=== PATIENT | female | born 1940 | race Caucasian/White ===

== ENCOUNTER → 2016-04-27 | Outpatient (CLI) | payer MEDICARE, OTHER ==
[2016-04-27 13:39] LABS: MEAN CORPUSCULAR HEMOGLOBIN 30.2 pg (27.0-33.0); MEAN CORPUSCULAR HGB CONC 33.1 g/dl (32.0-36.5); MEAN CORPUSCULAR VOLUME 91.4 fl (80.0-96.0); RED CELL DISTRIBUTION WIDTH 13.1 % (11.5-14.5); WHITE BLOOD COUNT 8.5 K/mm3 (4.0-10.0)
[2016-04-27 13:40] LABS: CREATININE FOR GFR 1.9 MG/DL (0.55-1.02); GLOMERULAR FILTRATION RATE 27.3 (>39)
[2016-04-27 13:47] LABS: POTASSIUM SERUM 5.7 MEQ/L (3.5-5.1)
== END ==
LOC: M WUC 09:16
PROVIDERS: ATTEND Family Medicine
DX: D64.9 Anemia, unspecified (principal); E11.3213 Type 2 diabetes mellitus with mild nonproliferative diabetic retinopathy with macular edema, bilateral; E78.5 Hyperlipidemia, unspecified

== ENCOUNTER → 2016-05-04 | Outpatient (CLI) | payer MEDICARE, OTHER ==
[2016-05-04 17:06] LABS: CALCIUM LEVEL 8.8 MG/DL (8.8-10.2); CREATININE FOR GFR 1.92 MG/DL (0.55-1.02)
[2016-05-04 17:09] LABS: POTASSIUM SERUM 5.2 MEQ/L (3.5-5.1)
== END ==
LOC: M WUC 11:54
PROVIDERS: ATTEND Family Medicine
DX: E87.5 Hyperkalemia (principal)

== ENCOUNTER → 2016-05-10 | Outpatient (REF) | payer MEDICARE, OTHER ==
[2016-05-10 19:17] LABS: PERCENT SATURATION 23.5 % (13.2-37.4)
== END ==
LOC: M LAB REF 16:59
PROVIDERS: ATTEND Internal Medicine Nephrology
DX: N18.9 Chronic kidney disease, unspecified (principal); D63.1 Anemia in chronic kidney disease

== ENCOUNTER → 2016-07-17 | Outpatient (CLI) | payer MEDICARE, OTHER ==
--- NOTE | 2016-07-19 13:25 | DEXA ---
AP SPINE L1 - L4 1.213 0.1 1.1 LT FEMUR TOTAL 1.142 1.1 2.4 RT FEMUR TOTAL 0.983 -0.2 1.1 TOTAL BODY TOTAL OTHER DUAL FEMUR FRAX* ASSESSMENT Risk factors: None. 10 year probability of fracture Major osteoporotic fracture 10.1 % Hip fracture 1.7 % COMMENTS: Normal bone densitometry of the spine. Normal bone densitometry of the left hip. There is low bone density of the right hip. The density of the spine has increased 18.0% since the initial exam on 2005. The spine density has increased 4.2% since the most recent exam on 09/01/2010. The density of the left hip has decreased 4.0% since initial exam on 01/30/2006. The density of the left hip has decreased 4.7% since the most recent exam on . The density of the right hip has decreased 7.4% since the initial exam on 2005. The density of the right hip has decreased 7.2% since the most recent exam on . FOLLOW-UP: Recommendation for the next bone density exam: 2 years. NANCIE
== END ==
LOC: M WHC 13:28
PROVIDERS: ATTEND Family Medicine
DX: M81.0 Age-related osteoporosis without current pathological fracture (principal)

== ENCOUNTER 2016-08-09 13:45 | Outpatient (RCR) | payer MEDICARE, OTHER | END 2016-08-13 | LOC: M PT 13:45 | PROVIDERS: ATTEND Orthopaedic Surgery | DX: Z51.89 Encounter for other specified aftercare (principal); M17.9 Osteoarthritis of knee, unspecified | CPT/HCPCS: 97110; 97161; G8978; G8979 ==

== ENCOUNTER → 2016-08-21 | Outpatient (REF) | payer MEDICARE, OTHER | LOC: M LABDRAW1 12:54 | PROVIDERS: ATTEND Family Medicine | DX: E11.319 Type 2 diabetes mellitus with unspecified diabetic retinopathy without macular edema (principal) ==

== ENCOUNTER → 2016-09-04 | Outpatient (CLI) | payer MEDICARE, OTHER ==
--- NOTE | 2016-09-04 11:17 | REP ---
Clinical: Cough . Comparison: None . Technique: PA and lateral. Findings: The mediastinum and cardiac silhouette are normal. The lung quiles are clear and without acute consolidation, effusion, or pneumothorax. The skeletal structures are intact and normal. Impression: 1. No acute cardiopulmonary process. Signed by Daniel Morales MD 09/04/2016 11:08 A
== END ==
LOC: M WUC 10:42
PROVIDERS: ATTEND Family Medicine
DX: R05 Cough (principal)

== ENCOUNTER 2016-09-06 13:32 | Outpatient (RCR) | payer MEDICARE, OTHER | END 2016-09-13 | LOC: M PT 13:32 | PROVIDERS: ATTEND Orthopaedic Surgery | DX: Z51.89 Encounter for other specified aftercare (principal); M25.562 Pain in left knee | CPT/HCPCS: 97110; G8978; G8979 ==

== ENCOUNTER → 2016-11-22 | Outpatient (CLI) | payer MEDICARE, OTHER ==
[~2016-11-22] MED LIST: AMLO5TAB2 PO; ASPI1TAB PO; ATEN50TA2 PO; CALC1CAP31 PO; CHLO25TA PO; CRES10TA32 PO; FERR325T3 PO; GLIP10TA6 PO; IRBE300T10 PO; LABE10TAB PO; LORA10TA2 PO; ONGL10TA3 PO; PIOG15TA3 PO; VITATAB74 PO
== END ==
LOC: M WUC 13:53
PROVIDERS: ATTEND Family Medicine
DX: E11.319 Type 2 diabetes mellitus with unspecified diabetic retinopathy without macular edema (principal)

== ENCOUNTER 2016-12-11 06:43 | Outpatient (CLI) | payer MEDICARE, OTHER ==
[~2016-12-11] VITALS: Ht 154.9 cm; Wt 90.3 kg
[2016-12-11] MEDS ORDERED: PROPOFOL 500 MG/50 ML VIAL As Ordered ONE (07:00)
[2016-12-11] MEDS ORDERED: LIDOCAINE 2% INJ 100 MG/5 ML SDV (FOR ANES.) As Ordered ONE (07:06)
[2016-12-11] MEDS ORDERED: NS 1,000 ML IV ONE (07:30)
--- NOTE | 2016-12-11 07:51 | ROOR ---
Patient Name: Courtney Birmingham Procedure Date: 12/11/2016 7:31 AM Date of : 1940 Age: 76 Room: [facility] Gender: Female Note Status: Finalized Procedure: Upper GI endoscopy + Small bowel bx. Indications: Iron deficiency anemia Providers: Andrea Lr MD Referring MD: Kristyn Martin MD Requesting Provider: Medicines: Monitored Anesthesia Care Complications: No immediate complications. Procedure: Pre-Anesthesia Assessment: - The heart rate, respiratory rate, oxygen saturations, blood pressure, adequacy of pulmonary ventilation, and response to care were monitored throughout the procedure. The Endoscope was introduced through the mouth, and advanced to the second part of duodenum. The upper GI endoscopy was accomplished without difficulty. The patient tolerated the procedure well. Findings: The Z-line was regular and was found 37 cm from the incisors. A small hiatal hernia was present. No other significant abnormalities were identified in a careful examination of the stomach. The exam of the duodenum was otherwise normal. Biopsies for histology were taken with a cold forceps in the first portion of the duodenum for evaluation of celiac disease. Impression: - Z-line regular, 37 cm from the incisors. - Small hiatal hernia. - Biopsies were taken with a cold forceps for evaluation of celiac disease. - The examination was otherwise normal. Recommendation: - Patient has a contact number available for emergencies. The signs and symptoms of potential delayed complications were discussed with the patient. Return to normal activities tomorrow. Written discharge instructions were provided to the patient. - High fiber diet. - Discharge patient to home. - Continue present medications. - Await pathology results. - Telephone GI clinic for pathology results in 1 week. - Return to referring physician. - The findings and recommendations were discussed with the patient's family. Andrea Lr MD Andrea Lr MD 12/11/2016 7:51:09 AM This report has been signed electronically. Number of Addenda: 0 Note Initiated On: 12/11/2016 7:31 AM Estimated Blood Loss: Estimated blood loss: none.
--- NOTE | 2016-12-11 08:07 | ROOR ---
Patient Name: Courtney Birmingham Procedure Date: 12/11/2016 7:32 AM Date of : 1940 Age: 76 Room: [facility] Gender: Female Note Status: Finalized Procedure: Total Colonoscopy to Cecum Indications: Unexplained iron deficiency anemia Providers: Andrea Lr MD Referring MD: Kristyn Martin MD Requesting Provider: Medicines: Monitored Anesthesia Care Complications: No immediate complications. Procedure: Pre-Anesthesia Assessment: - The heart rate, respiratory rate, oxygen saturations, blood pressure, adequacy of pulmonary ventilation, and response to care were monitored throughout the procedure. The Colonoscope was introduced through the anus and advanced to the cecum, identified by appendiceal orifice and ileocecal valve. The colonoscopy was performed without difficulty. The patient tolerated the procedure well. The quality of the bowel preparation was excellent. Findings: The perianal and digital rectal examinations were normal. Non-bleeding internal hemorrhoids were found during retroflexion. The hemorrhoids were small and Grade I (internal hemorrhoids that do not prolapse). Scattered small-mouthed diverticula were found in the recto-sigmoid colon, sigmoid colon and descending colon. The exam was otherwise without abnormality on direct and retroflexion views. Impression: - Non-bleeding internal hemorrhoids. - Diverticulosis in the recto-sigmoid colon, in the sigmoid colon and in the descending colon. - The examination was otherwise normal on direct and retroflexion views. - No specimens collected. - The exam was otherwise normal to the cecum. Recommendation: - Patient has a contact number available for emergencies. The signs and symptoms of potential delayed complications were discussed with the patient. Return to normal activities tomorrow. Written discharge instructions were provided to the patient. - High fiber diet. - Discharge patient to home. - Continue present medications. - Repeat colonoscopy for symptoms only. - Return to referring physician. - The findings and recommendations were discussed with the patient's family. Andrea Lr MD Andrea Lr MD 12/11/2016 8:07:35 AM This report has been signed electronically. Number of Addenda: 0 Note Initiated On: 12/11/2016 7:32 AM Estimated Blood Loss: Estimated blood loss: none.
[2016-12-11 08:36] VITALS: BP 147/65
== END 2016-12-11 08:38 | disposition home or self-care (01) ==
LOC: M OPP 06:43
PROVIDERS: ATTEND Internal Medicine Gastroenterology
DX: D50.9 Iron deficiency anemia, unspecified (principal); K64.0 First degree hemorrhoids; K57.30 Diverticulosis of large intestine without perforation or abscess without bleeding; K44.9 Diaphragmatic hernia without obstruction or gangrene; R00.0 Tachycardia, unspecified; I12.9 Hypertensive chronic kidney disease with stage 1 through stage 4 chronic kidney disease, or unspecified chronic kidney disease; E78.5 Hyperlipidemia, unspecified; E11.9 Type 2 diabetes mellitus without complications; M19.90 Unspecified osteoarthritis, unspecified site; Z78.0 Asymptomatic menopausal state; N18.3 Chronic kidney disease, stage 3 (moderate); Z79.82 Long term (current) use of aspirin; Z79.899 Other long term (current) drug therapy; Z79.84 Long term (current) use of oral hypoglycemic drugs; Z80.0 Family history of malignant neoplasm of digestive organs; Z80.3 Family history of malignant neoplasm of breast

== ENCOUNTER → 2016-12-22 | Outpatient (REF) | payer MEDICARE, OTHER ==
[2016-12-22 14:36] LABS: PERCENT SATURATION 20.1 % (13.2-45.0)
== END ==
LOC: M LAB REF 12:47
PROVIDERS: ATTEND Internal Medicine Nephrology
DX: D64.9 Anemia, unspecified (principal)

== ENCOUNTER → 2017-01-15 | Outpatient (CLI) | payer MEDICARE, OTHER ==
[2017-01-15 16:00] LABS: MEAN CORPUSCULAR HEMOGLOBIN 31.2 pg (27.0-33.0); MEAN CORPUSCULAR HGB CONC 32.5 g/dl (32.0-36.5); MEAN CORPUSCULAR VOLUME 96.1 fl (80.0-96.0); RED CELL DISTRIBUTION WIDTH 12.7 % (11.5-14.5); WHITE BLOOD COUNT 12.3 10^3/uL (4.0-10.0)
== END ==
LOC: M WUC 14:42
PROVIDERS: ATTEND Family Medicine
DX: R53.82 Chronic fatigue, unspecified (principal)

== ENCOUNTER → 2017-01-15 | Outpatient (REF) | payer MEDICARE, OTHER | LOC: M LAB REF 14:46 | PROVIDERS: ATTEND Internal Medicine Endocrinology, Diabetes & Metabolism | DX: E04.0 Nontoxic diffuse goiter (principal) ==

== ENCOUNTER → 2017-08-15 | Outpatient (REF) | payer MEDICARE, OTHER ==
[2017-08-15 20:17] LABS: FERRITIN 88 NG/ML (8-252); IRON (FE) 31 UG/DL (50-170); PERCENT SATURATION 11.9 % (13.2-45.0); TOTAL IRON BINDING CAPACITY 260 UG/DL (250-450); TOTAL PROTEIN 6.9 GM/DL (6.4-8.2)
[2017-08-16 06:41] LABS: URINE TOTAL PROTEIN 29.5 MG/DL (0-12)
[2017-08-16 11:12] LABS: ALBUMIN 3.93 GM/DL (3.29-5.55); ALBUMIN % 56.9 % (55.8-66.1); ALPHA-1-GLOBULIN % 5.8 % (2.9-4.9); ALPHA-2-GLOBULINS 0.97 GM/DL (0.42-0.99); BETA-1-GLOBULINS % 5.8 % (4.7-7.2); BETA-2-GLOBULINS % 4.5 % (3.2-6.5)
[2017-08-16 11:13] LABS: BETA-2-GLOBULINS 0.31 GM/DL (0.19-0.55)
[2017-08-16 13:10] LABS: UPEP INTERPRETATION NO M-SPIKE NOTED; URINE VOLUME RANDOM ML
[2017-08-18 08:30] LABS: FREE LAMBDA LIGHT CHAINS URINE 2.36 mg/L (0.24-6.66); KAPPA/LAMBDA RATIO URINE 10.81 (2.04-10.37)
== END ==
LOC: M LAB REF 17:58
DX: R80.9 Proteinuria, unspecified (principal); D63.1 Anemia in chronic kidney disease
CPT/HCPCS: 83550

== ENCOUNTER → 2017-08-17 | Outpatient (CLI) | payer MEDICARE, OTHER | LOC: M PLARAD 10:07 | DX: M48.062 Spinal stenosis, lumbar region with neurogenic claudication (principal); R93.7 Abnormal findings on diagnostic imaging of other parts of musculoskeletal system; M51.36 Other intervertebral disc degeneration, lumbar region | CPT/HCPCS: 72148 ==

== ENCOUNTER → 2017-08-21 | Outpatient (REF) | payer MEDICARE, OTHER ==
[2017-08-21 18:28] LABS: TOTAL PROTEIN,RANDOM URINE 47.6 MG/DL (0.0-12.0)
== END ==
LOC: M LAB REF 17:25
DX: N18.4 Chronic kidney disease, stage 4 (severe) (principal); R80.9 Proteinuria, unspecified
CPT/HCPCS: 86334

== ENCOUNTER 2017-10-04 07:46 | Outpatient (CLI) | payer MEDICARE, OTHER ==
[2017-10-04] MEDS: IRON SUCROSE 25 MG in NS 50 ML IV (08:09)
[2017-10-04] MEDS: IRON SUCROSE 475 MG in NS 250 ML IV (09:53)
== END 2017-10-04 13:45 | disposition home or self-care (01) ==
LOC: M INFU 07:46
DX: D50.9 Iron deficiency anemia, unspecified (principal); N18.9 Chronic kidney disease, unspecified; I12.9 Hypertensive chronic kidney disease with stage 1 through stage 4 chronic kidney disease, or unspecified chronic kidney disease; K21.9 Gastro-esophageal reflux disease without esophagitis; M12.9 Arthropathy, unspecified; E11.9 Type 2 diabetes mellitus without complications; Z79.84 Long term (current) use of oral hypoglycemic drugs; Z79.82 Long term (current) use of aspirin; Z79.899 Other long term (current) drug therapy; Z86.79 Personal history of other diseases of the circulatory system
CPT/HCPCS: J1756

== ENCOUNTER → 2017-10-09 | Outpatient (CLI) | payer MEDICARE, OTHER | LOC: M RAD 07:11 | DX: R60.0 Localized edema (principal); N18.4 Chronic kidney disease, stage 4 (severe); M79.601 Pain in right arm | CPT/HCPCS: 93971 ==

== ENCOUNTER → 2017-11-06 | Outpatient (CLI) | payer MEDICARE, OTHER | LOC: M WUC 12:31 | DX: M17.11 Unilateral primary osteoarthritis, right knee (principal) | CPT/HCPCS: 73560 ==

== ENCOUNTER → 2018-03-09 | Outpatient (CLI) | payer MEDICARE, OTHER | LOC: M WUC 14:19 | DX: E04.0 Nontoxic diffuse goiter (principal) | CPT/HCPCS: 84443 ==

== ENCOUNTER → 2018-03-26 | Outpatient (REF) | payer MEDICARE, OTHER | LOC: M LAB REF 04-03 15:31 | DX: D50.9 Iron deficiency anemia, unspecified (principal) | CPT/HCPCS: 82270 ==

== ENCOUNTER → 2018-03-28 | Outpatient (REF) | payer MEDICARE, OTHER ==
[2018-03-28 18:30] LABS: FERRITIN 243 NG/ML (8-252); IRON (FE) 42 UG/DL (50-170); PERCENT SATURATION 17.6 % (13.2-45.0); TOTAL IRON BINDING CAPACITY 238 UG/DL (250-450)
[2018-03-28 18:37] LABS: VITAMIN B12 LEVEL 466 PG/ML
[2018-03-28 18:38] LABS: FOLATE 7.1 NG/ML
== END ==
LOC: M LAB REF 17:05
DX: D50.9 Iron deficiency anemia, unspecified (principal)
CPT/HCPCS: 82746

== ENCOUNTER 2018-04-25 07:42 | Outpatient (CLI) | payer MEDICARE, OTHER ==
[~2018-04-25] VITALS: Ht 157.5 cm; Wt 72.3 kg
[~2018-04-25 07:42] MED LIST changes: +ALLO100T PO; +ALLO10TA PO; -AMLO5TAB2 PO; +AMLO5TAB6 PO; +BIOT2500 PO; +BYDU1INJ SC; +HYDR5TAB PO; +LORA-243 PO; -LORA10TA2 PO; +MAGN64TASA PO; -PIOG15TA3 PO; +PIOG1TAB36 PO; +TORS10TA3 PO
[2018-04-25 07:55] VITALS: BP 130/70
[2018-04-25] MEDS ORDERED: IRON SUCROSE 25 MG in NS 50 ML IV ONE (08:00)
[2018-04-25 08:46] VITALS: BP 135/60
[2018-04-25] MEDS ORDERED: IRON SUCROSE 175 MG in NS 250 ML IV ONE (09:00)
[2018-04-25 09:55] VITALS: BP 149/64
[2018-04-25 10:56] VITALS: BP 144/63
[2018-04-25 13:34] VITALS: BP 171/74
[2018-04-25 14:00] VITALS: BP 172/74
== END 2018-04-25 14:00 | disposition home or self-care (01) ==
LOC: M INFU 07:42
PROVIDERS: ATTEND Internal Medicine Nephrology
DX: D50.9 Iron deficiency anemia, unspecified (principal)
CPT/HCPCS: 96365; 96366; J1756

== ENCOUNTER 2018-05-02 07:49 | Outpatient (CLI) | payer MEDICARE, OTHER ==
[~2018-05-02] VITALS: Ht 157.5 cm; Wt 72.3 kg
[2018-05-02 08:00] VITALS: BP 130/58
[2018-05-02] MEDS ORDERED: IRON SUCROSE 175 MG in NS 250 ML IV ONE (08:00)
[2018-05-02] MEDS ORDERED: IRON SUCROSE 25 MG in NS 50 ML IV ONE (08:15)
[2018-05-02 10:45] VITALS: BP 153/70
[2018-05-02 11:45] VITALS: BP 150/68
[2018-05-02 12:40] VITALS: BP 168/70
[2018-05-02 13:40] VITALS: BP 122/70
== END 2018-05-02 13:40 | disposition home or self-care (01) ==
LOC: M INFU 07:49
PROVIDERS: ATTEND Internal Medicine Nephrology
DX: D50.9 Iron deficiency anemia, unspecified (principal); Z79.899 Other long term (current) drug therapy
CPT/HCPCS: 96365; 96366; J1756

== ENCOUNTER → 2018-05-07 | Outpatient (REF) | payer MEDICARE, OTHER | LOC: M LAB REF 13:01 | PROVIDERS: ATTEND Internal Medicine Nephrology | DX: E83.42 Hypomagnesemia (principal) ==

== ENCOUNTER → 2018-05-08 | Outpatient (CLI) | payer MEDICARE, OTHER ==
--- NOTE | 2018-05-08 14:55 | REP ---
Left upper extremity duplex venous ultrasound: History: The patient history of prior right upper extremity venous thrombosis with new left arm pain off of anticoagulation. Findings: The left internal jugular, axillary, brachial, and basilic veins are anechoic and compressible in the left upper extremity. Color flow imaging is homogeneous. Spectral Doppler interrogation is unremarkable. There is however, nonocclusive thrombus in a short segment of the distal cephalic vein just above the antecubital fossa on the left side. There is no other evidence of left upper extremity venous thrombosis. Impression: Short segment of nonocclusive thrombosis in the left distal cephalic vein just above the antecubital fossa. Otherwise negative left upper extremity duplex venous ultrasound. No other evidence of venous thrombosis. Electronically Signed by Ajay Brumfield MD 05/08/2018 02:45 P
== END ==
LOC: M RAD 13:13
PROVIDERS: ATTEND Family Medicine
DX: I82.612 Acute embolism and thrombosis of superficial veins of left upper extremity (principal); M79.622 Pain in left upper arm

== ENCOUNTER → 2018-05-22 | Outpatient (REF) | payer MEDICARE, OTHER ==
[2018-05-22 16:05] LABS: BILIRUBIN,TOTAL 0.3 MG/DL (0.2-1.0); CALCIUM LEVEL 9.2 MG/DL (8.8-10.2); CREATININE FOR GFR 1.94 MG/DL (0.55-1.30); GLOMERULAR FILTRATION RATE 26.5 (>39); POTASSIUM SERUM 4.1 MEQ/L (3.5-5.1)
== END ==
LOC: M SFHCPLAZ 13:57
PROVIDERS: ATTEND Family Medicine
DX: R19.7 Diarrhea, unspecified (principal)
CPT/HCPCS: 36415; 80053; 83690; G0463

== ENCOUNTER → 2018-06-07 | Outpatient (REF) | payer MEDICARE, OTHER | LOC: M SFHCPLAZ 15:47 | PROVIDERS: ATTEND Family Medicine | DX: R19.7 Diarrhea, unspecified (principal) ==

== ENCOUNTER → 2018-11-09 | Outpatient (CLI) | payer MEDICARE, OTHER ==
[~2018-11-09] MED LIST changes: -ASPI1TAB PO; +ASPI81TA26 PO; +CRES10TA PO; -CRES10TA32 PO
[2018-11-09 17:46] LABS: BACTERIA, URINE AUTO NEGATIVE (NEGATIVE); RBC, URINE AUTO 3 /HPF (0-3); SQUAMOUS EPITHELIAL CELL UR AU 0 /HPF (0-6); WBC, URINE AUTO 7 /HPF (0-3)
[2018-11-09 17:47] LABS: APPEARANCE, URINE CLEAR (CLEAR); BILIRUBIN, URINE AUTO NEGATIVE (NEGATIVE); BLOOD, URINE BLOOD NEGATIVE (NEGATIVE); COLOR, URINE STRAW (YELLOW); GLUCOSE, URINE (UA) AUTO NEGATIVE (NEGATIVE); KETONE, URINE AUTO NEGATIVE (NEGATIVE); LEUKOCYTE ESTERASE, URINE AUTO 1+ (NEGATIVE); NITRITE, URINE AUTO NEGATIVE (NEGATIVE); PROTEIN, URINE AUTO 1+ mg/dL (NEGATIVE); SPECIFIC GRAVITY URINE AUTO 1.008 (1.002-1.035); UROBILINOGEN, URINE AUTO 0.2 mg/dL (0.0-2.0)
[2018-11-09 17:59] LABS: ALBUMIN 3.6 GM/DL (3.2-5.2); ALT/SGPT 19 U/L (12-78); BASO # 0.1 10^3/uL (0.0-0.2); BASO % 0.4 % (0.0-1.0); BILIRUBIN,TOTAL 0.3 MG/DL (0.2-1.0); BLOOD UREA NITROGEN 46 MG/DL (7-18); C REACTIVE PROTEIN QUANTITATIV < 0.30 MG/DL (0.00-0.30); CARBON DIOXIDE LEVEL 23 MEQ/L (21-32); CHLORIDE LEVEL 111 MEQ/L (98-107); CREATININE FOR GFR 2.09 MG/DL (0.55-1.30); EOS # 0.5 10^3/uL (0.0-0.50); GLOMERULAR FILTRATION RATE 24.3 (>39); GLUCOSE, FASTING 128 MG/DL (70-100); HEMATOCRIT 31.6 % (36.0-47.0); LYMPH # 3.1 10^3/uL (1.5-4.5); LYMPH % 27.6 % (24.0-44.0); MEAN CORPUSCULAR HEMOGLOBIN 32.2 pg (27.0-33.0); MEAN CORPUSCULAR HGB CONC 31.6 g/dl (32.0-36.5); MEAN CORPUSCULAR VOLUME 101.6 fl (80.0-96.0); MONO # 0.7 10^3/uL (0.0-0.8); MONO % 6.4 % (0.0-5.0); NEUTROPHILS # 6.8 10^3/uL (1.8-7.7); NEUTROPHILS % 61.2 % (36.0-66.0); PLATELET COUNT, AUTOMATED 326 10^3/uL (150-450); POTASSIUM SERUM 4.2 MEQ/L (3.5-5.1); RED BLOOD COUNT 3.11 10^6/uL (4.00-5.40); SODIUM LEVEL 142 MEQ/L (136-145); TOTAL PROTEIN 6.6 GM/DL (6.4-8.2); WHITE BLOOD COUNT 11.2 10^3/uL (4.0-10.0)
[2018-11-09 18:35] LABS: HEMOGLOBIN A1c 7.5 %
[2018-11-09 19:54] LABS: ERYTHROCYTE SEDIMENTATION RATE 42 mm/hr (0-30)
== END ==
LOC: M WUC 09:21
PROVIDERS: ATTEND Family Medicine
DX: R63.4 Abnormal weight loss (principal)

== ENCOUNTER → 2018-12-03 | Outpatient (REF) | payer MEDICARE, OTHER ==
[2018-12-03 16:10] LABS: BASO % 0.3 % (0.0-1.0); EOS # 0.5 10^3/uL (0.0-0.50); EOS % 4.1 % (0.0-3.0); HEMATOCRIT 30.7 % (36.0-47.0); LYMPH # 2.7 10^3/uL (1.5-4.5); LYMPH % 22.8 % (24.0-44.0); MEAN CORPUSCULAR HGB CONC 32.6 g/dl (32.0-36.5); MEAN CORPUSCULAR VOLUME 101.3 fl (80.0-96.0); MONO # 0.7 10^3/uL (0.0-0.8); NEUTROPHILS # 7.9 10^3/uL (1.8-7.7); NEUTROPHILS % 66.4 % (36.0-66.0); PLATELET COUNT, AUTOMATED 295 10^3/uL (150-450); RED BLOOD COUNT 3.03 10^6/uL (4.00-5.40); WHITE BLOOD COUNT 11.9 10^3/uL (4.0-10.0)
== END ==
LOC: M SFHCPLAZ 14:42
PROVIDERS: ATTEND Family Medicine
DX: D72.829 Elevated white blood cell count, unspecified (principal)
CPT/HCPCS: 36415; 85025; G0463

== ENCOUNTER 2019-01-31 17:08 | Inpatient (IN) | payer MEDICARE, OTHER ==
[~2019-01-31] VITALS: Ht 157.5 cm; Wt 72.0 kg
[2019-01-31] MEDS ORDERED: LABETALOL 100 MG TAB PO ONE (18:15)
[2019-01-31 18:19] LABS: ALBUMIN 3.4 GM/DL (3.2-5.2); ALT/SGPT 19 U/L (12-78); BILIRUBIN,DIRECT < 0.1 MG/DL (0.0-0.2); BILIRUBIN,TOTAL 0.2 MG/DL (0.2-1.0); BLOOD UREA NITROGEN 46 MG/DL (7-18); CALCIUM LEVEL 8.7 MG/DL (8.8-10.2); CARBON DIOXIDE LEVEL 26 MEQ/L (21-32); CHLORIDE LEVEL 109 MEQ/L (98-107); CK-MB VALUE MASS 1.6 NG/ML (<3.6); CPK CREATINE PHOSPHOKINASE 93 U/L (26-192); CREATININE FOR GFR 2.05 MG/DL (0.55-1.30); GLOMERULAR FILTRATION RATE 24.9 (>39); GLUCOSE, FASTING 162 MG/DL (70-100); LIPASE 247 U/L (73-393); MB/CK RELATIVE INDEX 1.72 (< OR =4); POTASSIUM SERUM 4.6 MEQ/L (3.5-5.1); SODIUM LEVEL 141 MEQ/L (136-145); TOTAL PROTEIN 6.5 GM/DL (6.4-8.2); TROPONIN I < 0.02 NG/ML (< 0.10)
[2019-01-31 18:21] LABS: BASO % 0.3 % (0.0-1.0); EOS # 0.5 10^3/uL (0.0-0.5); EOS % 5.3 % (0.0-3.0); HEMOGLOBIN 9.7 g/dl (12.0-15.5); LYMPH # 3.3 10^3/uL (1.5-5.0); LYMPH % 33.4 % (24.0-44.0); MEAN CORPUSCULAR HEMOGLOBIN 32.1 pg (27.0-33.0); MEAN CORPUSCULAR HGB CONC 32.3 g/dl (32.0-36.5); MEAN CORPUSCULAR VOLUME 99.3 fl (80.0-96.0); MONO # 0.8 10^3/uL (0.0-0.8); MONO % 8.1 % (0.0-5.0); NEUTROPHILS # 5.2 10^3/uL (1.5-8.5); NEUTROPHILS % 52.7 % (36.0-66.0); PLATELET COUNT, AUTOMATED 295 10^3/uL (150-450); RED BLOOD COUNT 3.02 10^6/uL (4.00-5.40); WHITE BLOOD COUNT 9.8 10^3/uL (4.0-10.0)
[2019-01-31 18:30] LABS: INR 0.99; PROTHROMBIN TIME 12.8 SECONDS (11.8-14.0)
[2019-01-31 18:31] LABS: PARTIAL THROMBOPLASTIN TIME 33.2 SECONDS (25.0-38.4)
[2019-01-31] MEDS ORDERED: **hydrALAZINE HCL** 25 MG TAB PO ONE (19:00)
--- NOTE | 2019-01-31 19:06 | REP ---
Portable chest x-ray: Single view. History: Chest pain. Comparison chest x-ray: September 04, 2016. Findings: Monitoring electrodes overlie the chest. Lungs are well inflated and clear. Heart is not enlarged. Pleural angles are sharp. Pulmonary vasculature is not increased. Impression: No acute disease. Electronically Signed by Ajay Brumfield MD 01/31/2019 06:58 P
[2019-01-31] MEDS ORDERED: HumaLOG INSULIN (NovoLOG) PER UNIT SC SCH (21:00)
[2019-01-31] MEDS ORDERED: GLIP10TA18 PO (22:07)
[2019-01-31] MEDS ORDERED: ALLO10TA PO (22:07)
[2019-01-31] MEDS ORDERED: VITA-183 PO (22:07)
[2019-01-31] MEDS ORDERED: ROSU10TA6 PO (22:07)
[2019-01-31] MEDS ORDERED: TORS20TA2 PO (22:07)
[2019-02-01] MEDS ORDERED: GLUCOSE 4 GM CHEW TABLET PO PRN (00:45)
[2019-02-01] MEDS ORDERED: GLUCAGON FOR INJ 1 MG VIAL (J1610) SC PRN (00:45)
[2019-02-01] MEDS ORDERED: DEXTROSE 50% 50 ML SYRINGE IV PRN (00:45)
[2019-02-01] MEDS ORDERED: MULTIVITAMINS/MINERALS THERAP 1 TAB PO ONE (00:45)
[2019-02-01 02:05] VITALS: BP 218/78
[2019-02-01] MEDS ORDERED: **hydrALAZINE HCL** 25 MG TAB PO ONE (02:45)
[2019-02-01 04:00] VITALS: BP 180/68
[2019-02-01] MEDS: HEPARIN SOD (PORCINE) 5000 UNITS/ML VIAL SC SCH ×2 (06:06→14:45)
--- NOTE | 2019-02-01 07:29 | ECGEPIP ---
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
[2019-02-01] MEDS: HumaLOG INSULIN (NovoLOG) PER UNIT SC SCH ×2 (07:30→12:00)
[2019-02-01 08:00] VITALS: BP 130/58
--- NOTE | 2019-02-01 08:01 | REPVR ---
PROCEDURE INFORMATION: Exam: CT Head Without Contrast Exam date and time: 02/01/2019 7:35 AM Clinical history: 78 years old, female; Other: Hypertensive urgency; Additional info: Hypertensive urgency R/O hemorrhage TECHNIQUE: Imaging protocol: Computed tomography of the head without contrast. Radiation optimization: All CT scans at this facility use at least one of these dose optimization techniques: automated exposure control; mA and/or kV adjustment per patient size (includes targeted exams where dose is matched to clinical indication); or iterative reconstruction. COMPARISON: No relevant prior studies available. FINDINGS: Brain: There is no acute intracranial hemorrhage. There are no extra-axial fluid collections. There is lucency in the cerebral white matter, likely microvascular disease although non-specific. Mcnulty white differentiation is intact. There is no mass effect or midline shift. Ventricles: The ventricles and sulci are enlarged, consistent with age-related volume loss / atrophy. No hydrocephalus. Bones/joints: No acute fracture. Sinuses: Unremarkable as visualized. No acute sinusitis. Mastoid air cells: No significant mastoid effusion. Soft tissues: Unremarkable as visualized. Vasculature: There is vascular calcification. Other findings: No evidence of mass. IMPRESSION: 1. No evidence of acute intracranial abnormality. No evidence of acute infarction, hemorrhage, or mass. 2. Senescent changes. Electronically signed by: Natalie Herron On 02/01/2019 08:01:31 AM
--- NOTE | 2019-02-01 08:55 | HPEPDOC ---
General Date of Admission Feb 01, 2019 at 08:04 Date of Service: Jan 31, 2019 Attending Physician: NEREIDA WEBER MD Chief Complaint The patient is a 78-year-old female admitted with a reason for visit of Hypertensive Urgency. Source: Patient Exam Limitations: No limitations Timing/Duration: Week(s) Severity: Severe History of Present Illness Ms. Birmingham is a pleasant 78 yo woman with a history of hypertension, tachyarrythmia s/p ablation, diabetes mellitus, hyperlipidemia, GERD and CKD who has had ongoing severe hypertension over the last month into SBPs >200 with trial for uptitration per nephrology without much improvement most recently on labetalol 300 BID and was therefore sent to the ED for evaluation of hypertensive urgency by nephrology for optimization. While in the ED, the ED provider spoke with cardiology and they suggested lowering it by 20-25% by addit ion of hydralazine 25 TID and optimize as an outpatient. Given that she lives alone with this long standing issue, nephrology recommended admission. While in the ED, work up revealed a stable normal sinus EKG, negative trop, stable Cr 2.05, CXR without acute pathology with WBC 9.8, stable anemia 9.7/30 and normal LFTs. She was admitted to medicine for blood pressure optimization with goal 25% reduction over the first 25 hours. Home Medications Scheduled Allopurinol (Allopurinol) 100 Mg Tablet, 200 MG PO DAILY, (Reported) Cholecalciferol (Vitamin D3) (Vitamin D3) 1,000 Unit Capsule, 1,000 UNIT PO DAILY, (Reported) Ferrous Sulfate (Ferrous Sulfate) 325 Mg Tab, 325 MG PO Q2D, (Reported) Glipizide (Glipizide ER) 10 Mg Tab.er.24, 10 MG PO BID, (Reported) Labetalol HCl (Labetalol HCl) 100 Mg Tab, 300 MG PO BID, (Reported) Loratadine (Loratadine) 10 Mg Tab, 10 MG PO DAILY, (Reported) Magnesium Chloride (Mag64) 64 Mg Tabcr, 64 MG PO BID, (Reported) Mv-Mn/Iron/Folic Acid/Herb 190 (Vitamin D3 Complete Caplet) 1 Tab Tab, 1 TAB PO 3XW, (Reported) TAKES SUNDAY, SUNDAY AND SUNDAY Rosuvastatin Calcium (Rosuvastatin Calcium) 10 Mg Tablet, 10 MG PO DAILY, (Reported) Saxagliptin HCl (Onglyza) 2.5 Mg Tab, 2.5 MG PO DAILY, (Reported) Torsemide (Torsemide) 20 Mg Tablet, 10 MG PO DAILY, (Reported) ORDERED 20MG DAILY, PATIENT SAID SHE CUTS IT IN HALF Allergies Coded Allergies: No Known Allergies (Unverified , 02/01/19) Past Medical History Medical History DM HTN HLD GERD tachyarrhythmia s/p ablation Social History * Smoker: Denies Alcohol: Denies Drugs: denies Recent Travel/Sick Contacts: Denies: Recent travel, Recent sick contacts Psychosocial History: No pertinent psych hx A-FIB/CHADSVASC A-FIB History Current/History of A-Fib/PAF?: No Current PO Anticoag Therapy: No Age/Risk Factor Scoring CHADSVASC: CHADSVASC Response (Comments) Value Age Risk Factor Age >/= 75 years old 2 Gender Risk Factor Female 1 Hx of CHF No 0 Hx of HTN Yes 1 Hx of Stroke/TIA/or VTE No 0 Hx of Diabetes Yes 1 Hx of Vascular Disease Yes 1 Total 6 Treatment Treatment ordered: NONE Reason Anticoagulant not given: Not indicated/[id number] Review of Systems Constitutional: Denies: Chills, Fever, Night Sweats Eyes: Denies: Pain, Vision change ENT: Denies: Head Aches, Ear Pain, Dysphagia Skin: Denies: Rash, Lesions, Breakdown Pulmonary: Denies: Dyspnea, Cough Cardiovascular: Denies: Chest Pain, Palpitations, Orthopnea, Paroxysmal Noc. Dyspnea, Lt Headedness Gastrointestinal: Denies: Nausea, Vomiting, Abdominal Pain, Diarrhea Genitourinary: Denies: Dysuria, Frequency, Incontinence, Retention Hematologic: Denies: Bruising, Bleeding Excessively Endocrine: Denies: Polydipsia, Polyphagia, Polyuria, Heat Intolerance, Cold Intolerance, Other Endocrine Sx Musculoskeletal: Denies: Neck Pain, Back Pain, Joint Pain, Muscle Pain, Spasms Neurological: Denies: Weakness, Numbness, Change in speech, Confusion Psych: Reports: Mood Normal; Denies: Depression, Memory Issues Physical Examination General Exam: Positive: Alert, No Acute Distress Eye Exam: Positive: PERRLA, Conjunctiva & lids normal, EOMI; Negative: Sclera icteric ENT Exam: Positive: Atraumatic, Mucous membr. moist/pink, Pharynx Normal Neck Exam: Positive: Supple; Negative: JVD, thyromegaly Chest Exam: Positive: Clear to auscultation, Normal air movement Heart Exam: Positive: Rate Normal, Regular Rhythm, Normal S1, Normal S2; Negative: Murmurs, Rubs Abdomen Exam: Positive: Normal bowel sounds, Soft; Negative: Tenderness, Hepatospenomegaly Extremity Exam: Positive: Normal pulses; Negative: Clubbing, Cyanosis, Edema Skin Exam: Positive: Nl turgor and temperature; Negative: Breakdown, Lesion Neuro Exam: Positive: Normal Gait, Normal Speech, Cranial Nerves 3-12 NL, Reflexes 2+ Psych Exam: Positive: Mental status NL, Mood NL, Oriented x 3 Vital Signs Vital Signs Date Time Temp Pulse Resp B/P (MAP) Pulse Ox O2 Delivery O2 Flow Rate FiO2 02/01/19 04:00 98.3 77 16 180/68 (105) 100 Room Air Laboratory Data Labs 24H Laboratory Tests 2 01/31/19 17:37: Immature Granulocyte % (Auto) 0.2, Neutrophils (%) (Auto) 52.7, Lymphocytes (%) (Auto) 33.4, Monocytes (%) (Auto) 8.1H, Eosinophils (%) (Auto) 5.3H, Basophils (%) (Auto) 0.3, Neutrophils # (Auto) 5.2, Lymphocytes # (Auto) 3.3, Monocytes # (Auto) 0.8, Eosinophils # (Auto) 0.5, Basophils # (Auto) 0.0, Nucleated Red Blood Cells % (auto) 0.0, Prothrombin Time 12.8, Prothromb Time International Ratio 0.99, Activated Partial Thromboplast Time 33.2, Anion Gap 6L, Glomerular Filtration Rate 24.9L, Calcium Level 8.7L, Total Bilirubin 0.2, Direct Bilirubin < 0.1, Aspartate Amino Transf (AST/SGOT) 17, Alanine Aminotransferase (ALT/SGPT) 19, Alkaline Phosphatase 158H, Total Creatine Kinase 93, Creatine Kinase MB 1.6, Creatine Kinase MB Relative Index 1.72, Troponin I < 0.02, Total Protein 6.5, Albumin 3.4, Albumin/Globulin Ratio 1.10, Lipase 247, Thyroid Stimulating Hormone (TSH) 4.460H, Free Thyroxine 0.80 02/01/19 01:16: Bedside Glucose (Misc Panel) 160H CBC/BMP Laboratory Tests 01/31/19 17:37 Assessment/Plan 78 yo woman who was admitted with hypertensive urgency of one month with no sign of end organ damage. Hypertensive urgency: -Labetalol 300 BID -hydralazine 25 TID -amlodipine 10 QD -torsemide 10 QD -goal BP over the next 24h is SBP 200 CKD: -nephrology follows outpatient, consult order placed, to call this morning Gout: -allopurinol DM -SSI -hypoglycemia protocol -FSBG AC/HS Hyperlipidemia: -Rosuvastatin Iron sulfate Vit D DVT ppx: heparin 5000u Q8H Diet: consistent carb, made NPO this AM? Plan / VTE VTE Prophylaxis Ordered?: Yes NEREIDA WEBER MD Feb 01, 2019 08:55
[2019-02-01] MEDS ORDERED: LABETALOL 100 MG TAB PO SCH (09:00)
[2019-02-01] MEDS ORDERED: amLODIPine 10 MG TAB PO ONE (09:00)
[2019-02-01] MEDS ORDERED: VITAMIN D 1,000 INTERNATIONAL UNITS TABLET PO SCH (09:00)
[2019-02-01] MEDS ORDERED: ROSUVASTATIN 10 MG TAB (CRESTOR) PO SCH (09:00)
[2019-02-01] MEDS ORDERED: FLUBLOK(EGG FREE)(QUAD)INFLUENZA VACC 0.5ML SYRINGE (90682)18YRS&OLDER IM ONE (09:00)
[2019-02-01] MEDS ORDERED: LORATADINE 10 MG TAB PO SCH (09:00)
[2019-02-01] MEDS ORDERED: TORSEMIDE 10 MG TABLET PO SCH (09:00)
[2019-02-01] MEDS ORDERED: MAGNESIUM CHLORIDE 64 MG TABCR (SLO MAG) PO SCH (09:00)
[2019-02-01] MEDS: **hydrALAZINE HCL** 25 MG TAB PO SCH ×2 (09:00→15:42)
[2019-02-01] MEDS ORDERED: PREVNAR 13 VACCINE SYRINGE (CPT CODE:90670) IM ONE (09:00)
[2019-02-01] MEDS ORDERED: ALLOPURINOL 100 MG TAB PO SCH (09:00)
[2019-02-01 09:42] LABS: BASO % 0.5 % (0.0-1.0); EOS # 0.5 10^3/uL (0.0-0.5); EOS % 6.5 % (0.0-3.0); HEMATOCRIT 28.3 % (36.0-47.0); HEMOGLOBIN 9.3 g/dl (12.0-15.5); LYMPH # 2.2 10^3/uL (1.5-5.0); LYMPH % 27.1 % (24.0-44.0); MEAN CORPUSCULAR HEMOGLOBIN 32.7 pg (27.0-33.0); MEAN CORPUSCULAR HGB CONC 32.9 g/dl (32.0-36.5); MEAN CORPUSCULAR VOLUME 99.6 fl (80.0-96.0); MONO # 0.7 10^3/uL (0.0-0.8); MONO % 8.5 % (0.0-5.0); NEUTROPHILS # 4.7 10^3/uL (1.5-8.5); NEUTROPHILS % 57.2 % (36.0-66.0); PLATELET COUNT, AUTOMATED 256 10^3/uL (150-450); RED BLOOD COUNT 2.84 10^6/uL (4.00-5.40); WHITE BLOOD COUNT 8.2 10^3/uL (4.0-10.0)
[2019-02-01 10:08] LABS: ALT/SGPT 16 U/L (12-78); BILIRUBIN,TOTAL 0.3 MG/DL (0.2-1.0); BLOOD UREA NITROGEN 39 MG/DL (7-18); CALCIUM LEVEL 8.8 MG/DL (8.8-10.2); CARBON DIOXIDE LEVEL 26 MEQ/L (21-32); CHLORIDE LEVEL 110 MEQ/L (98-107); CK-MB VALUE MASS 1.1 NG/ML (<3.6); CPK CREATINE PHOSPHOKINASE 59 U/L (26-192); CREATININE FOR GFR 1.91 MG/DL (0.55-1.30); GLUCOSE, FASTING 172 MG/DL (70-100); MB/CK RELATIVE INDEX 1.86 (< OR =4); POTASSIUM SERUM 4.3 MEQ/L (3.5-5.1); SODIUM LEVEL 142 MEQ/L (136-145); TOTAL PROTEIN 5.9 GM/DL (6.4-8.2); TROPONIN I < 0.02 NG/ML (< 0.10)
[2019-02-01 10:58] VITALS: BP 142/70
--- NOTE | 2019-02-01 12:18 | CR.PDOC ---
General Date of Consultation: Feb 01, 2019 Attending Physician: BARRETT MAGANA MD Consultation REASON FOR CONSULTATION/CHIEF COMPLAINT: Hypertensive urgency with CKD HISTORY OF PRESENT ILLNESS: Courtney Birmingham is a 78 YO F with history of CKDIV, DM2 and HTN who presented from the nephrology clinic with hypertensive urgency. In the office, her BP was found to be 250/95. She reports that she has been taking all of her anti-hypertensive medications as prescribed. At the time, she denied any headache, vision changes, lightheadedness or dizziness. She was sent to the ED for hypertensive urgency. Per the patient, she has been having many issues with hypertension over the last month and she has been working with her baker Dr. Magana to optimize her medication regimen. ALLERGIES: Please see below. HOME MEDICATIONS: Please see below. PAST MEDICAL HISTORY: Diabetes mellitus Type 2. Hyperlipidemia. Hypertension Anemia of chronic kidney disease and iron deficiency. History of tachycardia resolved with ablation in 2000. Knee osteoarthritis - SOS. Actinic Keratoses - Follows with [facility] in [place]. CKD stage 4 Nonproliferative diabetic retinopathy. Asymptomatic hyperuricemia. Secondary hyperparathyroidism. Lumbar spinal stenosis. SVT of right upper arm s/p IV iron infusion - 09/2017, treated with Eliquis x 6 weeks. SVT of left upper arm s/p IV iron infusion 04/2018. PAST SURGICAL HISTORY: T & A 1963 Ablation, heart 12/2000 Cardiac catheterization 2006 Colonoscopy - IH, diverticulosis; Be; repeat only for symptoms 11/2016 FAMILY HISTORY: Father: 67 yrs, previous stroke, unknown etiology of Mother: 97 yrs, HTN, angina Siblings: alive 73 yrs, Sister with breast cancer, lumpectomy and radiation, dx early 60's. Her daughter (pt's niece) breast cancer, dx 30's, now alive at 42 and doing well, lumpectomy, chemo. One brother killed in [place]. Two other sisters and one other brother alive and well 2 brother(s) , 3 sister(s) . 2 son(s) - healthy. SOCIAL HISTORY: nonsmoker denies alcohol REVIEW OF SYSTEMS: CONSTITUTIONAL: Feels well. Denies fevers/chills HEENT: denies vision changes, no sinus problems, denies any trouble swallowing CARDIOVASCULAR: No palpitations reported RESPIRATORY: Denies SOB, dyspnea GENITOURINARY: No dysuria MUSCULOSKELETAL: Denies any joint/muscle pain GASTROINTESTINAL: Denies nausea and diarrhea SKIN: No new rashes or lesions NEUROLOGICAL: No loss of sensation PSYCHIATRIC: Reports normal mood/affect ENDOCRINE: No hot/cold intolerance HEMATOLOGIC/LYMPHATIC: No easy bruising, no lumps/bumps ALLERGIC/IMMUNOLOGIC: No sinus symptoms PHYSICAL EXAMINATION: VITAL SIGNS: Please see below. GENERAL APPEARANCE: Sitting on the edge of the bed, appears stated age, no acute distress HEENT: EOMI, PERRLA, neck is supple with no thyromegaly or lymphadenopathy RESPIRATORY: clear to auscultation bilaterally without any other adventitious breath sounds CARDIOVASCULAR: JVD somewhat elevated, RRR without murmurs/rubs/gallops ABDOMEN: Soft, nontender to palpation, no masses/organomegaly EXTREMITIES: No clubbing/cyanosis/edema NEUROLOGICAL: No obvious focal deficits PSYCHIATRIC: normal mood/affect LABORATORY DATA: Please see below. ASSESSMENT/PLAN: Courtney Birmingham is a 78 YO F with history of CKDIV and HTN found to have hypertensive urgency with BP >220/90 but no evidence of end-organ damage 1. Hypertensive urgency: BP has come down to 142/70 today -Continue Amlodipine 10mg QD, Hydralazine 25mg PO TID, Labetalol 300mg BID 2. CKD IV: Cr stable at 1.91, GFR 27 -Continue Magnesium supplementation -Continue Allopurinol, Vitamin D 3. DM2: -SSI with hypoglycemic protocol 4. Anemia of CKD: -Continue oral Iron supplementation DISPO: Pending improvement in BP. Will continue to monitor closely. Vital Signs/I&O Vital Signs Date Time Temp Pulse Resp B/P (MAP) Pulse Ox O2 Delivery O2 Flow Rate FiO2 02/01/19 10:58 98.0 73 20 142/70 (94) 96 Room Air I&O- Last 24 Hours up to 6 AM 02/01/19 05:59 Intake Total 0 ml Output Total 0 ml Balance 0 ml Laboratory Data Labs 24H Laboratory Tests 2 01/31/19 17:37: Immature Granulocyte % (Auto) 0.2, Neutrophils (%) (Auto) 52.7, Lymphocytes (%) (Auto) 33.4, Monocytes (%) (Auto) 8.1H, Eosinophils (%) (Auto) 5.3H, Basophils (%) (Auto) 0.3, Neutrophils # (Auto) 5.2, Lymphocytes # (Auto) 3.3, Monocytes # (Auto) 0.8, Eosinophils # (Auto) 0.5, Basophils # (Auto) 0.0, Nucleated Red Blood Cells % (auto) 0.0, Prothrombin Time 12.8, Prothromb Time International Ratio 0.99, Activated Partial Thromboplast Time 33.2, Anion Gap 6L, Glomerular Filtration Rate 24.9L, Calcium Level 8.7L, Total Bilirubin 0.2, Direct Bilirubin < 0.1, Aspartate Amino Transf (AST/SGOT) 17, Alanine Aminotransferase (ALT/SGPT) 19, Alkaline Phosphatase 158H, Total Creatine Kinase 93, Creatine Kinase MB 1.6, Creatine Kinase MB Relative Index 1.72, Troponin I < 0.02, Total Protein 6.5, Albumin 3.4, Albumin/Globulin Ratio 1.10, Lipase 247, Thyroid Stimulating Hormone (TSH) 4.460H, Free Thyroxine 0.80 02/01/19 01:16: Bedside Glucose (Misc Panel) 160H 02/01/19 09:27: Immature Granulocyte % (Auto) 0.2, Neutrophils (%) (Auto) 57.2, Lymphocytes (%) (Auto) 27.1, Monocytes (%) (Auto) 8.5H, Eosinophils (%) (Auto) 6.5H, Basophils (%) (Auto) 0.5, Neutrophils # (Auto) 4.7, Lymphocytes # (Auto) 2.2, Monocytes # (Auto) 0.7, Eosinophils # (Auto) 0.5, Basophils # (Auto) 0.0, Nucleated Red Blood Cells % (auto) 0.0, Anion Gap 6L, Glomerular Filtration Rate 27.0L, Calcium Level 8.8, Total Bilirubin 0.3, Aspartate Amino Transf (AST/SGOT) 12, Alanine Aminotransferase (ALT/SGPT) 16, Alkaline Phosphatase 113, Total Creatine Kinase 59, Creatine Kinase MB 1.1, Creatine Kinase MB Relative Index 1.86, Troponin I < 0.02, Total Protein 5.9L, Albumin 3.0L, Albumin/Globulin Ratio 1.03 02/01/19 11:02: Bedside Glucose (Misc Panel) 129H CBC/BMP Laboratory Tests 01/31/19 17:37 02/01/19 09:27 Allergies Coded Allergies: No Known Allergies (Unverified , 02/01/19) Home Medications Scheduled Allopurinol (Allopurinol) 100 Mg Tablet, 200 MG PO DAILY, (Reported) Amlodipine Besylate (Amlodipine Besylate) 10 Mg Tablet, 10 MG PO DAILY for 30 Days, #30 Cholecalciferol (Vitamin D3) (Vitamin D3) 1,000 Unit Capsule, 1,000 UNIT PO DAILY, (Reported) Ferrous Sulfate (Ferrous Sulfate) 325 Mg Tab, 325 MG PO Q2D, (Reported) Glipizide (Glipizide ER) 10 Mg Tab.er.24, 10 MG PO BID, (Reported) Hydralazine HCl (Hydralazine HCl) 25 Mg Tablet, 25 MG PO TID for 30 Days, #90 Labetalol HCl (Labetalol HCl) 100 Mg Tab, 300 MG PO BID, (Reported) Loratadine (Loratadine) 10 Mg Tab, 10 MG PO DAILY, (Reported) Magnesium Chloride (Mag64) 64 Mg Tabcr, 64 MG PO BID, (Reported) Mv-Mn/Iron/Folic Acid/Herb 190 (Vitamin D3 Complete Caplet) 1 Tab Tab, 1 TAB PO 3XW, (Reported) TAKES SUNDAY, SUNDAY AND SUNDAY Rosuvastatin Calcium (Rosuvastatin Calcium) 10 Mg Tablet, 10 MG PO DAILY, (Reported) Saxagliptin HCl (Onglyza) 2.5 Mg Tab, 2.5 MG PO DAILY, (Reported) Torsemide (Torsemide) 20 Mg Tablet, 10 MG PO DAILY, (Reported) ORDERED 20MG DAILY, PATIENT SAID SHE CUTS IT IN HALF GME ATTESTATION GME ATTESTATION My faculty preceptor for this patient encounter was physically present during the encounter and was fully available. All aspects of the patient interview, examination, medical decision making process, and medical care plan development were reviewed and approved by the faculty preceptor. The faculty preceptor is aware and concurs with the plan as stated in the body of this note and will attest to such by his/her cosignature. ATTENDING NOTE Pt was seen and examined with the resident today AM Assessment: Hypertensive Urgency CKD4 sec to diabetic nephropathy DM Type2 Plan: Labetalol,Hydralazine and Amlodipine Watch for LE edema since pt had edema and wt gain with these meds as outpatient. She is intolerant of multiple meds as outpatient. CKD4 stable at baseline DM controlled. Not a candidate for ERIK/ARB due to CKD4. FAREED COSTELLO MD Feb 01, 2019 12:17 BARRETT MAGANA MD Feb 01, 2019 21:17
[2019-02-01] MEDS ORDERED: HYDR25TA PO (13:52)
[2019-02-01] MEDS ORDERED: AMLO10TA5 PO (13:52)
[2019-02-01 14:00] VITALS: BP 164/64
[2019-02-01 15:42] VITALS: BP 156/64
--- NOTE | 2019-02-02 06:33 | REP ---
Urinary tract sonogram: Renal artery Doppler flow study: History: Hypertensive urgency. Comparison: Comparison CT study November 04, 2018. Morphologic Findings: Scanning at the level of the urinary bladder shows no abnormality. Renal cortical echogenicity pattern is normal bilaterally and contours are smooth. There is no evidence of hydronephrosis, cyst, mass, or calculus in either kidney. The right kidney measures 8.9 x 5.3 x 5.2 cm. Left renal dimensions are 8.9 x 5.0 x 4.9 cm. Impression: Normal urinary tract sonography. Doppler findings: Peak systolic flow velocity in the abdominal aorta at the level of the main renal arteries is normal at 108 cm/sec. Peak systolic flow velocity in the right main renal artery is recorded at 110 cm/sec and that in the left main renal artery is recorded at 130 cm/sec. Renal to aortic flow velocity ratios are therefore normal at 0.9 on the right and 1.2 on the left. Resistive indices and acceleration times are measured in the upper, mid, and lower pole intralobar arteries of each kidney and these values are normal bilaterally. Impression: There is no evidence of renal artery stenosis. Electronically Signed by Ajay Brumfield MD 02/02/2019 08:32 A
[2019-02-02] MEDS ORDERED: amLODIPine 10 MG TAB PO SCH (09:00)
[2019-02-02] MEDS ORDERED: FERROUS SULFATE 325MG TAB PO SCH (09:00)
--- NOTE | 2019-02-03 10:33 | DSES ---
DATE OF ADMISSION: 02/01/2019 DATE OF DISCHARGE: 02/01/2019 PRIMARY DISCHARGE DIAGNOSIS: Hypertensive urgency with presenting blood pressure of 227/93, chronic anemia, acute on chronic renal failure stage IV, baseline creatinine of 1.9 May of 2018, type 2 diabetes, hyperlipidemia, hypertension, anemia of chronic disease, iron-deficiency, diabetic retinopathy, secondary hyperparathyroidism, lumbar stenosis, superficial renal thrombosis right upper arm status post intravenous (IV) infusion treated with Eliquis. DISCHARGE MEDICATIONS: - Norvasc 10 mg daily - hydralazine 25 mg three times a day - labetalol 300 mg twice a day - torsemide 10 mg daily - vitamin D 1000 units daily - multivitamin one tablet daily - Crestor 10 mg daily - magnesium oxide 64 mg twice a day - allopurinol 200 mg daily - ferrous sulfate 325 mg every 48 hours COMPLIANCE REVIEW OFFICER DURING THIS ADMISSION: Dr. Magana, intelligence group supervisor HOSPITAL COURSE: A 78-year-old female who presented to the emergency room due to uncontrolled blood pressure, systolic pressure over 200. Monitored by nephrology. The patient was started on hydralazine 25 mg three times a day and labetalol 300 twice a day. Creatinine was stable at 2.05. Chest x-ray showed no pulmonary edema. CT of the head showed no intracranial hemorrhage. The patient was stable on labetalol 300 twice a day, hydralazine 25 three times a day, Norvasc 10 daily with improvement in blood pressure to 142/70, saturating well at 96% on room air. No signs of fluid overload. The patient was adamant about being released from the hospital and states that she has been very stressed out at home, as her son had suddenly of unknown causes back in October. He had lived with her at home, and she has been very stressed out about the event. She denies using excess salt but states that she does have lunch with her friends about four times a week and may have imbibed in increased salt intake. Renal ultrasound was performed to rule out renal artery stenosis, the result of which is still pending. Previous renal ultrasound 06/23/2015 showed no sonographic evidence of renal artery stenosis. DISCHARGE LABORATORIES: White count 8.2, hemoglobin 9.3, hematocrit 28, platelet count 256. Sodium 142, potassium 4.3, chloride 110, bicarbonate 26, BUN 39, creatinine 1.9, glucose of 172. IMAGING STUDIES: Chest x-ray 01/31/2019: No acute disease. CT of the head: No acute intracranial abnormality. TIME SPENT ON DISCHARGE: 30 minutes.
== END 2019-02-01 18:05 | disposition home or self-care (01) | DRG 305 ==
LOC: M ED 17:08 → M ED INP 17:09 → M PCU 02-01 01:59 → OBSVTOIN 02-01 08:04 → M MSPAV 02-01 11:00
PROVIDERS: ADMIT Internal Medicine; ATTEND General Practice
DX: I16.0 Hypertensive urgency (principal); N18.4 Chronic kidney disease, stage 4 (severe); N25.81 Secondary hyperparathyroidism of renal origin; I12.9 Hypertensive chronic kidney disease with stage 1 through stage 4 chronic kidney disease, or unspecified chronic kidney disease; E11.22 Type 2 diabetes mellitus with diabetic chronic kidney disease; E78.5 Hyperlipidemia, unspecified; K21.9 Gastro-esophageal reflux disease without esophagitis; M10.9 Gout, unspecified; E55.9 Vitamin D deficiency, unspecified; D63.1 Anemia in chronic kidney disease; L57.0 Actinic keratosis; E11.319 Type 2 diabetes mellitus with unspecified diabetic retinopathy without macular edema; M48.061 Spinal stenosis, lumbar region without neurogenic claudication; Z79.84 Long term (current) use of oral hypoglycemic drugs; Z79.899 Other long term (current) drug therapy

== ENCOUNTER → 2019-02-07 | Outpatient (REF) | payer MEDICARE, OTHER ==
[~2019-02-07] MED LIST changes: +AMLO10TA5 PO; +GLIP10TA18 PO; +HYDR-3910 PO; +HYDR25TA PO; +ROSU10TA6 PO; +TORS20TA2 PO; +VITA-183 PO
[2019-02-07 13:16] LABS: PERCENT SATURATION 29.3 % (13.2-45.0)
== END ==
LOC: M LAB REF 12:48
PROVIDERS: ATTEND Internal Medicine Nephrology
DX: D64.9 Anemia, unspecified (principal)
CPT/HCPCS: 82728; 83550; 90682; 99496; G0008; G0463

== ENCOUNTER 2019-03-02 17:03 | Inpatient (IN) | payer MEDICARE, OTHER ==
[~2019-03-02] VITALS: Ht 157.5 cm; Wt 73.4 kg
[~2019-03-02 17:03] MED LIST changes: -HYDR-3910 PO
[2019-03-02] MEDS ORDERED: METOPROLOL TART 50 MG TAB PO ONE ×2 (18:00→18:30)
[2019-03-02] MEDS: METOPROLOL 5 MG/5 ML VIAL IV SCH ×3 (18:00→18:10)
[2019-03-02] MEDS ORDERED: ACETAMINOPHEN TAB 650MG DOSE (2X325MG) PO ONE (18:00)
[2019-03-02 18:20] LABS: BASO % 0.3 % (0.0-1.0); EOS # 0.1 10^3/uL (0.0-0.5); EOS % 0.6 % (0.0-3.0); HEMATOCRIT 29.4 % (36.0-47.0); HEMOGLOBIN 9.4 g/dl (12.0-15.5); LYMPH # 0.9 10^3/uL (1.5-5.0); LYMPH % 7.6 % (24.0-44.0); MEAN CORPUSCULAR HEMOGLOBIN 32.2 pg (27.0-33.0); MEAN CORPUSCULAR VOLUME 100.7 fl (80.0-96.0); MONO # 0.5 10^3/uL (0.0-0.8); MONO % 4.3 % (0.0-5.0); NEUTROPHILS # 9.8 10^3/uL (1.5-8.5); NEUTROPHILS % 86.8 % (36.0-66.0); PLATELET COUNT, AUTOMATED 262 10^3/uL (150-450); RED BLOOD COUNT 2.92 10^6/uL (4.00-5.40); WHITE BLOOD COUNT 11.2 10^3/uL (4.0-10.0)
[2019-03-02 18:32] LABS: INR 1.02; PROTHROMBIN TIME 13.1 SECONDS (11.8-14.0)
[2019-03-02 18:33] LABS: PARTIAL THROMBOPLASTIN TIME 34.3 SECONDS (25.0-38.4)
[2019-03-02 18:44] LABS: BLOOD UREA NITROGEN 48 MG/DL (7-18); CARBON DIOXIDE LEVEL 23 MEQ/L (21-32); CHLORIDE LEVEL 108 MEQ/L (98-107); CK-MB VALUE MASS 1.8 NG/ML (<3.6); CPK CREATINE PHOSPHOKINASE 72 U/L (26-192); CREATININE FOR GFR 2.12 MG/DL (0.55-1.30); GLOMERULAR FILTRATION RATE 23.9 (>39); GLUCOSE, FASTING 189 MG/DL (70-100); POTASSIUM SERUM 4.3 MEQ/L (3.5-5.1); SODIUM LEVEL 138 MEQ/L (136-145); TROPONIN I < 0.02 NG/ML (< 0.10)
[2019-03-02] MEDS ORDERED: APIXABAN 2.5 MG TAB (ELIQUIS) PO ONE (19:00)
[2019-03-02] MEDS ORDERED: AMLO10TA5 PO (19:04)
[2019-03-02] MEDS ORDERED: HYDR-3910 PO (19:04)
[2019-03-02] MEDS ORDERED: CALC1CAP31 PO (19:04)
--- NOTE | 2019-03-02 19:13 | HPEPDOC ---
[facility] Medical History & Physical Date of Admission Mar 02, 2019 Date of Service: Mar 02, 2019 Primary Care Physician: MODESTA COHN MD Attending Physician: XIOMARA CONN MD History and Physical TIME OF SERVICE: 7:45 PM CHIEF COMPLAINT: High blood pressure. HISTORY OF PRESENT ILLNESS: This is a 78-year-old female who presented to the ER because her blood pressure was high. Her friend checked her blood pressure because she had been feeling weak and tired most of the day. Additionally, she noticed that her feet and legs have been more swollen. She denied having chest pain, denied having shortness of breath, nausea, denied having vomiting, but had 5 episodes of diarrhea associated with transient abdominal cramps, and fevers without chills. She was last admitted on January 31 for management of hypertensive urgency. Per discussion with the ED provider she was diagnosed with new onset A. fib and started on Elquis & metoprolol tartrate. REVIEW OF SYSTEMS: 12 point review of systems negative except as listed in HPI PAST MEDICAL/ SURGICAL HISTORY: Chronic hypertension Gout. [id number] diabetes. Unspecified tachyarrhythmia, status post ablation CKD 4 w Anemia of Chronic Dz and Secondary Hyperparathyroidism She denies having a personal history of coronary artery disease or stroke FAMILY HISTORY: Colon cancer ALLERGIES: Please see below. HOME MEDICATIONS: Please see below. PHYSICAL EXAMINATION: VITAL SIGNS: Please see below. GENERAL APPEARANCE: well-nourished, well-developed, not in apparent distress HEENT: normocephalic, atraumatic, mucous members moist and pink. Lips acyanotic CARDIOVASCULAR: regular rate and rhythm. No murmurs, rubs or gallops LUNGS: She is not coughing. She is not using accessory muscles. There is equal air entry bilaterally, the lungs are clear to auscultation ABDOMEN: Abdomen is soft and nontender on palpation Bowel sounds are present. MUSCULOSKELETAL: Range of motion is intact in all 4 extremities. There is trace bilateral pitting edema INTEGUMENT: She does not appear pale or flushed NEUROLOGICAL: Cranial nerves II-12 grossly intact. Speech is not dysarthric PSYCHIATRIC: She is alert and oriented and able to understand and follow all commands LABORATORY DATA: See below. IMAGING: Chest x-ray appears unremarkable but the final read is pending MICROBIOLOGY: Please see below. ASSESSMENT: Ms. Birmingham is a 78-year-old female with a past medical history of diabetes, chronic hypertension, gout, and GERD who will be admitted for management of new onset A. fib with RVR. PLAN: 1. New onset Atrial Fibrillation It is unclear at this time what triggered the A. fib as her troponin, and calci um are within normal limits [id number] Score to determine risk of stroke = 5 points Plan: admit to PCU / telemetry / f/u Mag, D-dimer, TSH, serial trops, BNP and Echo to r/o valvulopathy / c/w Metoprolol Tartrate and apixaban (dose adjusted for renal impairment) / if a cause of the afib is not found she may need an outpatient sleep study 2. SIRS vs Sepsis Possibly 2/2 gastroenteritis as she c/o of diarrhea this morning vs reactive due to rapid A. fib SIRS criterial include HR >90 / RR 20 Her T was only 100.9 Qsofa score =1 not high risk Lactic acid = 1 She did not receive IV fluids or antibiotics because a bacterial infection is unlikely. Plan: f/u blood cx, UA w Cx & final chest x-ray report 3. Hypertensive Urgency She denied having CP or dyspnea & her Cr is 2.12 which is close to her baseline of 2.09 Her blood pressure was 200/81 on arrival and decreased to 176/92 after she received IV and PO metoprolol Plan: low salt diet / c/w amlodipine 10mg daily , increase hydralazine from 25 to 50mg TID, stop labetalol bc we started metoprolol tartrate 50mg BID for co- existing afib & c/w torsemide 20mg daily / recommend cardiovascular exercise 4- 5 days a week as regular exercise has been show to lower blood pressure 4. Acute Gout ? She is c/o that her toe hurts Plan: c/w home med / f/u uric acid / add prednisone PO 5.Weakness/Deconditioning Likely due to rapid afib Plan: consult PT to prevent debility as was recently hospitalized 6.CKD 4 Complications include Anemia of Chronic Dz and Secondary Hyperparathyroidism Her Cr is close to her baseline Plan:Is/ Os & daily weights / low salt diet / f/u BMP anticipate Cr will trend up tomorrow bc of acute elevation in BP / c/w Calcitriol 7 NIDDM Her A1c was 7.5 in October Plan: diabetic diet / f/u accuchecks & A1C / hypoglycemia protocol / sliding scale insulin / hold oral anti-glycemics while acutely ill DVT prophylaxis with apixaban Disposition likely home after more than 12 midnight stay Vital Signs Vital Signs Date Time Temp Pulse Resp B/P (MAP) Pulse Ox O2 Delivery O2 Flow Rate FiO2 03/02/19 19:00 77 178/77 (110) 99 Room Air 03/02/19 18:32 19 03/02/19 17:18 100.9 Laboratory Data Labs 24H Laboratory Tests 2 03/02/19 17:55: Immature Granulocyte % (Auto) 0.4, Neutrophils (%) (Auto) 86.8H, Lymphocytes (%) (Auto) 7.6L, Monocytes (%) (Auto) 4.3, Eosinophils (%) (Auto) 0.6, Basophils (%) (Auto) 0.3, Neutrophils # (Auto) 9.8H, Lymphocytes # (Auto) 0.9L, Monocytes # (Auto) 0.5, Eosinophils # (Auto) 0.1, Basophils # (Auto) 0.0, Nucleated Red Blood Cells % (auto) 0.0, Prothrombin Time 13.1, Prothromb Time International Ratio 1.02, Activated Partial Thromboplast Time 34.3, Anion Gap 7L, Glomerular Filtration Rate 23.9L, Lactic Acid Level 1.1, Calcium Level 9.0, Total Creatine Kinase 72, Creatine Kinase MB 1.8, Creatine Kinase MB Relative Index 2.50, Troponin I < 0.02 03/02/19 18:41: CBC/BMP Laboratory Tests 03/02/19 17:55 Microbiology Microbiology 03/02/19 Blood Culture, Received Pending Home Medications Scheduled Allopurinol (Allopurinol) 100 Mg Tablet, 200 MG PO DAILY Amlodipine Besylate (Amlodipine Besylate) 10 Mg Tablet, 10 MG PO DAILY Calcitriol (Calcitriol) 0.25 Mcg Capsule, 0.25 MCG PO 3XW MON, WED, FRI Cholecalciferol (Vitamin D3) (Vitamin D3) 1,000 Unit Capsule, 1,000 UNIT PO DAILY Ferrous Sulfate (Ferrous Sulfate) 325 Mg Tab, 325 MG PO Q2D Glipizide (Glipizide ER) 10 Mg Tab.er.24, 10 MG PO BID Hydralazine HCl (Hydralazine HCl) 25 Mg Tablet, 25 MG PO TID Labetalol HCl (Labetalol HCl) 100 Mg Tab, 300 MG PO BID Loratadine (Loratadine) 10 Mg Tab, 10 MG PO DAILY Magnesium Chloride (Mag64) 64 Mg Tabcr, 64 MG PO BID Mv-Mn/Iron/Folic Acid/Herb 190 (Vitamin D3 Complete [place]) 1 Tab Tab, 1 TAB PO 3XW TAKES SUNDAY, SUNDAY AND SUNDAY Rosuvastatin Calcium (Rosuvastatin Calcium) 10 Mg Tablet, 10 MG PO 4XWK SUN, , , SAT Saxagliptin HCl (Onglyza) 2.5 Mg Tab, 2.5 MG PO DAILY Torsemide (Torsemide) 20 Mg Tablet, 10 MG PO DAILY ORDERED 20MG DAILY, PATIENT SAID SHE CUTS IT IN HALF Allergies Coded Allergies: No Known Allergies (Unverified , 02/01/19) A-FIB/CHADSVASC A-FIB History Current/History of A-Fib/PAF?: Yes Current PO Anticoag Therapy: Yes Age/Risk Factor Scoring CHADSVASC: CHADSVASC Response (Comments) Value Age Risk Factor Age >/= 75 years old 2 Gender Risk Factor Female 1 Hx of CHF No 0 Hx of HTN Yes 1 Hx of Stroke/TIA/or VTE No 0 Hx of Diabetes Yes 1 Hx of Vascular Disease No 0 Total 5 Treatment Treatment ordered: Rivaroxaban XIOMARA CONN MD Mar 02, 2019 19:13
[2019-03-02] MEDS ORDERED: ACETAMINOPHEN TAB 650MG DOSE (2X325MG) PO PRN (19:15)
[2019-03-02 19:19] LABS: INFLUENZA A AMPLIFICATION NEGATIVE (NEGATIVE); INFLUENZA B AMPLIFICATION NEGATIVE (NEGATIVE)
[2019-03-02] MEDS: HumaLOG INSULIN (NovoLOG) PER UNIT SC SCH (21:00)
[2019-03-02] MEDS ORDERED: GLUCAGON FOR INJ 1 MG VIAL (J1610) SC PRN (21:30)
[2019-03-02] MEDS ORDERED: GLUCOSE 4 GM CHEW TABLET PO PRN (21:30)
[2019-03-02] MEDS ORDERED: DEXTROSE 50% 50 ML SYRINGE IV PRN (21:30)
[2019-03-02 22:27] LABS: MAGNESIUM LEVEL 1.4 MG/DL (1.8-2.4); NT-PRO BNP 2525 PG/ML (<450); URIC ACID 5.4 MG/DL (2.6-6.0)
[2019-03-02 22:44] LABS: D-DIMER QUANT > 4000 ng/ml (<500)
[2019-03-03] VITALS (9 sets, daily range): BP systolic 64–198; BP diastolic 76–104
[2019-03-03] MEDS: HumaLOG INSULIN (NovoLOG) PER UNIT SC SCH ×5 (07:30→21:00)
[2019-03-03 07:37] LABS: HEMATOCRIT 26.7 % (36.0-47.0); HEMOGLOBIN 8.7 g/dl (12.0-15.5); MEAN CORPUSCULAR HEMOGLOBIN 32.6 pg (27.0-33.0); MEAN CORPUSCULAR HGB CONC 32.6 g/dl (32.0-36.5); PLATELET COUNT, AUTOMATED 258 10^3/uL (150-450); RED BLOOD COUNT 2.67 10^6/uL (4.00-5.40); WHITE BLOOD COUNT 8.8 10^3/uL (4.0-10.0)
[2019-03-03 08:06] LABS: BLOOD UREA NITROGEN 44 MG/DL (7-18); CALCIUM LEVEL 8.5 MG/DL (8.8-10.2); CARBON DIOXIDE LEVEL 24 MEQ/L (21-32); CHLORIDE LEVEL 108 MEQ/L (98-107); CREATININE FOR GFR 1.98 MG/DL (0.55-1.30); GLOMERULAR FILTRATION RATE 25.9 (>39); GLUCOSE, FASTING 105 MG/DL (70-100); MAGNESIUM LEVEL 1.4 MG/DL (1.8-2.4); POTASSIUM SERUM 3.9 MEQ/L (3.5-5.1); SODIUM LEVEL 141 MEQ/L (136-145); TROPONIN I < 0.02 NG/ML (< 0.10)
[2019-03-03] MEDS: FERROUS SULFATE 325MG TAB PO SCH (08:08)
[2019-03-03] MEDS: VITAMIN D 1,000 INTERNATIONAL UNITS TABLET PO SCH (08:08)
[2019-03-03] MEDS: APIXABAN 5 MG TAB (ELIQUIS) PO SCH ×2 (08:08→21:07)
[2019-03-03] MEDS: LORATADINE 10 MG TAB PO SCH (08:08)
[2019-03-03] MEDS: ALLOPURINOL 100 MG TAB PO SCH (08:09)
[2019-03-03] MEDS: ROSUVASTATIN 10 MG TAB (CRESTOR) PO SCH (08:09)
[2019-03-03] MEDS: predniSONE 10 MG TAB PO SCH (08:09)
[2019-03-03] MEDS: amLODIPine 10 MG TAB PO SCH (08:09)
[2019-03-03] MEDS: **hydrALAZINE** 50 MG TAB PO SCH ×3 (08:12→21:07)
[2019-03-03] MEDS: MAGNESIUM CHLORIDE 64 MG TABCR (SLO MAG) PO SCH ×2 (08:23→23:38)
[2019-03-03] MEDS: CALCITRIOL 0.25 MCG CAP (S0169) PO SCH (08:24)
--- NOTE | 2019-03-03 08:58 | REP ---
CHEST, SINGLE VIEW: COMPARISON: 01/31/2019 There is no acute infiltrate. The heart is mildly enlarged. There is mild calcification of the thoracic aorta. Mediastinal silhouette is unchanged. IMPRESSION: No acute pulmonary disease. Mild cardiomegaly. Electronically Signed by Balwinder Mcnulty MD 03/03/2019 09:03 A
[2019-03-03] MEDS ORDERED: METOPROLOL TART 50 MG TAB PO SCH (09:00)
[2019-03-03] MEDS ORDERED: TORSEMIDE 10 MG TABLET PO SCH (09:00)
[2019-03-03] MEDS ORDERED: METOPROLOL TART 50 MG TAB PO ONE (11:45)
--- NOTE | 2019-03-03 17:56 | ECGEPIP ---
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
--- NOTE | 2019-03-03 17:57 | ECGEPIP ---
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
--- NOTE | 2019-03-03 18:16 | IPNPDOC ---
Subjective Date Seen The patient was seen on 03/03/19. Subjective Chief Complaint/HPI high blood pressure Events since last encounter HR controlled. Pt c/o mild generalized weakness Objective Physical Examination General Exam: Positive: Alert, Cooperative, No Acute Distress Eye Exam: Positive: PERRLA ENT Exam: Positive: Mucous membr. moist/pink Neck Exam: Positive: Supple Chest Exam: Positive: Clear to auscultation, Normal air movement Heart Exam: Positive: Irregular Rhythm Abdomen Exam: Positive: Normal bowel sounds, Soft Skin Exam: Positive: Nl turgor and temperature Neuro Exam: Positive: Normal Speech, Strength at 5/5 X4 ext Psych Exam: Positive: Mental status NL, Mood NL Assessment /Plan Assessment 78 y/o F with h/o diabetes, chronic hypertension, gout, and GERD who was admitted for management of new onset A. fib with RVR. Labs reviewed PLAN: 1. New onset Atrial Fibrillation It is unclear at this time what triggered the A. fib -CHADS VASC Score to determine risk of stroke = 5 points Plan: telemetry / f/u Mag, D-dimer, TSH, serial trops, BNP and Echo to r/o valvulopathy Metoprolol Tartrate and apixaban (dose adjusted for renal impairment) if a cause of the afib is not found she may need an outpatient sleep study 2. SIRS vs Sepsis Possibly 2/2 gastroenteritis as she c/o of diarrhea this morning vs reactive due to rapid A. fib SIRS criterial include HR >90 / RR 20 Her T was only 100.9 Qsofa score =1 not high risk Lactic acid = 1 She did not receive IV fluids or antibiotics because a bacterial infection is unlikely. Plan: f/u blood cx, UA w Cx & final chest x-ray report 3. Hypertensive Urgency She denied having CP or dyspnea & her Cr is 2.12 which is close to her baseline of 2.09 Her blood pressure was 200/81 on arrival and decreased to 176/92 after she received IV and PO metoprolol Plan: low salt diet c/w amlodipine 10mg daily , increase hydralazine from 25 to 50mg TID, stop labetalol bc we started metoprolol tartrate 100 mg BID for co-existing afib & c/w torsemide 20mg daily 4. Gout on admission day pt c/o that her toe hurts Plan: c/w home med / f/u uric acid / add prednisone PO 5.Weakness/Deconditioning Likely due to rapid afib Plan: PT eval 6.CKD 4 w Anemia of Chronic Dz and Secondary Hyperparathyroidism Her Cr is close to her baseline Plan: Is/ Os & daily weights / low salt diet / f/u BMP anticipate Cr will trend up tomorrow bc of acute elevation in BP / c/w Calcitriol 7 NIDDM Her A1c was 7.5 in October Plan: diabetic diet / f/u accuchecks & A1C / hypoglycemia protocol / sliding scale insulin DVT prophylaxis with apixaban Pt was started on PO Eliquis, will f/u with PT to eval for fall risk. Plan/VTE VTE Prophylaxis Ordered?: Yes VS, I&O, 24H, Fishbone Vital Signs/I&O Vital Signs Date Time Temp Pulse Resp B/P (MAP) Pulse Ox O2 Delivery O2 Flow Rate FiO2 03/03/19 17:45 189/81 03/03/19 16:00 97.7 71 18 96 Room Air I&O- Last 24 Hours up to 6 AM 03/03/19 06:00 Intake Total 30 ml Output Total 350 ml Balance -320 ml Laboratory Data 24H LABS Laboratory Tests 2 03/02/19 18:41: Influenza Type A (RT-PCR) NEGATIVE, Influenza Type B (RT-PCR) NEGATIVE 03/02/19 22:58: Bedside Glucose (Misc Panel) 82L 03/02/19 23:14: Troponin I < 0.02 03/03/19 05:38: Bedside Glucose (Misc Panel) 88 03/03/19 07:20: Nucleated Red Blood Cells % (auto) 0.0, Anion Gap 9, Glomerular Filtration Rate 25.9L, Calcium Level 8.5L, Magnesium Level 1.4L, Troponin I < 0.02 03/03/19 11:27: Bedside Glucose (Misc Panel) 177H 03/03/19 17:07: Urine Color YELLOW, Urine Appearance CLEAR, Urine pH 5.0, Urine Specific [place] 1.009, Urine Protein 3+H, Urine Glucose (UA) NEGATIVE, Urine Ketones NEGATIVE, Urine Blood 1+H, Urine Nitrite NEGATIVE, Urine Bilirubin NEGATIVE, Urine Urobilinogen 0.2, Urine Leukocyte Esterase NEGATIVE, Urine WBC (Auto) 1, Urine RBC (Auto) 2, Urine Hyaline Casts (Auto) 0, Urine Bacteria (Auto) NEGATIVE, U rine Squamous Epithelial Cells 0, Urine Sperm (Auto) 03/03/19 17:25: Bedside Glucose (Misc Panel) 181H CBC/BMP Laboratory Tests 03/03/19 07:20 Microbiology Microbiology 03/02/19 Blood Culture, Received Pending 03/02/19 Respiratory Virus Panel (PCR) (LETICIA) - Final, Complete 03/02/19 Blood Culture, Received Pending ROSALIE JOHNSON MD Mar 03, 2019 18:16
[2019-03-03] MEDS ORDERED: METOPROLOL TARTRATE 100 MG TAB PO SCH (21:00)
[2019-03-03] MEDS ORDERED: SLF 3 ML SYR IV PRN (23:30)
[2019-03-04] VITALS (8 sets, daily range): BP systolic 132–210; BP diastolic 58–86
[2019-03-04] MEDS ORDERED: METOPROLOL TART 50 MG TAB PO ONE (05:00)
[2019-03-04] MEDS: SLF 3 ML SYR IV SCH ×3 (05:05→21:57)
[2019-03-04 05:48] LABS: HEMATOCRIT 27.8 % (36.0-47.0); HEMOGLOBIN 8.6 g/dl (12.0-15.5); MEAN CORPUSCULAR HEMOGLOBIN 31.6 pg (27.0-33.0); MEAN CORPUSCULAR HGB CONC 30.9 g/dl (32.0-36.5); MEAN CORPUSCULAR VOLUME 102.2 fl (80.0-96.0); PLATELET COUNT, AUTOMATED 264 10^3/uL (150-450); RED BLOOD COUNT 2.72 10^6/uL (4.00-5.40); WHITE BLOOD COUNT 10.1 10^3/uL (4.0-10.0)
[2019-03-04 06:17] LABS: CALCIUM LEVEL 8.4 MG/DL (8.8-10.2); CREATININE FOR GFR 2.03 MG/DL (0.55-1.30); GLOMERULAR FILTRATION RATE 25.2 (>39); POTASSIUM SERUM 3.7 MEQ/L (3.5-5.1)
--- NOTE | 2019-03-04 07:13 | IPNPDOC ---
Subjective Date Seen The patient was seen on 03/04/19. Subjective Chief Complaint/HPI She had high blood pressure overnight, torsemide was increased from 10 to 20, and metoprolol increased from 100-200 twice a day. Objective Physical Examination General Exam: Positive: Alert, Cooperative, No Acute Distress Eye Exam: Positive: PERRLA ENT Exam: Positive: Mucous membr. moist/pink Neck Exam: Positive: Supple Chest Exam: Positive: Clear to auscultation, Normal air movement Heart Exam: Positive: Irregular Rhythm Abdomen Exam: Positive: Normal bowel sounds, Soft Skin Exam: Positive: Nl turgor and temperature Neuro Exam: Positive: Normal Speech, Strength at 5/5 X4 ext Psych Exam: Positive: Mental status NL, Mood NL Other physical findings PHYSICAL EXAMINATION: VITAL SIGNS: Please see below. GENERAL: No distress HEENT: Normocephalic, atraumatic, moist mucous membranes NECK: Supple CARDIOVASCULAR EXAMINATION: S1, S2, +murmurs RESPIRATORY EXAMINATION: CTAB ABDOMINAL EXAMINATION: Soft, nontender, nondistended, positive bowel sounds EXTREMITIES: no edema SKIN: No rash NEUROLOGICAL EXAMINATION: Alert and oriented 3, no focal deficits PSYCHIATRIC EXAMINATION: Calm and cooperative, appropriate affect Assessment /Plan Assessment Pt is a 78 y/o F with hx of DM non-insulin dep, hx of vessel. 5. Tachyarrhythmia, status post ablation, chronic HTN, gout, and GERD who was admitted for management of new onset A. fib with RVR, CHADSVasc 5. #New onset Atrial Fibrillation: Unclear etiology of accessible A. fib and eddie vated d-dimer, possibly secondary to gastroenteritis. Was started on Eliquis with due to CHADS VASC Score 5, on telemetry, has not had A. fib since. Consult cardiology for recommendations, spoke with Dr. Maya will see pt AM 03/05. TSH 3.5, on and have been less than 0.02, elevated d-dimer greater than 4000, however, she denies any shortness of breath or chest pain, is not tachycardic, and currently does have gout, pending echo 03/03. Consider outpatient sleep study if etiology A. fib not found. #SIRS Possibly 2/2 gastroenteritis as she c/o of diarrhea, resolved this morning. Patient has been afebrile for 24 hours, Qsofa score =1, Lactic acid = 1.1, respiratory virus panel on 03/02, negative, blood cultures on -24 hours neg, U/A not suggestive of UTI, CXR neg for acute processes. #hypomag: Consider secondary to gastroenteritis, will replace and monitor #Hypertensive Urgency: c/w amlodipine 10mg daily , increase hydralazine from 25 to 50mg TID, stop labetalol bc we increased metoprolol [id number] mg BID, torsemide 20mg daily #HLD: cont rosuvastatin 10mg QHS #Gout: c/w home med . Allopurinol 200 mg daily and penicillin 10 mg daily denies foot pain today, uric acid 5.4, within normal limits #Weakness/Deconditioning: Likely due to rapid afib and recent hx of gastroenter itis: f/u with PT eval #CKD 4 w Anemia of Chronic Dz and Secondary Hyperparathyroidism: Cr is at b aseline, cont to monitor #NIDDM, A1c was 7.5 in 10/2018, diabetic diet / ISS DVT prophylaxis with apixaban Full code Problems (1) Hypertensive urgency Status: Acute (2) Atrial fibrillation with RVR Status: Acute (3) Hypomagnesemia (4) HLD (hyperlipidemia) (5) Gout (6) Physical deconditioning (7) Diabetes (8) CKD (chronic kidney disease), stage IV Status: Acute (9) Hypertension Status: Acute Plan/VTE VTE Prophylaxis Ordered?: Yes VS, I&O, 24H, Fishbone Vital Signs/I&O Vital Signs Date Time Temp Pulse Resp B/P (MAP) Pulse Ox O2 Delivery O2 Flow Rate FiO2 03/04/19 05:45 75 190/76 (114) 03/04/19 04:25 98.6 18 97 Room Air I&O- Last 24 Hours up to 6 AM 03/04/19 06:00 Intake Total 510 ml Output Total 400 ml Balance 110 ml Laboratory Data 24H LABS Laboratory Tests 2 03/03/19 07:20: Nucleated Red Blood Cells % (auto) 0.0, Anion Gap 9, Glomerular Filtration Rate 25.9L, Calcium Level 8.5L, Magnesium Level 1.4L, Troponin I < 0.02 03/03/19 11:27: Bedside Glucose (Misc Panel) 177H 03/03/19 17:07: Urine Color YELLOW, Urine Appearance CLEAR, Urine pH 5.0, Urine Specific [place] 1.009, Urine Protein 3+H, Urine Glucose (UA) NEGATIVE, Urine Ketones NEGATIVE, Urine Blood 1+H, Urine Nitrite NEGATIVE, Urine Bilirubin NEGATIVE, Urine Urobilinogen 0.2, Urine Leukocyte Esterase NEGATIVE, Urine WBC (Auto) 1, Urine RBC (Auto) 2, Urine Hyaline Casts (Auto) 0, Urine Bacteria (Auto) NEGATIVE, Urine Squamous Epithelial Cells 0, Urine Sperm (Auto) 03/03/19 17:25: Bedside Glucose (Misc Panel) 181H 03/03/19 20:23: Bedside Glucose (Misc Panel) 102 03/04/19 05:31: Nucleated Red Blood Cells % (auto) 0.0, Anion Gap 6L, Glomerular Filtration Rate 25.2L, Calcium Level 8.4L CBC/BMP Laboratory Tests 03/03/19 07:20 03/04/19 05:31 Microbiology Microbiology 03/02/19 Blood Culture - Preliminary, Resulted No growth after 24 hours . All specim... 03/02/19 Respiratory Virus Panel (PCR) (LETICIA) - Final, Complete 03/02/19 Blood Culture - Preliminary, Resulted No growth after 24 hours . All specim... NIELS VIDAL MD Mar 04, 2019 07:13
[2019-03-04] MEDS: HumaLOG INSULIN (NovoLOG) PER UNIT SC SCH ×4 (07:30→21:00)
[2019-03-04] MEDS: ROSUVASTATIN 10 MG TAB (CRESTOR) PO SCH (09:13)
[2019-03-04] MEDS: LORATADINE 10 MG TAB PO SCH (09:13)
[2019-03-04] MEDS: TORSEMIDE 20 MG TAB PO SCH (09:14)
[2019-03-04] MEDS: ALLOPURINOL 100 MG TAB PO SCH (09:14)
[2019-03-04] MEDS: amLODIPine 10 MG TAB PO SCH (09:15)
[2019-03-04] MEDS: METOPROLOL TARTRATE 100 MG TAB PO SCH ×2 (09:15→21:56)
[2019-03-04] MEDS: VITAMIN D 1,000 INTERNATIONAL UNITS TABLET PO SCH (09:16)
[2019-03-04] MEDS: APIXABAN 5 MG TAB (ELIQUIS) PO SCH ×2 (09:16→21:55)
[2019-03-04] MEDS: MAGNESIUM CHLORIDE 64 MG TABCR (SLO MAG) PO SCH ×2 (09:16→21:56)
[2019-03-04] MEDS: **hydrALAZINE** 50 MG TAB PO SCH ×3 (09:16→21:56)
[2019-03-04] MEDS: predniSONE 10 MG TAB PO SCH (09:17)
[2019-03-04] MEDS ORDERED: MAG SULF 1GM/100ML (MAG RUN) 1 GM in IV 1 EA IV SCH (14:30)
[2019-03-04] MEDS: MAG SULF 1GM/100ML (MAG RUN) 1 GM in IV 1 EA IV SCH ×2 (15:46→16:34)
[2019-03-05] VITALS (9 sets, daily range): BP systolic 152–188; BP diastolic 56–72
[2019-03-05] MEDS: SLF 3 ML SYR IV SCH ×3 (05:35→21:00)
[2019-03-05 05:56] LABS: HEMATOCRIT 29.2 % (36.0-47.0); HEMOGLOBIN 9.3 g/dl (12.0-15.5); MEAN CORPUSCULAR HEMOGLOBIN 31.7 pg (27.0-33.0); MEAN CORPUSCULAR HGB CONC 31.8 g/dl (32.0-36.5); MEAN CORPUSCULAR VOLUME 99.7 fl (80.0-96.0); PLATELET COUNT, AUTOMATED 285 10^3/uL (150-450); RED BLOOD COUNT 2.93 10^6/uL (4.00-5.40); WHITE BLOOD COUNT 11.9 10^3/uL (4.0-10.0)
[2019-03-05 06:12] LABS: CALCIUM LEVEL 8.9 MG/DL (8.8-10.2); CREATININE FOR GFR 2.15 MG/DL (0.55-1.30); GLOMERULAR FILTRATION RATE 23.5 (>39); POTASSIUM SERUM 3.6 MEQ/L (3.5-5.1)
--- NOTE | 2019-03-05 07:25 | ECHO ---
DATE OF PROCEDURE: 03/04/2019 REFERRING PHYSICIAN: Dr. Stanislaw White INDICATION: Atrial fibrillation, hypertension. HEIGHT: 158 cm. WEIGHT: 76 kg. DIMENSIONS; IVS: 1.1 LV: 4.2 LVPW: 1.1 LA: 4.3 Aorta: 2.8 Left atrial volume index: 53 IVC: 2.1 Mitral E wave velocity: 103 A wave: 119 FINDINGS: The study is of good technical quality. The patient is in sinus rhythm. Left ventricle is normal size and systolic function, I estimate left ventricular ejection fraction (LVEF) 65-70%. No segmental wall motion abnormalities are appreciated. Right ventricle is also normal size and systolic function. Left atrium is severely enlarged. Right atrium is grossly normal size based on limited views. Aortic and mitral valve appear normal. Somewhat less than good visualization of tricuspid and pulmonic valve also appear normal. No pericardial effusion is noted. Inferior vena cava is mildly dilated, but does collapse with respiration indicative of likely at least mildly elevated central venous pressure. Aortic root and abdominal aorta appear normal. Aortic arch was not seen. Doppler interrogation reveals no aortic stenosis or insufficiency. There is trace mitral insufficiency and mild tricuspid insufficiency. Calculated pulmonary artery pressure is in 40s corresponding to moderate pulmonary hypertension. Pulmonic valve is functionally competent. Mitral inflow pattern reveals grade 1 diastolic dysfunction. Tissue Doppler imaging of mitral annulus was not performed. CONCLUSIONS: 1. Study is of good technical quality. 2. Normal LV size and systolic function, grade 1 diastolic dysfunction. 3. No hemodynamically significant valvular disease. 4. At least mildly elevated central venous pressure and moderate pulmonary hypertension. 5. Severe left atrial enlargement.
[2019-03-05] MEDS: ALLOPURINOL 100 MG TAB PO SCH (08:32)
[2019-03-05] MEDS: predniSONE 10 MG TAB PO SCH (08:32)
[2019-03-05] MEDS: CALCITRIOL 0.25 MCG CAP (S0169) PO SCH (08:32)
[2019-03-05] MEDS: MAGNESIUM CHLORIDE 64 MG TABCR (SLO MAG) PO SCH ×2 (08:32→21:00)
[2019-03-05] MEDS: amLODIPine 10 MG TAB PO SCH (08:32)
[2019-03-05] MEDS: VITAMIN D 1,000 INTERNATIONAL UNITS TABLET PO SCH (08:33)
[2019-03-05] MEDS: METOPROLOL TARTRATE 100 MG TAB PO SCH ×2 (08:33→20:59)
[2019-03-05] MEDS: LORATADINE 10 MG TAB PO SCH (08:33)
[2019-03-05] MEDS: TORSEMIDE 20 MG TAB PO SCH ×3 (08:34→20:59)
[2019-03-05] MEDS: FERROUS SULFATE 325MG TAB PO SCH (08:34)
[2019-03-05] MEDS: APIXABAN 5 MG TAB (ELIQUIS) PO SCH ×2 (08:34→20:59)
[2019-03-05] MEDS: **hydrALAZINE** 50 MG TAB PO SCH ×3 (08:34→20:59)
[2019-03-05 09:27] LABS: ALBUMIN 3.1 GM/DL (3.2-5.2)
[2019-03-05] MEDS ORDERED: POTASSIUM CHLORIDE 10 MEQ SR TABLET PO ONE (09:30)
[2019-03-05] MEDS: POTASSIUM CHLORIDE 10 MEQ SR TABLET PO SCH (09:48)
[2019-03-05] MEDS: HumaLOG INSULIN (NovoLOG) PER UNIT SC SCH ×4 (09:49→20:53)
--- NOTE | 2019-03-05 20:28 | CR ---
DATE OF CONSULTATION: 03/05/2019 REFERRING PHYSICIAN: Lisa Monae MD REASON FOR CONSULTATION Uncontrolled hypertension in this lady with stage IV of chronic kidney disease and generalized edema. HISTORY OF PRESENT ILLNESS Mrs. Birmingham is a 78-year-old female with known history of longstanding hypertension, type 2 diabetes, stage IV of chronic kidney disease and difficult to control hypertension. She was admitted to [facility] due to uncontrolled hypertension and generalized edema since her medications have been changed. Her medications are being adjusted and blood pressure remains elevated due to which nephrology consultation was requested. The patient is seen this morning on her bedside. PAST MEDICAL AND SURGICAL HISTORY Significant for 1. Longstanding type 2 diabetes. 2. Hypertension. 3. Stage IV of chronic kidney disease. 4. History of atrial fibrillation. 5. History of anemia of chronic kidney. 6. History of generalized edema. MEDICATIONS Her home medications include allopurinol 100 mg 2 tablets daily, amlodipine 10 mg daily, calcitriol 0.25 mcg three times a week, vitamin D 1000 units daily, ferrous sulfate 325 mg twice a day, glipizide ER 10 mg twice a day, hydralazine 25 mg three times a day, labetalol 300 mg twice a day, magnesium oxide 64 mg twice a day, rosuvastatin 10 mg daily, Onglyza 2.5 mg daily and torsemide 10 mg daily. ALLERGIES She has NO KNOWN DRUG ALLERGIES. PERSONAL AND SOCIAL HISTORY The patient does not smoke or drink. She denies any alcohol or recreational drug use. FAMILY HISTORY: Significant for colon cancer. There is no family history for end-stage renal disease. REVIEW OF SYSTEMS The patient reports worsening edema over last few weeks. Her blood pressure has been elevated at home. She denies any fever or chills. Ears, nose and throat are unremarkable. Cardiovascular system is significant for pulmonary hypertension and diastolic congestive heart failure. She reports worsening generalized edema over last few weeks. Her respiratory system is negative for cough or hemoptysis. GI system negative for nausea, vomiting or diarrhea. system is negative for dysuria or hematuria. Endocrine system is significant for type 2 diabetes and secondary hyperparathyroidism. Hematological system is significant for anemia and no history of chronic anticoagulation. Psychosocial system negative for depression or anxiety. Neurological system is negative for seizures or stroke. Skin is negative for rash or ulcers. Musculoskeletal system significant for lower extremity edema. PHYSICAL EXAMINATION The patient is awake and alert lying in the bed. She has obvious facial edema with periorbital fluid. Temperature is 98 degrees Fahrenheit, heart rate 65 per minute and respiratory rate 16 per minute. Blood pressure this morning 182/60 mmHg and oxygen saturation 98% on room air. Facial edema is noticed. Head is atraumatic. Pupils equal and reactive to light and sclera anicteric. Neck is supple and JVD is about 78 cm above sternal angle. Thyroid is not enlarged and trachea is midline. Heart: Sounds are regular at present and a systolic murmur grade 1 x 6 is audible. Lungs with slightly diminished breath sounds and few basilar rales. Abdomen: Soft and nontender and bowel sounds are normal. Extremities: Without any cyanosis or clubbing. Lower extremity edema is at least 1+. Neurologically she is awake, alert and oriented times three. LABORATORY DATA Sodium 140, potassium 3.6, CO2 23, BUN 45 and creatinine 2.15. Albumin 3.1. WBC count 11.9, hemoglobin 9.3 and hematocrit 29.2. Urinalysis showed 3+ protein and 1+ blood. Chest x-ray done on admission showed cardiomegaly and no acute infiltrate or effusion. I have reviewed her prior imaging. She had a renal ultrasound which showed bilateral normal-sized kidneys without any hydronephrosis, stone or mass. A Doppler renal ultrasound showed no evidence for renal artery stenosis just last month. PROBLEMS: 1. Uncontrolled hypertension. Most likely this is renovascular hypertension with hypervolemia. She did not tolerate amlodipine and hydralazine very well and has developed significant volume overload. She will probably need a higher dose of diuretic due to significant chronic kidney disease in order to correct her volume status. We are increasing her torsemide dose to 20 mg twice a day and at present will continue with the same dose of hydralazine, metoprolol and amlodipine. She is not a suitable candidate for ERIK inhibitor or angiotensin receptor dimitris at present due to advanced chronic kidney disease (CKD). We can consider a trial of ERIK or angiotensin receptor dimitris at a later time. 2. Acute on chronic kidney disease. She is known to have stage IV of chronic kidney disease even at baseline. Her kidney function is slightly worse than her baseline. Most likely related to uncontrolled hypertension. Her volume status is decompensated so she does not need to be diuresed and that will help to improve her kidney function once her blood pressure improves. 3. Hypokalemia. Her potassium is borderline and we are increasing her diuretic. We will give her potassium supplement and recheck her electrolytes tomorrow. 4. Proteinuria, most likely this is related to diabetic nephropathy with uncontrolled hypertension. At a later time I can consider switching her to ERIK inhibitor or angiotensin receptor dimitris. She had other workup done as outpatient which was reported negative.
--- NOTE | 2019-03-05 22:03 | CR ---
DATE OF CONSULTATION: 03/05/2019 REFERRING PHYSICIAN: Dr. Lisa Monae INDICATION: Atrial fibrillation and hypertensive management. HISTORY OF PRESENT ILLNESS: Mrs. Birmingham is previously unknown to me. She is very pleasant, 78-hour-old female who has a longstanding history of hypertension, type 2 diabetes and also renal insufficiency stage IV. She does not have any history of coronary artery disease or congestive heart failure to the best of my and her understanding. She was admitted to our facility because of difficult to control hypertension. During this hospitalization she also was noted to have episodes of atrial fibrillation even though the documentation of that has been fairly marginal. I was asked by Dr. Monae to assist in further management. At bedside Mrs. Birmingham reports feeling reasonably well. She does not have any sensation of palpitations and she denies significant dyspnea and denies any chest discomfort. She does admit that as of recently she has had trouble with blood pressure control. She was at her baseline principally on labetalol 300 mg twice a day but because in the last several months there has been worsening blood pressure control initially amlodipine and then hydralazine were added. This is on baseline torsemide 20 mg daily. She noted that since she started receiving amlodipine she developed peripheral edema. She was recently hospitalized in our facility for same problem at which point she had renal ultrasound and bilateral renal artery Doppler. There was no evidence for obstruction and no evidence for renal artery stenosis. PAST MEDICAL HISTORY: 1. Type 2 diabetes with diabetic retinopathy and probably diabetic nephropathy. 2. Longstanding history of hypertension. 3. Stage IV chronic renal insufficiency. 4. Paroxysmal atrial fibrillation recently diagnosed. SURGICAL HISTORY: Negative. FAMILY HISTORY: Positive for colon cancer. SOCIAL HISTORY: The patient is . 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 There is no history of smoking or alcohol use. OUTPATIENT MEDICATIONS: The patient has been on: - torsemide 20 mg daily - labetalol 300 mg twice a day - amlodipine 10 mg a day - allopurinol 200 mg a day - calcitriol 0.25 mg three times a week - vitamin D3 - iron sulfate 325 mg twice a day - glipizide 10 mg twice a day - hydralazine 25 mg three times a day - loratadine 10 mg a day - magnesium chloride supplementation twice a day - multivitamin - Crestor 10 mg a day - Onglyza 2.5 mg daily ALLERGIES: She has no known medication allergies. REVIEW OF SYSTEMS: She denies any recent fever, chills, nausea, vomiting or diarrhea. No chest pain, no palpitations. She does have mild exertional dyspnea that has been stable. She also reports relatively frequent headaches. No history of bleeding problems. No history of peripheral edema until approximately 3 or 4 weeks ago. She believes that it coincided with onset of amlodipine use. PHYSICAL EXAMINATION: Mrs. Birmingham is very pleasant, elderly female who appears actually younger than her calendar age and in no distress. Her blood pressure during my visit was 182/66, heart rate in 60s, sinus rhythm. She is afebrile. Saturation is 99% on room air and weight has been documented at 74.5 kg which is similar to her admission weight. She is alert and oriented and appropriate. Her JVP is difficult to assess but appears at least mildly elevated. Lungs are reasonably clear to auscultation. I do not appreciate any wheezing, crackles or rhonchi. Heart exam reveals a regular rhythm. There is a positive S4. I do not appreciate any distinct murmur. Abdomen is obese and soft. There is trace peripheral edema. Peripheral pulses are palpable in both lower extremities. Skin is intact but there is also some edema of her eyelids. LABORATORY DATA: As of this morning: CBC reveals: Hemoglobin 9.3, hematocrit 29, platelet count 285,000 WBC count 11.9. Basic metabolic panel: Sodium 140, potassium 3.6, BUN 45, creatinine 2.2 and glucose 131, magnesium 2.0, albumin 3.1. Urinalysis is positive for 3+ protein. She is was tested for influenza which was negative. She has several ECGs on file, one of which reveals transition from sinus rhythm to atrial fibrillation but otherwise nonspecific repolarization abnormalities. She also had an echocardiogram early yesterday that revealed preserved left ventricular systolic function with left ventricular hypertrophy. No hemodynamically significant valvular disease. Review of her hospital records reveals that during one of her prior hospitalizations in 2018 she had urinalysis that revealed protein of lesser quantity than today and she was somewhat predominantly [place] light chain positive. Chest x-ray reveals borderline cardiomegaly. I do not appreciate any convincing congestive heart failure. ASSESSMENT/PLAN: 1. Atrial fibrillation. The patient does have paroxysmal atrial fibrillation. I do agree with current anticoagulation with renal adjusted dose of Eliquis. I would not necessarily utilize antiarrhythmics. Her episodes of atrial fibrillation are essentially asymptomatic. I agree with continuation of high-dose beta dimitris, my preference would be for labetalol over metoprolol due to its better blood pressure reducing effect. 2. Hypertension. Unfortunately, the patient has difficult to control hypertension which is very likely a consequence of her underlying renal disease. I foresee that it is going to be challenging to control her blood pressure appropriately. I spoke with attending physician and I recommended that nephrology service gets involved. The patient has been known to them for several years. Considering significant proteinuria, I think that it would be worthwhile to attempt to introduce ARBs or ERIK inhibitors while she is in the hospital so we can closely monitor her electrolytes. It is possible that this strategy was already attempted and she did not tolerate it previously even though I do not have any documentation of this. Consequently, I did not introduce the medication myself. Otherwise, I think that we will probably have to provide more aggressive diuresis in order to accomplish better blood pressure control and I would advocate to increase the dose of torsemide at least to double it. Otherwise, I would recommend to stay away from clonidine which is another medication which can be considered but I am afraid that it is a medication that is generally poorly tolerated with numerous side effects. I will follow the patient with you, but I do think that the principal input as far as the blood pressure management should remain with nephrology who have been managing her for a long period of time. I suppose that it would be also worthwhile to do a more thorough urinalysis and quantify the degree of proteinuria. JOJOD
--- NOTE | 2019-03-05 22:23 | IPNPDOC ---
Date Seen The patient was seen on 03/05/19. Progress Note SUBJECTIVE: Patient had elevated blood pressures overnight. Tolerated increase in blood pressure medications, however despite asymptomatic, had increase in BP meds. Spoke with cardiology, recs nephrology kayden for BP management. OBJECTIVE PHYSICAL EXAMINATION: VITAL SIGNS: Please see below. GENERAL: No distress HEENT: Normocephalic, atraumatic, moist mucous membranes NECK: Supple CARDIOVASCULAR EXAMINATION: S1, S2, +murmurs RESPIRATORY EXAMINATION: CTAB ABDOMINAL EXAMINATION: Soft, nontender, nondistended, positive bowel sounds EXTREMITIES: no edema SKIN: No rash NEUROLOGICAL EXAMINATION: Alert and oriented 3, no focal deficits PSYCHIATRIC EXAMINATION: Calm and cooperative, appropriate affect LABORATORY DATA, IMAGING STUDIES, MICROBIOLOGY: Please see below. Echocardiogram: EF 60-70s%. DVT prophylaxis ordered?: yes ASSESSMENT AND PLAN: Pt is a 78 y/o F with hx of DM non-insulin dep, hx of vessel. 5. Tachyarrhythmia, status post ablation, chronic HTN, gout, and GERD who was admitted for management of new onset A. fib with RVR, CHADSVasc 5. #Hypertensive Urgency: consulted nephrology, increased torsemide 20mg to BID -cont amlodipine 10mg daily , hydralazine 50mg TID, metoprolol tartrate 200 mg BID #New onset Atrial Fibrillation: Unclear etiology of accessible A. fib and elevated d-dimer, possibly secondary to gastroenteritis. Was started on Eliquis with due to CHADS VASC Score 5, on telemetry, has not had A. fib since. Consult cardiology for recommendations, spoke with Dr. Maya. TSH 3.5, trop trend has been less than 0.02, elevated d-dimer greater than 4000, however, she denies any shortness of breath or chest pain, is not tachycardic, and currently does have gout, pending echo 03/03. Consider outpatient sleep study if etiology A. fib not found. #SIRS Possibly 2/2 gastroenteritis as she c/o of diarrhea, resolved this morning. Patient has been afebrile for 24 hours, Qsofa score =1, Lactic acid = 1.1, respiratory virus panel on 03/02, negative, blood cultures on -24 hours neg, U/A not suggestive of UTI, CXR neg for acute processes. #hypomag: Consider secondary to gastroenteritis, will replace and monitor #HLD: cont rosuvastatin 10mg QHS #Gout: c/w home med . Allopurinol 200 mg daily and penicillin 10 mg daily denies foot pain today, uric acid 5.4, within normal limits #Weakness/Deconditioning: Likely due to rapid afib and recent hx of gastroenteritis: f/u with PT eval #CKD 4 w Anemia of Chronic Dz and Secondary Hyperparathyroidism: Cr is at baseline, cont to monitor #NIDDM, A1c was 7.5 in 10/2018, diabetic diet / ISS DVT prophylaxis with apixaban Full code VS, I&O, 24H, Fishbone Vital Signs/I&O Vital Signs Date Time Temp Pulse Resp B/P (MAP) Pulse Ox O2 Delivery O2 Flow Rate FiO2 03/05/19 20:59 70 172/68 03/05/19 20:00 98.6 16 98 Room Air I&O- Last 24 Hours up to 6 AM 03/05/19 06:00 Intake Total 2420 ml Output Total 1275 ml Balance 1145 ml Laboratory Data 24H LABS Laboratory Tests 2 03/05/19 05:27: Nucleated Red Blood Cells % (auto) 0.0, Anion Gap 8, Glomerular Filtration Rate 23.5L, Calcium Level 8.9, Magnesium Level 2.0, Albumin 3.1L 03/05/19 14:04: Bedside Glucose (Misc Panel) 200H 03/05/19 18:54: Bedside Glucose (Misc Panel) 224H 03/05/19 20:04: Bedside Glucose (Misc Panel) 239H CBC/BMP Laboratory Tests 03/05/19 05:27 Microbiology Microbiology 03/02/19 Blood Culture - Preliminary, Resulted No Growth after 72 hours. All specime... 03/02/19 Respiratory Virus Panel (PCR) ([facility]) - Final, Complete 03/02/19 Blood Culture - Preliminary, Resulted No Growth after 72 hours. All specime... NIELS VIDAL MD Mar 05, 2019 22:23
[2019-03-06] VITALS (7 sets, daily range): BP systolic 136–174; BP diastolic 52–70
[2019-03-06] MEDS ORDERED: **hydrALAZINE** 10 MG TAB PO ONE (00:15)
[2019-03-06 05:20] LABS: HEMATOCRIT 29.1 % (36.0-47.0); HEMOGLOBIN 9.3 g/dl (12.0-15.5); MEAN CORPUSCULAR HEMOGLOBIN 31.7 pg (27.0-33.0); MEAN CORPUSCULAR VOLUME 99.3 fl (80.0-96.0); PLATELET COUNT, AUTOMATED 315 10^3/uL (150-450); RED BLOOD COUNT 2.93 10^6/uL (4.00-5.40); WHITE BLOOD COUNT 12.5 10^3/uL (4.0-10.0)
[2019-03-06 05:44] LABS: CALCIUM LEVEL 8.6 MG/DL (8.8-10.2); CREATININE FOR GFR 2.25 MG/DL (0.55-1.30); GLOMERULAR FILTRATION RATE 22.3 (>39); MAGNESIUM LEVEL 1.8 MG/DL (1.8-2.4); POTASSIUM SERUM 3.8 MEQ/L (3.5-5.1)
[2019-03-06] MEDS: SLF 3 ML SYR IV SCH ×3 (06:10→20:44)
--- NOTE | 2019-03-06 07:22 | IPNPDOC ---
Date Seen The patient was seen on 03/06/19. Progress Note SUBJECTIVE: Patient is a -year-old [RACE] [GENDER] with OBJECTIVE PHYSICAL EXAMINATION: VITAL SIGNS: Please see below. GENERAL: HEENT: CARDIOVASCULAR: . RESPIRATORY: . ABDOMINAL: EXTREMITIES: NEUROLOGICAL: PSYCHOLOGICAL: LABORATORY DATA, IMAGING STUDIES, MICROBIOLOGY: Please see below. Echocardiogram: . DVT prophylaxis ordered?: ASSESSMENT AND PLAN: This is a -year-old [RACE] [GENDER] with . PROBLEMS: 1. : . 2. : . 3. : . DISPOSITION: . VS, I&O, 24H, Fishbone Vital Signs/I&O Vital Signs Date Time Temp Pulse Resp B/P (MAP) Pulse Ox O2 Delivery O2 Flow Rate FiO2 03/06/19 04:00 98.3 60 18 174/70 (104) 97 Room Air I&O- Last 24 Hours up to 6 AM 03/06/19 06:00 Intake Total 840 ml Output Total 2000 ml Balance -1160 ml Laboratory Data 24H LABS Laboratory Tests 2 03/05/19 14:04: Bedside Glucose (Misc Panel) 200H 03/05/19 18:54: Bedside Glucose (Misc Panel) 224H 03/05/19 20:04: Bedside Glucose (Misc Panel) 239H 03/06/19 05:05: Nucleated Red Blood Cells % (auto) 0.0, Anion Gap 9, Glomerular Filtration Rate 22.3L, Calcium Level 8.6L, Magnesium Level 1.8 CBC/BMP Laboratory Tests 03/06/19 05:05 Microbiology Microbiology 03/02/19 Blood Culture - Preliminary, Resulted No Growth after 72 hours. All specime... 03/02/19 Respiratory Virus Panel (PCR) ([facility]ICIA) - Final, Complete 03/02/19 Blood Culture - Preliminary, Resulted No Growth after 72 hours. All specime... NIELS VIDAL MD Mar 06, 2019 07:22
[2019-03-06] MEDS: MAGNESIUM CHLORIDE 64 MG TABCR (SLO MAG) PO SCH ×2 (08:42→20:43)
[2019-03-06] MEDS: ROSUVASTATIN 10 MG TAB (CRESTOR) PO SCH (08:42)
[2019-03-06] MEDS: TORSEMIDE 20 MG TAB PO SCH (08:42)
[2019-03-06] MEDS: POTASSIUM CHLORIDE 10 MEQ SR TABLET PO SCH (08:43)
[2019-03-06] MEDS: amLODIPine 10 MG TAB PO SCH (08:43)
[2019-03-06] MEDS: VITAMIN D 1,000 INTERNATIONAL UNITS TABLET PO SCH (08:43)
[2019-03-06] MEDS: ALLOPURINOL 100 MG TAB PO SCH (08:44)
[2019-03-06] MEDS: LORATADINE 10 MG TAB PO SCH (08:44)
[2019-03-06] MEDS: METOPROLOL TARTRATE 100 MG TAB PO SCH ×2 (08:44→20:43)
[2019-03-06] MEDS: **hydrALAZINE** 50 MG TAB PO SCH ×3 (08:44→20:43)
[2019-03-06] MEDS: predniSONE 10 MG TAB PO SCH (08:44)
[2019-03-06] MEDS: APIXABAN 5 MG TAB (ELIQUIS) PO SCH ×2 (08:44→20:43)
--- NOTE | 2019-03-06 08:45 | IPN ---
DATE: 03/06/2019 Mrs. Birmingham is feeling well. She denies any dyspnea. There have been no palpitations and no recurrence of atrial fibrillation overnight. No chest pain. Vital signs: Blood pressure 147/70, but then later on was measured down to 130 systolic. She is afebrile. Saturation is 97% on room air and heart rate is in 60s. Weight is 74.5 kg. She is alert, oriented and appropriate. Her jugular venous pulse (JVP) still looks, if anything, just marginally elevated. Lungs are clear. Good air movement. No wheezes or crackles. Heart exam regular rhythm. She has positive S4, but I do not appreciate any distinct murmur. Abdomen is soft, nontender. There is trace peripheral edema. Neurologically, she is intact. Laboratories: Basic metabolic panel: Sodium 139, potassium 3.8, BUN 55, creatinine 2.3 for GFR 22, and glucose 178. CBC: Hemoglobin 9.3, hematocrit 29, platelet count 315,000, and WBC count 12.5. ASSESSMENT AND PLAN: Mrs. Birmingham is a 78-year-old female, who has stage IV renal disease most likely due to diabetic nephropathy, who was admitted with atrial fibrillation (AFib) with rapid ventricular response (RVR) and difficult to control hypertension. The blood pressure is a little bit better today after the dose of diuretics was increased. I, at this point, will leave the management of the blood pressure solely to nephrology, who will be following her renal function down the road. My recommendations from yesterday though remain unchanged. As far the atrial fibrillation is concerned, I would not recommend any adjustments of current management. I tentatively plan to see the patient in followup in 2-3 weeks.
[2019-03-06] MEDS: HumaLOG INSULIN (NovoLOG) PER UNIT SC SCH ×4 (08:46→20:01)
[2019-03-06] MEDS ORDERED: HYDR50TA PO (11:02)
[2019-03-06] MEDS ORDERED: TORS20TA2 PO (11:02)
[2019-03-06] MEDS ORDERED: LOPR1TAB7 PO (11:02)
[2019-03-06] MEDS ORDERED: ELIQ5TAB PO (11:02)
--- NOTE | 2019-03-06 14:57 | DS.PDOC ---
Discharge Summary General Date of Admission Mar 02, 2019 at 19:11 Date of Discharge 03/06/19 Discharge Summary PROCEDURES PERFORMED DURING STAY: None. ADMITTING DIAGNOSES: 1. Atrial fibrillation with RVR. DISCHARGE DIAGNOSES: 1. HTN urgency, atrial fibrillation with RVR. COMPLICATIONS/CHIEF COMPLAINT: A Fib W/Rvr. HISTORY OF PRESENT ILLNESS & HOSPITAL COURSE: Pt is a 78 y/o F with hx of DM non-insulin dep, hx of vessel. 5. Tachyarrhythmia, status post ablation, chronic HTN, gout, CKD stage IV and GERD who was admitted for management of new onset A. fib with RVR initially thought to be due to onset of gastroenteritis, nonetheless, atrial fibrillation, subsequently resolved, however, at that time, her CHADSVasc 5 and was started on NOAC which she tolerated well. She had multiple episodes of elevated blood pressure, otherwise asymptomatic. Cardiology and nephrology were both consulted. She had an echo revealing EF 65-70%, grade 1 diastolic dysfunction and mildly elevated central venous pressure with moderate pulmonary hypertension.Final medications for blood pressure include amlodipine 10mg daily , hydralazine 50mg TID, metoprolol tartrate 200 mg BID, torsemide 20mg to BID. She was also noted on prednisone due to gout, however, is a currently denies any symptoms. He was continued on home medications and discharged on steroids. Patient was reported generalized weakness, however, upon PT evaluation, patient did not require rehabilitation or home health. Patient is to follow-up with cardiology, nephrology, and PCP in 1-2 weeks. Questions were answered. PHYSICAL EXAMINATION ON DISCHARGE: VITAL SIGNS: Please see below. GENERAL: No distress HEENT: Normocephalic, atraumatic, moist mucous membranes NECK: Supple CARDIOVASCULAR EXAMINATION: S1, S2, +murmurs RESPIRATORY EXAMINATION: CTAB ABDOMINAL EXAMINATION: Soft, nontender, nondistended, positive bowel sounds EXTREMITIES: no edema SKIN: No rash NEUROLOGICAL EXAMINATION: Alert and oriented 3, no focal deficits PSYCHIATRIC EXAMINATION: Calm and cooperative, appropriate affect LABORATORY DATA: Please see below. PROGNOSIS: good ACTIVITY: As tolerated. DIET: low sodium DISCHARGE PLAN: home DISPOSITION: home. DISCHARGE INSTRUCTIONS: 1. see above. ITEMS TO FOLLOWUP ON ON OUTPATIENT: 1. see above. DISCHARGE CONDITION: Stable. TIME SPENT ON DISCHARGE: 35 minutes. Vital Signs/I&Os Vital Signs Date Time Temp Pulse Resp B/P (MAP) Pulse Ox O2 Delivery O2 Flow Rate FiO2 03/06/19 12:38 66 166/68 (100) 03/06/19 08:00 97.8 18 97 Room Air I&O- Last 24 Hours up to 6 AM 03/06/19 06:00 Intake Total 840 ml Output Total 2000 ml Balance -1160 ml Laboratory Data Labs 24H Laboratory Tests 2 03/05/19 18:54: Bedside Glucose (Misc Panel) 224H 03/05/19 20:04: Bedside Glucose (Misc Panel) 239H 03/06/19 05:05: Nucleated Red Blood Cells % (auto) 0.0, Anion Gap 9, Glomerular Filtration Rate 22.3L, Calcium Level 8.6L, Magnesium Level 1.8 03/06/19 12:12: Bedside Glucose (Misc Panel) 260H CBC/BMP Laboratory Tests 03/06/19 05:05 FSBS Laboratory Tests Test 03/05/19 18:54 03/05/19 20:04 03/06/19 12:12 Range/Units Bedside Glucose (Misc Panel) 224 239 260 83-110 MG/DL Microbiology Microbiology 03/02/19 Blood Culture - Preliminary, Resulted No Growth after 72 hours. All specime... 03/02/19 Respiratory Virus Panel (PCR) ([facility]) - Final, Complete 03/02/19 Blood Culture - Preliminary, Resulted No Growth after 72 hours. All specime... Discharge Medications Scheduled Allopurinol (Allopurinol) 100 Mg Tablet, 200 MG PO DAILY, (Reported) Amlodipine Besylate (Amlodipine Besylate) 10 Mg Tablet, 10 MG PO DAILY, (Reported) Apixaban (Eliquis) 5 Mg Tablet, 5 MG PO BID Calcitriol (Calcitriol) 0.25 Mcg Capsule, 0.25 MCG PO 3XW, (Reported) MON, WED, FRI Cholecalciferol (Vitamin D3) (Vitamin D3) 1,000 Unit Capsule, 1,000 UNIT PO DAILY, (Reported) Ferrous Sulfate (Ferrous Sulfate) 325 Mg Tab, 325 MG PO Q2D, (Reported) Glipizide (Glipizide ER) 10 Mg Tab.er.24, 10 MG PO BID, (Reported) Hydralazine HCl (Hydralazine HCl) 50 Mg Tablet, 50 MG PO TID Loratadine (Loratadine) 10 Mg Tab, 10 MG PO DAILY, (Reported) Magnesium Chloride (Mag64) 64 Mg Tabcr, 64 MG PO BID, (Reported) Metoprolol Tartrate (Lopressor) 100 Mg Tablet, 200 MG PO BID Mv-Mn/Iron/Folic Acid/Herb 190 (Vitamin D3 Complete Caplet) 1 Tab Tab, 1 TAB PO 3XW, (Reported) TAKES SUNDAY, SUNDAY AND SUNDAY Rosuvastatin Calcium (Rosuvastatin Calcium) 10 Mg Tablet, 10 MG PO 4XWK, (Re ported) SUN, , , SAT Saxagliptin HCl (Onglyza) 2.5 Mg Tab, 2.5 MG PO DAILY, (Reported) Torsemide (Torsemide) 20 Mg Tablet, 20 MG PO BID Allergies Coded Allergies: No Known Allergies (Unverified , 02/01/19) NIELS VIDAL MD Mar 06, 2019 14:57
[2019-03-06] MEDS ORDERED: TORSEMIDE 20 MG TAB PO SCH (17:00)
--- NOTE | 2019-03-06 17:16 | IPN ---
DATE: 03/06/2019 Mrs. Birmingham was admitted with uncontrolled hypertension and generalized edema. Her medications have been adjusted, and she is feeling better. Her diuretic was doubled up, and her facial edema and leg edema have already improved. She denies any dizziness or lightheadedness when she stands up. She has no nausea or vomiting. PHYSICAL EXAMINATION: Temperature 97.8 degrees Fahrenheit, heart rate 72 per minute, respiratory rate 18 per minute, blood pressure 136/62 mm of mercury, and oxygen saturation 97% on room air. Head is atraumatic. Neck is supple and jugular venous distention (JVD) significantly improved. She has no oral thrush or ulcers. Heart sounds are regular, and lungs sound much clearer now. Abdomen soft and nontender, and bowel sounds are normal. Extremities without any cyanosis or clubbing. Lower extremity edema has also improved. Neurologically, she is awake, alert, and oriented times three. Today's labs show WBC count 12.5, hemoglobin 9.3 and hematocrit 29.1. Sodium 139, potassium 3.8, CO2 of 25, BUN 55, and creatinine 2.25. Glucose 178 and calcium 8.6. PROBLEMS: 1. Uncontrolled hypertension. Blood pressure control has improved with adjustment in medications. She is feeling much better now, and her symptoms have improved. 2. Peripheral edema and hypervolemia. This was related to her stage IV chronic kidney disease (CKD) and medication side effect. She should remain on at least 20 mg of torsemide once a day and followup in the office within 1 week. She is likely to require increased dose of diuretic to prevent the fluid retention caused by amlodipine and hydralazine, which are needed for her blood pressure control. She is not a suitable candidate for angiotensin-converting enzyme (ERIK) inhibitor or angiotensin receptor dimitris due to advanced CKD and has been on beta dimitris in addition to amlodipine and hydralazine. 2. Gout. The patient denies any acute gout at present. Her prednisone should be stopped, and she can followup in the office. She is not on any colchicine and is not a suitable candidate for colchicine. She will continue with allopurinol 200 mg daily. DISPOSITION: From a renal standpoint, the patient can be discharged to home and followup with Dr. Magana in the outpatient clinic in 1 week..
[2019-03-07 04:00] VITALS: BP 170/64
[2019-03-07] MEDS ORDERED: TORSEMIDE 20 MG TAB PO ONE (04:45)
[2019-03-07] MEDS: SLF 3 ML SYR IV SCH ×2 (04:50→14:00)
[2019-03-07 05:31] VITALS: BP 176/66
[2019-03-07 05:33] LABS: HEMOGLOBIN 9.8 g/dl (12.0-15.5); MEAN CORPUSCULAR HEMOGLOBIN 32.2 pg (27.0-33.0); MEAN CORPUSCULAR HGB CONC 32.7 g/dl (32.0-36.5); MEAN CORPUSCULAR VOLUME 98.7 fl (80.0-96.0); PLATELET COUNT, AUTOMATED 343 10^3/uL (150-450); RED BLOOD COUNT 3.04 10^6/uL (4.00-5.40); WHITE BLOOD COUNT 13.5 10^3/uL (4.0-10.0)
[2019-03-07 05:58] LABS: CALCIUM LEVEL 8.5 MG/DL (8.8-10.2); CREATININE FOR GFR 2.28 MG/DL (0.55-1.30); POTASSIUM SERUM 3.5 MEQ/L (3.5-5.1)
[2019-03-07] MEDS ORDERED: **hydrALAZINE** 50 MG TAB PO ONE (06:00)
[2019-03-07 06:36] VITALS: BP 150/66
[2019-03-07 08:00] VITALS: BP 140/42
[2019-03-07] MEDS ORDERED: POTASSIUM CHLORIDE 10 MEQ SR TABLET PO ONE (08:00)
[2019-03-07] MEDS: MAGNESIUM CHLORIDE 64 MG TABCR (SLO MAG) PO SCH (08:35)
[2019-03-07] MEDS: HumaLOG INSULIN (NovoLOG) PER UNIT SC SCH ×2 (08:36→12:25)
[2019-03-07] MEDS: LORATADINE 10 MG TAB PO SCH (08:36)
[2019-03-07] MEDS: amLODIPine 10 MG TAB PO SCH (08:37)
[2019-03-07] MEDS: APIXABAN 5 MG TAB (ELIQUIS) PO SCH (08:38)
[2019-03-07] MEDS: CALCITRIOL 0.25 MCG CAP (S0169) PO SCH (08:39)
[2019-03-07] MEDS: ROSUVASTATIN 10 MG TAB (CRESTOR) PO SCH (08:39)
[2019-03-07 08:40] VITALS: BP 140/62
[2019-03-07] MEDS: METOPROLOL TARTRATE 100 MG TAB PO SCH (08:40)
[2019-03-07] MEDS: FERROUS SULFATE 325MG TAB PO SCH (08:40)
[2019-03-07] MEDS: POTASSIUM CHLORIDE 10 MEQ SR TABLET PO SCH (08:41)
[2019-03-07] MEDS: VITAMIN D 1,000 INTERNATIONAL UNITS TABLET PO SCH (08:41)
[2019-03-07] MEDS: ALLOPURINOL 100 MG TAB PO SCH (08:41)
[2019-03-07] MEDS ORDERED: TORSEMIDE 20 MG TAB PO SCH (09:00)
[2019-03-07] MEDS ORDERED: **hydrALAZINE** 50 MG TAB PO SCH (09:00)
[2019-03-07] MEDS ORDERED: HYDR100T PO (10:25)
[2019-03-07 11:00] VITALS: BP 140/60
--- NOTE | 2019-03-07 21:01 | IPN ---
DATE: 03/07/2019 The patient was seen in her room laying in bed. The patient was going to be discharged from the hospital yesterday. However, prior to discharge, her blood pressure increased with the systolic being greater than 170. The patient's discharge was put on hold as medications were adjusted for her to be discharged. The patient says today she is feeling well and does not have any acute complaints. The patient denies any chest pain, difficulty breathing, nausea, or vomiting. PHYSICAL EXAMINATION: VITAL SIGNS: Temperature 97.9, pulse 80, respiratory rate 18, blood pressure 140/62, pulse oximetry 96% on room air. GENERAL: Alert and oriented female patient who was laying in bed when I walked in. The patient did not appear to be in any acute distress. HEENT: Normocephalic, atraumatic with anicteric sclerae and moist mucous membranes. NECK: Supple. Jugular venous distention had improved and is about 3-4 cm above the sternal angle. HEART: Regular rate and rhythm with no murmurs. LUNGS: Clear to auscultation bilaterally. ABDOMEN: Soft and nontender. EXTREMITIES: No edema bilaterally. LABORATORY DATA: White blood cells 13.5, hemoglobin 9.8 hematocrit 30.0, platelet count 343. Sodium 135, potassium 3.5, chloride 102, bicarbonate 24, BUN 65, creatinine 2.28, glucose 151, calcium 8.5. ASSESSMENT AND PLAN: 1. Uncontrolled hypertension. The patient had an episode of hypertension yesterday. The patient's blood pressure medications have been adjusted. The patient is now on hydralazine 100 mg three times a day and torsemide 20 mg twice a day. The patient will be discharged home on these medications. The patient is also on metoprolol 200 mg twice a day. 2. Peripheral edema and hypervolemia. This was related to the patient's stage IV chronic kidney disease and medication side effect. The patient should remain on 20 mg of torsemide twice a day and will followup in the office next week. She will likely require an increased dose of diuretic to prevent fluid retention caused by the amlodipine and hydralazine. The patient is not a candidate for angiotensin-converting enzyme (ERIK) or angiotensin-receptor dimitris (ARB) therapy due to advanced chronic kidney disease. The patient is currently on beta dimitris in addition to the amlodipine and hydralazine. 3. Gout. The patient does not have any acute episode at this time. Her prednisone should be stopped and she can followup in the office. She is not a suitable candidate for colchicine and she continues to take allopurinol 200 mg. DISPOSITION: From a renal standpoint, the patient can be discharged home today and will followup with Izzy next week.
== END 2019-03-07 15:31 | disposition home or self-care (01) | DRG 309 ==
LOC: EDBD 17:03 → M ED 17:03 → M ED INP 19:11 → M PCU 03-03 22:10
PROVIDERS: ADMIT Internal Medicine; ATTEND Family Medicine
DX: I48.0 Paroxysmal atrial fibrillation (principal); N18.4 Chronic kidney disease, stage 4 (severe); N25.81 Secondary hyperparathyroidism of renal origin; E11.22 Type 2 diabetes mellitus with diabetic chronic kidney disease; I15.0 Renovascular hypertension; M10.9 Gout, unspecified; I27.20 Pulmonary hypertension, unspecified; K21.9 Gastro-esophageal reflux disease without esophagitis; I16.0 Hypertensive urgency; D63.1 Anemia in chronic kidney disease; K52.9 Noninfective gastroenteritis and colitis, unspecified; E83.42 Hypomagnesemia; E87.6 Hypokalemia; E11.319 Type 2 diabetes mellitus with unspecified diabetic retinopathy without macular edema; Z79.84 Long term (current) use of oral hypoglycemic drugs; Z79.899 Other long term (current) drug therapy

== ENCOUNTER 2019-03-23 11:33 | Inpatient (IN) | payer MEDICARE, OTHER ==
[~2019-03-23] VITALS: Ht 154.9 cm; Wt 67.5 kg
[~2019-03-23 11:33] MED LIST changes: +ELIQ5TAB PO; +HYDR-3910 PO; +HYDR100T PO; +HYDR50TA PO; +LOPR1TAB7 PO
[2019-03-23 11:58] LABS: VENOUS BASE EXCESS -3.7 (-2.0-2.0); VENOUS HCO3 20.2 MEQ/L (23.0-27.0); VENOUS O2 SATURATION 96.2 % (60.0-80.0); VENOUS PARTIAL PRESSURE CO2 32.7 mmHg (38.0-50.0); VENOUS PARTIAL PRESSURE O2 78.7 mmHg (30.0-50.0); VENOUS PH 7.409 UNITS (7.330-7.430); VENOUS STANDARD HCO3 21.4 MEQ/L; VENOUS TOTAL CO2 21.2 MEQ/L (24.0-28.0)
[2019-03-23 12:12] LABS: BASO % 0.3 % (0.0-1.0); EOS # 0.1 10^3/uL (0.0-0.5); EOS % 0.5 % (0.0-3.0); HEMOGLOBIN 10.3 g/dl (12.0-15.5); LYMPH # 1.5 10^3/uL (1.5-5.0); LYMPH % 12.8 % (24.0-44.0); MEAN CORPUSCULAR HEMOGLOBIN 31.5 pg (27.0-33.0); MEAN CORPUSCULAR HGB CONC 33.2 g/dl (32.0-36.5); MEAN CORPUSCULAR VOLUME 94.8 fl (80.0-96.0); MONO # 0.6 10^3/uL (0.0-0.8); NEUTROPHILS # 9.5 10^3/uL (1.5-8.5); PLATELET COUNT, AUTOMATED 247 10^3/uL (150-450); RED BLOOD COUNT 3.27 10^6/uL (4.00-5.40); WHITE BLOOD COUNT 11.7 10^3/uL (4.0-10.0)
[2019-03-23 12:19] LABS: INR 1.29; PROTHROMBIN TIME 15.8 SECONDS (11.8-14.0)
[2019-03-23 12:41] LABS: ALBUMIN 3.2 GM/DL (3.2-5.2); ALT/SGPT 51 U/L (12-78); BILIRUBIN,DIRECT < 0.1 MG/DL (0.0-0.2); BILIRUBIN,TOTAL 0.3 MG/DL (0.2-1.0); BLOOD UREA NITROGEN 97 MG/DL (7-18); CALCIUM LEVEL 8.7 MG/DL (8.8-10.2); CARBON DIOXIDE LEVEL 21 MEQ/L (21-32); CHLORIDE LEVEL 100 MEQ/L (98-107); CK-MB VALUE MASS < 1.0 NG/ML (<3.6); CPK CREATINE PHOSPHOKINASE 48 U/L (26-192); CREATININE FOR GFR 2.97 MG/DL (0.55-1.30); GLOMERULAR FILTRATION RATE 16.2 (>32); GLUCOSE, FASTING 236 MG/DL (70-100); MB/CK RELATIVE INDEX 2.08 (< OR =4); NT-PRO BNP 3764 PG/ML (<450); POTASSIUM SERUM 3.3 MEQ/L (3.5-5.1); SODIUM LEVEL 134 MEQ/L (136-145); TOTAL PROTEIN 6.4 GM/DL (6.4-8.2); TROPONIN I < 0.02 NG/ML (< 0.10)
[2019-03-23] MEDS ORDERED: NS 1,000 ML IV SCH ×2 (13:00→15:00)
--- NOTE | 2019-03-23 13:20 | REP ---
AP PORTABLE CHEST: 03/23/2019. COMPARISON: 03/02/2019, 01/31/2019. CLINICAL HISTORY: Dyspnea, cough. FINDINGS: AP Portable chest shows the lung quiles marginally adequate in the degree of inflation. There is no infiltrate, effusion, atelectasis, or mass. The heart, mediastinal and hilar contours were normal. The aorta is calcified at the arch but without aneurysm. Airway intact. Hilar contours symmetric and preserved. There are degenerative changes throughout the spine and some soft tissue calcification over the greater tuberosity humeral head suggesting calcific tendinopathy again seen. IMPRESSION: 1. No acute cardiopulmonary change. Stable chest. Electronically Signed by Jim Seth MD 03/23/2019 05:12 P
[2019-03-23] MEDS ORDERED: ELIQ5TAB PO (14:19)
[2019-03-23] MEDS ORDERED: METO100T5 PO (14:19)
[2019-03-23] MEDS ORDERED: HYDR100T26 PO (14:19)
[2019-03-23] MEDS ORDERED: TORS20TA2 PO (14:19)
[2019-03-23] MEDS ORDERED: POTASSIUM CHLORIDE 10 MEQ SR TABLET PO ONE (14:45)
[2019-03-23] MEDS ORDERED: DEXTROSE 50% 50 ML SYRINGE IV PRN (14:45)
[2019-03-23] MEDS ORDERED: GLUCOSE 4 GM CHEW TABLET PO PRN (14:45)
[2019-03-23] MEDS ORDERED: GLUCAGON FOR INJ 1 MG VIAL (J1610) SC PRN (14:45)
[2019-03-23 15:25] LABS: AMORPHOUS SEDIMENT SMALL (NEGATIVE); APPEARANCE, URINE HAZY (CLEAR); BACTERIA, URINE AUTO NEGATIVE (NEGATIVE); BILIRUBIN, URINE AUTO NEGATIVE (NEGATIVE); BLOOD, URINE BLOOD NEGATIVE (NEGATIVE); COLOR, URINE YELLOW (YELLOW); GLUCOSE, URINE (UA) AUTO NEGATIVE (NEGATIVE); KETONE, URINE AUTO NEGATIVE (NEGATIVE); LEUKOCYTE ESTERASE, URINE AUTO NEGATIVE (NEGATIVE); NITRITE, URINE AUTO NEGATIVE (NEGATIVE); PROTEIN, URINE AUTO 2+ mg/dL (NEGATIVE); RBC, URINE AUTO 1 /HPF (0-3); SQUAMOUS EPITHELIAL CELL UR AU 0 /HPF (0-6); UROBILINOGEN, URINE AUTO 0.2 mg/dL (0.0-2.0); WBC, URINE AUTO 4 /HPF (0-3)
[2019-03-23 15:35] VITALS: BP 144/71
[2019-03-23 15:39] LABS: CREATININE,RANDOM URINE 60.8 MG/DL
--- NOTE | 2019-03-23 15:46 | ECGEPIP ---
[facility] - ED Test Date: 2019-03-23 Pat Name: KELVIN ESPARZA Department: Room: - Gender: Female Shop Technician: janeth : 1940 Requested By: Viky Tay Order Number: [id number] Reading MD: Viky Tay Measurements Intervals [place] Rate: 103 P: [place]: 0 QRS: 15 QRSD: 108 T: 12 QT: 346 QTc: 454 Interpretive Statements ATRIAL FLUTTER WITH RAPID VENTRICULAR RESPONSE NSTTW abnormalities INFERIOR MYOCARDIAL INFARCTION, PROBABLY OLD 03/02/19 SINUS RHYTHM Electronically Signed on 03-23-2019 15:46:14 EST by Viky Tay
--- NOTE | 2019-03-23 15:58 | HPEPDOC ---
[facility] Medical History & Physical Date of Admission Mar 23, 2019 Date of Service: Mar 23, 2019 Attending Physician: ARIANA FARAH MD History and Physical CHIEF COMPLAINT: Fatigue HISTORY OF PRESENT ILLNESS: 79-year-old female with past medical history of diabetes mellitus, hypertension, atrial fibrillation, chronic kidney disease, GERD and gout presents from home with worsening fatigue for the past few days. She was admitted 3 weeks ago for A. fib with RVR and hypertensive urgency, felt well after discharge, but has been progressively worsening over the past week. She follow-up with her PCP and stone breaker in the last week, no changes were made. She reports poor oral intake over the past 3-5 days, continues taking all of her meds, reports severe fatigue and malaise, which brought her to the hospital today. She was found to have acute on chronic kidney disease and appeared dehydrated. She has no other complaints at this time, denies any short of breath, chest pain, nausea, vomiting, pain, diarrhea or fevers. 10 point review of system is negative except for above PAST MEDICAL HISTORY: 1. Diabetes mellitus. 2. A. fib. 3. Hypertension. 4. Chronic kidney disease. 5. Gout. 6. GERD PAST SURGICAL HISTORY: 1. Tonsillectomy. SOCIAL HISTORY: Never smoker. Denies alcohol. Denies drug use FAMILY HISTORY: Father had CVA ALLERGIES: Please see below. HOME MEDICATIONS: Please see below. PHYSICAL EXAMINATION: VITAL SIGNS: Please see below. GENERAL: No distress, frail HEENT: Normocephalic, atraumatic, moist mucous membranes NECK: Supple CARDIOVASCULAR EXAMINATION: Irregularly irregular RESPIRATORY EXAMINATION: Clear to auscultation, no wheezing ABDOMINAL EXAMINATION: Soft, nontender, nondistended, positive bowel sounds EXTREMITIES: Range of motion intact SKIN: No rash NEUROLOGICAL EXAMINATION: Alert and oriented 3, no focal deficits PSYCHIATRIC EXAMINATION: Calm and cooperative LABORATORY DATA: See below. MICROBIOLOGY: Please see below. ASSESSMENT: 79-year-old female with past medical history of diabetes mellitus, atrial fibrillation, hypertension, chronic kidney disease, gout and GERD is being admitted for acute on chronic kidney disease. PLAN: 1. Acute on chronic kidney disease. Likely due to poor oral intake and medication, possibly the cause of patient's fatigue, continue gentle IV hydration given patient has history of elevated pulmonary pressures, hold Lasix for now. Continue home calcitriol and vitamin D 2. Atrial fibrillation. Continue Eliquis, dose decreased to 2.5 mg twice a day due to patient's age and creatinine. Continue metoprolol for rate control 3. Hypertension. Continue Norvasc, metoprolol and hydralazine with hold parameters. 4. Diabetes mellitus. Hold home oral meds, sliding scale insulin with fingersticks before meals and at bedtime. 5. Gout. Hold allopurinol for now DVT prophylaxis: Eliquis GI prophylaxis: not needed Vital Signs Vital Signs Date Time Temp Pulse Resp B/P (MAP) Pulse Ox O2 Delivery O2 Flow Rate FiO2 03/23/19 13:22 91 140/67 (91) 101 107/55 (72) 148 67/42 (50) 03/23/19 13:15 18 99 Room Air 03/23/19 12:00 97.6 Laboratory Data Labs 24H Laboratory Tests 2 03/23/19 11:42: Immature Granulocyte % (Auto) 0.4, Neutrophils (%) (Auto) 81.0H, Lymphocytes (%) (Auto) 12.8L, Monocytes (%) (Auto) 5.0, Eosinophils (%) (Auto) 0.5, Basophils (%) (Auto) 0.3, Neutrophils # (Auto) 9.5H, Lymphocytes # (Auto) 1.5, Monocytes # (Auto) 0.6, Eosinophils # (Auto) 0.1, Basophils # (Auto) 0.0, Nucleated Red Blood Cells % (auto) 0.0, Prothrombin Time 15.8H, Prothromb Time International Ratio 1.29, Blood Gas Bicarbonate Standard 21.4, Venous Blood pH 7.409, Venous Blood Partial Pressure CO2 32.7L, Venous Blood Partial Pressure O2 78.7H, Venous Blood Total Carbon Dioxide 21.2L, Venous Blood HCO3 20.2L, Venous Blood Oxygen Saturation 96.2H, Venous Blood Base Excess -3.7L, Anion Gap 13, Glomerular Filtration Rate 16.2L, Lactic Acid Level 1.2, Calcium Level 8.7L, Total Bilirubin 0.3, Direct Bilirubin < 0.1, Aspartate Amino Transf (AST/SGOT) 42H, Alanine Aminotransferase (ALT/SGPT) 51, Alkaline Phosphatase 96, Total Creatine Kinase 48, Creatine Kinase MB < 1.0, Creatine Kinase MB Relative Index 2.08, Troponin I < 0.02, LZ-[id number]-Type Natriuretic Peptide 3764H, Total Protein 6.4, Albumin 3.2, Albumin/Globulin Ratio 1.00, Thyroid Stimulating Hormone (TSH) 1.480 CBC/BMP Laboratory Tests 03/23/19 11:42 Microbiology Microbiology 03/23/19 Respiratory Virus Panel (PCR) (LETICIA) - Final, Complete 03/23/19 Blood Culture, Received Pending Home Medications Scheduled Allopurinol (Allopurinol) 100 Mg Tablet, 200 MG PO DAILY Amlodipine Besylate (Amlodipine Besylate) 10 Mg Tablet, 10 MG PO DAILY Apixaban (Eliquis) 5 Mg Tablet, 5 MG PO BID Calcitriol (Calcitriol) 0.25 Mcg Capsule, 0.25 MCG PO 3XW SUN, SUN, SUN Cholecalciferol (Vitamin D3) (Vitamin D3) 1,000 Unit Capsule, 1,000 UNIT PO DAILY Ferrous Sulfate (Ferrous Sulfate) 325 Mg Tab, 325 MG PO Q2D Glipizide (Glipizide ER) 10 Mg Tab.er.24, 10 MG PO BID Hydralazine HCl (Hydralazine HCl) 100 Mg Tablet, 100 MG PO TID Loratadine (Loratadine) 10 Mg Tab, 10 MG PO DAILY Magnesium Chloride (Mag64) 64 Mg Tabcr, 64 MG PO BID Metoprolol Tartrate (Metoprolol Tartrate) 100 Mg Tablet, 200 MG PO BID Mv-Mn/Iron/Folic Acid/Herb 190 (Vitamin D3 Complete Caplet) 1 Tab Tab, 1 TAB PO 3XW TAKES SUNDAY, SUNDAY AND SUNDAY Rosuvastatin Calcium (Rosuvastatin Calcium) 10 Mg Tablet, 10 MG PO 4XWK SUN, , , SAT Saxagliptin HCl (Onglyza) 2.5 Mg Tab, 2.5 MG PO DAILY Torsemide (Torsemide) 20 Mg Tablet, 20 MG PO BID Allergies Coded Allergies: No Known Allergies (Unverified , 02/01/19) A-FIB/CHADSVASC A-FIB History Current/History of A-Fib/PAF?: Yes Current PO Anticoag Therapy: Yes ARIANA AFRAH MD Mar 23, 2019 15:58
[2019-03-23] MEDS: FERROUS SULFATE 325MG TAB PO SCH (16:09)
[2019-03-23] MEDS: amLODIPine 10 MG TAB PO SCH (16:10)
[2019-03-23] MEDS: **hydrALAZINE** 50 MG TAB PO SCH ×2 (16:11→23:18)
[2019-03-23] MEDS: HumaLOG INSULIN (NovoLOG) PER UNIT SC SCH ×2 (17:31→21:00)
[2019-03-23] MEDS: KCL 20MEQ in NS 1000ML 1,000 ML IV SCH (17:49)
--- NOTE | 2019-03-23 21:17 | CR ---
DATE OF CONSULTATION: 03/23/2019 CONSULTATION REPORT FOR: Viky Kwong MD REASON FOR CONSULTATION: Acute renal failure superimposed on chronic kidney disease. HISTORY OF PRESENT ILLNESS: Mrs. Birmingham is a 79-year-old female with known history of stage IV of chronic kidney disease, hypertension, type 2 diabetes and atrial fibrillation. She was admitted to [facility] in February due to generalized edema and uncontrolled hypertension. She had been on hydralazine and amlodipine and felt to have peripheral edema caused by those antihypertensives. During her prior hospitalization, her torsemide dose was increased and she was diuresed with improved blood pressure readings. She followed up with Dr. Magana as an outpatient and reports no further medication changes. She has not been feeling well and reports generalized weakness and no energy due to which she presented to the emergency room today. She was found to have increase in her BUN to 96 and creatinine about 3. Dr. Kwong called me and we discussed the case. I have seen the patient in the emergency room this afternoon. PAST MEDICAL AND SURGICAL HISTORY: Significant for: 1. Longstanding type 2 diabetes. 2. Hypertension. 3. Stage IV of chronic kidney disease. 4. Atrial fibrillation. 5. History of gout. 6. Gastroesophageal reflux disease. 7. Anemia. Past surgical history is significant for tonsillectomy. PERSONAL AND SOCIAL HISTORY: The patient has no history of alcohol, tobacco or drug use. FAMILY HISTORY: Negative for end-stage renal disease. Her father had stroke. ALLERGIES: The patient has no known drug allergies. MEDICATIONS: Her home medications included: - allopurinol 200 mg daily - amlodipine 10 mg daily - Eliquis 5 mg twice a day - calcitriol 0.25 mcg three times a week - vitamin D 1000 units daily - ferrous sulfate 325 mg daily - glipizide 10 mg twice a day - hydralazine 100 mg three times a day - Mag64 one tablet twice a day - metoprolol 200 mg daily - Crestor 10 mg daily - Onglyza 2.5 mg daily - torsemide 20 mg twice a day REVIEW OF SYSTEMS: The patient denies any fever or chills. She has just been feeling very weak and no energy. Ears, nose and throat are unremarkable. Cardiovascular system negative for dyspnea, chest pain or leg edema. Respiratory system is negative for cough or hemoptysis. GI system is negative for vomiting or diarrhea. She reports poor appetite but has been drinking liquids. system negative for dysuria or hematuria. Endocrine system significant for type 2 diabetes. She has no history of hypothyroidism known. Psychosocial system negative for depression or anxiety. Neurological system negative for seizures or stroke. Hematological system is significant for chronic anticoagulation and anemia. Skin is negative for rash or ulcers. PHYSICAL EXAMINATION: Temperature 98.5 degrees Fahrenheit, heart rate 94 per minute and respiratory rate 18 per minute. Blood pressure about 138/68 mmHg and oxygen saturation 98% on room air. Her head is atraumatic. Neck is supple and JVD not abnormally elevated. Pupils equal and reactive to light and sclerae is anicteric. Ears, nose and throat are unremarkable. Heart sounds are irregular in rhythm. Lungs sound clear to auscultation. Abdomen soft and nontender and bowel sounds are normal. Extremities have no cyanosis or clubbing. Neurologically she is awake, alert and oriented times three. LABORATORY DATA: WBC count 11.7, hemoglobin 10.3 and hematocrit 31.0. Blood gas showed a pH of 7.40, pCO2 of 32.7, pO2 78.7 and bicarbonate 21.4. Urinalysis showed 2+ protein and no blood. She has only 4 WBCs and 1 RBC. Chemistry showed a sodium level 134, potassium 3.3, CO2 21, BUN 97 and creatinine 2.97. Glucose 236 and lactic acid 1.2. Calcium level is 8.7. BNP level 3764. TSH is 1.48 and albumin 3.2. PROBLEMS: 1. Acute kidney injury superimposed on chronic kidney disease. Probably she has mildly prerenal azotemia. She has advanced stage IV of chronic kidney disease even at baseline. Her diuretic was adjusted during last admission due to hypervolemia and uncontrolled hypertension. I am not convinced that she is significantly dehydrated. We will recommend only gentle hydration for next 24 hours and hold the diuretic for 24 hours. She is not on ERIK inhibitor, angiotensin receptor dimitris or any nephrotoxic medication. 2. Hypokalemia. She has mild hypokalemia related to increased torsemide dose. She did receive an oral dose of potassium and I am going to add 20 mEq in the liter of normal saline in order to correct her hypokalemia. 3. Hypertension. She did have difficult to control hypertension and required multiple antihypertensive medications. I would recommend to hold the torsemide and continue with rest of her antihypertensive medications. Her blood pressure is still reasonably well-controlled. 4. Atrial fibrillation. Her ventricular rate is moderately well-controlled with metoprolol. She remains on chronic anticoagulation with Eliquis. We may need to consider cutting down the Eliquis dose to 2.5 mg twice a day. 5. Generalized weakness and fatigue. At this time, she does not seem to have any source of infection and has been afebrile. She does not look significantly dehydrated. No other new medications have been started. Her thyroid seems to be optimal and diabetes is also reasonably well-controlled. We will see how she does after she gets hydrated. Thank you for involving me in the care of Mrs. Birmingham. I will follow her during this hospital stay. NANCIE
[2019-03-23 22:00] VITALS: BP_SYST 142; BP_SYST 146; BP_SYST 151; BP_DIAS 48; BP_DIAS 57; BP_DIAS 60
[2019-03-23] MEDS: APIXABAN 2.5 MG TAB (ELIQUIS) PO SCH (23:16)
[2019-03-23] MEDS: MAGNESIUM CHLORIDE 64 MG TABCR (SLO MAG) PO SCH (23:16)
[2019-03-23] MEDS: METOPROLOL TARTRATE 100 MG TAB PO SCH (23:17)
[2019-03-24] MEDS: **hydrALAZINE** 50 MG TAB PO SCH ×3 (05:24→22:05)
[2019-03-24] MEDS: KCL 20MEQ in NS 1000ML 1,000 ML IV SCH (05:25)
[2019-03-24 06:00] VITALS: BP 156/55
[2019-03-24 06:07] LABS: HEMATOCRIT 28.7 % (36.0-47.0); HEMOGLOBIN 9.5 g/dl (12.0-15.5); MEAN CORPUSCULAR HEMOGLOBIN 31.9 pg (27.0-33.0); MEAN CORPUSCULAR HGB CONC 33.1 g/dl (32.0-36.5); MEAN CORPUSCULAR VOLUME 96.3 fl (80.0-96.0); PLATELET COUNT, AUTOMATED 246 10^3/uL (150-450); RED BLOOD COUNT 2.98 10^6/uL (4.00-5.40); WHITE BLOOD COUNT 11.7 10^3/uL (4.0-10.0)
[2019-03-24 06:32] LABS: ALBUMIN 2.9 GM/DL (3.2-5.2); BILIRUBIN,TOTAL 0.3 MG/DL (0.2-1.0); CALCIUM LEVEL 8.3 MG/DL (8.8-10.2); CREATININE FOR GFR 2.81 MG/DL (0.55-1.30); GLOMERULAR FILTRATION RATE 17.2 (>32); MAGNESIUM LEVEL 2.1 MG/DL (1.8-2.4); POTASSIUM SERUM 3.6 MEQ/L (3.5-5.1); TOTAL PROTEIN 6.4 GM/DL (6.4-8.2)
[2019-03-24] MEDS: APIXABAN 2.5 MG TAB (ELIQUIS) PO SCH ×2 (08:09→22:08)
[2019-03-24] MEDS: VITAMIN D 1,000 INTERNATIONAL UNITS TABLET PO SCH (08:09)
[2019-03-24] MEDS: LORATADINE 10 MG TAB PO SCH (08:09)
[2019-03-24] MEDS: ROSUVASTATIN 10 MG TAB (CRESTOR) PO SCH (08:09)
[2019-03-24] MEDS: METOPROLOL TARTRATE 100 MG TAB PO SCH ×2 (08:10→22:05)
[2019-03-24] MEDS: MAGNESIUM CHLORIDE 64 MG TABCR (SLO MAG) PO SCH ×2 (08:10→22:04)
[2019-03-24] MEDS: amLODIPine 10 MG TAB PO SCH (08:10)
[2019-03-24] MEDS: HumaLOG INSULIN (NovoLOG) PER UNIT SC SCH ×4 (08:11→21:00)
[2019-03-24] MEDS ORDERED: CALCITRIOL 0.25 MCG CAP (S0169) PO SCH (09:00)
[2019-03-24 10:00] VITALS: BP_SYST 139; BP_SYST 147; BP_DIAS 53; BP_DIAS 54
[2019-03-24] MEDS ORDERED: FUROSEMIDE 100 MG/10 ML VIAL (J1940) IV ONE (12:15)
[2019-03-24 14:00] VITALS: BP 145/52
[2019-03-24] MEDS ORDERED: POTASSIUM CHLORIDE 10 MEQ SR TABLET PO ONE (14:15)
--- NOTE | 2019-03-24 14:54 | IPN ---
DATE: 03/24/2019 Mrs. Birmingham is seen this morning on her bedside. She has complained of feeling short of breath and also inability to void. She denies any fever or chills. There is no nausea or vomiting and reports eating at least part of her breakfast this morning. PHYSICAL EXAMINATION: Temperature 98.5 degrees Fahrenheit, heart rate 74 per minute and respiratory rate 18 per minute. Blood pressure 159/80 mmHg. Head is atraumatic. Neck is supple and jugular venous distention (JVD) is not abnormally elevated. Her heart sounds are regular and she has atrial flutter on the monitor. Lungs have bibasilar rales. Abdomen: Soft, tender with mild suprapubic fullness. Bowel sounds normal. Extremities have no clubbing. Neurologically, she is awake, alert and at that EXAMINATION Today's labs show WBC of 11.7, hemoglobin 9.5 and hematocrit 28.7. Sodium 138, potassium 3.6, BUN 94 and creatinine 1. Glucose 175 and calcium is 8.3. PROBLEMS: 1. Acute kidney injury superimposed on chronic kidney disease. Slight improvement in BUN and creatinine is noticed since yesterday. However, now she seems clinically somewhat volume overloaded and feels short of breath. I am going to stop her IV fluids for now and give her one dose of intravenous Lasix 80 mg. 2. Urinary retention. The patient is complaining of inability to void. We got a bladder scan done and she had more than 500 mL residual. She will have a straight cath done for now and we will watch her. 3. Hypokalemia. Her potassium level is borderline and she is going to receive a dose of Lasix drip. We will give her a dose of potassium chloride 40 mEq in order to prevent further worsening of hypokalemia. 4. Congestive heart failure. Her volume status seems clinically slightly decompensated and she is feeling short of breath. One dose of Lasix 80 mg is being given and IV fluid is being stopped. Her torsemide has been on hold since admission due to acute renal failure. Would consider to resume her torsemide once her condition is stabilized. 5. Hypertension. At present, her blood pressure is reasonable and we will continue with current antihypertensive meds. 6. Atrial flutter. Her ventricular rate is very reasonably well-controlled and she remains on beta dimitris and Eliquis. MTDD
--- NOTE | 2019-03-24 16:30 | IPNPDOC ---
Date Seen The patient was seen on 03/24/19. Progress Note HISTORY OF PRESENT ILLNESS: 79-year-old female with past medical history of diabetes mellitus, hypertension, atrial fibrillation, chronic kidney disease, GERD and gout presents from home with worsening fatigue for the past few days. She was admitted 3 weeks ago for A. fib with RVR and hypertensive urgency, felt well after discharge, but has been progressively worsening over the past week. She follow-up with her PCP and qm nurse in the last week, no changes were made. She reports poor oral intake over the past 3-5 days, continues taking all of her meds, reports severe fatigue and malaise, which brought her to the hospital today. She was found to have acute on chronic kidney disease and appeared dehydrated. She has no other complaints at this time, denies any short of breath, chest pain, nausea, vomiting, pain, diarrhea or fevers. 03/24/2019 Patient continues experiencing fatigue, dyspnea, poor urine output, status post straight cath. 10 point review of system is negative except for above PHYSICAL EXAMINATION: VITAL SIGNS: Please see below. GENERAL: No distress, frail HEENT: Normocephalic, atraumatic, moist mucous membranes NECK: Supple CARDIOVASCULAR EXAMINATION: Irregularly irregular RESPIRATORY EXAMINATION: Clear to auscultation, no wheezing ABDOMINAL EXAMINATION: Soft, nontender, nondistended, positive bowel sounds EXTREMITIES: Range of motion intact SKIN: No rash NEUROLOGICAL EXAMINATION: Alert and oriented 3, no focal deficits PSYCHIATRIC EXAMINATION: Calm and cooperative LABORATORY DATA: See below. MICROBIOLOGY: Please see below. ASSESSMENT: 79-year-old female with past medical history of diabetes mellitus, atrial fibrillation, hypertension, chronic kidney disease, gout and GERD is being admitted for acute on chronic kidney disease. PLAN: 1. Acute on chronic kidney disease. Patient appears volume overloaded after gentle hydration overnight, IV fluids discontinued, received 1 dose of Lasix 80 mg IV, had poor urine output, straight cath 1, will continue to monitor and bladder scan every 8 hours if not voiding. Continue home calcitriol and vitamin D 2. Atrial fibrillation. Continue Eliquis, dose decreased to 2.5 mg twice a day due to patient's age and creatinine. Continue metoprolol for rate control 3. Hypertension. Continue Norvasc, metoprolol and hydralazine with hold parameters. 4. Diabetes mellitus. Hold home oral meds, sliding scale insulin with fingersticks before meals and at bedtime. 5. Gout. Hold allopurinol for now DVT prophylaxis: Eliquis GI prophylaxis: not needed VS, I&O, 24H, Fishbone Vital Signs/I&O Vital Signs Date Time Temp Pulse Resp B/P (MAP) Pulse Ox O2 Delivery O2 Flow Rate FiO2 03/24/19 14:00 98.1 71 17 145/52 (83) 96 Room Air I&O- Last 24 Hours up to 6 AM 03/24/19 06:00 Intake Total 1280 ml Output Total 700 ml Balance 580 ml Laboratory Data 24H LABS Laboratory Tests 2 03/23/19 17:19: Bedside Glucose (Misc Panel) 146H 03/23/19 21:30: Bedside Glucose (Misc Panel) 170H 03/24/19 05:50: Nucleated Red Blood Cells % (auto) 0.0, Anion Gap 8, Glomerular Filtration Rate 17.2L, Calcium Level 8.3L, Magnesium Level 2.1, Total Bilirubin 0.3, Aspartate Amino Transf (AST/SGOT) 32, Alanine Aminotransferase (ALT/SGPT) 44, Alkaline Phosphatase 91, Total Protein 6.4, Albumin 2.9L, Albumin/Globulin Ratio 0.83L 03/24/19 11:23: Bedside Glucose (Misc Panel) 226H CBC/BMP Laboratory Tests 03/24/19 05:50 Microbiology Microbiology 03/23/19 Blood Culture - Preliminary, Resulted No growth after 24 hours . All specim... 03/23/19 Respiratory Virus Panel (PCR) (LETICIA) - Final, Complete 03/23/19 Blood Culture - Preliminary, Resulted No growth after 24 hours . All specim... ARIANA FARAH MD Mar 24, 2019 16:30
[2019-03-24 22:00] VITALS: BP_SYST 104; BP_SYST 144; BP_SYST 146; BP_SYST 155; BP_DIAS 58; BP_DIAS 62; BP_DIAS 64; BP_DIAS 65
[2019-03-25 06:00] VITALS: BP 142/64
[2019-03-25] MEDS: **hydrALAZINE** 50 MG TAB PO SCH ×2 (06:08→13:23)
[2019-03-25 06:48] LABS: HEMATOCRIT 31.1 % (36.0-47.0); HEMOGLOBIN 10.1 g/dl (12.0-15.5); MEAN CORPUSCULAR HEMOGLOBIN 31.8 pg (27.0-33.0); MEAN CORPUSCULAR HGB CONC 32.5 g/dl (32.0-36.5); MEAN CORPUSCULAR VOLUME 97.8 fl (80.0-96.0); PLATELET COUNT, AUTOMATED 259 10^3/uL (150-450); RED BLOOD COUNT 3.18 10^6/uL (4.00-5.40)
[2019-03-25 07:12] LABS: CALCIUM LEVEL 9.1 MG/DL (8.8-10.2); CREATININE FOR GFR 2.59 MG/DL (0.55-1.30); GLOMERULAR FILTRATION RATE 18.9 (>32); MAGNESIUM LEVEL 2.1 MG/DL (1.8-2.4); PHOSPHORUS LEVEL 3.1 MG/DL (2.5-4.9)
[2019-03-25] MEDS: HumaLOG INSULIN (NovoLOG) PER UNIT SC SCH ×2 (07:30→13:21)
[2019-03-25 09:20] VITALS: BP 150/58
[2019-03-25 09:37] LABS: CORTISOL AM 25.3 UG/DL (4.3-22.4)
[2019-03-25 10:05] VITALS: BP_SYST 143; BP_SYST 151; BP_SYST 152; BP_DIAS 53; BP_DIAS 57; BP_DIAS 58
[2019-03-25] MEDS: VITAMIN D 1,000 INTERNATIONAL UNITS TABLET PO SCH (11:32)
[2019-03-25] MEDS: MAGNESIUM CHLORIDE 64 MG TABCR (SLO MAG) PO SCH (11:32)
[2019-03-25] MEDS: METOPROLOL TARTRATE 100 MG TAB PO SCH (11:34)
[2019-03-25] MEDS: LORATADINE 10 MG TAB PO SCH (11:35)
[2019-03-25] MEDS: FERROUS SULFATE 325MG TAB PO SCH (11:36)
[2019-03-25] MEDS: APIXABAN 2.5 MG TAB (ELIQUIS) PO SCH (11:36)
[2019-03-25] MEDS: ROSUVASTATIN 10 MG TAB (CRESTOR) PO SCH (11:37)
[2019-03-25] MEDS: amLODIPine 10 MG TAB PO SCH (11:37)
[2019-03-25 13:23] VITALS: BP 144/53
[2019-03-25] MEDS ORDERED: MIDO2.5T PO (13:34)
[2019-03-25] MEDS ORDERED: ELIQ2.5T PO (13:34)
[2019-03-25 14:00] VITALS: BP 150/62
--- NOTE | 2019-03-25 15:27 | DS.PDOC ---
Discharge Summary General Date of Admission Mar 23, 2019 at 14:42 Date of Discharge 03/25/2019 Attending Physician: ARIANA FARAH MD Discharge Summary PROCEDURES PERFORMED DURING STAY: None. ADMITTING DIAGNOSES: 1. Acute on chronic kidney disease, fatigue. DISCHARGE DIAGNOSES: 1. Acute on chronic kidney disease, fatigue, urinary retention. COMPLICATIONS/CHIEF COMPLAINT: Acute Kidney Injury Diabetes Chronic Kidney Diseas. HISTORY OF PRESENT ILLNESS: 79-year-old female with past medical history of chronic kidney disease, diabetes mellitus, was admitted for acute on chronic kidney disease and weakness. She was found to have urinary retention, required straight cath 2, now voiding without significant urinary retention, did not require Garza catheter placement. Patient has also been orthostatic positive intermittently, a.m. cortisol and ACTH within normal limits, was considering midodrine, but patient currently hypertensive and no longer orthostatic positive, we'll reassess an acute rehabilitation unit. Patient's renal function improved with resolution of urinary retention and diuresis. Patient evaluated by physical therapy who recommended acute rehabilitation unit, patient will be discharged to her later today.. HOSPITAL COURSE: As above. DISCHARGE MEDICATIONS: Please see below. ALLERGIES: Please see below. PHYSICAL EXAMINATION: VITAL SIGNS: Please see below. GENERAL: No distress, frail HEENT: Normocephalic, atraumatic, moist mucous membranes NECK: Supple CARDIOVASCULAR EXAMINATION: Irregularly irregular RESPIRATORY EXAMINATION: Clear to auscultation, no wheezing ABDOMINAL EXAMINATION: Soft, nontender, nondistended, positive bowel sounds EXTREMITIES: Range of motion intact SKIN: No rash NEUROLOGICAL EXAMINATION: Alert and oriented 3, no focal deficits PSYCHIATRIC EXAMINATION: Calm and cooperative LABORATORY DATA: Please see below. PROGNOSIS: Fair ACTIVITY: As tolerated. DIET: Cardiac with consistent carbs DISCHARGE PLAN: Follow-up with PCP and test preparation tutor after discharge from acute rehabilitation unit DISPOSITION: Acute rehabilitation unit. DISCHARGE INSTRUCTIONS: 1. As above. DISCHARGE CONDITION: Stable. TIME SPENT ON DISCHARGE: Greater than 34 minutes. Vital Signs/I&Os Vital Signs Date Time Temp Pulse Resp B/P (MAP) Pulse Ox O2 Delivery O2 Flow Rate FiO2 03/25/19 13:23 144/53 03/25/19 11:37 76 03/25/19 09:20 97.0 14 99 Room Air I&O- Last 24 Hours up to 6 AM 03/25/19 06:00 Intake Total 1820 ml Output Total 1950 ml Balance -130 ml Laboratory Data Labs 24H Laboratory Tests 2 03/24/19 16:25: Bedside Glucose (Misc Panel) 246H 03/24/19 20:53: Bedside Glucose (Misc Panel) 175H 03/25/19 06:30: Nucleated Red Blood Cells % (auto) 0.0, Anion Gap 10, Glomerular Filtration Rate 18.9L, Calcium Level 9.1, Phosphorus Level 3.1, Magnesium Level 2.1, Cortisol AM Sample 25.3H 03/25/19 11:27: Bedside Glucose (Misc Panel) 236H CBC/BMP Laboratory Tests 03/25/19 06:30 FSBS Laboratory Tests Test 03/24/19 16:25 03/24/19 20:53 03/25/19 11:27 Range/Units Bedside Glucose (Misc Panel) 246 175 236 83-110 MG/DL Microbiology Microbiology 03/23/19 Blood Culture - Preliminary, Resulted No growth after 24 hours . All specim... 03/23/19 Respiratory Virus Panel (PCR) (LETICIA) - Final, Complete 03/23/19 Blood Culture - Preliminary, Resulted No Growth after 48 hours. All Specime... Discharge Medications Scheduled Allopurinol (Allopurinol) 100 Mg Tablet, 200 MG PO DAILY, (Reported) Amlodipine Besylate (Amlodipine Besylate) 10 Mg Tablet, 10 MG PO DAILY, (Reported) Apixaban (Eliquis) 2.5 Mg Tablet, 2.5 MG PO BID Calcitriol (Calcitriol) 0.25 Mcg Capsule, 0.25 MCG PO 3XW, (Reported) SUN, SUN, SUN Cholecalciferol (Vitamin D3) (Vitamin D3) 1,000 Unit Capsule, 1,000 UNIT PO DAILY, (Reported) Ferrous Sulfate (Ferrous Sulfate) 325 Mg Tab, 325 MG PO Q2D, (Reported) Glipizide (Glipizide ER) 10 Mg Tab.er.24, 10 MG PO BID, (Reported) Hydralazine HCl (Hydralazine HCl) 100 Mg Tablet, 100 MG PO TID, (Reported) Loratadine (Loratadine) 10 Mg Tab, 10 MG PO DAILY, (Reported) Magnesium Chloride (Mag64) 64 Mg Tabcr, 64 MG PO BID, (Reported) Metoprolol Tartrate (Metoprolol Tartrate) 100 Mg Tablet, 200 MG PO BID, (Reported) Mv-Mn/Iron/Folic Acid/Herb 190 (Vitamin D3 Complete Caplet) 1 Tab Tab, 1 TAB PO 3XW, (Reported) TAKES SUNDAY, SUNDAY AND SUNDAY Rosuvastatin Calcium (Rosuvastatin Calcium) 10 Mg Tablet, 10 MG PO 4XWK, (Reported) SUN, , , SAT Saxagliptin HCl (Onglyza) 2.5 Mg Tab, 2.5 MG PO DAILY, (Reported) Torsemide (Torsemide) 20 Mg Tablet, 20 MG PO BID, (Reported) Allergies Coded Allergies: No Known Allergies (Unverified , 02/01/19) ARIANA FARAH MD Mar 25, 2019 15:27
[2019-03-25] MEDS ORDERED: MIDODRINE 2.5 MG TAB PO SCH (16:00)
== END 2019-03-25 16:24 | DRG 683 ==
LOC: M ED 11:33 → EDBD 11:33 → M ED INP 14:42 → M MSPAV 15:32
PROVIDERS: ADMIT Internal Medicine; ATTEND Internal Medicine
DX: N17.9 Acute kidney failure, unspecified (principal); I48.20 Chronic atrial fibrillation, unspecified; E11.22 Type 2 diabetes mellitus with diabetic chronic kidney disease; I12.9 Hypertensive chronic kidney disease with stage 1 through stage 4 chronic kidney disease, or unspecified chronic kidney disease; R33.9 Retention of urine, unspecified; D64.9 Anemia, unspecified; M10.9 Gout, unspecified; R53.83 Other fatigue; R53.1 Weakness; N18.4 Chronic kidney disease, stage 4 (severe); E87.6 Hypokalemia; K21.9 Gastro-esophageal reflux disease without esophagitis; Z79.01 Long term (current) use of anticoagulants; Z79.899 Other long term (current) drug therapy; Z79.84 Long term (current) use of oral hypoglycemic drugs

== ENCOUNTER 2019-03-25 15:02 | Inpatient (IN) | payer MEDICARE, OTHER ==
[~2019-03-25] VITALS: Ht 154.9 cm; Wt 68.4 kg
[~2019-03-25 15:02] MED LIST changes: +ELIQ2.5T PO; +HYDR100T26 PO; +METO100T5 PO; +MIDO2.5T PO
[2019-03-25 16:30] VITALS: BP 164/60
--- NOTE | 2019-03-25 16:42 | HPEPDOC ---
Cartography Supervisor Note DATE OF ADMISSION: 03-25-19 date of service 03-25-19 SOURCE OF ADMISSION INFORMATION: [facility] record and patient CHIEF COMPLAINT: DIANNE with CKD HISTORY OF PRESENT ILLNESS: 79F pmh CKD, DM, HTN, Afib, gout with worsening fatigue, grade 1 diastolic CHF admitted to [facility] ED on 03-23-19 for acute on chronic CKD. Patient received fluids to correct this and later IV diuretics for volume overload. Her Eliquis dosing was decreased due to her age and elevated creatinine. She was also evaluated by renal who helped adjust her Torsemide dosing which was ultimately held during her hospital course. She had episodes of orthostatic hypotension with subsequent spikes in BPs such that midodrine was held for her orthostatic hypotension. In addition she had urinary retention which resolved on its own. She was evaluated by therapy, noted to have impairments in mobility and ADLs and deemed medically appropriate for discharge to ARU on 03-25-19. On initial presentation, patient reports she has not been dizzy for over 20 years and that on the inpatient side, despite having drops in BPs she does not recall being dizzy or light headed. She denies falling in the past year, but states for the past couple of months her legs have felt wobbly. REVIEW OF SYSTEMS: The following is a completed review of systems and has been reviewed. Review of systems otherwise unremarkable. PAIN: Patient self reports no pain EYES: No recent vision changes EARS, NOSE, & THROAT: No throat pain, or dysphagia, or rhinorrhea CARDIOVASCULAR: Denies chest pain or palpitations PULMONARY: Denies shortness of breath GASTROINTESTINAL: Denies constipation/diarrhea GENITOURINARY: denies dysuria MUSCULOSKELETAL: bilat LE weakness NEUROLOGICAL: no focal tremor or seizure activity HEMATOLOGICAL: denies easy bruising SKIN: no rash PSYCHIATRIC: Unremarkable All other review of systems found to be negative. PAST MEDICAL HISTORY: as per HPI ALLERGIES: Please see below. MEDICATIONS: Please see below. 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 GENERAL: Pleasant and cooperative. No acute distress. HEENT: PERRL. Extraocular movements intact. Clear conjunctiva CARDIOVASCULAR: Regular rate and rhythm. No murmurs, rubs, or gallops LUNGS: Clear to auscultation bilaterally. No wheezes. No rhonchi ABDOMEN: Soft, nontender, nondistended. Positive bowel sounds. Normal active bowel sounds NEUROLOGICAL: Alert and oriented times three. Cranial nerves II through XII grossly intact. Sensation grossly intact in all 4 extremities -proprioception intact in LE EXTREMITIES: 5\5 strength bilateral upper extremities. 5\5 strength right lower extremity. 5/5 strength in left lower extremity. SKIN: intact LABORATORY DATA: Please see below. IMAGING: Imaging documentation personally reviewed by record FUNCTIONAL STATUS: Premorbid: Independent with all activities of daily life as well as mobility, occasionally used a cane, household distances for the last few months On Admission: Contact guard assistance for bathing, upper body dressing, bed chair and wheelchair transfers, toilet transfers, ambulation x 37 feet GOALS: Mod-I with RW community distances, stairs, functional transfers, bathing, dressing, fall recovery, medical optimization ASSESSMENT:79-year-old F with past medical history of CKD who presents status post worsening weakness found to have DIANNE on CKD PLAN: 1. Rehab- PT/OT advance gait and ADLs, strengthen/stretch/maintain ROM bilat UE and LE 2. Neuro: no active issue 3. Cardiac: Hx of HTN- c/u hydralazine and amlodipine (will monitor for peripheral edema as known side effect), Hx of Afib c/u Metoprolol and Eliquis 2.5mg BID, grade one diastolic CHF c/u torsemide 20mg daily, will consider going to back to 20mg BID which she took at home, but would like to monitor for BP drops/DIANNE -daily weights, fluid restrict -HLD, c/u statin -medicine consulted to assist in management 4. resp: encourage incentive spirometry 5. Endo: pmh DM, c/u glipizide ER 5mg BID, will consider increasing back up to home dose (10mg BID) but want to avoid hypoglycemic events that may contribute to falls/dizziness -c/u ISS and adjust prn 6. DVT ppx: Eliquis 7. Pain: tylenol prn -c/u allopurinol for hx of gout 8. Renal: CKD with recent DIANNE, monitor and will consult renal 8. Dispo: tbd POST ADMISSION PHYSICIAN EVALUATION: Medical and functional status: Description of medical status, medical assessment: As above. Rehabilitation diagnosis and current and prior cold morbid medical conditions as above. Risk of complications and plans to mitigate them as above. Description of functional status current status is as above. Prior status as above. Status compared to preadmission: There are no clinically significant differences between the patient's current status and the information described on the preadmission screening document. Treatment plan anticipated: Treatment plan is as described above. Required disciplines including physical therapy, occupational therapy, others as noted above. Intensity of services: 3 hours a day, 6 days a week. Special considerations: There are no specific special or safety considerations that would likely preclude immediate implementation of an intensive rehabilitation program or subsequently influence the plan of care ATTESTATION: Considering all the information above, it is my best judgment that this patient requires intensive rehabilitation therapy as described above and an inpatient hospital environment due to the complexity of nursing, medical, and rehabilitation needs required by the patient. Furthermore, this patient can reasonably be expected to participate in an benefit from an inpatient rehabilitation stay with an interdisciplinary team approach to the delivery of rehabilitation care under the direction and supervision of rehabilitation physician PROGNOSIS: good ESTIMATED LENGTH OF STAY:12-14 days. PROJECTED DISCHARGE DESTINATION: Home with family support and any durable medical equipment required to increase functional safety and mobility. TIME SPENT COUNSELING AND COORDINATING INITIAL CARE: Greater than 70 minutes. Vital Signs Vital Signs Date Time Temp Pulse Resp B/P (MAP) Pulse Ox O2 Delivery O2 Flow Rate FiO2 03/25/19 16:30 98.1 67 18 164/60 (94) 99 Room Air Home Medications Scheduled Allopurinol (Allopurinol) 100 Mg Tablet, 200 MG PO DAILY, (Reported) Amlodipine Besylate (Amlodipine Besylate) 10 Mg Tablet, 10 MG PO DAILY, (Reported) Apixaban (Eliquis) 2.5 Mg Tablet, 2.5 MG PO BID Calcitriol (Calcitriol) 0.25 Mcg Capsule, 0.25 MCG PO 3XW, (Reported) MON, SUN, SUN Cholecalciferol (Vitamin D3) (Vitamin D3) 1,000 Unit Capsule, 1,000 UNIT PO DAILY, (Reported) Ferrous Sulfate (Ferrous Sulfate) 325 Mg Tab, 325 MG PO Q2D, (Reported) Glipizide (Glipizide ER) 10 Mg Tab.er.24, 10 MG PO BID, (Reported) Hydralazine HCl (Hydralazine HCl) 100 Mg Tablet, 100 MG PO TID, (Reported) Loratadine (Loratadine) 10 Mg Tab, 10 MG PO DAILY, (Reported) Magnesium Chloride (Mag64) 64 Mg Tabcr, 64 MG PO BID, (Reported) Metoprolol Tartrate (Metoprolol Tartrate) 100 Mg Tablet, 200 MG PO BID, (Reported) Mv-Mn/Iron/Folic Acid/Herb 190 (Vitamin D3 Complete Caplet) 1 Tab Tab, 1 TAB PO 3XW, (Reported) TAKES SUNDAY, SUNDAY AND SUNDAY Rosuvastatin Calcium (Rosuvastatin Calcium) 10 Mg Tablet, 10 MG PO 4XWK, (Reported) SUN, , , SAT Saxagliptin HCl (Onglyza) 2.5 Mg Tab, 2.5 MG PO DAILY, (Reported) Torsemide (Torsemide) 20 Mg Tablet, 20 MG PO BID, (Reported) Allergies Coded Allergies: No Known Allergies (Unverified , 02/01/19) A-FIB/CHADSVASC A-FIB History Current/History of A-Fib/PAF?: Yes Current PO Anticoag Therapy: Yes CASSIUS CALLOWAY MD Mar 25, 2019 16:42
[2019-03-25] MEDS ORDERED: GLUCAGON FOR INJ 1 MG VIAL (J1610) SC PRN (16:45)
[2019-03-25] MEDS ORDERED: DEXTROSE 50% 50 ML SYRINGE IV PRN (16:45)
[2019-03-25] MEDS ORDERED: traZODone 25MG PER 1/2 TABLET PO PRN (16:45)
[2019-03-25] MEDS ORDERED: GLUCOSE 4 GM CHEW TABLET PO PRN (16:45)
[2019-03-25] MEDS ORDERED: ACETAMINOPHEN TAB 650MG DOSE (2X325MG) PO PRN (16:45)
[2019-03-25] MEDS: HumaLOG INSULIN (NovoLOG) PER UNIT SC SCH (17:59)
--- NOTE | 2019-03-25 18:24 | IPN ---
DATE: 03/25/2019 Ms. Birmingham is seen this morning on her bedside. She reports feeling much better today and denies any dyspnea or chest pain. She had difficulty voiding with urinary retention and required straight cath yesterday. However, since then she has been doing well and bladder scan has shown that she is completely emptying her bladder. She denies any nausea, vomiting, fever or chills. PHYSICAL EXAMINATION: Temperature 97 degrees Fahrenheit, heart rate 66 per minute and respiratory rate 14 per minute. Blood pressure 150/58 mmHg and oxygen saturation 99% on room air. Head is atraumatic. Neck is supple and JVD not abnormally elevated. Heart sounds are irregular in rhythm. Lungs sound clear to auscultation. Abdomen soft and nontender and bowel sounds are normal. Extremities without any cyanosis or clubbing. Neurologically, she is awake, alert and at her baseline mentation. Today's labs show white blood cell (WBC) count 11.0, hemoglobin 10.1 and hematocrit 31.1. Platelets 259. Sodium 140, potassium 4.0, CO2 20, BUN 85 and creatinine 2.59. Glucose 166 and calcium 9.1. Cortisol level is 25.3. PROBLEM: 1. Acute renal failure superimposed on chronic kidney disease. Kidney function slightly improved since yesterday. She did diurese very well. It is likely that her worsening kidney function was related to urinary retention. Now, she is emptying her bladder well and we would recheck her renal profile tomorrow. 2. Congestive heart failure. One dose of Lasix was given yesterday with improved respiratory status. I would suggest to resume her usual torsemide 20 mg daily and continue to monitor her volume status closely. 3. Hypertension. Blood pressure seems reasonably well-controlled and no changes are being made today. 4. Anemia. At present time, her anemia is also stable and does not need any urgent intervention. 5. Generalized weakness. The patient is feeling better. However has not been able to ambulate. She is likely to require rehabilitation.
[2019-03-25 20:00] VITALS: BP 146/58
[2019-03-25] MEDS: METOPROLOL TARTRATE 100 MG TAB PO SCH (20:37)
[2019-03-25] MEDS: MAGNESIUM CHLORIDE 64 MG TABCR (SLO MAG) PO SCH (20:38)
[2019-03-25] MEDS: APIXABAN 2.5 MG TAB (ELIQUIS) PO SCH (20:38)
[2019-03-25] MEDS: SENNA 8.6 MG TAB (SENOKOT) PO SCH (20:38)
[2019-03-25] MEDS: **hydrALAZINE HCL** 25 MG TAB PO SCH (20:38)
[2019-03-25] MEDS: DOCUSATE SODIUM 100 MG CAP PO SCH (20:39)
[2019-03-25] MEDS: glipiZIDE XL 5 MG TABCR PO SCH (20:42)
[2019-03-25] MEDS ORDERED: HumaLOG INSULIN (NovoLOG) PER UNIT SC SCH (21:00)
[2019-03-26 06:00] VITALS: BP 136/63
[2019-03-26 07:01] LABS: BASO # 0.1 10^3/uL (0.0-0.2); BASO % 0.5 % (0.0-1.0); EOS # 0.8 10^3/uL (0.0-0.5); EOS % 7.1 % (0.0-3.0); HEMATOCRIT 28.2 % (36.0-47.0); HEMOGLOBIN 9.5 g/dl (12.0-15.5); LYMPH # 2.1 10^3/uL (1.5-5.0); LYMPH % 19.2 % (24.0-44.0); MEAN CORPUSCULAR HEMOGLOBIN 32.1 pg (27.0-33.0); MEAN CORPUSCULAR HGB CONC 33.7 g/dl (32.0-36.5); MEAN CORPUSCULAR VOLUME 95.3 fl (80.0-96.0); MONO # 0.9 10^3/uL (0.0-0.8); MONO % 8.6 % (0.0-5.0); NEUTROPHILS % 64.1 % (36.0-66.0); PLATELET COUNT, AUTOMATED 279 10^3/uL (150-450); RED BLOOD COUNT 2.96 10^6/uL (4.00-5.40)
[2019-03-26 07:31] LABS: ALBUMIN 2.8 GM/DL (3.2-5.2); BILIRUBIN,TOTAL 0.3 MG/DL (0.2-1.0); CALCIUM LEVEL 8.6 MG/DL (8.8-10.2); CREATININE FOR GFR 2.38 MG/DL (0.55-1.30); GLOMERULAR FILTRATION RATE 20.9 (>32); POTASSIUM SERUM 3.7 MEQ/L (3.5-5.1); TOTAL PROTEIN 6.4 GM/DL (6.4-8.2)
[2019-03-26] MEDS: **hydrALAZINE HCL** 25 MG TAB PO SCH ×3 (08:00→21:17)
[2019-03-26] MEDS: DOCUSATE SODIUM 100 MG CAP PO SCH ×2 (08:10→21:00)
[2019-03-26] MEDS ORDERED: TORSEMIDE 20 MG TAB PO SCH ×2 (09:00)
[2019-03-26] MEDS: MAGNESIUM CHLORIDE 64 MG TABCR (SLO MAG) PO SCH ×2 (09:46→21:16)
[2019-03-26] MEDS: glipiZIDE XL 5 MG TABCR PO SCH ×2 (09:46→17:06)
[2019-03-26] MEDS: VITAMIN D 1,000 INTERNATIONAL UNITS TABLET PO SCH (09:46)
[2019-03-26] MEDS: METOPROLOL TARTRATE 100 MG TAB PO SCH ×2 (09:47→21:17)
[2019-03-26] MEDS: CALCITRIOL 0.25 MCG CAP (S0169) PO SCH (09:47)
[2019-03-26] MEDS: APIXABAN 2.5 MG TAB (ELIQUIS) PO SCH ×2 (09:47→21:15)
[2019-03-26] MEDS: LORATADINE 10 MG TAB PO SCH (09:47)
[2019-03-26] MEDS: allopurinoL 100 MG TAB PO SCH (09:48)
[2019-03-26] MEDS: amLODIPine 10 MG TAB PO SCH (09:48)
[2019-03-26] MEDS: HumaLOG INSULIN (NovoLOG) PER UNIT SC SCH (09:48)
[2019-03-26] MEDS ORDERED: DEXTROSE 50% 50 ML SYRINGE IV PRN (10:30)
[2019-03-26] MEDS ORDERED: GLUCOSE 4 GM CHEW TABLET PO PRN (10:30)
[2019-03-26] MEDS ORDERED: GLUCAGON FOR INJ 1 MG VIAL (J1610) SC PRN (10:30)
--- NOTE | 2019-03-26 10:46 | IPNPDOC ---
PM&R Progress Note DATE OF SERVICE: Mar 26, 2019 Clinical Study Manager Progress Note Subjective: Patient reporting she is not happy getting finger sticks as often as she is and would like to just be on her home oral medication. She reports she takes Onglyza and that her son will be bale to bring it in. REVIEW OF SYSTEMS: The following is a completed review of systems and has been reviewed. Review of systems otherwise unremarkable. PAIN: Patient self reports no pain EYES: No recent vision changes EARS, NOSE, & THROAT: No throat pain, or dysphagia, or rhinorrhea CARDIOVASCULAR: Denies chest pain or palpitations PULMONARY: Denies shortness of breath GASTROINTESTINAL: Denies constipation/diarrhea GENITOURINARY: denies dysuria MUSCULOSKELETAL: bilat LE weakness NEUROLOGICAL: no focal tremor or seizure activity HEMATOLOGICAL: denies easy bruising SKIN: no rash PSYCHIATRIC: Unremarkable All other review of systems found to be negative. PHYSICAL EXAMINATION: VITAL SIGNS: Please see below. GENERAL: Pleasant and cooperative. No acute distress. HEENT: PERRL. Extraocular movements intact. Clear conjunctiva CARDIOVASCULAR: Regular rate and rhythm. No murmurs, rubs, or gallops LUNGS: Clear to auscultation bilaterally. No wheezes. No rhonchi ABDOMEN: Soft, nontender, nondistended. Positive bowel sounds. Normal active bowel sounds NEUROLOGICAL: Alert and oriented times three. Cranial nerves II through XII grossly intact. Sensation grossly intact in all 4 extremities -proprioception intact in LE EXTREMITIES: 5\5 strength bilateral upper extremities. 5\5 strength right lower extremity. 5/5 strength in left lower extremity. SKIN: intact ASSESSMENT:79-year-old F with past medical history of CKD who presents status post worsening weakness found to have DIANNE on CKD PLAN: 1. Rehab- PT/OT advance gait and ADLs, strengthen/stretch/maintain ROM bilat UE and LE- ambulating with RW 2. Neuro: no active issue 3. Cardiac: Hx of HTN- c/u hydralazine and amlodipine (will monitor for peripheral edema as known side effect), Hx of Afib c/u Metoprolol and Eliquis 2.5mg BID, grade one diastolic CHF c/u torsemide 20mg daily, will consider going to back to 20mg BID which she took at home, but would like to monitor for BP drops/DIANNE -daily weights, fluid restrict -HLD, c/u statin -medicine consulted to assist in management 4. resp: encourage incentive spirometry 5. Endo: pmh DM, will c/u home dose glipizide 10mg BID, patient to bring in own med saxagliptan 2.5 mg daily, changed ISS/FS to BID, adjust prn 6. DVT ppx: Eliquis 7. Pain: tylenol prn -c/u allopurinol for hx of gout 8. Renal: CKD with recent DIANNE, monitor and will consult renal 8. Dispo: tbd Allergies Coded Allergies: No Known Allergies (Unverified , 02/01/19) Vital Signs Vital Signs Date Time Temp Pulse Resp B/P (MAP) Pulse Ox O2 Delivery O2 Flow Rate FiO2 03/26/19 09:48 69 136/63 03/26/19 06:00 97.8 18 98 Room Air Laboratory Data CBC/BMP Laboratory Tests 03/26/19 06:35 Labs 24H Laboratory Tests 2 03/25/19 17:08: Bedside Glucose (Misc Panel) 228H 03/25/19 20:21: Bedside Glucose (Misc Panel) 236H 03/26/19 06:35: Immature Granulocyte % (Auto) 0.5, Neutrophils (%) (Auto) 64.1, Lymphocytes (%) (Auto) 19.2L, Monocytes (%) (Auto) 8.6H, Eosinophils (%) (Auto) 7.1H, Basophils (%) (Auto) 0.5, Neutrophils # (Auto) 7.0, Lymphocytes # (Auto) 2.1, Monocytes # (Auto) 0.9H, Eosinophils # (Auto) 0.8H, Basophils # (Auto) 0.1, Nucleated Red Blood Cells % (auto) 0.0, Anion Gap 10, Glomerular Filtration Rate 20.9L, Calcium Level 8.6L, Total Bilirubin 0.3, Aspartate Amino Transf (AST/SGOT) 45H, Alanine Aminotransferase (ALT/SGPT) 70, Alkaline Phosphatase 94, Total Protein 6.4, Albumin 2.8L, Albumin/Globulin Ratio 0.78L Current Medications Current Medications Current Medications Medications (Trade) Dose Ordered Sig/Ana Route PRN Reason Start Time Stop Time Status Last Admin Dose Admin Acetaminophen (Tylenol Tab) 650 mg Q4HP PRN PO fever/pain 03/25/19 16:45 Allopurinol (Zyloprim) 200 mg DAILY PO 03/26/19 09:00 03/26/19 09:48 Amlodipine Besylate (Norvasc) 10 mg DAILY PO 03/26/19 09:00 03/26/19 09:48 Apixaban (Eliquis) 2.5 mg BID PO 03/25/19 21:00 03/26/19 09:47 Calcitriol (Rocaltrol) 0.25 mcg Q48H PO 03/26/19 09:00 03/26/19 09:47 Dextrose (Dextrose 50%) 25 ml ASDIRECTED PRN IV SEE LABEL COMMENTS 03/25/19 16:45 03/26/19 10:25 DC Dextrose (Dextrose 50%) 25 ml ASDIRECTED PRN IV SEE LABEL COMMENTS 03/26/19 10:30 Docusate Sodium (Colace) 100 mg BID PO 03/25/19 21:00 Ferrous Sulfate (Ferrous Sulfate) 325 mg Q48H PO 03/27/19 09:00 Glipizide (Glucotrol Xl) 5 mg BID@0730,1730 PO 03/25/19 17:30 03/26/19 10:24 DC 03/26/19 09:46 Glipizide (Glucotrol Xl) 10 mg BID@0730,1730 PO 03/26/19 17:30 Glucagon (Glucagon) 1 mg ASDIRECTED PRN SC SEE LABEL COMMENTS 03/25/19 16:45 03/26/19 10:25 DC Glucagon (Glucagon) 1 mg ASDIRECTED PRN SC SEE LABEL COMMENTS 03/26/19 10:30 Glucose (Glucose) 16 GM ASDIRECTED PRN PO SEE LABEL COMMENTS 03/25/19 16:45 03/26/19 10:25 DC Glucose (Glucose) 16 GM ASDIRECTED PRN PO SEE LABEL COMMENTS 03/26/19 10:30 Hydralazine HCl (Apresoline) 75 mg TID@0800,1600,2000 PO 03/25/19 20:00 03/25/19 20:38 Insulin Human Lispro (HumaLOG INSULIN) SEE PROTOCOL TABLE AC SC 03/25/19 17:30 03/26/19 10:25 DC 03/26/19 09:48 Insulin Human Lispro (HumaLOG INSULIN) SEE PROTOCOL TABLE BID SC 03/26/19 21:00 Insulin Human Lispro (HumaLOG INSULIN) SEE PROTOCOL TABLE QHS SC 03/25/19 21:00 03/26/19 10:25 DC Loratadine (Claritin) 10 mg DAILY PO 03/26/19 09:00 03/26/19 09:47 Magnesium Chloride (Slow-Mag) 64 mg BID PO 03/25/19 21:00 03/26/19 09:46 Metoprolol Tartrate (Lopressor) 200 mg BID PO 03/25/19 21:00 03/26/19 09:47 Miscellaneous (Unresolved Patient Own Med Order) SEE LABEL COMMENTS DAILY XX 03/26/19 09:00 Patient Own Medication (Patient'S Own Med) ONGLYZA 2.5 mg po daily DAILY PO 03/26/19 10:30 UNV Rosuvastatin Calcium (Crestor) 10 mg MoTuThSa@0900 PO 03/27/19 09:00 Senna (Senokot) 1 tab QHS PO 03/25/19 21:00 03/25/19 20:38 Torsemide (Demadex) 20 mg DAILY@0900 PO 03/26/19 09:00 03/26/19 09:47 Torsemide (Demadex) 20 mg DAILY@0900,1700 PO 03/26/19 09:00 03/26/19 08:49 DC Trazodone HCl (Desyrel) 25 mg QHSP PRN PO INSOMNIA 03/25/19 16:45 Vitamin D (Vitamin D) 1,000 units DAILY PO 03/26/19 09:00 03/26/19 09:46 CASSIUS CALLOWAY MD Mar 26, 2019 10:46
[2019-03-26] MEDS ORDERED: glipiZIDE XL 5 MG TABCR PO ONE (11:00)
[2019-03-26 14:26] VITALS: BP 143/66
[2019-03-26 20:00] VITALS: BP 139/80
[2019-03-26] MEDS ORDERED: HumaLOG INSULIN (NovoLOG) PER UNIT SC SCH (21:00)
[2019-03-26] MEDS: SENNA 8.6 MG TAB (SENOKOT) PO SCH (21:00)
--- NOTE | 2019-03-26 21:09 | IPN ---
DATE: 03/26/2019 Mrs. Birmingham seen this morning in acute rehab on her bedside. She is sitting in the chair at the time of my visit. She is in good spirits and started to feel better. She denies any nausea, vomiting, dyspnea, chest pain, fever or chills. She has no leg edema at present. She reports that she did very well with physical therapy this morning. She has been urinating well and denies any problems. PHYSICAL EXAMINATION Temperature 97 degrees Fahrenheit, heart rate 70 per minute and respiratory rate 18 per minute. Blood pressure is 136/63 mmHg and oxygen saturation 98% on room air. Head is atraumatic. Neck is supple and no JVD visible sitting upright. Lungs: Sound clear to auscultation bilaterally. Heart: Sounds are regular and without a gallop or murmur. Abdomen: Soft and nontender and bowel sounds are normal. Extremities have no cyanosis or clubbing. She has minimal ankle edema. Neurologically she is awake, alert and oriented times three. LABS: Today's labs show WBC count 11.0, hemoglobin 9.5 and hematocrit 28.2. Platelets are 279. Sodium 137, potassium 3.7, CO2 20, BUN 80 and creatinine 2.38. Glucose 140 and calcium 8.6. PROBLEMS: 1. Acute kidney injury superimposed on chronic kidney disease. Slight improvement in her kidney function for last few days noted. She has no uremic symptoms and we will continue to monitor her kidney function closely. 2. Blood pressure has been reasonably well-controlled on current antihypertensive meds which include hydralazine 75 mg three times a day, amlodipine 10 mg daily and metoprolol 200 mg twice a day. Her torsemide was on hold since admission and she received 20 mg today. She has no leg edema and I would suggest to cut down her torsemide dose to only 10 mg daily. We will continue to monitor her closely and consider increasing the dose if needed. She had acute renal failure on admission which was felt to be related to over diuresis so I feel that 10 mg torsemide will be enough at this point. 3. Anemia. This is chronic and related to her chronic kidney disease. We will check her iron studies and she should continue with iron supplement. 4. Urinary retention. She did have urinary retention a couple of days ago and required straight cath however, since then she has been doing well. We will continue to monitor closely.
[2019-03-27 05:15] VITALS: BP 165/73
[2019-03-27 06:51] LABS: BASO % 0.5 % (0.0-1.0); EOS # 0.7 10^3/uL (0.0-0.5); EOS % 5.2 % (0.0-3.0); HEMATOCRIT 27.7 % (36.0-47.0); HEMOGLOBIN 9.1 g/dl (12.0-15.5); LYMPH # 2.2 10^3/uL (1.5-5.0); LYMPH % 17.2 % (24.0-44.0); MEAN CORPUSCULAR HEMOGLOBIN 31.5 pg (27.0-33.0); MEAN CORPUSCULAR HGB CONC 32.9 g/dl (32.0-36.5); MEAN CORPUSCULAR VOLUME 95.8 fl (80.0-96.0); MONO # 0.9 10^3/uL (0.0-0.8); MONO % 7.2 % (0.0-5.0); NEUTROPHILS # 8.9 10^3/uL (1.5-8.5); NEUTROPHILS % 69.5 % (36.0-66.0); PLATELET COUNT, AUTOMATED 293 10^3/uL (150-450); RED BLOOD COUNT 2.89 10^6/uL (4.00-5.40); WHITE BLOOD COUNT 12.8 10^3/uL (4.0-10.0)
[2019-03-27 06:52] LABS: BASO # 0.1 10^3/uL (0.0-0.2)
[2019-03-27 07:13] LABS: CALCIUM LEVEL 8.4 MG/DL (8.8-10.2); CREATININE FOR GFR 2.58 MG/DL (0.55-1.30); POTASSIUM SERUM 3.6 MEQ/L (3.5-5.1)
[2019-03-27] MEDS: HumaLOG INSULIN (NovoLOG) PER UNIT SC SCH ×2 (07:30→17:01)
[2019-03-27] MEDS: DOCUSATE SODIUM 100 MG CAP PO SCH ×2 (08:23→21:00)
[2019-03-27] MEDS: MAGNESIUM CHLORIDE 64 MG TABCR (SLO MAG) PO SCH ×2 (09:16→21:43)
[2019-03-27] MEDS: APIXABAN 2.5 MG TAB (ELIQUIS) PO SCH ×2 (09:17→21:42)
[2019-03-27] MEDS: METOPROLOL TARTRATE 100 MG TAB PO SCH ×2 (09:17→21:42)
[2019-03-27] MEDS: FERROUS SULFATE 325MG TAB PO SCH (09:17)
[2019-03-27] MEDS: amLODIPine 10 MG TAB PO SCH (09:17)
[2019-03-27] MEDS: glipiZIDE XL 5 MG TABCR PO SCH ×2 (09:18→16:43)
[2019-03-27] MEDS: TORSEMIDE 10 MG TABLET PO SCH (09:18)
[2019-03-27] MEDS: LORATADINE 10 MG TAB PO SCH (09:18)
[2019-03-27] MEDS: allopurinoL 100 MG TAB PO SCH (09:18)
[2019-03-27] MEDS: VITAMIN D 1,000 INTERNATIONAL UNITS TABLET PO SCH (09:18)
[2019-03-27] MEDS: ROSUVASTATIN 10 MG TAB (CRESTOR) PO SCH (09:18)
--- NOTE | 2019-03-27 09:43 | IPNPDOC ---
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 She reports that during the holiday season her health has been slipping and she has had less desire to partake in social events such as her recent birthday. She is agreeable to starting Remeron for sleep and depression. REVIEW OF SYSTEMS: The following is a completed review of systems and has been reviewed. Review of systems otherwise unremarkable. PAIN: Patient self reports no pain EYES: No recent vision changes EARS, NOSE, & THROAT: No throat pain, or dysphagia, or rhinorrhea CARDIOVASCULAR: Denies chest pain or palpitations PULMONARY: Denies shortness of breath GASTROINTESTINAL: Denies constipation/diarrhea GENITOURINARY: denies dysuria MUSCULOSKELETAL: bilat LE weakness NEUROLOGICAL: no focal tremor or seizure activity HEMATOLOGICAL: denies easy bruising SKIN: no rash PSYCHIATRIC: Unremarkable All other review of systems found to be negative. PHYSICAL EXAMINATION: VITAL SIGNS: Please see below. GENERAL: Pleasant and cooperative. No acute distress. HEENT: PERRL. Extraocular movements intact. Clear conjunctiva CARDIOVASCULAR: Regular rate and rhythm. No murmurs, rubs, or gallops LUNGS: +Wheezes at bilateral apices ABDOMEN: Soft, nontender, nondistended. Positive bowel sounds. Normal active bowel sounds NEUROLOGICAL: Alert and oriented times three. Cranial nerves II through XII grossly intact. Sensation grossly intact in all 4 extremities -proprioception intact in LE EXTREMITIES: 5\5 strength bilateral upper extremities. 5\5 strength right lower extremity. 5/5 strength in left lower extremity. SKIN: intact ASSESSMENT:79-year-old F with past medical history of CKD who presents status post worsening weakness found to have DIANNE on CKD PLAN: 1. Rehab- PT/OT advance gait and ADLs, strengthen/stretch/maintain ROM bilat UE and LE- ambulating with RW 2. Neuro: no active issue 3. Cardiac: Hx of HTN- c/u hydralazine (increased to 100mg TID today) and amlodipine (will monitor for peripheral edema as known side effect), Hx of Afib c/u Metoprolol and Eliquis 2.5mg BID, grade one diastolic CHF c/u torsemide 10mg daily per discussion with Dr. Aaliyah -daily weights, fluid restrict -HLD, c/u statin -medicine consulted to assist in management 4. resp: encourage incentive spirometry -+wheeze on today's exam will start Duonebs 5. Endo: pmh DM, will c/u home dose glipizide 10mg BID, patient to bring in own med saxagliptan 2.5 mg daily, changed ISS/FS to BID, adjust prn 6. DVT ppx: Eliquis 7. Pain: tylenol prn -c/u allopurinol for hx of gout 8. Renal: CKD with recent DIANNE, monitor, renal consulted, recs appreciated 9. Psych: patient with insomnia and anhedonia following son's unexpected in the summer, she has agreed to start Remeron 10. Leukocytosis: patient denying cough, fevers, chills, or dysuria, will c/u to monitor 8. Dispo: tbd Allergies Coded Allergies: No Known Allergies (Unverified , 02/01/19) Vital Signs Vital Signs Date Time Temp Pulse Resp B/P (MAP) Pulse Ox O2 Delivery O2 Flow Rate FiO2 03/27/19 09:17 75 165/73 03/27/19 05:15 99.7 18 98 Room Air Laboratory Data CBC/BMP Laboratory Tests 03/27/19 06:22 Labs 24H Laboratory Tests 2 03/26/19 11:27: Bedside Glucose (Misc Panel) 140H 03/26/19 16:43: Bedside Glucose (Misc Panel) 239H 03/27/19 06:22: Immature Granulocyte % (Auto) 0.4, Neutrophils (%) (Auto) 69.5H, Lymphocytes (%) (Auto) 17.2L, Monocytes (%) (Auto) 7.2H, Eosinophils (%) (Auto) 5.2H, Basophils (%) (Auto) 0.5, Neutrophils # (Auto) 8.9H, Lymphocytes # (Auto) 2.2, Monocytes # (Auto) 0.9H, Eosinophils # (Auto) 0.7H, Basophils # (Auto) 0.1, Nucleated Red Blood Cells % (auto) 0.0, Anion Gap 12, Glomerular Filtration Rate 19.0L, Calcium Level 8.4L Current Medications Current Medications Current Medications Medications (Trade) Dose Ordered Sig/Ana Route PRN Reason Start Time Stop Time Status Last Admin Dose Admin Acetaminophen (Tylenol Tab) 650 mg Q4HP PRN PO fever/pain 03/25/19 16:45 Allopurinol (Zyloprim) 200 mg DAILY PO 03/26/19 09:00 03/27/19 09:18 Amlodipine Besylate (Norvasc) 10 mg DAILY PO 03/26/19 09:00 03/27/19 09:17 Apixaban (Eliquis) 2.5 mg BID PO 03/25/19 21:00 03/27/19 09:17 Calcitriol (Rocaltrol) 0.25 mcg Q48H PO 03/26/19 09:00 03/26/19 09:47 Dextrose (Dextrose 50%) 25 ml ASDIRECTED PRN IV SEE LABEL COMMENTS 03/25/19 16:45 03/26/19 10:25 DC Dextrose (Dextrose 50%) 25 ml ASDIRECTED PRN IV SEE LABEL COMMENTS 03/26/19 10:30 Docusate Sodium (Colace) 100 mg BID PO 03/25/19 21:00 Ferrous Sulfate (Ferrous Sulfate) 325 mg Q48H PO 03/27/19 09:00 03/27/19 09:17 Glipizide (Glucotrol Xl) 5 mg BID@0730,1730 PO 03/25/19 17:30 03/26/19 10:24 DC 03/26/19 09:46 Glipizide (Glucotrol Xl) 10 mg BID@0730,1730 PO 03/26/19 17:30 03/27/19 09:18 Glucagon (Glucagon) 1 mg ASDIRECTED PRN SC SEE LABEL COMMENTS 03/25/19 16:45 03/26/19 10:25 DC Glucagon (Glucagon) 1 mg ASDIRECTED PRN SC SEE LABEL COMMENTS 03/26/19 10:30 Glucose (Glucose) 16 GM ASDIRECTED PRN PO SEE LABEL COMMENTS 03/25/19 16:45 03/26/19 10:25 DC Glucose (Glucose) 16 GM ASDIRECTED PRN PO SEE LABEL COMMENTS 03/26/19 10:30 Hydralazine HCl (Apresoline) 75 mg TID@0800,1600,2000 PO 03/25/19 20:00 03/27/19 07:46 DC 03/26/19 21:17 Hydralazine HCl (Apresoline) 100 mg TID@0800,1600,2000 PO 03/27/19 08:00 Insulin Human Lispro (HumaLOG INSULIN) SEE PROTOCOL TABLE AC SC 03/25/19 17:30 03/26/19 10:25 DC 03/26/19 09:48 Insulin Human Lispro (HumaLOG INSULIN) SEE PROTOCOL TABLE BID SC 03/26/19 21:00 03/26/19 20:08 DC Insulin Human Lispro (HumaLOG INSULIN) SEE PROTOCOL TABLE BID@0730,1730 SC 03/27/19 07:30 Insulin Human Lispro (HumaLOG INSULIN) SEE PROTOCOL TABLE QHS SC 03/25/19 21:00 03/26/19 10:25 DC Loratadine (Claritin) 10 mg DAILY PO 03/26/19 09:00 03/27/19 09:18 Magnesium Chloride (Slow-Mag) 64 mg BID PO 03/25/19 21:00 03/27/19 09:16 Metoprolol Tartrate (Lopressor) 200 mg BID PO 03/25/19 21:00 03/27/19 09:17 Miscellaneous (Unresolved Patient Own Med Order) SEE LABEL COMMENTS DAILY XX 03/26/19 09:00 Patient Own Medication (Patient'S Own Med) ONGLYZA 2.5 mg po daily DAILY PO 03/26/19 10:30 UNV Rosuvastatin Calcium (Crestor) 10 mg MoTuThSa@0900 PO 03/27/19 09:00 03/27/19 09:18 Senna (Senokot) 1 tab QHS PO 03/25/19 21:00 03/25/19 20:38 Torsemide (Demadex) 10 mg DAILY@0900 PO 03/27/19 09:00 03/27/19 09:18 Torsemide (Demadex) 20 mg DAILY@0900 PO 03/26/19 09:00 03/26/19 16:29 DC 03/26/19 09:47 Torsemide (Demadex) 20 mg DAILY@0900,1700 PO 03/26/19 09:00 03/26/19 08:49 DC Trazodone HCl (Desyrel) 25 mg QHSP PRN PO INSOMNIA 03/25/19 16:45 Vitamin D (Vitamin D) 1,000 units DAILY PO 03/26/19 09:00 03/27/19 09:18 CASSIUS CALLOWAY MD Mar 27, 2019 09:43
[2019-03-27] MEDS: **hydrALAZINE** 50 MG TAB PO SCH ×3 (10:35→21:43)
--- NOTE | 2019-03-27 11:43 | IPN ---
DATE: 03/27/2019 SUBJECTIVE: Patient is an 79-year-old female who was seen in the acute rehabilitation unit. Patient was seen working with physical therapy and was using a cane to walk to the gym area for further therapy. 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 Patient says she is feeling much better and getting stronger each day. PHYSICAL EXAMINATION: VITALS: Temperature 99.7, pulse 75, respiratory rate 18, blood pressure 152/69, pulse oximetry 98% on room air. GENERAL: Patient is an alert and oriented female who was walking to the gym when we walked in. Patient was able to sit down on the table without difficulty and patient did not appear to be in any acute distress. HEENT: Normocephalic, atraumatic with anicteric sclerae. NECK: Supple with no jugular venous distention (JVD) visible sitting upright. HEART: Regular rate and rhythm without murmur. LUNGS: Clear to auscultation bilaterally. ABDOMEN: Soft, nontender with normoactive bowel sounds. EXTREMITIES: No evidence of edema. LABORATORY DATA: White blood cell 12.8, hemoglobin 9.1, hematocrit 27.7, platelet count 293. Sodium 134, potassium 3.6, chloride 104, carbon dioxide 18, BUN 82, creatinine 2.58, glucose 155, calcium 8.4. ASSESSMENT/PLAN: 1. Acute kidney injury superimposed on chronic kidney disease: Patient's renal function has worsened very, very slightly with her creatinine going from 2.38 to 2.58 today. She did not appear uremic and will continue to monitor her kidney functioning closely. Patient was started on torsemide 10 mg yesterday. 2. Blood pressure which is reasonably controlled on her current medications, which include hydralazine 75 mg three times a day, amlodipine 10 mg daily, metoprolol 200 mg twice a day, torsemide was on hold since admission and she is now on 10 mg daily. We will continue to monitor her closely. 3. Anemia: This is chronic and related to chronic kidney disease (CKD). We will check her iron studies and continue iron supplementation if she needs it. 4. Urinary retention: She did have urinary retention a couple of days ago and required straight catheterization but she is doing very well and will monitor closely.
[2019-03-27 14:00] VITALS: BP 176/74
[2019-03-27 21:00] VITALS: BP 174/69
[2019-03-27] MEDS: SENNA 8.6 MG TAB (SENOKOT) PO SCH (21:00)
[2019-03-27] MEDS: MIRTAZAPINE 7.5MG PER 1/2 TABLET PO SCH (21:43)
[2019-03-28 06:14] VITALS: BP 152/67
[2019-03-28 06:47] LABS: BASO # 0.1 10^3/uL (0.0-0.2); BASO % 0.4 % (0.0-1.0); EOS # 0.6 10^3/uL (0.0-0.5); EOS % 3.6 % (0.0-3.0); HEMATOCRIT 29.2 % (36.0-47.0); HEMOGLOBIN 9.6 g/dl (12.0-15.5); LYMPH # 1.9 10^3/uL (1.5-5.0); LYMPH % 12.4 % (24.0-44.0); MEAN CORPUSCULAR HEMOGLOBIN 31.6 pg (27.0-33.0); MEAN CORPUSCULAR HGB CONC 32.9 g/dl (32.0-36.5); MEAN CORPUSCULAR VOLUME 96.1 fl (80.0-96.0); MONO # 0.9 10^3/uL (0.0-0.8); MONO % 5.5 % (0.0-5.0); NEUTROPHILS % 77.8 % (36.0-66.0); PLATELET COUNT, AUTOMATED 320 10^3/uL (150-450); RED BLOOD COUNT 3.04 10^6/uL (4.00-5.40); WHITE BLOOD COUNT 15.5 10^3/uL (4.0-10.0)
[2019-03-28 07:14] LABS: CALCIUM LEVEL 8.8 MG/DL (8.8-10.2); CREATININE FOR GFR 2.51 MG/DL (0.55-1.30); GLOMERULAR FILTRATION RATE 19.6 (>32); POTASSIUM SERUM 3.7 MEQ/L (3.5-5.1)
[2019-03-28] MEDS: HumaLOG INSULIN (NovoLOG) PER UNIT SC SCH ×2 (07:30→18:08)
--- NOTE | 2019-03-28 08:35 | REP ---
Chest x-ray: Single views. History: Rule out infiltrate. Comparison study: March 23, 2019. Findings: The lungs are symmetrically aerated and clear. Heart is mildly prominent. Cardiothoracic ratio measures 52.5%. Pleural angles are sharp. Pulmonary vasculature is not increased. The thoracic aorta is calcific. There are degenerative changes in the thoracic spine. Impression: No acute disease. Electronically Signed by Ajay Brumfield MD 03/28/2019 08:26 A
--- NOTE | 2019-03-28 09:32 | IPNPDOC ---
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 She reports that during the holiday season her health has been slipping and she has had less desire to partake in social events such as her recent birthday. She is agreeable to starting Remeron for sleep and depression. REVIEW OF SYSTEMS: The following is a completed review of systems and has been reviewed. Review of systems otherwise unremarkable. PAIN: Patient self reports no pain EYES: No recent vision changes EARS, NOSE, & THROAT: No throat pain, or dysphagia, or rhinorrhea CARDIOVASCULAR: Denies chest pain or palpitations PULMONARY: Denies shortness of breath GASTROINTESTINAL: Denies constipation/diarrhea GENITOURINARY: denies dysuria MUSCULOSKELETAL: bilat LE weakness NEUROLOGICAL: no focal tremor or seizure activity HEMATOLOGICAL: denies easy bruising SKIN: no rash PSYCHIATRIC: Unremarkable All other review of systems found to be negative. PHYSICAL EXAMINATION: VITAL SIGNS: Please see below. GENERAL: Pleasant and cooperative. No acute distress. HEENT: PERRL. Extraocular movements intact. Clear conjunctiva CARDIOVASCULAR: Regular rate and rhythm. No murmurs, rubs, or gallops LUNGS: +Wheezes at bilateral apices ABDOMEN: Soft, nontender, nondistended. Positive bowel sounds. Normal active bowel sounds NEUROLOGICAL: Alert and oriented times three. Cranial nerves II through XII grossly intact. Sensation grossly intact in all 4 extremities -proprioception intact in LE EXTREMITIES: 5\5 strength bilateral upper extremities. 5\5 strength right lower extremity. 5/5 strength in left lower extremity. SKIN: intact ASSESSMENT:79-year-old F with past medical history of CKD who presents status post worsening weakness found to have DIANNE on CKD PLAN: 1. Rehab- PT/OT advance gait and ADLs, strengthen/stretch/maintain ROM bilat UE and LE- ambulating with RW 2. Neuro: no active issue 3. Cardiac: Hx of HTN- c/u hydralazine (increased to 100mg TID today) and amlodipine (will monitor for peripheral edema as known side effect), Hx of Afib c/u Metoprolol and Eliquis 2.5mg BID, grade one diastolic CHF c/u torsemide 10mg daily per discussion with Dr. Aaliyah -daily weights, fluid restrict -HLD, c/u statin -medicine consulted to assist in management 4. resp: encourage incentive spirometry -c/u Duonebs 5. Endo: pmh DM, will c/u home dose glipizide 10mg BID, patient to bring in own med saxagliptan 2.5 mg daily, FS 199 today, will start Januvia while waiting for own med, patient requesting to not be on insulin -changed ISS/FS to BID, adjust prn 6. DVT ppx: Eliquis 7. Pain: tylenol prn -c/u allopurinol for hx of gout 8. Renal: CKD with recent DIANNE, monitor, renal consulted, recs appreciated 9. Psych: patient with insomnia and anhedonia following son's unexpected in the summer- reporting she slept well last night, c/u remeron 7.5 mg qHS, will consider increasing to 15mg if c/u's to tolerate 10. Leukocytosis: patient denying cough, fevers, chills, or dysuria, will c/u to monitor -CXR ordered, no infiltrate 8. Dispo: 03-31-19 to home, progressing towards goals Allergies Coded Allergies: No Known Allergies (Unverified , 02/01/19) Vital Signs Vital Signs Date Time Temp Pulse Resp B/P (MAP) Pulse Ox O2 Delivery O2 Flow Rate FiO2 03/28/19 06:14 98.1 76 16 152/67 (95) 96 Room Air Laboratory Data CBC/BMP Laboratory Tests 03/28/19 06:11 Labs 24H Laboratory Tests 2 03/27/19 12:13: Bedside Glucose (Misc Panel) 210H 03/27/19 16:29: Bedside Glucose (Misc Panel) 290H 03/28/19 06:11: Immature Granulocyte % (Auto) 0.3, Neutrophils (%) (Auto) 77.8H, Lymphocytes (%) (Auto) 12.4L, Monocytes (%) (Auto) 5.5H, Eosinophils (%) (Auto) 3.6H, Basophils (%) (Auto) 0.4, Neutrophils # (Auto) 12.0H, Lymphocytes # (Auto) 1.9, Monocytes # (Auto) 0.9H, Eosinophils # (Auto) 0.6H, Basophils # (Auto) 0.1, Nucleated Red Blood Cells % (auto) 0.0, Anion Gap 10, Glomerular Filtration Rate 19.6L, Calcium Level 8.8 Current Medications Current Medications Current Medications Medications (Trade) Dose Ordered Sig/Ana Route PRN Reason Start Time Stop Time Status Last Admin Dose Admin Acetaminophen (Tylenol Tab) 650 mg Q4HP PRN PO fever/pain 03/25/19 16:45 Allopurinol (Zyloprim) 200 mg DAILY PO 03/26/19 09:00 03/27/19 09:18 Amlodipine Besylate (Norvasc) 10 mg DAILY PO 03/26/19 09:00 03/27/19 09:17 Apixaban (Eliquis) 2.5 mg BID PO 03/25/19 21:00 03/27/19 21:42 Calcitriol (Rocaltrol) 0.25 mcg Q48H PO 03/26/19 09:00 03/26/19 09:47 Dextrose (Dextrose 50%) 25 ml ASDIRECTED PRN IV SEE LABEL COMMENTS 03/25/19 16:45 03/26/19 10:25 DC Dextrose (Dextrose 50%) 25 ml ASDIRECTED PRN IV SEE LABEL COMMENTS 03/26/19 10:30 Docusate Sodium (Colace) 100 mg BID PO 03/25/19 21:00 Ferrous Sulfate (Ferrous Sulfate) 325 mg Q48H PO 03/27/19 09:00 03/27/19 09:17 Glipizide (Glucotrol Xl) 5 mg BID@0730,1730 PO 03/25/19 17:30 03/26/19 10:24 DC 03/26/19 09:46 Glipizide (Glucotrol Xl) 10 mg BID@0730,1730 PO 03/26/19 17:30 03/27/19 16:43 Glucagon (Glucagon) 1 mg ASDIRECTED PRN SC SEE LABEL COMMENTS 03/25/19 16:45 03/26/19 10:25 DC Glucagon (Glucagon) 1 mg ASDIRECTED PRN SC SEE LABEL COMMENTS 03/26/19 10:30 Glucose (Glucose) 16 GM ASDIRECTED PRN PO SEE LABEL COMMENTS 03/25/19 16:45 03/26/19 10:25 DC Glucose (Glucose) 16 GM ASDIRECTED PRN PO SEE LABEL COMMENTS 03/26/19 10:30 Hydralazine HCl (Apresoline) 75 mg TID@0800,1600,1999 PO 03/25/19 20:00 03/27/19 07:46 DC 03/26/19 21:17 Hydralazine HCl (Apresoline) 100 mg TID@0800,1600,1999 PO 03/27/19 08:00 03/27/19 21:43 Insulin Human Lispro (HumaLOG INSULIN) SEE PROTOCOL TABLE AC SC 03/25/19 17:30 03/26/19 10:25 DC 03/26/19 09:48 Insulin Human Lispro (HumaLOG INSULIN) SEE PROTOCOL TABLE BID SC 03/26/19 21:00 03/26/19 20:08 DC Insulin Human Lispro (HumaLOG INSULIN) SEE PROTOCOL TABLE BID@0330,3510 [place] 03/27/19 07:30 03/27/19 17:01 Insulin Human Lispro (HumaLOG INSULIN) SEE PROTOCOL TABLE QHS TX 03/25/19 21:00 03/26/19 10:25 DC Loratadine (Claritin) 10 mg DAILY PO 03/26/19 09:00 03/27/19 09:18 Magnesium Chloride (Slow-Mag) 64 mg BID PO 03/25/19 21:00 03/27/19 21:43 Metoprolol Tartrate (Lopressor) 200 mg BID PO 03/25/19 21:00 03/27/19 21:42 Mirtazapine (Remeron) 7.5 mg QHS PO 03/27/19 21:00 03/27/19 21:43 Miscellaneous (Unresolved Patient Own Med Order) SEE LABEL COMMENTS DAILY XX 03/26/19 09:00 03/27/19 19:56 DC Patient Own Medication (Patient'S Own Med) ONGLYZA 2.5 mg TA... DAILY PO 03/28/19 09:00 Rosuvastatin Calcium (Crestor) 10 mg MoTuThSa@0900 PO 03/27/19 09:00 03/27/19 09:18 Senna (Senokot) 1 tab QHS PO 03/25/19 21:00 03/25/19 20:38 Torsemide (Demadex) 10 mg DAILY@0900 PO 03/27/19 09:00 03/27/19 09:18 Torsemide (Demadex) 20 mg DAILY@0900 PO 03/26/19 09:00 03/26/19 16:29 DC 03/26/19 09:47 Torsemide (Demadex) 20 mg DAILY@0900,1700 PO 03/26/19 09:00 03/26/19 08:49 DC Trazodone HCl (Desyrel) 25 mg QHSP PRN PO INSOMNIA 03/25/19 16:45 Vitamin D (Vitamin D) 1,000 units DAILY PO 03/26/19 09:00 03/27/19 09:18 CASSIUS CALLOWAY MD Mar 28, 2019 09:32
[2019-03-28] MEDS: CALCITRIOL 0.25 MCG CAP (S0169) PO SCH (09:39)
[2019-03-28] MEDS: ONGLYZA 2.5 MG PO SCH (09:39)
[2019-03-28] MEDS: amLODIPine 10 MG TAB PO SCH (09:39)
[2019-03-28] MEDS: MAGNESIUM CHLORIDE 64 MG TABCR (SLO MAG) PO SCH ×2 (09:39→21:01)
[2019-03-28] MEDS: VITAMIN D 1,000 INTERNATIONAL UNITS TABLET PO SCH (09:40)
[2019-03-28] MEDS: TORSEMIDE 10 MG TABLET PO SCH (09:40)
[2019-03-28] MEDS: DOCUSATE SODIUM 100 MG CAP PO SCH ×2 (09:40→21:03)
[2019-03-28] MEDS: allopurinoL 100 MG TAB PO SCH (09:40)
[2019-03-28] MEDS: APIXABAN 2.5 MG TAB (ELIQUIS) PO SCH ×2 (09:40→21:03)
[2019-03-28] MEDS: LORATADINE 10 MG TAB PO SCH (09:40)
[2019-03-28] MEDS: **hydrALAZINE** 50 MG TAB PO SCH ×3 (09:41→21:03)
[2019-03-28] MEDS: METOPROLOL TARTRATE 100 MG TAB PO SCH ×2 (09:41→21:02)
[2019-03-28] MEDS: glipiZIDE XL 5 MG TABCR PO SCH ×2 (09:45→18:07)
[2019-03-28] MEDS: SITagliptin 50 MG TAB (JANUVIA) PO SCH (14:02)
[2019-03-28 15:49] VITALS: BP 162/58
[2019-03-28 20:00] VITALS: BP 150/52
[2019-03-28] MEDS: MIRTAZAPINE 7.5MG PER 1/2 TABLET PO SCH (21:01)
[2019-03-28] MEDS: SENNA 8.6 MG TAB (SENOKOT) PO SCH (21:03)
[2019-03-29 05:05] VITALS: BP 148/58
[2019-03-29] MEDS: **hydrALAZINE** 50 MG TAB PO SCH ×3 (08:00→20:55)
[2019-03-29] MEDS: SITagliptin 50 MG TAB (JANUVIA) PO SCH (08:36)
[2019-03-29] MEDS: MAGNESIUM CHLORIDE 64 MG TABCR (SLO MAG) PO SCH ×2 (08:36→20:54)
[2019-03-29] MEDS: HumaLOG INSULIN (NovoLOG) PER UNIT SC SCH ×2 (08:36→16:59)
[2019-03-29] MEDS: FERROUS SULFATE 325MG TAB PO SCH (08:37)
[2019-03-29] MEDS: ROSUVASTATIN 10 MG TAB (CRESTOR) PO SCH (08:37)
[2019-03-29] MEDS: VITAMIN D 1,000 INTERNATIONAL UNITS TABLET PO SCH (08:37)
[2019-03-29] MEDS: APIXABAN 2.5 MG TAB (ELIQUIS) PO SCH ×2 (08:37→20:55)
[2019-03-29] MEDS: LORATADINE 10 MG TAB PO SCH (08:37)
[2019-03-29] MEDS: glipiZIDE XL 5 MG TABCR PO SCH ×2 (08:38→16:59)
[2019-03-29] MEDS: allopurinoL 100 MG TAB PO SCH (08:38)
[2019-03-29] MEDS: TORSEMIDE 10 MG TABLET PO SCH (08:38)
[2019-03-29] MEDS: METOPROLOL TARTRATE 100 MG TAB PO SCH ×2 (08:39→20:56)
[2019-03-29] MEDS: ONGLYZA 2.5 MG PO SCH (08:40)
[2019-03-29] MEDS: DOCUSATE SODIUM 100 MG CAP PO SCH ×2 (08:40→20:55)
[2019-03-29] MEDS: amLODIPine 10 MG TAB PO SCH (08:40)
--- NOTE | 2019-03-29 13:37 | IPN ---
DATE OF SERVICE: 03/29/2019 SUBJECTIVE: The patient is an 79-year-old female who was seen in the acute rehabilitation unit. The patient was working with physical therapy and taking a break, sitting in a chair. The patient says that she has been a little fatigued while working out with physical therapy, but she feels otherwise well. She does not have any other acute complaints today. PHYSICAL EXAMINATION: Vital signs: Temperature 99.7, pulse 81, respiratory rate 71, blood pressure 137/67, pulse oximetry 97% on room air. General: The patient is alert and oriented female who was sitting in the bedside chair in her room in the acute rehabilitation unit. When we walked in, the patient was in no acute distress. HEENT: Was normocephalic, atraumatic with moist mucous membranes. Neck was supple with no jugular venous distention (JVD). Heart was a regular rate and rhythm without murmur. Lungs were clear to auscultation bilaterally. Abdomen was soft and nontender. Extremities showed pitting edema around the ankle. LABORATORIES: Laboratories from 03/28/2019 show white blood cells 15.5, hemoglobin 9.6, hematocrit 29.2, platelet count 320. Sodium 135, potassium 3.7, chloride 107, carbon dioxide 18, BUN 84, creatinine 2.51, glucose 199, calcium 8.8. ASSESSMENT AND PLAN: 1. Acute kidney injury superimposed on chronic kidney disease stage IV. The patient's renal function has stabilized with her creatinine of 2.51. We will continue to monitor the patient. The torsemide will be increased back to 20 mg daily, as the patient is showing signs of fluid overload. 2. Blood pressure, which has been reasonably controlled with her current medications, and there will be no changes made. 3. Anemia. This is related to her chronic kidney disease. 4. Urinary retention. This has been resolved. 5. Fatigue. Her fatigue may be multifactorial, with factors including her anemia, as well as a large dose of beta dimitris that the patient is on with metoprolol 200 mg twice a day. Also, may be secondary to deconditioning. However, we will continue to monitor the patient as she works with physical therapy.
[2019-03-29 14:00] VITALS: BP 121/58
--- NOTE | 2019-03-29 16:08 | HPEPDOC ---
General Date of Admission Mar 25, 2019 at 16:30 Date of Service: Mar 29, 2019 Attending Physician: NEREIDA WEBER MD Chief Complaint The patient is a 79-year-old female admitted with a reason for visit of DIANNE. Source: Patient, RN/, Old records Exam Limitations: No limitations Timing/Duration: Changing over time Severity: Moderate Associated Symptoms: Other (Deconditioning) History of Present Illness 79 yo woman with stage 3 CKD (last baseline Cr 2-2.5), DM, HTN, Afib, gout, grade 1 diastolic CHF who was recently admitted [id number] for an acute DIANNE on her CKD that improved with fluids but later c/b hypervolemia requiring some diuresis with IV lasix. During her inpatient stay, she was noted to be orthostatic and was started on midodrine but was subsequently hypertensive and it was discontinued. After her brief IV diuretics, it wad decided to hold her home torsemide that was restarted ib discharge to the ARU. She worked with PT and was noted to have an unsteady gait and was significantly deconditioned and ultimately evaluated for ERU admission and transferred to the ARU on 03/25. In the ARU she has been doing well. She had a low grade temp on 03/26 but has otherwise been hemodynamically stable and afebrile. Her WBC has slowly uptrended to 15.5 today, hgb stable at 9.6 with a Tct of 29.2, K3.7 and Cr now 2.51. She otherwise reports feeling well with no issues at this time. Home Medications Scheduled Allopurinol (Allopurinol) 100 Mg Tablet, 200 MG PO DAILY, (Reported) Amlodipine Besylate (Amlodipine Besylate) 10 Mg Tablet, 10 MG PO DAILY, (Reported) Apixaban (Eliquis) 2.5 Mg Tablet, 2.5 MG PO BID Calcitriol (Calcitriol) 0.25 Mcg Capsule, 0.25 MCG PO 3XW, (Reported) SUN, SUN, SUN Cholecalciferol (Vitamin D3) (Vitamin D3) 1,000 Unit Capsule, 1,000 UNIT PO DAILY, (Reported) Ferrous Sulfate (Ferrous Sulfate) 325 Mg Tab, 325 MG PO Q2D, (Reported) Glipizide (Glipizide ER) 10 Mg Tab.er.24, 10 MG PO BID, (Reported) Hydralazine HCl (Hydralazine HCl) 100 Mg Tablet, 100 MG PO TID, (Reported) Loratadine (Loratadine) 10 Mg Tab, 10 MG PO DAILY, (Reported) Magnesium Chloride (Mag64) 64 Mg Tabcr, 64 MG PO BID, (Reported) Metoprolol Tartrate (Metoprolol Tartrate) 100 Mg Tablet, 200 MG PO BID, (Reported) Mv-Mn/Iron/Folic Acid/Herb 190 (Vitamin D3 Complete Caplet) 1 Tab Tab, 1 TAB PO 3XW, (Reported) TAKES SUNDAY, SUNDAY AND SUNDAY Rosuvastatin Calcium (Rosuvastatin Calcium) 10 Mg Tablet, 10 MG PO 4XWK, (Reported) SUN, , , SUN Saxagliptin HCl (Onglyza) 2.5 Mg Tab, 2.5 MG PO DAILY, (Reported) Torsemide (Torsemide) 20 Mg Tablet, 20 MG PO BID, (Reported) Allergies Coded Allergies: No Known Allergies (Unverified , 02/01/19) Past Medical History Medical History 1. Diabetes mellitus. 2. A. fib. 3. Hypertension. 4. Chronic kidney disease. 5. Gout. 6. GERD 7. Grade 1 diastolic CHF Surgical History 1. Tonsillectomy. Family History Father had a CVA Social History * Smoker: Denies Alcohol: Denies Drugs: denies Recent Travel/Sick Contacts: Denies: Recent travel, Recent sick contacts A-FIB/CHADSVASC A-FIB History Current/History of A-Fib/PAF?: Yes Current PO Anticoag Therapy: Yes Age/Risk Factor Scoring CHADSVASC: CHADSVASC Response (Comments) Value Age Risk Factor Age >/= 75 years old 2 Gender Risk Factor Female 1 Hx of CHF Yes 1 Hx of HTN Yes 1 Hx of Stroke/TIA/or VTE No 0 Hx of Diabetes Yes 1 Hx of Vascular Disease Yes 1 Total 7 Treatment Treatment ordered: Apixaban Review of Systems Constitutional: Denies: Chills, Fever, Night Sweats Eyes: Denies: Pain, Vision change ENT: Denies: Head Aches, Ear Pain, Dysphagia Skin: Denies: Rash, Lesions, Breakdown Pulmonary: Denies: Dyspnea, Cough Cardiovascular: Denies: Chest Pain, Palpitations, Orthopnea, Paroxysmal Noc. Dyspnea, Lt Headedness Gastrointestinal: Denies: Nausea, Vomiting, Abdominal Pain, Diarrhea Genitourinary: Denies: Dysuria, Frequency, Incontinence, Hematuria, Retention, Other Symptoms Hematologic: Denies: Bruising, Bleeding Excessively Endocrine: Denies: Polydipsia, Polyphagia, Polyuria, Heat Intolerance, Cold Intolerance, Other Endocrine Sx Musculoskeletal: Denies: Neck Pain, Back Pain, Joint Pain, Muscle Pain, Spasms Neurological: Denies: Weakness, Numbness, Change in speech, Confusion Psych: Reports: Mood Normal; Denies: Depression, Memory Issues Physical Examination General Exam: Positive: Alert, No Acute Distress Eye Exam: Positive: PERRLA, Conjunctiva & lids normal, EOMI; Negative: Sclera icteric ENT Exam: Positive: Atraumatic, Mucous membr. moist/pink, Pharynx Normal Neck Exam: Positive: Supple; Negative: JVD, thyromegaly Chest Exam: Positive: Normal air movement, Rales (R>L posterior lung quiles) Heart Exam: Positive: Rate Normal, Regular Rhythm, Normal S1, Normal S2, Murmurs (2/6 pansystolic murmur throughout the precordium); Negative: Rubs Telemetry: Positive: No significant arrhythmia Abdomen Exam: Positive: Normal bowel sounds, Soft; Negative: Tenderness, Hepatospenomegaly Extremity Exam: Positive: Normal pulses; Negative: Clubbing, Cyanosis, Edema Skin Exam: Positive: Nl turgor and temperature; Negative: Breakdown, Lesion Neuro Exam: Positive: Normal Gait, Normal Speech, Cranial Nerves 3-12 NL, Reflexes 2+ Psych Exam: Positive: Mental status NL, Mood NL, Oriented x 3 Vital Signs Vital Signs Date Time Temp Pulse Resp B/P (MAP) Pulse Ox O2 Delivery O2 Flow Rate FiO2 03/29/19 08:39 81 137/67 03/29/19 05:05 99.7 17 97 Room Air Laboratory Data Labs 24H Laboratory Tests 2 03/28/19 17:00: Bedside Glucose (Misc Panel) 274H 03/29/19 06:31: Bedside Glucose (Misc Panel) 210H Assessment/Plan 79 yo woman with stage 3 CKD (last baseline Cr 2-2.5), DM, HTN, Afib, gout, grade 1 diastolic CHF who was recently admitted [id number] for an acute DIANNE on her CKD with a course c/b significant fatigue and deconditioning who is now admitted to the ARU. PLAN: 1. chronic kidney disease. Continue home calcitriol and vitamin D 2. Atrial fibrillation. Continue Eliquis, at 2.5 mg twice a day due to patient's age and creatinine. - Continue metoprolol for rate control 3. Hypertension Continue Norvasc, metoprolol and hydralazine 4. Diabetes mellitus. continue glipizide, januvia and SSI 5. Gout. continue home allopurinol 6. Diastolic CHF: - continue home torsemide 7. Insomnia -Trazodone QHS -mirtazapine QHS 8. Hyperlipidemia -Continue crestor 9. Fe defieciency anemia -continue Fe supplementation DVT prophylaxis: Eliquis Dispo: Per ARU physician and team Plan / VTE VTE Prophylaxis Ordered?: Yes NEREIDA WEBER MD Mar 29, 2019 15:36
[2019-03-29 19:35] VITALS: BP 138/58
[2019-03-29] MEDS: SENNA 8.6 MG TAB (SENOKOT) PO SCH (20:55)
[2019-03-29] MEDS: MIRTAZAPINE 7.5MG PER 1/2 TABLET PO SCH (20:55)
[2019-03-30 05:10] VITALS: BP 158/58
[2019-03-30] MEDS: HumaLOG INSULIN (NovoLOG) PER UNIT SC SCH ×2 (09:04→17:15)
[2019-03-30] MEDS: glipiZIDE XL 5 MG TABCR PO SCH ×2 (09:04→17:14)
[2019-03-30] MEDS: MAGNESIUM CHLORIDE 64 MG TABCR (SLO MAG) PO SCH ×2 (09:05→20:38)
[2019-03-30] MEDS: DOCUSATE SODIUM 100 MG CAP PO SCH ×2 (09:06→20:37)
[2019-03-30] MEDS: VITAMIN D 1,000 INTERNATIONAL UNITS TABLET PO SCH (09:06)
[2019-03-30] MEDS: METOPROLOL TARTRATE 100 MG TAB PO SCH ×2 (09:06→20:37)
[2019-03-30] MEDS: LORATADINE 10 MG TAB PO SCH (09:06)
[2019-03-30] MEDS: CALCITRIOL 0.25 MCG CAP (S0169) PO SCH (09:06)
[2019-03-30] MEDS: SITagliptin 50 MG TAB (JANUVIA) PO SCH (09:07)
[2019-03-30] MEDS: amLODIPine 10 MG TAB PO SCH (09:07)
[2019-03-30] MEDS: APIXABAN 2.5 MG TAB (ELIQUIS) PO SCH ×2 (09:07→20:37)
[2019-03-30] MEDS: **hydrALAZINE** 50 MG TAB PO SCH ×3 (09:08→20:37)
[2019-03-30] MEDS: TORSEMIDE 10 MG TABLET PO SCH (09:08)
[2019-03-30] MEDS: allopurinoL 100 MG TAB PO SCH (09:08)
[2019-03-30] MEDS: ONGLYZA 2.5 MG PO SCH (09:08)
[2019-03-30 14:00] VITALS: BP 137/58
[2019-03-30 20:00] VITALS: BP 168/74
[2019-03-30] MEDS: SENNA 8.6 MG TAB (SENOKOT) PO SCH (20:37)
[2019-03-30] MEDS: MIRTAZAPINE 7.5MG PER 1/2 TABLET PO SCH (20:37)
[2019-03-31 06:00] VITALS: BP 170/73
[2019-03-31 07:17] LABS: HEMATOCRIT 29.2 % (36.0-47.0); HEMOGLOBIN 9.7 g/dl (12.0-15.5); MEAN CORPUSCULAR HEMOGLOBIN 31.8 pg (27.0-33.0); MEAN CORPUSCULAR HGB CONC 33.2 g/dl (32.0-36.5); MEAN CORPUSCULAR VOLUME 95.7 fl (80.0-96.0); PLATELET COUNT, AUTOMATED 400 10^3/uL (150-450); RED BLOOD COUNT 3.05 10^6/uL (4.00-5.40); WHITE BLOOD COUNT 14.7 10^3/uL (4.0-10.0)
[2019-03-31] MEDS: HumaLOG INSULIN (NovoLOG) PER UNIT SC SCH ×2 (07:30→16:46)
[2019-03-31 08:18] LABS: ALBUMIN 2.9 GM/DL (3.2-5.2); CALCIUM LEVEL 9.1 MG/DL (8.8-10.2); CREATININE FOR GFR 2.56 MG/DL (0.55-1.30); FREE T4 1.02 NG/DL (0.76-1.46); GLOMERULAR FILTRATION RATE 19.2 (>32); MAGNESIUM LEVEL 2.2 MG/DL (1.8-2.4); PHOSPHORUS LEVEL 3.9 MG/DL (2.5-4.9); POTASSIUM SERUM 4.1 MEQ/L (3.5-5.1); THYROID STIMULATING HORMONE 2.38 uIU/ML (0.358-3.740)
[2019-03-31] MEDS: glipiZIDE XL 5 MG TABCR PO SCH ×2 (08:53→17:08)
[2019-03-31] MEDS: TORSEMIDE 10 MG TABLET PO SCH (08:53)
[2019-03-31] MEDS: APIXABAN 2.5 MG TAB (ELIQUIS) PO SCH ×2 (08:53→21:23)
[2019-03-31] MEDS: VITAMIN D 1,000 INTERNATIONAL UNITS TABLET PO SCH (08:53)
[2019-03-31] MEDS: DOCUSATE SODIUM 100 MG CAP PO SCH ×2 (08:53→21:28)
[2019-03-31] MEDS: **hydrALAZINE** 50 MG TAB PO SCH ×3 (08:54→20:10)
[2019-03-31] MEDS: amLODIPine 10 MG TAB PO SCH (08:54)
[2019-03-31] MEDS: LORATADINE 10 MG TAB PO SCH (08:54)
[2019-03-31] MEDS: ROSUVASTATIN 10 MG TAB (CRESTOR) PO SCH (08:54)
[2019-03-31] MEDS: SITagliptin 50 MG TAB (JANUVIA) PO SCH (08:54)
[2019-03-31] MEDS: allopurinoL 100 MG TAB PO SCH (08:54)
[2019-03-31] MEDS: FERROUS SULFATE 325MG TAB PO SCH (08:54)
[2019-03-31] MEDS: METOPROLOL TARTRATE 100 MG TAB PO SCH ×2 (08:54→21:26)
[2019-03-31] MEDS: ONGLYZA 2.5 MG PO SCH (08:55)
[2019-03-31] MEDS: MAGNESIUM CHLORIDE 64 MG TABCR (SLO MAG) PO SCH ×2 (08:55→21:23)
[2019-03-31 09:12] LABS: C REACTIVE PROTEIN QUANTITATIV 4.63 MG/DL (0.00-0.30)
--- NOTE | 2019-03-31 09:29 | IPNPDOC ---
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 She reports increased incontinence and is agreeable to staying a little longer in rehab given low grade temps over the weekend and persistent leukocytosis. REVIEW OF SYSTEMS: The following is a completed review of systems and has been reviewed. Review of systems otherwise unremarkable. PAIN: Patient self reports no pain EYES: No recent vision changes EARS, NOSE, & THROAT: No throat pain, or dysphagia, or rhinorrhea CARDIOVASCULAR: Denies chest pain or palpitations PULMONARY: Denies shortness of breath GASTROINTESTINAL: Denies constipation/diarrhea GENITOURINARY: denies dysuria, +worsening incontinence MUSCULOSKELETAL: bilat LE weakness NEUROLOGICAL: no focal tremor or seizure activity HEMATOLOGICAL: denies easy bruising SKIN: no rash PSYCHIATRIC: Unremarkable All other review of systems found to be negative. PHYSICAL EXAMINATION: VITAL SIGNS: Please see below. GENERAL: Pleasant and cooperative. No acute distress. HEENT: PERRL. Extraocular movements intact. Clear conjunctiva CARDIOVASCULAR: Regular rate and rhythm. No murmurs, rubs, or gallops LUNGS: +Wheezes at bilateral apices ABDOMEN: Soft, nontender, nondistended. Positive bowel sounds. Normal active bowel sounds NEUROLOGICAL: Alert and oriented times three. Cranial nerves II through XII grossly intact. Sensation grossly intact in all 4 extremities -proprioception intact in LE EXTREMITIES: 5\5 strength bilateral upper extremities. 5\5 strength right lower extremity. 5/5 strength in left lower extremity. SKIN: intact ASSESSMENT:79-year-old F with past medical history of CKD who presents status post worsening weakness found to have DIANNE on CKD PLAN: 1. Rehab- PT/OT advance gait and ADLs, strengthen/stretch/maintain ROM bilat UE and LE- ambulating with RW 2. Neuro: no active issue 3. Cardiac: Hx of HTN- c/u hydralazine (increased to 100mg TID today) and amlo dipine (will monitor for peripheral edema as known side effect), Hx of Afib c/u Metoprolol and Eliquis 2.5mg BID, grade one diastolic CHF c/u torsemide 10mg daily per discussion with Dr. Fischer -daily weights, fluid restrict -HLD, c/u statin -medicine consulted to assist in management 4. resp: encourage incentive spirometry -c/u Duonebs 5. Endo: pmh DM, will c/u home dose glipizide 10mg BID, patient to bring in own med saxagliptan 2.5 mg daily, patient requesting to not be on insulin -changed ISS/FS to BID, adjust prn 6. DVT ppx: Eliquis 7. Pain: tylenol prn -c/u allopurinol for hx of gout 8. Renal: CKD with recent DIANNE, monitor, renal consulted, recs appreciated 9. Psych: patient with insomnia and anhedonia following son's unexpected in the summer- c/u remeron 7.5 mg qHS, will consider increasing to 15mg if c/u's to tolerate, however patient requesting to stay on lower dose 10. Leukocytosis: patient denying cough, fevers, chills, or dysuria, but has been having more incontinence will order UA and Ucx -CXR ordered, no infiltrate 8. Dispo: 04-02-19 to home, progressing towards goals, however patient with low grade temp over the weekend an persistent leukocytosis, obtaining blood cx and UA Allergies Coded Allergies: No Known Allergies (Unverified , 02/01/19) Vital Signs Vital Signs Date Time Temp Pulse Resp B/P (MAP) Pulse Ox O2 Delivery O2 Flow Rate FiO2 03/31/19 08:54 170/73 03/31/19 08:54 71 03/31/19 06:00 99.2 18 97 Room Air Laboratory Data CBC/BMP Laboratory Tests 03/31/19 06:44 Labs 24H Laboratory Tests 2 03/30/19 16:26: Bedside Glucose (Misc Panel) 216H 03/31/19 06:44: Nucleated Red Blood Cells % (auto) 0.0, Anion Gap 11, Glomerular Filtration Rate 19.2L, Calcium Level 9.1, Phosphorus Level 3.9, Magnesium Level 2.2, C-Reactive Protein, Quantitative 4.63H, Albumin 2.9L, Thyroid Stimulating Hormone (TSH) 2.380, Free Thyroxine 1.02 Microbiology Microbiology 03/31/19 Blood Culture, Received Pending Current Medications Current Medications Current Medications Medications (Trade) Dose Ordered Sig/Ana Route PRN Reason Start Time Stop Time Status Last Admin Dose Admin Acetaminophen (Tylenol Tab) 650 mg Q4HP PRN PO fever/pain 03/25/19 16:45 Allopurinol (Zyloprim) 200 mg DAILY PO 03/26/19 09:00 03/31/19 08:54 Amlodipine Besylate (Norvasc) 10 mg DAILY PO 03/26/19 09:00 03/31/19 08:54 Apixaban (Eliquis) 2.5 mg BID PO 03/25/19 21:00 03/31/19 08:53 Calcitriol (Rocaltrol) 0.25 mcg Q48H PO 03/26/19 09:00 03/30/19 09:06 Dextrose (Dextrose 50%) 25 ml ASDIRECTED PRN IV SEE LABEL COMMENTS 03/25/19 16:45 03/26/19 10:25 DC Dextrose (Dextrose 50%) 25 ml ASDIRECTED PRN IV SEE LABEL COMMENTS 03/26/19 10:30 Docusate Sodium (Colace) 100 mg BID PO 03/25/19 21:00 03/31/19 08:53 Ferrous Sulfate (Ferrous Sulfate) 325 mg Q48H PO 03/27/19 09:00 03/31/19 08:54 Glipizide (Glucotrol Xl) 5 mg BID@0730,1730 PO 03/25/19 17:30 03/26/19 10:24 DC 03/26/19 09:46 Glipizide (Glucotrol Xl) 10 mg BID@0730,1730 PO 03/26/19 17:30 03/31/19 08:53 Glucagon (Glucagon) 1 mg ASDIRECTED PRN SC SEE LABEL COMMENTS 03/25/19 16:45 03/26/19 10:25 DC Glucagon (Glucagon) 1 mg ASDIRECTED PRN SC SEE LABEL COMMENTS 03/26/19 10:30 Glucose (Glucose) 16 GM ASDIRECTED PRN PO SEE LABEL COMMENTS 03/25/19 16:45 03/26/19 10:25 DC Glucose (Glucose) 16 GM ASDIRECTED PRN PO SEE LABEL COMMENTS 03/26/19 10:30 Hydralazine HCl (Apresoline) 75 mg TID@0800,1600,2000 PO 03/25/19 20:00 03/27/19 07:46 DC 03/26/19 21:17 Hydralazine HCl (Apresoline) 100 mg TID@0800,1600,2000 PO 03/27/19 08:00 03/31/19 08:54 Insulin Human Lispro (HumaLOG INSULIN) SEE PROTOCOL TABLE AC SC 03/25/19 17:30 03/26/19 10:25 DC 03/26/19 09:48 Insulin Human Lispro (HumaLOG INSULIN) SEE PROTOCOL TABLE BID SC 03/26/19 21:00 03/26/19 20:08 DC Insulin Human Lispro (HumaLOG INSULIN) SEE PROTOCOL TABLE BID@0730,1730 SC 03/27/19 07:30 03/30/19 09:04 Insulin Human Lispro (HumaLOG INSULIN) SEE PROTOCOL TABLE QHS SC 03/25/19 21:00 03/26/19 10:25 DC Loratadine (Claritin) 10 mg DAILY PO 03/26/19 09:00 03/31/19 08:54 Magnesium Chloride (Slow-Mag) 64 mg BID PO 03/25/19 21:00 03/31/19 08:55 Metoprolol Tartrate (Lopressor) 200 mg BID PO 03/25/19 21:00 03/31/19 08:54 Mirtazapine (Remeron) 7.5 mg QHS PO 03/27/19 21:00 03/30/19 20:37 Miscellaneous (Unresolved Patient Own Med Order) SEE LABEL COMMENTS DAILY XX 03/26/19 09:00 03/27/19 19:56 DC Patient Own Medication (Patient'S Own Med) ONGLYZA 2.5 mg TA... DAILY PO 03/28/19 09:00 03/31/19 08:55 Rosuvastatin Calcium (Crestor) 10 mg MoTuThSa@0900 PO 03/27/19 09:00 03/31/19 08:54 Senna (Senokot) 1 tab QHS PO 03/25/19 21:00 03/30/19 20:37 Sitagliptin Phosphate (Januvia) 25 mg DAILY PO 03/28/19 09:30 03/31/19 08:54 Torsemide (Demadex) 10 mg DAILY@0900 PO 03/27/19 09:00 03/31/19 08:53 Torsemide (Demadex) 20 mg DAILY@0900 PO 03/26/19 09:00 03/26/19 16:29 DC 03/26/19 09:47 Torsemide (Demadex) 20 mg DAILY@0900,1700 PO 03/26/19 09:00 03/26/19 08:49 DC Trazodone HCl (Desyrel) 25 mg QHSP PRN PO INSOMNIA 03/25/19 16:45 Vitamin D (Vitamin D) 1,000 units DAILY PO 03/26/19 09:00 03/31/19 08:53 CASSIUS CALLOWAY MD Mar 31, 2019 09:29
[2019-03-31 14:00] VITALS: BP 149/69
--- NOTE | 2019-03-31 18:44 | IPN ---
DATE: 03/30/2019 Mrs. Birmingham is seen this morning on her bedside. Her main complaint remains chronic fatigue. She denies any dyspnea, chest pain, nausea or vomiting. PHYSICAL EXAMINATION: Temperature 99.2 degrees Fahrenheit, earlier her temperature was 100.3 this morning. Heart rate is 70 per minute and respiratory rate 16 per minute. Blood pressure 137/58 mmHg and oxygen saturation 98% on room air. Her head is atraumatic. Neck is supple and without jugular venous distention (JVD) or thyroid enlargement. Heart sounds are regular. Lungs are clear to auscultation. Abdomen is soft and nontender and bowel sounds are normal. Extremities without any cyanosis or clubbing. Neurologically, she is awake, alert and oriented times three. She did not have any new laboratories done. PROBLEMS: 1. Uncontrolled hypertension. Blood pressure is well-controlled now and she will continue with current antihypertensive medications. 2. Acute kidney injury superimposed on chronic kidney disease. Her kidney function has improved almost back to baseline. We will check her renal profile tomorrow morning. 3. Leukocytosis. The etiology remains uncertain as she is completely afebrile without any evidence of infection. We will check her complete blood count (CBC) tomorrow morning. 4. Fatigue. This is a chronic issue and her thyroid has been checked multiple times during the last couple of hospitalizations. She also had her cortisol level checked which was normal at baseline. She is currently not on any thyroid replacement. I would recheck her thyroid profile tomorrow morning. 5. Peripheral edema. Her volume status is well-compensated with torsemide 10 mg daily and we will continue with the same.
[2019-03-31 20:00] VITALS: BP 144/60
[2019-03-31] MEDS: MIRTAZAPINE 7.5MG PER 1/2 TABLET PO SCH (21:23)
[2019-03-31] MEDS: TERAZOSIN 1 MG CAP PO SCH (21:25)
[2019-03-31] MEDS: SENNA 8.6 MG TAB (SENOKOT) PO SCH (21:28)
[2019-04-01 06:00] VITALS: BP 142/65
[2019-04-01] MEDS ORDERED: GLUCAGON FOR INJ 1 MG VIAL (J1610) SC PRN (08:00)
[2019-04-01] MEDS ORDERED: DEXTROSE 50% 50 ML SYRINGE IV PRN (08:00)
[2019-04-01] MEDS ORDERED: GLUCOSE 4 GM CHEW TABLET PO PRN (08:00)
[2019-04-01] MEDS: HumaLOG INSULIN (NovoLOG) PER UNIT SC SCH ×3 (08:43→17:42)
[2019-04-01] MEDS: glipiZIDE XL 5 MG TABCR PO SCH ×2 (08:43→16:35)
[2019-04-01] MEDS: METOPROLOL TARTRATE 100 MG TAB PO SCH ×2 (08:44→22:15)
[2019-04-01] MEDS: VITAMIN D 1,000 INTERNATIONAL UNITS TABLET PO SCH (08:44)
[2019-04-01] MEDS: allopurinoL 100 MG TAB PO SCH (08:44)
[2019-04-01] MEDS: ROSUVASTATIN 10 MG TAB (CRESTOR) PO SCH (08:44)
[2019-04-01] MEDS: TORSEMIDE 10 MG TABLET PO SCH (08:44)
[2019-04-01] MEDS: LORATADINE 10 MG TAB PO SCH (08:44)
[2019-04-01] MEDS: **hydrALAZINE** 50 MG TAB PO SCH ×3 (08:44→21:18)
[2019-04-01] MEDS: APIXABAN 2.5 MG TAB (ELIQUIS) PO SCH ×2 (08:44→21:18)
[2019-04-01] MEDS: CALCITRIOL 0.25 MCG CAP (S0169) PO SCH (08:45)
[2019-04-01] MEDS: amLODIPine 10 MG TAB PO SCH (08:45)
[2019-04-01] MEDS: MAGNESIUM CHLORIDE 64 MG TABCR (SLO MAG) PO SCH ×2 (08:45→21:17)
[2019-04-01] MEDS: ONGLYZA 2.5 MG PO SCH (08:52)
[2019-04-01] MEDS: DOCUSATE SODIUM 100 MG CAP PO SCH ×2 (08:52→21:18)
--- NOTE | 2019-04-01 08:53 | IPN ---
DATE OF SERVICE: 03/31/2019 Mrs. Birmingham is seen this morning on her bedside. She is currently resting in her bed. She continues to have a complaint of fatigue, but denies any nausea, vomiting, fever or chills. On physical examination, temperature 99.2 degrees Fahrenheit, heart rate 70 per minute and respiratory rate 18 per minute. Blood pressure 170/73 mmHg and oxygen saturation 97% on room air. Head is atraumatic. Neck is supple and not abnormally elevated. She has no oral thrush or ulcers. No abnormal lymph nodes noted. Heart sounds are regular and lungs sound clear to auscultation. Abdomen: Soft and nontender. Bowel sounds are normal. Extremities have no cyanosis or clubbing. Neurologically, she is awake, alert and at her baseline mentation. Today's labs show WBC count 14.7, hemoglobin 9.7 and hematocrit 29.2. Platelets of 400. Sodium 137, potassium 4.1, CO2 18, BUN 73 and creatinine 2.56. Glucose 191 and calcium 9.1. C-reactive protein is 4.63. Albumin 2.9. TSH 2.38. Free T4 1.02. PROBLEMS: 1. Acute kidney injury superimposed on chronic kidney disease. Kidney function has been more or less stable without any change for the last few days. We will continue to monitor closely. She has no uremic symptoms. 2. Hypertension. Blood pressure is still slightly high. She is on multiple antihypertensive meds including beta dimitris, calcium channel dimitris, vasodilator and diuretic. She is not a suitable candidate for ERIK inhibitor or angiotensin receptor dimitris. I am not going to use clonidine in her situation due to chronic fatigue and it might get worse. We can consider a low-dose alpha dimitris if her blood pressure does not get better. 3. Anemia. Anemia is stable and we will continue to monitor without any urgent intervention. 4. Leukocytosis and elevated C-reactive protein. I am concerned about any possibility of underlying infection as she is also complaining of chronic fatigue. Blood cultures have already been drawn and urinalysis is being ordered. She is not a suitable candidate for IV contrast for imaging. We will wait and see what the results of blood cultures and urinalysis show. Her thyroid studies came back normal.
[2019-04-01 10:46] LABS: BASO # 0.1 10^3/uL (0.0-0.2); BASO % 0.5 % (0.0-1.0); EOS # 0.2 10^3/uL (0.0-0.5); EOS % 1.8 % (0.0-3.0); HEMATOCRIT 27.4 % (36.0-47.0); HEMOGLOBIN 8.9 g/dl (12.0-15.5); LYMPH # 1.7 10^3/uL (1.5-5.0); LYMPH % 14.8 % (24.0-44.0); MEAN CORPUSCULAR HEMOGLOBIN 31.4 pg (27.0-33.0); MEAN CORPUSCULAR HGB CONC 32.5 g/dl (32.0-36.5); MEAN CORPUSCULAR VOLUME 96.8 fl (80.0-96.0); MONO # 0.7 10^3/uL (0.0-0.8); MONO % 6.2 % (0.0-5.0); NEUTROPHILS % 76.2 % (36.0-66.0); PLATELET COUNT, AUTOMATED 384 10^3/uL (150-450); RED BLOOD COUNT 2.83 10^6/uL (4.00-5.40); WHITE BLOOD COUNT 11.8 10^3/uL (4.0-10.0)
[2019-04-01 11:13] LABS: C REACTIVE PROTEIN QUANTITATIV 3.48 MG/DL (0.00-0.30); CALCIUM LEVEL 8.6 MG/DL (8.8-10.2); CREATININE FOR GFR 2.69 MG/DL (0.55-1.30); GLOMERULAR FILTRATION RATE 18.1 (>32); POTASSIUM SERUM 4.4 MEQ/L (3.5-5.1)
--- NOTE | 2019-04-01 11:41 | IPNPDOC ---
PM&R Progress Note DATE OF SERVICE: Apr 01, 2019 Physics Technical Officer Progress Note Subjective: Patient reporting she thinks she slept better through the night and doesn't remember waking up as much. She denies fevers or chills. REVIEW OF SYSTEMS: The following is a completed review of systems and has been reviewed. Review of systems otherwise unremarkable. PAIN: Patient self reports no pain EYES: No recent vision changes EARS, NOSE, & THROAT: No throat pain, or dysphagia, or rhinorrhea CARDIOVASCULAR: Denies chest pain or palpitations PULMONARY: Denies shortness of breath GASTROINTESTINAL: Denies constipation/diarrhea GENITOURINARY: denies dysuria, + incontinence (chronic) MUSCULOSKELETAL: bilat LE weakness NEUROLOGICAL: no focal tremor or seizure activity HEMATOLOGICAL: denies easy bruising SKIN: no rash PSYCHIATRIC: Unremarkable All other review of systems found to be negative. PHYSICAL EXAMINATION: VITAL SIGNS: Please see below. GENERAL: Pleasant and cooperative. No acute distress. HEENT: PERRL. Extraocular movements intact. Clear conjunctiva CARDIOVASCULAR: Regular rate and rhythm. No murmurs, rubs, or gallops LUNGS: +CTA ABDOMEN: Soft, nontender, nondistended. Positive bowel sounds. Normal active bowel sounds NEUROLOGICAL: Alert and oriented times three. Cranial nerves II through XII grossly intact. Sensation grossly intact in all 4 extremities -proprioception intact in LE EXTREMITIES: 5\5 strength bilateral upper extremities. 5\5 strength right lower extremity. 5/5 strength in left lower extremity. SKIN: intact ASSESSMENT:79-year-old F with past medical history of CKD who presents status post worsening weakness found to have DIANNE on CKD PLAN: 1. Rehab- PT/OT advance gait and ADLs, strengthen/stretch/maintain ROM bilat UE and LE- ambulating with RW 2. Neuro: no active issue 3. Cardiac: Hx of HTN- c/u hydralazine (increased to 100mg TID today) and amlodipine (will monitor for peripheral edema as known side effect), Hx of Afib c/u Metoprolol and Eliquis 2.5mg BID, grade one diastolic CHF c/u torsemide 10mg daily per discussion with Dr. Fischer -daily weights, fluid restrict -HLD, c/u statin -medicine consulted to assist in management 4. resp: encourage incentive spirometry -c/u Duonebs -noc-ox not performed last night, called respiratory and they will do it today in anticipation for tomorrow's discharge 5. Endo: pmh DM, will c/u home dose glipizide 10mg BID, and onglyza 2.5 mg daily, patient with elevated FS despite being on 2 oral meds, she is on max dose of both, will start Levemir and ISS 6. DVT ppx: Eliquis 7. Pain: tylenol prn -c/u allopurinol for hx of gout 8. Renal: CKD with recent DIANNE, monitor, renal consulted, recs appreciated 9. Psych: patient with insomnia and anhedonia following son's unexpected in the summer- c/u Remeron 7.5 mg qHS, patient reporting she is tired, but thinks she slept better again during the night -will recommend outpatient mental health for therapy 10. Leukocytosis: improving and CRP also trending down, blood cx to date negative and Ucx negative- her fatigue may be due to depression and possible VIKTORIYA, noc-ox ordered for tonight -Resp panel pending -CXR no infiltrate 8. Dispo: 04-02-19 to home, progressing towards goals Allergies Coded Allergies: No Known Allergies (Unverified , 02/01/19) Vital Signs Vital Signs Date Time Temp Pulse Resp B/P (MAP) Pulse Ox O2 Delivery O2 Flow Rate FiO2 04/01/19 08:44 70 142/65 04/01/19 06:00 99.5 18 98 Room Air Laboratory Data CBC/BMP Laboratory Tests 04/01/19 10:22 Labs 24H Laboratory Tests 2 03/31/19 14:15: Urine Color YELLOW, Urine Appearance CLEAR, Urine pH 5.0, Urine Specific [place] 1.009, Urine Protein 2+H, Urine Glucose (UA) NEGATIVE, Urine Ketones NEGATIVE, Urine Blood NEGATIVE, Urine Nitrite NEGATIVE, Urine Bilirubin NEGATIVE, Urine Urobilinogen 0.2, Urine Leukocyte Esterase TRACEH, Urine WBC (Auto) 4H, Urine RBC (Auto) 3, Urine Hyaline Casts (Auto) 0, Urine Bacteria (Auto) NEGATIVE, Urine Squamous Epithelial Cells 0, Urine Sperm (Auto) 03/31/19 16:23: Bedside Glucose (Misc Panel) 228H 04/01/19 06:01: Bedside Glucose (Misc Panel) 235H 04/01/19 10:22: Immature Granulocyte % (Auto) 0.5, Neutrophils (%) (Auto) 76.2H, Lymphocytes (%) (Auto) 14.8L, Monocytes (%) (Auto) 6.2H, Eosinophils (%) (Auto) 1.8, Basophils (%) (Auto) 0.5, Neutrophils # (Auto) 9.0H, Lymphocytes # (Auto) 1.7, Monocytes # (Auto) 0.7, Eosinophils # (Auto) 0.2, Basophils # (Auto) 0.1, Nucleated Red Blood Cells % (auto) 0.0, Anion Gap 8, Glomerular Filtration Rate 18.1L, Calcium Level 8.6L, C-Reactive Protein, Quantitative 3.48H Microbiology Microbiology 03/31/19 Urine Culture - Final, Complete 03/31/19 Blood Culture - Preliminary, Resulted No growth after 24 hours . All specim... 03/31/19 Blood Culture - Preliminary, Resulted No growth after 24 hours . All specim... Current Medications Current Medications Current Medications Medications (Trade) Dose Ordered Sig/Ana Route PRN Reason Start Time Stop Time Status Last Admin Dose Admin Acetaminophen (Tylenol Tab) 650 mg Q4HP PRN PO fever/pain 03/25/19 16:45 Allopurinol (Zyloprim) 200 mg DAILY PO 03/26/19 09:00 04/01/19 08:44 Amlodipine Besylate (Norvasc) 10 mg DAILY PO 03/26/19 09:00 04/01/19 08:45 Apixaban (Eliquis) 2.5 mg BID PO 03/25/19 21:00 04/01/19 08:44 Calcitriol (Rocaltrol) 0.25 mcg Q48H PO 03/26/19 09:00 04/01/19 08:45 Dextrose (Dextrose 50%) 25 ml ASDIRECTED PRN IV SEE LABEL COMMENTS 03/25/19 16:45 03/26/19 10:25 DC Dextrose (Dextrose 50%) 25 ml ASDIRECTED PRN IV SEE LABEL COMMENTS 03/26/19 10:30 04/01/19 07:58 DC Dextrose (Dextrose 50%) 25 ml ASDIRECTED PRN IV SEE LABEL COMMENTS 04/01/19 08:00 Docusate Sodium (Colace) 100 mg BID PO 03/25/19 21:00 04/01/19 08:52 Ferrous Sulfate (Ferrous Sulfate) 325 mg Q48H PO 03/27/19 09:00 03/31/19 08:54 Glipizide (Glucotrol Xl) 5 mg BID@0730,1730 PO 03/25/19 17:30 03/26/19 10:24 DC 03/26/19 09:46 Glipizide (Glucotrol Xl) 10 mg BID@0730,1730 PO 03/26/19 17:30 04/01/19 08:43 Glucagon (Glucagon) 1 mg ASDIRECTED PRN SC SEE LABEL COMMENTS 03/25/19 16:45 03/26/19 10:25 DC Glucagon (Glucagon) 1 mg ASDIRECTED PRN SC SEE LABEL COMMENTS 03/26/19 10:30 04/01/19 07:58 DC Glucagon (Glucagon) 1 mg ASDIRECTED PRN SC SEE LABEL COMMENTS 04/01/19 08:00 Glucose (Glucose) 16 GM ASDIRECTED PRN PO SEE LABEL COMMENTS 03/25/19 16:45 03/26/19 10:25 DC Glucose (Glucose) 16 GM ASDIRECTED PRN PO SEE LABEL COMMENTS 03/26/19 10:30 04/01/19 07:58 DC Glucose (Glucose) 16 GM ASDIRECTED PRN PO SEE LABEL COMMENTS 04/01/19 08:00 Hydralazine HCl (Apresoline) 75 mg TID@0800,1600,1999 PO 03/25/19 20:00 03/27/19 07:46 DC 03/26/19 21:17 Hydralazine HCl (Apresoline) 100 mg TID@0800,1600,1999 PO 03/27/19 08:00 04/01/19 08:44 Insulin Detemir (Levemir Insulin) 5 units QHS SC 04/01/19 21:00 Insulin Human Lispro (HumaLOG INSULIN) SEE PROTOCOL TABLE AC SC 03/25/19 17:30 03/26/19 10:25 DC 03/26/19 09:48 Insulin Human Lispro (HumaLOG INSULIN) SEE PROTOCOL TABLE AC SC 04/01/19 07:30 04/01/19 08:43 Insulin Human Lispro (HumaLOG INSULIN) SEE PROTOCOL TABLE BID SC 03/26/19 21:00 03/26/19 20:08 DC Insulin Human Lispro (HumaLOG INSULIN) SEE PROTOCOL TABLE BID@5496,1303 [place] 03/27/19 07:30 04/01/19 08:02 DC 03/30/19 09:04 Insulin Human Lispro (HumaLOG INSULIN) SEE PROTOCOL TABLE QHS SC 03/25/19 21:00 03/26/19 10:25 DC Insulin Human Lispro (HumaLOG INSULIN) SEE PROTOCOL TABLE QHS [place] 04/01/19 21:00 Loratadine (Claritin) 10 mg DAILY PO 03/26/19 09:00 04/01/19 08:44 Magnesium Chloride (Slow-Mag) 64 mg BID PO 03/25/19 21:00 04/01/19 08:45 Metoprolol Tartrate (Lopressor) 200 mg BID PO 03/25/19 21:00 04/01/19 08:44 Mirtazapine (Remeron) 7.5 mg QHS PO 03/27/19 21:00 03/31/19 21:23 Miscellaneous (Unresolved Patient Own Med Order) SEE LABEL COMMENTS DAILY XX 03/26/19 09:00 03/27/19 19:56 DC Patient Own Medication (Patient'S Own Med) ONGLYZA 2.5 mg TA... DAILY PO 03/28/19 09:00 04/01/19 08:52 Rosuvastatin Calcium (Crestor) 10 mg MoTuThSa@0900 PO 03/27/19 09:00 04/01/19 08:44 Senna (Senokot) 1 tab QHS PO 03/25/19 21:00 03/31/19 21:28 Sitagliptin Phosphate (Januvia) 25 mg DAILY PO 03/28/19 09:30 03/31/19 09:28 DC 03/31/19 08:54 Terazosin HCl (Hytrin) 1 mg QHS PO 03/31/19 21:00 03/31/19 21:25 Torsemide (Demadex) 10 mg DAILY@0900 PO 03/27/19 09:00 04/01/19 08:44 Torsemide (Demadex) 20 mg DAILY@0900 PO 03/26/19 09:00 03/26/19 16:29 DC 03/26/19 09:47 Torsemide (Demadex) 20 mg DAILY@0900,1700 PO 03/26/19 09:00 03/26/19 08:49 DC Trazodone HCl (Desyrel) 25 mg QHSP PRN PO INSOMNIA 03/25/19 16:45 04/01/19 09:07 DC Vitamin D (Vitamin D) 1,000 units DAILY PO 03/26/19 09:00 04/01/19 08:44 CASSIUS CALLOWAY MD Apr 01, 2019 11:41
[2019-04-01 14:00] VITALS: BP 134/60
[2019-04-01] MEDS ORDERED: TORS10TA3 PO (14:19)
[2019-04-01] MEDS ORDERED: GLIP5TAB20 PO (14:19)
[2019-04-01] MEDS ORDERED: ALLO10TA PO (14:19)
[2019-04-01] MEDS ORDERED: ELIQ2.5T PO (14:19)
[2019-04-01] MEDS ORDERED: HYDR50TA PO (14:19)
[2019-04-01] MEDS ORDERED: FERR325T18 PO (14:19)
[2019-04-01] MEDS ORDERED: TERA1CA PO (14:19)
[2019-04-01] MEDS ORDERED: LOPR1TAB7 PO (14:19)
[2019-04-01] MEDS ORDERED: MAGN64TASA PO (14:19)
[2019-04-01] MEDS ORDERED: AMLO10TA5 PO (14:19)
[2019-04-01] MEDS ORDERED: CALC1CAP31 PO (14:19)
[2019-04-01] MEDS ORDERED: REME15TA PO (14:19)
--- NOTE | 2019-04-01 18:43 | IPN ---
DATE: 04/01/2019 Mrs. Birmingham is seen this morning on her bedside. She is sitting in the chair at the time of my visit. She is feeling about the same and reports fatigue and tiredness. She has no nausea, vomiting, dyspnea, or chest pain. PHYSICAL EXAMINATION: Temperature 99.5 degrees Fahrenheit, heart rate 70 per minute, and respiratory rate 18 per minute. Blood pressure 142/65 mm of mercury, oxygen saturation 98% on room air. Head is atraumatic. Neck is supple and without jugular venous distention (JVD) or thyroid enlargement. Heart sounds regular, and lungs clear to auscultation. Abdomen soft and nontender, and bowel sounds are normal. Extremities have no cyanosis or clubbing. Neurologically, she is awake, alert, and oriented times three. Today's labs show WBC count down to 11.8, hemoglobin 8.9, and hematocrit 27.4. Platelets 384. Sodium 134, potassium 4.4, chloride 105, CO2 of 21, BUN 75, creatinine 2.69, glucose 233, and calcium 8.6. C-reactive protein is down to 3.48. Urinalysis showed only 4 WBC and three RBC yesterday with 2+ protein. Urine and blood cultures are still pending and negative so far. PROBLEMS: 1. Acute on chronic kidney disease. Kidney function has been essentially unchanged, and no medication changes are being made today. She is not on angiotensin-converting enzyme (ERIK) inhibitor or angiotensin receptor blockers. Her diuretic dose is minimum. 2. Metabolic acidosis. Her acidosis has improved, and no changes are being made today. She is currently not on any sodium bicarbonate supplement. 3. Hypertension. Blood pressure is well controlled on current antihypertensive medications, and no changes are being made today. 4. Anemia. Her anemia has been fluctuating but remains mostly stable. No changes are being made, and the patient will be followed up as an outpatient. 5. Chronic fatigue and tiredness. She does have slightly elevated C-reactive protein but no obvious source of infection. Her thyroid tests have come back normal. I will defer to her primary care team for further investigations. Thyroid has been well controlled.
[2019-04-01 20:30] VITALS: BP 145/67
[2019-04-01] MEDS ORDERED: LEVEMIR (INSULIN DETEMIR) 1 UNITS/0.01ML SC SCH (21:00)
[2019-04-01] MEDS ORDERED: HumaLOG INSULIN (NovoLOG) PER UNIT SC SCH (21:00)
[2019-04-01] MEDS: SENNA 8.6 MG TAB (SENOKOT) PO SCH (21:18)
[2019-04-01] MEDS: MIRTAZAPINE 7.5MG PER 1/2 TABLET PO SCH (21:19)
[2019-04-01] MEDS: TERAZOSIN 1 MG CAP PO SCH (21:19)
[2019-04-02 06:00] VITALS: BP 140/62
[2019-04-02 07:29] LABS: BASO # 0.1 10^3/uL (0.0-0.2); BASO % 0.4 % (0.0-1.0); EOS # 0.4 10^3/uL (0.0-0.5); EOS % 3.4 % (0.0-3.0); HEMATOCRIT 25.8 % (36.0-47.0); HEMOGLOBIN 8.4 g/dl (12.0-15.5); LYMPH # 2.5 10^3/uL (1.5-5.0); LYMPH % 21.3 % (24.0-44.0); MEAN CORPUSCULAR HEMOGLOBIN 31.5 pg (27.0-33.0); MEAN CORPUSCULAR HGB CONC 32.6 g/dl (32.0-36.5); MEAN CORPUSCULAR VOLUME 96.6 fl (80.0-96.0); MONO % 8.3 % (0.0-5.0); NEUTROPHILS # 7.9 10^3/uL (1.5-8.5); NEUTROPHILS % 66.1 % (36.0-66.0); PLATELET COUNT, AUTOMATED 368 10^3/uL (150-450); RED BLOOD COUNT 2.67 10^6/uL (4.00-5.40); WHITE BLOOD COUNT 11.9 10^3/uL (4.0-10.0)
[2019-04-02 07:57] LABS: CALCIUM LEVEL 8.7 MG/DL (8.8-10.2); CREATININE FOR GFR 2.52 MG/DL (0.55-1.30); GLOMERULAR FILTRATION RATE 19.5 (>32); POTASSIUM SERUM 4.3 MEQ/L (3.5-5.1)
[2019-04-02] MEDS: **hydrALAZINE** 50 MG TAB PO SCH (08:00)
[2019-04-02] MEDS: MAGNESIUM CHLORIDE 64 MG TABCR (SLO MAG) PO SCH (08:40)
[2019-04-02] MEDS: LORATADINE 10 MG TAB PO SCH (08:40)
[2019-04-02] MEDS: DOCUSATE SODIUM 100 MG CAP PO SCH (08:40)
[2019-04-02] MEDS: HumaLOG INSULIN (NovoLOG) PER UNIT SC SCH ×2 (08:40→12:00)
[2019-04-02] MEDS: ONGLYZA 2.5 MG PO SCH (08:40)
[2019-04-02] MEDS: APIXABAN 2.5 MG TAB (ELIQUIS) PO SCH (08:41)
[2019-04-02] MEDS: VITAMIN D 1,000 INTERNATIONAL UNITS TABLET PO SCH (08:41)
[2019-04-02] MEDS: allopurinoL 100 MG TAB PO SCH (08:41)
[2019-04-02] MEDS: FERROUS SULFATE 325MG TAB PO SCH (08:41)
[2019-04-02] MEDS: glipiZIDE XL 5 MG TABCR PO SCH (08:41)
[2019-04-02] MEDS: TORSEMIDE 10 MG TABLET PO SCH (08:41)
[2019-04-02 08:43] VITALS: BP 137/71
[2019-04-02] MEDS: amLODIPine 10 MG TAB PO SCH (08:43)
[2019-04-02] MEDS: METOPROLOL TARTRATE 100 MG TAB PO SCH (08:43)
[2019-04-02 09:51] LABS: PERCENT SATURATION 21.1 % (13.2-45.0)
--- NOTE | 2019-04-02 12:25 | IPNPDOC ---
Text Note Date of Service The patient was seen on 04/02/19. NOTE Subjective: Patient is an 79-year-old female with a PMHx of CKD3, DM2, HTN, A. fib, Gout, G1DD CHF, who presented to the emergency room on 03/23/2019 for acute kidney injury on her chronic kidney disease that has improved with fluid hydration. Ultimately, this is complicated by hypervolemia requiring diuresis with IV Lasix. Patient was ultimately transitioned to acute rehabilitation unit on 03/25/2019 under the care of Dr. Jin. Patient was seen and examined at the bedside. . Currently patient denies any chest pain, shortness breath, palpitations, nausea, vomiting, abdominal pain, diarrhea, or urinary discomfort. Patient has been progressing well with physical therapy Objective: Vitals (See below) General: Lying in bed, no acute distress, comfortable, AAOx3 HEENT: NC, AT CVS: RRR, +S1S2 Lungs: Fair air entry b/l, -w/r/r Abdomen: Soft, ND, NT Extremities: - Edema, - Calf tenderness Assessment and plan: CKD3 Continue home calcitriol and vitamin D A. fib - c/w rate control with metoprolol - c/w full anticoagulation with Eliquis HTN - BP remains well controlled - c/w Amlodipine, Metoprolol and Hydralazine DM2 - c/w ISS, Glipizide, Levemir Gout - c/w Allopurinol Chronic Diastolic CHF - No evidence of exacerbation - c/w Torsemide Insomnia - c/w Trazodone QHS and Mirtazapine QHS DLP - c/w Rosuvastatin Iron deficiency anemia - c/w Ferrous sulfate DVT prophylaxis - c/w full anticoagulation with Eliquis Disposition: - Awaiting PT?OT clearance VS,Fishbone, I+O VS, Fishbone, I+O Laboratory Tests 04/02/19 07:14 Vital Signs Date Time Temp Pulse Resp B/P (MAP) Pulse Ox O2 Delivery O2 Flow Rate FiO2 04/02/19 08:43 71 137/71 04/02/19 06:00 97.7 18 99 Room Air 04/02/19 00:30 21 I&O- Last 24 Hours up to 6 AM 04/02/19 06:00 Intake Total 1320 ml Balance 1320 ml XAVIER ÁLVAREZ MD Apr 02, 2019 12:25
--- NOTE | 2019-04-02 22:42 | IPN ---
DATE: 04/02/2019 SUBJECTIVE The patient was seen and examined at the bedside today morning. She is afebrile, hemodynamically stable. Her renal function is a stable. Creatinine is fluctuating at 2.5. The patient is feeling better and reports that she is probably going to be discharged today. OBJECTIVE Vital signs: Temperature is 97.7 degrees Fahrenheit, blood pressure 137/71, pulse is 71, respiratory rate of 18, saturating 99% on room air. Intake and output: There is no urine output recorded. Weight in the bed scale was 68.4 kg 2 days ago. PHYSICAL EXAMINATION General: The patient is awake, alert, oriented times three, laying in bed, in no apparent distress. Head and neck examination: Extraocular muscles intact. Pupils equally round and reactive to light. Mucous membranes are moist. Neck is supple. There is no jugular venous distention (JVD). Cardiovascular: S1, S2. Regular rate. Trace edema of the bilateral lower extremities. Respiratory: Chest is clear to auscultation bilaterally. Bilateral equal air entry. No rales or rhonchi. Abdomen: Soft, positive bowel sounds. Nontender. No organomegaly. Musculoskeletal: No clubbing or cyanosis. Pulses are 2+. COUNT ROOM CLERK: No focal deficit. Power is 5/5 in all extremities. LAB REVIEW: CBC showed WBC of 11.7, hemoglobin 8.4, platelets are 368. BMP showed sodium 136, potassium 4.3, chloride 109, bicarb 18, BUN 76, creatinine is 2.58, was 2.6 yesterday. Iron level is 42, TIBC is 199, transferrin saturation is 21.1, ferritin is 540. CURRENT INPATIENT MEDICATIONS: The patient's medications were all reviewed by me. There is no change in the medications today as compared with yesterday. ASSESSMENT 1. Chronic kidney disease stage IV. Patient's renal function is stable. Creatinine has been fluctuating at around 2.5. Continue low dose of diuretics. The patient will need followup with vascular surgery as outpatient for creation of AV fistula. 2. Hypertension. Blood pressure is controlled with current regimen of amlodipine 10 mg daily, hydralazine 100 mg by mouth three times a day, metoprolol 200 mg by mouth twice a day. 3. Lower extremity edema. It is currently well controlled with torsemide 10 mg by mouth daily. 4. Secondary hyperparathyroidism. Continue current dose of calcitriol 0.25 mcg every other day. 5. Anemia and chronic kidney disease. Iron levels are adequate. Hemoglobin level is suboptimal. The patient will need to start DALTON as outpatient if hemoglobin stays below 9. 6. Metabolic acidosis. Bicarb level has been staying around 18. The patient will get the repeat labs done in the office. If the bicarb level stays low she will need to start oral bicarbonate. 7. Disposition. It is okay to discharge the patient from nephrology standpoint. She will follow up with myself as outpatient at nephrology office.
--- NOTE | 2019-04-03 14:26 | NOCOX ---
DATE OF STUDY: 04/01/2019 The study was performed on room air. Total Valid Sampling Time: 9 hours and 41 minutes The patient's oxygen saturation high was 100% and the lowest was 89%. The patient's heart rate ranged from 132 to a low of 58. The total time spent with an oxygen saturation less than 88% was 0 minutes. The patient's desaturation event index was 2.8. Graphically, the patient did not have significant oxygen saturation variability. She did have significant heart rate variability however noted. IMPRESSION: The patient did not have significant desaturation noted. Does not quality for nocturnal oxygen supplementation. Did not have significant oxygen saturation variability suggestive of sleep apnea, however, cannot rule out obstructive sleep apnea (VIKTORIYA) entirely.
--- NOTE | 2019-04-03 14:31 | PMRDS ---
DATE OF ADMISSION: 03/25/2019 DATE OF DISCHARGE: 04/02/2019 CHIEF COMPLAINT/DISCHARGE DIAGNOSIS: Acute kidney injury (DIANNE) with chronic kidney disease (CKD) in the setting of congestive heart failure (CHF). HISTORY OF PRESENT ILLNESS: An 79-year-old female with a past medical history of chronic kidney disease (CKD), diabetes, hypertension, atrial fibrillation, gout with worsening fatigue, grade 1 diastolic congestive heart failure (CHF), admitted to [facility] ([facility]) Emergency Department (ED) on 03/23/2019 for acute on chronic CKD. The patient received fluids to correct this and later IV diuretics for volume overload. Her Eliquis dosing was decreased due to her age and elevated creatinine. She was also evaluated by renal who helped adjust her torsemide dosing which was ultimately held during her hospital course. She had episodes of orthostatic hypotension and subsequent spikes in blood pressures (BPs), such that midodrine was held for her orthostatic hypotension. In addition, she had urinary retention which resolved on its own. She was evaluated by therapy, noted to have impairments in mobility, activities of daily living (ADLs), and deemed medically appropriate for discharge to acute rehabilitation unit (ARU) on 03/25/2019. On initial presentation, the patient reports she had not been dizzy for over 20 years and then on the inpatient side despite having drops in blood pressure, she does not recall being dizzy or lightheaded. She denies falling in the past year but states for the past couple of months her legs have fell wobbly. PAST MEDICAL HISTORY: As per history of present illness (HPI). HOSPITAL COURSE: The patient was admitted and enrolled in a comprehensive physical therapy (PT), occupational therapy (OT) program. She received 24-hour nursing supervision and weekly team meetings were held to discuss her progress. The patient was maintained on a fluid restriction and torsemide 10 mg daily per renal recommendations for her congestive heart failure (CHF). She was treated with her home diabetic medications with relatively well-controlled fingersticks. The patient reported over 20 years of insomnia and recent anhedonia following her son's unexpected in the summer and agreed to start an antidepressant, Remeron to help with sleep and mood. The patient had mild elevation in her white blood cell count and a mildly elevated C-reactive protein (CRP) which trended down, blood cultures were negative. Urine culture negative. Respiratory panel negative. The patient made functional gains in therapy and was deemed medically stable for discharge on 04/02/2019. DISCHARGE MEDICATIONS: As per instructions. FUNCTIONAL HISTORY: Upon discharge, the patient was modified independent, able to ambulate 150 feet with a rolling walker and negotiate four stairs. In occupational therapy, the patient was modified independent for functional transfers, showering dressing and toileting. Thank you for this referral.
== END 2019-04-02 14:00 | disposition home health service (06) | DRG 948 ==
LOC: M PM&R 16:30
PROVIDERS: ADMIT Physical Medicine & Rehabilitation; ATTEND Physical Medicine & Rehabilitation
DX: R53.1 Weakness (principal); N17.9 Acute kidney failure, unspecified; I13.0 Hypertensive heart and chronic kidney disease with heart failure and stage 1 through stage 4 chronic kidney disease, or unspecified chronic kidney disease; I50.32 Chronic diastolic (congestive) heart failure; N18.4 Chronic kidney disease, stage 4 (severe); N25.81 Secondary hyperparathyroidism of renal origin; E87.2 Acidosis; E11.22 Type 2 diabetes mellitus with diabetic chronic kidney disease; I48.91 Unspecified atrial fibrillation; R26.81 Unsteadiness on feet; F43.21 Adjustment disorder with depressed mood; G47.00 Insomnia, unspecified; D72.829 Elevated white blood cell count, unspecified; R53.83 Other fatigue; M10.9 Gout, unspecified; D63.1 Anemia in chronic kidney disease; E78.5 Hyperlipidemia, unspecified; R26.89 Other abnormalities of gait and mobility; Z79.01 Long term (current) use of anticoagulants; Z79.899 Other long term (current) drug therapy; Z79.84 Long term (current) use of oral hypoglycemic drugs

== ENCOUNTER 2019-06-26 13:24 | Emergency (ER) | payer MEDICARE, OTHER ==
[~2019-06-26] VITALS: Ht 154.9 cm; Wt 69.4 kg
[~2019-06-26 13:24] MED LIST changes: +FERR325T18 PO; +GLIP5TAB20 PO; -IRBE300T10 PO; +IRBE300T7 PO; +REME15TA PO; +TERA1CA PO
[2019-06-26 14:03] LABS: BASO % 0.4 % (0.0-1.0); EOS # 0.2 10^3/uL (0.0-0.5); EOS % 1.7 % (0.0-3.0); HEMATOCRIT 34.2 % (36.0-47.0); HEMOGLOBIN 11.2 g/dl (12.0-15.5); LYMPH # 1.6 10^3/uL (1.5-5.0); LYMPH % 16.6 % (24.0-44.0); MEAN CORPUSCULAR HEMOGLOBIN 31.5 pg (27.0-33.0); MEAN CORPUSCULAR HGB CONC 32.7 g/dl (32.0-36.5); MEAN CORPUSCULAR VOLUME 96.1 fl (80.0-96.0); MONO # 0.6 10^3/uL (0.0-0.8); MONO % 6.5 % (0.0-5.0); NEUTROPHILS # 7.1 10^3/uL (1.5-8.5); NEUTROPHILS % 74.5 % (36.0-66.0); PLATELET COUNT, AUTOMATED 323 10^3/uL (150-450); RED BLOOD COUNT 3.56 10^6/uL (4.00-5.40); WHITE BLOOD COUNT 9.6 10^3/uL (4.0-10.0)
--- NOTE | 2019-06-26 14:09 | REP ---
Portable chest x-ray: Single view. History: Chest pain. Comparison study: March 28. Findings: Monitoring electrodes are seen. Lungs are well inflated and clear. The heart is not enlarged. Pulmonary vasculature is not increased. No significant bony abnormality. Impression: No acute disease. Electronically Signed by Ajay Brumfield MD 06/26/2019 02:01 P
[2019-06-26 14:24] LABS: BLOOD UREA NITROGEN 74 MG/DL (7-18); CARBON DIOXIDE LEVEL 24 MEQ/L (21-32); CHLORIDE LEVEL 104 MEQ/L (98-107); CREATININE FOR GFR 2.27 MG/DL (0.55-1.30); GLOMERULAR FILTRATION RATE 22.1 (>32); GLUCOSE, FASTING 236 MG/DL (70-100); POTASSIUM SERUM 4.2 MEQ/L (3.5-5.1); SODIUM LEVEL 134 MEQ/L (136-145)
[2019-06-26 14:25] LABS: CALCIUM LEVEL 9.1 MG/DL (8.8-10.2); CK-MB VALUE MASS 1.4 NG/ML (<3.6); CPK CREATINE PHOSPHOKINASE 65 U/L (26-192); MB/CK RELATIVE INDEX 2.15 (< OR =4); TROPONIN I < 0.02 NG/ML (< 0.10)
[2019-06-26] MEDS ORDERED: LABETALOL HCL 100 MG/20 ML VIAL IV STA ×2 (15:04→16:11)
[2019-06-26] MEDS ORDERED: FUROSEMIDE 40 MG/4 ML VIAL (J1940) IV ONE (16:15)
[2019-06-26 16:31] VITALS: BP 185/77
[2019-06-26 18:54] LABS: CK-MB VALUE MASS 1.3 NG/ML (<3.6); CPK CREATINE PHOSPHOKINASE 58 U/L (26-192); MB/CK RELATIVE INDEX 2.24 (< OR =4); TROPONIN I < 0.02 NG/ML (< 0.10)
--- NOTE | 2019-06-26 19:00 | ECGEPIP ---
[facility] - ED Test Date: 2019-06-26 Pat Name: KELVIN ESPARZA Department: Room: - Gender: Female Calibrator Barometers: : 1940 Requested By: ALECIA Aguirre Order Number: [id number] Reading MD: Viky Tay Measurements Intervals [place] Rate: 57 P: 50 MD: 191 QRS: 1 QRSD: 94 T: 32 QT: 419 QTc: 411 Interpretive Statements SINUS BRADYCARDIA POSSIBLE ANTERIOR MYOCARDIAL INFARCTION, OF INDETERMINATE AGE INFERIOR MYOCARDIAL INFARCTION, OF INDETERMINATE AGE RHYTHM CHANGE COMPARED 03/23/19 Electronically Signed on 06-26-2019 19:00:00 EDT by Viky Tay
--- NOTE | 2019-06-26 19:02 | ECGEPIP ---
[facility] - ED Test Date: 2019-06-26 Pat Name: KELVIN ESPARZA Department: Room: - Gender: Female Biology Department Chair: : 1940 Requested By: SANTINO SALAZAR Order Number: [id number] Reading MD: Viky Tay Measurements Intervals [place] Rate: 59 P: 28 ME: 207 QRS: -6 QRSD: 94 T: 20 QT: 437 QTc: 434 Interpretive Statements SINUS BRADYCARDIA POSSIBLE ANTERIOR MYOCARDIAL INFARCTION, OF INDETERMINATE AGE INFERIOR MYOCARDIAL INFARCTION, PROBABLY OLD SIMILAR 06/26/19 Electronically Signed on 06-26-2019 19:01:43 EDT by Viky Tay
[2019-06-26 19:47] VITALS: BP 179/77
== END 2019-06-26 20:10 | disposition home or self-care (01) ==
LOC: M ED 13:24
DX: R07.89 Other chest pain (principal); I10 Essential (primary) hypertension; R00.1 Bradycardia, unspecified; I51.9 Heart disease, unspecified; E11.9 Type 2 diabetes mellitus without complications; E78.5 Hyperlipidemia, unspecified; Z82.49 Family history of ischemic heart disease and other diseases of the circulatory system; Z79.01 Long term (current) use of anticoagulants; Z79.84 Long term (current) use of oral hypoglycemic drugs; Z79.899 Other long term (current) drug therapy
CPT/HCPCS: 36415; 71045; 80048; 82550; 82553; 84484; 85025; 93005; 93041; 94760; 96374; 96375; 96376; 99285; J1940

== ENCOUNTER 2019-08-24 16:03 | Inpatient (IN) | payer MEDICARE, OTHER ==
[~2019-08-24] VITALS: Ht 157.5 cm; Wt 69.2 kg
[~2019-08-24 16:03] MED LIST changes: +CALCITRIOL 0.25 MCG CAP (S0169) PO SCH
[2019-08-24] MEDS ORDERED: TORS20TA2 PO (16:14)
[2019-08-24] MEDS ORDERED: ISOS1TAB13 PO (17:29)
[2019-08-24 18:21] LABS: BASO # 0.1 10^3/uL (0.0-0.2); BASO % 0.7 % (0.0-1.0); EOS # 0.2 10^3/uL (0.0-0.5); EOS % 1.7 % (0.0-3.0); HEMATOCRIT 32.9 % (36.0-47.0); HEMOGLOBIN 10.9 g/dl (12.0-15.5); LYMPH # 2.3 10^3/uL (1.5-5.0); LYMPH % 21.7 % (24.0-44.0); MEAN CORPUSCULAR HEMOGLOBIN 31.6 pg (27.0-33.0); MEAN CORPUSCULAR HGB CONC 33.1 g/dl (32.0-36.5); MEAN CORPUSCULAR VOLUME 95.4 fl (80.0-96.0); MONO # 0.7 10^3/uL (0.0-0.8); MONO % 6.7 % (0.0-5.0); NEUTROPHILS # 7.4 10^3/uL (1.5-8.5); NEUTROPHILS % 68.9 % (36.0-66.0); PLATELET COUNT, AUTOMATED 347 10^3/uL (150-450); RED BLOOD COUNT 3.45 10^6/uL (4.00-5.40); WHITE BLOOD COUNT 10.7 10^3/uL (4.0-10.0)
[2019-08-24] MEDS ORDERED: ISOSORBIDE DIN (ISORDIL) 10 MG TAB PO ONE (18:45)
[2019-08-24] MEDS ORDERED: METOPROLOL TARTRATE 100 MG TAB PO ONE (18:45)
--- NOTE | 2019-08-24 20:23 | HPEPDOC ---
[facility] Medical History & Physical Date of Admission August 24, 2019 Date of Service: August 24, 2019 Primary Care Physician: MODESTA COHN MD Attending Physician: XIOMARA CONN MD History and Physical TIME OF SERVICE: 9:20 PM CHIEF COMPLAINT: Malaise HISTORY OF PRESENT ILLNESS: This is an 79-year-old female who came into the hospital because she doesn't feel well. When asked to give me more details. She stated " I'm not sure how to explain it to you, I just don't feel well". She denied having headaches, fever, chills, chest pain, blurry vision, nausea, vomiting, or diarrhea. She ate breakfast and lunch. Workup in the ED was unremarkable except for a blood pressure as high as 216/81. She received Isordil and her blood pressure improved to 164/81. spoke with who recommended that the patient follow-up in the office to titrate her BP meds, but the patient reported that she didn't feel well enough to go home. REVIEW OF SYSTEMS: 12 point review of systems negative except as listed in HPI PAST MEDICAL/ SURGICAL HISTORY: NIDDM Chronic HTN Chronic A. fib Gout Chronic diastolic CHF CKD 3 SOCIAL HISTORY: She doesn't smoke She doesn't drink She does not use recreational drugs FAMILY HISTORY: CVA ALLERGIES: Please see below. HOME MEDICATIONS: Please see below. PHYSICAL EXAMINATION: Vital Signs Date Time Temp Pulse Resp B/P (MAP) Pulse Ox O2 Delivery O2 Flow Rate FiO2 08/24/19 16:03 97.5 64 19 170/100 (123) 99 Room Air GEN: well-nourished / well developed/ NAD INTEGUMENT: not flushed/ not jaundice HEENT: NCAT CVS: RRR/NMRG LUNGS: able to speak full sentences without stopping to take a breath / lungs are clear to auscultation bilaterally on room air ABDOMEN: soft & she doesn't grimace with palpation MSK/EXTREMITIES: range of motion intact in all 4 extremities NEURO: strength is 5/5 PSYCH: alert and oriented to person place and time/ able to understand and follow all commands LABORATORY DATA: POC Glucose (Misc Panel) 255H, POC Sodium (Misc Panel) 137, POC Potassium (Misc Panel) 3.9, POC Chloride (Misc Panel) 104, POC Total CO2 (Misc Panel) 21.0L, POC Blood Urea Nitrogen (Misc Panel 74H, POC Ionized Calcium (Misc Panel) 4.8, POC Creatinine (Misc Panel) 2.5H, POC Hematocrit (Misc Panel) 32.0L 08/24/19 16:40: POC Troponin I (Misc) 0.01 08/24/19 18:12: Immature Granulocyte % (Auto) 0.3, Neutrophils (%) (Auto) 68.9H, Lymphocytes (%) (Auto) 21.7L, Monocytes (%) (Auto) 6.7H, Eosinophils (%) (Auto) 1.7, Basophils (%) (Auto) 0.7, Neutrophils # (Auto) 7.4, Lymphocytes # (Auto) 2.3, Monocytes # (Auto) 0.7, Eosinophils # (Auto) 0.2, Basophils # (Auto) 0.1, Nucleated Red Blood Cells % (auto) 0.0 08/24/19 19:03: Urine Color YELLOW, Urine Appearance HAZY, Urine pH 5.0, Urine Specific [place] 1.008, Urine Protein 2+H, Urine Glucose (UA) 1+H, Urine Ketones NEGATIVE, Urine Blood NEGATIVE, Urine Nitrite NEGATIVE, Urine Bilirubin NEGATIVE, Urine Urobilinogen 0.2, Urine Leukocyte Esterase NEGATIVE, Urine WBC (Auto) 0, Urine RBC (Auto) 0, Urine Hyaline Casts (Auto) 0, Urine Bacteria (Auto) NEGATIVE, Urine Squamous Epithelial Cells 0, Urine Sperm (Auto) IMAGING: Chest xray shows prominent pulmonary vasculature and cardiomegaly but no acute process, the radiologist's report is pending ASSESSMENT: Ms. Birmingham is an 79-year-old with a history of NIDDM, HTN, A. fib, gout, chronic diastolic CHF, and CKD 3 was admitted for observation after resolution of hypertensive urgency. PLAN: 1. Uncontrolled HTN Hypertensive urgency has resolved. She denied having pain, and her physical exam was unremarkable. 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 NIDDM - f/u accuchecks / DM diet / hypoglycemia protocol w SSI / hold oral anti-glycemic agents 3. A. fib - Eliquis & metoprolol 4. gout - allopurinol 5. chronic diastolic CHF - torsemide & control BP 6. CKD 3 - calcitriol DVT PROPHYLAXIS: n/a she is on Eliquis DISPOSITION: home tomorrow morning Home Medications Scheduled Amlodipine Besylate (Amlodipine Besylate) 10 Mg Tablet, 10 MG PO DAILY Apixaban (Eliquis) 2.5 Mg Tablet, 2.5 MG PO BID Calcitriol (Calcitriol) 0.25 Mcg Capsule, 0.25 MCG PO Q48H Cholecalciferol (Vitamin D3) (Vitamin D3) 1,000 Unit Capsule, 1,000 UNIT PO DAILY Ferrous Sulfate (Ferrous Sulfate) 325 Mg Tab, 325 MG PO 4XWK T TH SAT Glipizide (Glipizide ER) 10 Mg Tab.er.24, 10 MG PO BID Hydralazine HCl (Hydralazine HCl) 100 Mg Tablet, 100 MG PO TID Isosorbide Dinitrate (Isosorbide Dinitrate) 10 Mg Tablet, 10 MG PO BID Loratadine (Loratadine) 10 Mg Tab, 10 MG PO DAILY Magnesium Chloride (Mag64) 64 Mg Tabcr, 64 MG PO BID Metoprolol Tartrate (Metoprolol Tartrate) 100 Mg Tablet, 100 MG PO BID Mv-Mn/Iron/Folic Acid/Herb 190 (Vitamin D3 Complete Caplet) 1 Tab Tab, 1 TAB PO 3XW TAKES SUNDAY, SUNDAY AND SUNDAY Rosuvastatin Calcium (Rosuvastatin Calcium) 10 Mg Tablet, 10 MG PO 4XWK MON, , , SAT Saxagliptin HCl (Onglyza) 2.5 Mg Tab, 2.5 MG PO DAILY Torsemide (Torsemide) 20 Mg Tablet, 1 TAB PO DAILY Miscellaneous Medications Allopurinol (Allopurinol) 100 Mg Tablet, 200 MG PO Allergies Coded Allergies: No Known Allergies (Unverified , 02/01/19) A-FIB/CHADSVASC A-FIB History Current/History of A-Fib/PAF?: No Current PO Anticoag Therapy: No XIOMARA CONN MD August 24, 2019 20:23
[2019-08-24] MEDS ORDERED: MOM 30ML SUSPENSION UDC PO PRN (20:30)
[2019-08-24] MEDS ORDERED: MAALOX 30 ML SUSP *UDC PO PRN (20:30)
[2019-08-24] MEDS ORDERED: ACETAMINOPHEN TAB 650MG DOSE (2X325MG) PO PRN (20:30)
[2019-08-24] MEDS ORDERED: AMLO10TA5 PO (20:36)
[2019-08-24] MEDS ORDERED: ALLO10TA PO (20:36)
[2019-08-24] MEDS ORDERED: ELIQ2.5T PO (20:36)
--- NOTE | 2019-08-24 21:04 | ECGEPIP ---
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 Overall no significant change compared with 06/26/2019 At 1758 hrs. Electronically Signed on 08-24-2019 21:04:11 EDT by Ulises Davis
[2019-08-24 22:30] VITALS: BP 150/76
[2019-08-24] MEDS: APIXABAN 2.5 MG TAB (ELIQUIS) PO SCH (22:33)
[2019-08-24] MEDS: **hydrALAZINE** 50 MG TAB PO SCH (22:33)
[2019-08-24] MEDS: MAGNESIUM CHLORIDE 64 MG TABCR (SLO MAG) PO SCH (23:00)
--- NOTE | 2019-08-25 03:57 | REP ---
Clinical: Chest pain and malaise . Comparison: 03/28/2019, 06/26/2019 . Findings: The mediastinum and cardiac silhouette are stable and within normal limits for portable technique. The lung quiles are clear without acute consolidation, effusion, or pneumothorax. Skeletal structures are intact. Impression: No acute cardiopulmonary process appreciated. Electronically Signed by Daniel Morales MD 08/25/2019 03:49 A
[2019-08-25 06:00] VITALS: BP 155/62
[2019-08-25 06:11] LABS: HEMATOCRIT 32.1 % (36.0-47.0); HEMOGLOBIN 10.6 g/dl (12.0-15.5); MEAN CORPUSCULAR HEMOGLOBIN 31.8 pg (27.0-33.0); MEAN CORPUSCULAR VOLUME 96.4 fl (80.0-96.0); PLATELET COUNT, AUTOMATED 329 10^3/uL (150-450); RED BLOOD COUNT 3.33 10^6/uL (4.00-5.40); WHITE BLOOD COUNT 9.1 10^3/uL (4.0-10.0)
[2019-08-25 06:24] LABS: CALCIUM LEVEL 9.1 MG/DL (8.8-10.2); CREATININE FOR GFR 2.23 MG/DL (0.55-1.30); GLOMERULAR FILTRATION RATE 22.5 (>32); POTASSIUM SERUM 3.6 MEQ/L (3.5-5.1)
[2019-08-25] MEDS: MAGNESIUM CHLORIDE 64 MG TABCR (SLO MAG) PO SCH (08:31)
[2019-08-25 08:32] VITALS: BP 155/62
[2019-08-25] MEDS: **hydrALAZINE** 50 MG TAB PO SCH (08:33)
[2019-08-25] MEDS: APIXABAN 2.5 MG TAB (ELIQUIS) PO SCH (08:33)
[2019-08-25] MEDS ORDERED: ISOSORBIDE DIN (ISORDIL) 10 MG TAB PO SCH (09:00)
[2019-08-25] MEDS ORDERED: FERROUS SULFATE 325MG TAB PO SCH (09:00)
[2019-08-25] MEDS ORDERED: TORSEMIDE 20 MG TAB PO SCH (09:00)
[2019-08-25] MEDS ORDERED: allopurinoL 100 MG TAB PO SCH (09:00)
[2019-08-25] MEDS ORDERED: VITAMIN D 1,000 INTERNATIONAL UNITS TABLET PO SCH (09:00)
[2019-08-25] MEDS ORDERED: METOPROLOL TARTRATE 100 MG TAB PO SCH (09:00)
[2019-08-25] MEDS ORDERED: amLODIPine 10 MG TAB PO SCH (09:00)
--- NOTE | 2019-08-25 11:01 | DS.PDOC ---
Discharge Summary General Date of Admission August 24, 2019 at 20:20 Date of Discharge 08/25/19 Discharge Summary PROCEDURES PERFORMED DURING STAY: [None]. DISCHARGE DIAGNOSES: Hypertensive urgency SECONDARY DIAGNOSIS: NIDDM Chronic HTN Chronic A. 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 HISTORY OF PRESENT ILLNESS: See History and physical HOSPITAL COURSE: Ms. Birmingham is an 79-year-old with a history of NIDDM, HTN, A. fib, gout, chronic diastolic CHF, and CKD 3 was admitted for observation after resolution of hypertensive urgency. Hypertensive urgency has resolved. probably due to anxiety and emotional upset. Mendy recently lost her son and yesterday being mother's day was feeling very sad and depressed and anxious But feels much better today. No suicidal thought osr ideas. She has another son living close by and lots of good freinds. Continue home medications. NIDDM continue home meds. A. fib Eliquis & metoprolol Hyperuricemia without episodes of Gout allopurinol Chronic diastolic CHF torsemide CKD 4 calcitriol DISCHARGE MEDICATIONS: Please see below. ALLERGIES: Please see below. PHYSICAL EXAMINATION ON DISCHARGE: VITAL SIGNS: Please see below. GEN: well-nourished / well developed/ NAD INTEGUMENT: not flushed/ not jaundice HEENT: NCAT CVS: RRR/NMRG LUNGS: lungs are clear to auscultation bilaterally on room air ABDOMEN: soft , nontender, normal bowel sounds. MSK/EXTREMITIES: range of motion intact in all 4 extremities NEURO: strength is 5/5 , no focal neurodeficits PSYCH: alert and oriented to person place and time/ able to understand and follow all commands LABORATORY DATA: Please see below. ACTIVITY: [As tolerated]. DIET: consistent carb, 2 gm sodium DISCHARGE PLAN: Home DISPOSITION: Home DISCHARGE INSTRUCTIONS: Dr Magana in 1 week DISCHARGE CONDITION: [Stable]. TIME SPENT ON DISCHARGE: 35 minutes. Vital Signs/I&Os Vital Signs Date Time Temp Pulse Resp B/P (MAP) Pulse Ox O2 Delivery O2 Flow Rate FiO2 08/25/19 08:32 62 155/62 08/25/19 06:00 98.3 16 99 Room Air I&O- Last 24 Hours up to 6 AM 08/25/19 06:00 Intake Total 0 ml Output Total 20 ml Balance -20 ml Laboratory Data Labs 24H Laboratory Tests 2 08/24/19 16:39: POC Glucose (Misc Panel) 255H, POC Sodium (Misc Panel) 137, POC Potassium (Misc Panel) 3.9, POC Chloride (Misc Panel) 104, POC Total CO2 (Misc Panel) 21.0L, POC Blood Urea Nitrogen (Misc Panel 74H, POC Ionized Calcium (Misc Panel) 4.8, POC Creatinine (Misc Panel) 2.5H, POC Hematocrit (Misc Panel) 32.0L 08/24/19 16:40: POC Troponin I (Misc) 0.01 08/24/19 18:12: Immature Granulocyte % (Auto) 0.3, Neutrophils (%) (Auto) 68.9H, Lymphocytes (%) (Auto) 21.7L, Monocytes (%) (Auto) 6.7H, Eosinophils (%) (Auto) 1.7, Basophils (%) (Auto) 0.7, Neutrophils # (Auto) 7.4, Lymphocytes # (Auto) 2.3, Monocytes # (Auto) 0.7, Eosinophils # (Auto) 0.2, Basophils # (Auto) 0.1, Nucleated Red Blood Cells % (auto) 0.0 08/24/19 19:03: Urine Color YELLOW, Urine Appearance HAZY, Urine pH 5.0, Urine Specific [place] 1.008, Urine Protein 2+H, Urine Glucose (UA) 1+H, Urine Ketones NEGATIVE, Urine Blood NEGATIVE, Urine Nitrite NEGATIVE, Urine Bilirubin NEGATIVE, Urine Urobilinogen 0.2, Urine Leukocyte Esterase NEGATIVE, Urine WBC (Auto) 0, Urine RBC (Auto) 0, Urine Hyaline Casts (Auto) 0, Urine Bacteria (Auto) NEGATIVE, Urine Squamous Epithelial Cells 0, Urine Sperm (Auto) 08/25/19 05:44: Nucleated Red Blood Cells % (auto) 0.0, Anion Gap 9, Glomerular Filtration Rate 22.5L, Calcium Level 9.1 CBC/BMP Laboratory Tests 08/24/19 18:12 08/25/19 05:44 Discharge Medications Scheduled Amlodipine Besylate (Amlodipine Besylate) 10 Mg Tablet, 10 MG PO DAILY, (Reported) Apixaban (Eliquis) 2.5 Mg Tablet, 2.5 MG PO BID, (Reported) Calcitriol (Calcitriol) 0.25 Mcg Capsule, 0.25 MCG PO Q48H Cholecalciferol (Vitamin D3) (Vitamin D3) 1,000 Unit Capsule, 1,000 UNIT PO DAILY, (Reported) Ferrous Sulfate (Ferrous Sulfate) 325 Mg Tab, 325 MG PO 4XWK, (Reported) SAT Glipizide (Glipizide ER) 10 Mg Tab.er.24, 10 MG PO BID, (Reported) Hydralazine HCl (Hydralazine HCl) 100 Mg Tablet, 100 MG PO TID, (Reported) Isosorbide Dinitrate (Isosorbide Dinitrate) 10 Mg Tablet, 10 MG PO BID, (Reported) Loratadine (Loratadine) 10 Mg Tab, 10 MG PO DAILY, (Reported) Magnesium Chloride (Mag64) 64 Mg Tabcr, 64 MG PO BID, (Reported) Metoprolol Tartrate (Metoprolol Tartrate) 100 Mg Tablet, 100 MG PO BID, (Repor bri) Mv-Mn/Iron/Folic Acid/Herb 190 (Vitamin D3 Complete Caplet) 1 Tab Tab, 1 TAB PO 3XW, (Reported) TAKES SUNDAY, SUNDAY AND SUNDAY Rosuvastatin Calcium (Rosuvastatin Calcium) 10 Mg Tablet, 10 MG PO 4XWK, (Reported) SUN, , , SAT Saxagliptin HCl (Onglyza) 2.5 Mg Tab, 2.5 MG PO DAILY, (Reported) Torsemide (Torsemide) 20 Mg Tablet, 1 TAB PO DAILY, (Reported) Miscellaneous Medications Allopurinol (Allopurinol) 100 Mg Tablet, 200 MG PO, (Reported) Allergies Coded Allergies: No Known Allergies (Unverified , 02/01/19) DANIEL ZEPEDA MD August 25, 2019 11:01
== END 2019-08-25 12:59 | disposition home or self-care (01) | DRG 305 ==
LOC: M ED 16:03 → M ED INP 20:20 → ENRESERV 21:34 → M MSPAV 22:15
PROVIDERS: ADMIT Internal Medicine; ATTEND Internal Medicine Nephrology
DX: I16.0 Hypertensive urgency (principal); I48.20 Chronic atrial fibrillation, unspecified; I50.32 Chronic diastolic (congestive) heart failure; N18.4 Chronic kidney disease, stage 4 (severe); N25.81 Secondary hyperparathyroidism of renal origin; E11.22 Type 2 diabetes mellitus with diabetic chronic kidney disease; E79.0 Hyperuricemia without signs of inflammatory arthritis and tophaceous disease; D63.1 Anemia in chronic kidney disease; I13.0 Hypertensive heart and chronic kidney disease with heart failure and stage 1 through stage 4 chronic kidney disease, or unspecified chronic kidney disease; M10.9 Gout, unspecified; M48.061 Spinal stenosis, lumbar region without neurogenic claudication; Z79.84 Long term (current) use of oral hypoglycemic drugs; Z79.01 Long term (current) use of anticoagulants

== ENCOUNTER → 2019-12-11 | Outpatient (CLI) | payer MEDICARE, OTHER ==
[~2019-12-11] MED LIST changes: +ALEN35TA54 PO; -AMLO10TA5 PO; +AMLO1TAB24 PO; +AMLO1TAB25 PO; -AMLO5TAB6 PO; -CALCITRIOL 0.25 MCG CAP (S0169) PO SCH; +D31000TA2 PO; +HYDR-3363 PO; +ISOS1TAB13 PO; +PARO20TA3 PO; +PARO5TAB PO; +ROCA0.25 PO; +VANC1CAP6 PO
--- NOTE | 2019-12-20 08:20 | SLEEPCENT ---
DATE: 12/11/2019 ORDERED BY: Dr. Amanda Elizondo Diagnostic nocturnal polysomnography was performed for evaluation of sleep physiology in this patient with a history of excessive somnolence and nonrestorative sleep. There was 7 hours and 55 minutes of data reviewed. There was 353 minutes of sleep identified. Sleep latency was normal at 14.5 minutes. REM latency was normal at 93 minutes Sleep architecture was fairly good. There was a period of wake around 4 a.m., resulting in reduced sleep efficiency of 75.6%. The electrocardiogram showed a sinus rhythm with an average heart rate of 62 beats per minute. EEG showed essentially normal waveforms for wake and sleep. There were only 14 respiratory events identified of 10 seconds in duration or greater for an apnea-hypopnea index of 2.4. Snoring was noted in the mid portion of the study. Arousals from respiratory events when arousals from snoring were included occurred one time per hour. There were no significant oxygen desaturations seen. Minimal limb activity was noted. IMPRESSION: Normal nocturnal polysomnography with snoring. [facility]
== END ==
LOC: M SLEEP 20:00
PROVIDERS: ATTEND Nurse Practitioner Family
DX: R06.83 Snoring (principal)

== ENCOUNTER → 2020-01-29 | Outpatient (REF) | payer MEDICARE, OTHER ==
[~2020-01-29] MED LIST changes: -ALEN35TA54 PO; -PARO20TA3 PO; -VANC1CAP6 PO
[2020-01-29 17:50] LABS: BASO # 0.1 10^3/uL (0.0-0.2); BASO % 0.5 % (0.0-1.0); EOS # 0.2 10^3/uL (0.0-0.5); EOS % 1.3 % (0.0-3.0); HEMATOCRIT 34.5 % (36.0-47.0); LYMPH % 16.9 % (24.0-44.0); MEAN CORPUSCULAR HEMOGLOBIN 31.9 pg (27.0-33.0); MEAN CORPUSCULAR HGB CONC 31.9 g/dl (32.0-36.5); MONO # 0.7 10^3/uL (0.0-0.8); MONO % 5.8 % (0.0-5.0); NEUTROPHILS # 8.7 10^3/uL (1.5-8.5); NEUTROPHILS % 75.1 % (36.0-66.0); PLATELET COUNT, AUTOMATED 272 10^3/uL (150-450); RED BLOOD COUNT 3.45 10^6/uL (4.00-5.40); WHITE BLOOD COUNT 11.7 10^3/uL (4.0-10.0)
[2020-01-29 18:20] LABS: CALCIUM LEVEL 8.8 MG/DL (8.8-10.2); CHOLESTEROL RISK RATIO 3.183 (<5); CREATININE FOR GFR 2.43 MG/DL (0.55-1.30); GLOMERULAR FILTRATION RATE 20.4 (>32); POTASSIUM SERUM 4.2 MEQ/L (3.5-5.1)
== END ==
LOC: M SFHCPLAZ 14:08
PROVIDERS: ATTEND Family Medicine
DX: D72.9 Disorder of white blood cells, unspecified (principal); E78.2 Mixed hyperlipidemia; R53.83 Other fatigue; F43.21 Adjustment disorder with depressed mood

== ENCOUNTER 2020-02-06 13:42 | Emergency (ER) | payer MEDICARE, OTHER ==
[~2020-02-06] VITALS: Ht 154.9 cm; Wt 70.2 kg
[~2020-02-06 13:42] MED LIST changes: -D31000TA2 PO; -HYDR-3363 PO; -PARO5TAB PO; -ROCA0.25 PO
[2020-02-06] MEDS ORDERED: TORS20TA2 PO (14:15)
[2020-02-06] MEDS ORDERED: VITATAB74 PO (14:15)
[2020-02-06] MEDS ORDERED: ROCA0.25 PO (14:15)
[2020-02-06 15:58] LABS: VENOUS BASE EXCESS -2.8 (-2.0-2.0); VENOUS HCO3 21.7 MEQ/L (23.0-27.0); VENOUS O2 SATURATION 90.3 % (60.0-80.0); VENOUS PARTIAL PRESSURE CO2 36.8 mmHg (38.0-50.0); VENOUS PARTIAL PRESSURE O2 58.2 mmHg (30.0-50.0); VENOUS PH 7.389 UNITS (7.330-7.430); VENOUS TOTAL CO2 22.9 MEQ/L (24.0-28.0)
[2020-02-06 16:01] LABS: BASO # 0.1 10^3/uL (0.0-0.2); BASO % 0.3 % (0.0-1.0); EOS # 0.1 10^3/uL (0.0-0.5); EOS % 0.6 % (0.0-3.0); HEMATOCRIT 32.5 % (36.0-47.0); HEMOGLOBIN 10.6 g/dl (12.0-15.5); LYMPH # 2.1 10^3/uL (1.5-5.0); LYMPH % 11.5 % (24.0-44.0); MEAN CORPUSCULAR HEMOGLOBIN 31.5 pg (27.0-33.0); MEAN CORPUSCULAR HGB CONC 32.6 g/dl (32.0-36.5); MEAN CORPUSCULAR VOLUME 96.4 fl (80.0-96.0); MONO # 0.8 10^3/uL (0.0-0.8); MONO % 4.6 % (0.0-5.0); NEUTROPHILS # 14.8 10^3/uL (1.5-8.5); NEUTROPHILS % 82.4 % (36.0-66.0); PLATELET COUNT, AUTOMATED 311 10^3/uL (150-450); RED BLOOD COUNT 3.37 10^6/uL (4.00-5.40)
[2020-02-06 16:30] LABS: ALBUMIN 3.7 GM/DL (3.2-5.2); ALT/SGPT 20 U/L (12-78); BILIRUBIN,DIRECT 0.1 MG/DL (0.0-0.2); BILIRUBIN,TOTAL 0.4 MG/DL (0.2-1.0); BLOOD UREA NITROGEN 84 MG/DL (7-18); CALCIUM LEVEL 9.4 MG/DL (8.8-10.2); CARBON DIOXIDE LEVEL 22 MEQ/L (21-32); CHLORIDE LEVEL 105 MEQ/L (98-107); CK-MB VALUE MASS < 1.0 NG/ML (<3.6); CPK CREATINE PHOSPHOKINASE 42 U/L (26-192); CREATININE FOR GFR 2.64 MG/DL (0.55-1.30); GLOMERULAR FILTRATION RATE 18.5 (>32); GLUCOSE, FASTING 223 MG/DL (70-100); LIPASE 256 U/L (73-393); MB/CK RELATIVE INDEX 2.38 (< OR =4); POTASSIUM SERUM 3.2 MEQ/L (3.5-5.1); SODIUM LEVEL 137 MEQ/L (136-145); TOTAL PROTEIN 7.1 GM/DL (6.4-8.2); TROPONIN I < 0.02 NG/ML (< 0.10)
[2020-02-06 17:09] LABS: OSMOLALITY SERUM 311 MOSM/KG (280-301)
--- NOTE | 2020-02-06 17:59 | REPVR ---
PROCEDURE INFORMATION: Exam: CT Abdomen And Pelvis Without Contrast Exam date and time: 02/06/2020 4:45 PM Age: 79 years old Clinical indication: Abdominal pain; Generalized; Additional info: Leukocytosis/malaise/pain TECHNIQUE: Imaging protocol: Computed tomography of the abdomen and pelvis without contrast. Radiation optimization: All CT scans at this facility use at least one of these dose optimization techniques: automated exposure control; mA and/or kV adjustment per patient size (includes targeted exams where dose is matched to clinical indication); or iterative reconstruction. COMPARISON: CT ABD PELVIS W/O CONTRAST 11/04/2018 3:36 PM FINDINGS: Liver: Unremarkable. No mass. Gallbladder and bile ducts: Small calcified stones within the gallbladder fundus. No gallbladder wall thickening or pericholecystic inflammation. No bile duct dilatation. Pancreas: Unremarkable. No ductal dilation. Spleen: Unremarkable. No splenomegaly. Adrenals: Normal. No mass. Kidneys and ureters: There are a few nonobstructing stones measuring between 3 and 4 mm within the right and left kidneys. No ureteral stone or hydronephrosis. 7 mm exophytic homogeneous hyperattenuating nodule within the right kidney midpole. Differential diagnosis includes hyperdense cyst and tiny solid renal nodule. Follow-up imaging evaluation is recommended. Stomach and bowel: Small gastric hiatus hernia. The small bowel and colon are unremarkable. No bowel obstruction. Appendix: No evidence of appendicitis. Intraperitoneal space: No free air. No significant fluid collection. Vasculature: Severe atherosclerosis of the abdominal aorta and branch vessels. No aneurysm. Lymph nodes: No enlarged lymph nodes. Urinary bladder: Unremarkable as visualized. Reproductive: Unremarkable as visualized. Bones/joints: Degenerative spondylosis of the lumbar spine with anterolisthesis of L4, unchanged. Old anterior wedge fracture deformity of the superior endplate of L1. No acute fracture. Soft tissues: Unremarkable. IMPRESSION: 1. Small gastric hiatus hernia. 2. Cholelithiasis. 3. Bilateral nephrolithiasis. 4. Right renal exophytic hyperdense nodule. Differential diagnosis includes hyperdense cyst and tiny solid renal nodule. Recommend MR without and with contrast or CT without and with contrast within 6-12 months. MR is preferred for masses under 1.5 cm. Nonemergent follow-up evaluation with ultrasound could be performed since ultrasound may be able to characterize a homogeneous hyperattenuating renal mass as a hemorrhagic or proteinaceous cyst. Electronically signed by: Steven Maier On 02/06/2020 17:59:26 PM
--- NOTE | 2020-02-06 17:59 | REPVR ---
PROCEDURE INFORMATION: Exam: CT Chest Without Contrast Exam date and time: 02/06/2020 4:45 PM Age: 79 years old Clinical indication: Chest pain; Additional info: Leukocytosis/malaise/pain TECHNIQUE: Imaging protocol: Computed tomography of the chest without contrast. Radiation optimization: All CT scans at this facility use at least one of these dose optimization techniques: automated exposure control; mA and/or kV adjustment per patient size (includes targeted exams where dose is matched to clinical indication); or iterative reconstruction. COMPARISON: CT Chest without contrast 11/04/2018 3:36 PM FINDINGS: Lungs: 4 mm ground-glass nodule within the lateral right lower lobe (axial image 52 of series 204 and coronal reformatted image 49 of series 202), unchanged compared to the previous CT scan of the chest performed on 11/04/2018. Minimal dependent linear atelectasis and/or scar in the lung bases. The lungs are otherwise clear. No pulmonary consolidation. Pleural space: Unremarkable. No pneumothorax. No pleural effusion. Heart: Mild coronary atherosclerosis. No cardiomegaly or pericardial effusion. Aorta: Mild atherosclerosis of the thoracic aorta. No thoracic aortic aneurysm. Lymph nodes: Unremarkable. No enlarged lymph nodes. Stomach and bowel: Small gastric hiatus hernia. Bones/joints: Degenerative spondylosis of the thoracic spine. Old anterior wedge fracture deformity of L1. No acute fracture or suspicious bone lesion. Soft tissues: Unremarkable. IMPRESSION: 1. No acute abnormality. 2. 4 mm ground-glass nodule within the lateral right lower lobe, unchanged compared to a CT scan performed on 11/04/2018. No routine follow-up is indicated. (Reference: Raphael) REFERENCES: Carmelinaholoreta H, et al. Guidelines for Management of Incidental Pulmonary Nodules Detected on CT Images: From the Fleischner Society 2017. Radiology. 2017;284(1):228-243. Electronically signed by: Steven Maier On 02/06/2020 17:59:40 PM
[2020-02-06] MEDS ORDERED: NS 500 ML IV ONE (18:15)
[2020-02-06 20:06] VITALS: BP 174/72
--- NOTE | 2020-02-06 20:37 | ECGEPIP ---
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
--- NOTE | 2020-02-07 06:46 | ED PDOC ---
Post-Departure Follow-Up dr wilson faxed formal report of ct abd/p for fu Shay Roman MD Feb 07, 2020 06:46
== END 2020-02-06 20:08 | disposition home or self-care (01) ==
LOC: M ED 13:42
DX: E11.65 Type 2 diabetes mellitus with hyperglycemia (principal); E86.0 Dehydration; N18.4 Chronic kidney disease, stage 4 (severe); R91.1 Solitary pulmonary nodule; N28.89 Other specified disorders of kidney and ureter; Z63.4 Disappearance and death of family member; I48.91 Unspecified atrial fibrillation; I11.9 Hypertensive heart disease without heart failure; M10.9 Gout, unspecified; E78.5 Hyperlipidemia, unspecified; E21.3 Hyperparathyroidism, unspecified; Z79.899 Other long term (current) drug therapy; Z79.84 Long term (current) use of oral hypoglycemic drugs; Z79.01 Long term (current) use of anticoagulants

== ENCOUNTER 2020-02-11 12:06 | Inpatient (IN) | payer MEDICARE, OTHER ==
[~2020-02-11] VITALS: Ht 154.9 cm; Wt 69.6 kg
[~2020-02-11 12:06] MED LIST changes: +ROCA0.25 PO
[2020-02-11] MEDS ORDERED: PARO5TAB PO (12:34)
[2020-02-11 13:02] LABS: BASO # 0.1 10^3/uL (0.0-0.2); BASO % 0.5 % (0.0-1.0); EOS # 0.2 10^3/uL (0.0-0.5); EOS % 1.1 % (0.0-3.0); HEMATOCRIT 32.4 % (36.0-47.0); HEMOGLOBIN 10.6 g/dl (12.0-15.5); LYMPH # 1.7 10^3/uL (1.5-5.0); LYMPH % 9.7 % (24.0-44.0); MEAN CORPUSCULAR HEMOGLOBIN 30.6 pg (27.0-33.0); MEAN CORPUSCULAR HGB CONC 32.7 g/dl (32.0-36.5); MEAN CORPUSCULAR VOLUME 93.6 fl (80.0-96.0); MONO # 1.1 10^3/uL (0.0-0.8); MONO % 6.1 % (0.0-5.0); NEUTROPHILS # 14.2 10^3/uL (1.5-8.5); NEUTROPHILS % 80.7 % (36.0-66.0); PLATELET COUNT, AUTOMATED 343 10^3/uL (150-450); RED BLOOD COUNT 3.46 10^6/uL (4.00-5.40); WHITE BLOOD COUNT 17.6 10^3/uL (4.0-10.0)
[2020-02-11 13:37] LABS: CK-MB VALUE MASS 1.4 NG/ML (<3.6); CPK CREATINE PHOSPHOKINASE 43 U/L (26-192); MB/CK RELATIVE INDEX 3.26 (< OR =4); TROPONIN I < 0.02 NG/ML (< 0.10)
[2020-02-11 14:01] LABS: ALBUMIN 3.2 GM/DL (3.2-5.2); ALT/SGPT 22 U/L (12-78); BILIRUBIN,DIRECT < 0.1 MG/DL (0.0-0.2); BILIRUBIN,TOTAL 0.4 MG/DL (0.2-1.0); BLOOD UREA NITROGEN 84 MG/DL (7-18); CARBON DIOXIDE LEVEL 19 MEQ/L (21-32); CHLORIDE LEVEL 106 MEQ/L (98-107); CREATININE FOR GFR 2.56 MG/DL (0.55-1.30); GLOMERULAR FILTRATION RATE 19.2 (>32); GLUCOSE, FASTING 221 MG/DL (70-100); IRON (FE) 35 UG/DL (50-170); LIPASE 289 U/L (73-393); MAGNESIUM LEVEL 1.9 MG/DL (1.8-2.4); NT-PRO BNP 1683 PG/ML (<450); PERCENT SATURATION 16.1 % (13.2-45.0); POTASSIUM SERUM 2.8 MEQ/L (3.5-5.1); SODIUM LEVEL 136 MEQ/L (136-145); TOTAL IRON BINDING CAPACITY 217 UG/DL (250-450); TOTAL PROTEIN 7.1 GM/DL (6.4-8.2)
--- NOTE | 2020-02-11 14:16 | REP ---
INDICATION: general illness; abdominal discomfort. COMPARISON: Comparison chest x-ray August 24, 2019.. TECHNIQUE: Five views. FINDINGS: Supine chest radiograph is unremarkable. Heart is borderline unchanged. Lungs are clear. Pulmonary vasculature is not increased. Monitoring electrodes are seen. Supine and cross-table lateral views of the abdomen are presented. These demonstrate vascular calcification. There are few loops of air-filled nondilated small bowel filling the central abdomen question enteritis versus minimal ileus. No large bowel dilation is seen. No evidence of obstruction. Flank stripes are intact. Psoas margins are symmetric. There is a calcification to the left of midline consistent with calcification in the minutes enteric lymph node. IMPRESSION: Air-filled nondilated small bowel loops in the central abdomen question minimal ileus versus enteritis. No evidence of obstruction. Some vascular calcification. Otherwise negative.. <Electronically signed by Ronnie Brumfield > 02/11/20 [id number]
[2020-02-11] MEDS ORDERED: KCL 10MEQ/100ML SWI (KRUN) 10 MEQ in IV 1 EA IV ONE (14:45)
[2020-02-11] MEDS ORDERED: POTASSIUM CHLORIDE 10 MEQ SR TABLET PO ONE ×2 (14:45→20:30)
[2020-02-11] MEDS ORDERED: D31000TA2 PO (18:38)
[2020-02-11] MEDS ORDERED: DEXTROSE 50% 50 ML SYRINGE IV PRN (19:45)
[2020-02-11] MEDS ORDERED: MAALOX 30 ML SUSP *UDC PO PRN (19:45)
[2020-02-11] MEDS ORDERED: GLUCAGON INJ 1MG VIAL SC PRN (19:45)
[2020-02-11] MEDS ORDERED: ACETAMINOPHEN TAB 650MG DOSE (2X325MG) PO PRN (19:45)
[2020-02-11] MEDS ORDERED: MOM 30ML SUSPENSION UDC PO PRN (19:45)
[2020-02-11] MEDS ORDERED: GLUCOSE 4GM CHEW TABLET PO PRN (19:45)
[2020-02-11] MEDS ORDERED: METOPROLOL 5 MG/5 ML VIAL IV STA (19:45)
--- NOTE | 2020-02-11 20:12 | HPEPDOC ---
[facility] Medical History & Physical Date of Admission Feb 11, 2020 Date of Service: Feb 11, 2020 Primary Care Physician: MODESTA COHN MD Attending Physician: XIOMARA CONN MD History and Physical TIME OF SERVICE 950PM CHIEF COMPLAINT: weakness HISTORY OF PRESENT ILLNESS: This 79 yr old F was last admitted in August of 2019 for management of HTN urgency. She also presented to the ER a few days ago and was started on Prozac. Today she came to the hospital because she has been feeling weak and "not like myself" for a few weeks. She denied having f/c/n/v, chest pain, dyspnea, joint pain, back pain, rash, feeling like she has gained weight or is having swollen legs. She has had runny nose, had one episode of loose stool in the ER and had lower abdominal pain yesterday. She also mentioned that a friend who was visiting her noticed that there were mouse droppings in the patient's food. REVIEW OF SYSTEMS: 12 point review of systems negative except as listed in HPI PAST MEDICAL/ SURGICAL HISTORY: NIDDM Chronic HTN A. fib s/p ablation Gout Chronic diastolic CHF CKD 4 w neuropathy, retinopathy and secondary hyperparathyroidism Depression Chronic Anemia Lumbar spinal stenosis Tonsillectomy D&C SOCIAL HISTORY: She doesn't smoke She doesn't drink She does not use recreational drugs FAMILY HISTORY: CVA HOME MEDICATIONS: Please see below. PHYSICAL EXAMINATION: Vital Signs Date Time Temp Pulse Resp B/P (MAP) Pulse Ox O2 Delivery O2 Flow Rate FiO2 02/11/20 12:12 97.2 66 24 183/76 99 Room Air GENERAL APPEARANCE: NAD/ well nourished / well developed HEENT: EOMI CARDIOVASCULAR: RRR/NMRG / radial pulses intact LUNGS: CTAB on RA ABDOMEN: contour obese/ soft and NT on palpation MUSCULOSKELETAL: NCAT/ ALLEN x 4 NEUROLOGICAL: CN 2-12 grossly intact/ speech not dysarthric PSYCHIATRIC: flat affect / A&Ox 3 / able to understand and follow all commands LABORATORY DATA: 02/11/20 12:45 02/11/20 12:45: Immature Granulocyte % (Auto) 1.9, Neutrophils (%) (Auto) 80.7H, Lymphocytes (%) (Auto) 9.7L, Monocytes (%) (Auto) 6.1H, Eosinophils (%) (Auto) 1.1, Basophils (%) (Auto) 0.5, Neutrophils # (Auto) 14.2H, Lymphocytes # (Auto) 1.7, Monocytes # (Auto) 1.1H, Eosinophils # (Auto) 0.2, Basophils # (Auto) 0.1, Nucleated Red Blood Cells % (auto) 0.0, Anion Gap 11, Glomerular Filtration Rate 19.2L, Calcium Level 9.0, Magnesium Level 1.9, Iron Level 35L, Total Iron Binding Capacity 217L, Transferrin % Saturation 16.1, Total Bilirubin 0.4, Direct Bilirubin < 0.1, Aspartate Amino Transf (AST/SGOT) 21, Alanine Aminotransferase (ALT/SGPT) 22, Alkaline Phosphatase 109, Total Creatine Kinase 43, Creatine Kinase MB 1.4, Creatine Kinase MB Relative Index 3.26, Troponin I < 0.02, HD-Sox-H-Type Natriuretic Peptide 1683H, Total Protein 7.1, Albumin 3.2, Albumin/Globulin Ratio 0.8L, Lipase 289 IMAGING: Abdominal xray "IMPRESSION: Air-filled nondilated small bowel loops in the central abdomen question minimal ileus versus enteritis. No evidence of obstruction. Some vascular calcification. Otherwise negative." MICROBIOLOGY: Please see below. ASSESSMENT: Ms. Birmingham is an 79-year-old with a history of NIDDM, resistant HTN, A. fib, gout, chronic diastolic CHF, and CKD 4 who presented w c/o malaise, weakness and runny nose was found to be hypertensive; she will be admitted for management of hypertensive urgency, and hypokalemia & to determine the cause of her SIRS. PLAN: 1. Hypertensive Urgency At baseline she has resistant HTN Trops wnl She recently had a sleep study that was unremarkable Plan: admit to PCU / telemetry / give 1 dose of metoprolol 5mg IV x 1 now / resume amlodipine 10mg daily, hydralazine 100mg TID, isosorbide 10mg BID, metopr olol 100mg BID and increase torsemide from 20mg BID to 40mg BID / will aim for a BP of <160/100 within the next 24 H / avoid excessive environmental stimuli / low salt diet / f/u with in the office to further titrate BP meds 2. Weakness likely 2/2 hypokalemia She received 50meq of KCl in the ER Mg & Ca are wnl Plan: give 40more meq of KCl / c/w home dose of Mag Cl / f/u UK, Uosmol, plasma osmol to calculate Transtubular K Gradient (if TTKG is <2 hypokalemia is due to extrarenal causes / if TTKG is >2 hypokalemia is due to renal potassium losses) / PT eval in the morning to ensure that she can ambulate safely on her own 3. SIRS vs Sepsis 2/2 Enteritis ?? Possibly reactive vs 2/2 enteritis??? or viral URI bc of c/o runny nose SIRS criteria include tachypnea and leucocytosis Xray of abdomen shows possible enteritis Plan: f/u lactic acid, blood cx & respiratory panel / metronidazole for possible enteritis (day time team can dc the med in the AM if indicated) / no IVF bc of elevated BP / f/u Is and Os with target UOP of at least 0.5 ml/kg/H / f/u FSBS w target serum glucose 140-180 while acutely ill 4. Dyspnea Possibly due to flash pulm edema due to accelerated HTN or URI BNP lower that it was during her previous visits Plan: check respiratory panel / f/u chest xray 5. Chronic Diastolic CHF Plan: f/u Is, Os, daily weights & chest xray / increase Torsemide from 20 to 40mg PO BID 6. A.fib Plan: Eliquis & metoprolol 7. Gout Plan: allopurinol 8. CKD 4 Over the last few months her GFR has been trending down Plan: calcitriol / f/u BMP / f/u w with on an out pt basis 9. NIDDM A1C 7.5% in October Plan: f/u accuchecks / DM diet / hypoglycemia protocol w SSI / hold oral anti- glycemic agents 10.Chronic Multifactorial Anemia Plan: hold iron while ill / f/u CBC 11. Depression Plan: paroxetine 12.Obesity BMI 30.3 w co-existing DM complicates care She recently had a sleep study that was unremarkable Plan: f/u w PCP to discuss diet and exercise recommendations DVT PROPHYLAXIS: n/a she is on Eliquis DISPOSITION: home after more than 2 midnight's stay Home Medications Scheduled Allopurinol (Allopurinol) 100 Mg Tablet, 200 MG PO QHS Amlodipine Besylate (Amlodipine Besylate) 10 Mg Tablet, 10 MG PO DAILY Apixaban (Eliquis) 2.5 Mg Tablet, 2.5 MG PO BID Calcitriol (Rocaltrol) 0.25 Mcg Capsule, 0.25 MCG PO 3XW MON/WED/FRI Cholecalciferol (Vitamin D3) (Vitamin D3) 1,000 Unit Tablet, 1,000 UNITS PO DA FROYLAN Ferrous Sulfate (Ferrous Sulfate) 325 Mg Tab, 325 MG PO 4XWK MON/SUN//SAT Glipizide (Glipizide ER) 10 Mg Tab.er.24, 10 MG PO BID Hydralazine HCl (Hydralazine HCl) 100 Mg Tablet, 100 MG PO TID Isosorbide Dinitrate (Isosorbide Dinitrate) 10 Mg Tablet, 10 MG PO BID Loratadine (Loratadine) 10 Mg Tab, 10 MG PO DAILY Magnesium Chloride (Mag64) 64 Mg Tabcr, 64 MG PO BID Metoprolol Tartrate (Metoprolol Tartrate) 100 Mg Tablet, 100 MG PO BID Paroxetine (Paroxetine HCl) 10 Mg Tablet, 10 MG PO QHS Rosuvastatin Calcium (Rosuvastatin Calcium) 10 Mg Tablet, 10 MG PO 4XWK MON, , , SAT Saxagliptin HCl (Onglyza) 2.5 Mg Tab, 2.5 MG PO DAILY Torsemide (Torsemide) 20 Mg Tablet, 20 MG PO BID AM/DINNERTIME Allergies Coded Allergies: No Known Allergies (Unverified , 02/01/19) A-FIB/CHADSVASC A-FIB History Current/History of A-Fib/PAF?: Yes Current PO Anticoag Therapy: Yes XIOMARA CONN MD Feb 11, 2020 20:12
[2020-02-11] MEDS: metroNIDAZOLE 500 MG in IV 1 EA IV SCH (20:29)
[2020-02-11] MEDS: METOPROLOL TARTRATE 100 MG TAB PO SCH (21:00)
[2020-02-11] MEDS: ISOSORBIDE DIN (ISORDIL) 10 MG TAB PO SCH (21:00)
[2020-02-11 22:10] VITALS: BP 136/68
[2020-02-11] MEDS: **hydrALAZINE** 50 MG TAB PO SCH (22:59)
[2020-02-11] MEDS: allopurinoL 100 MG TAB PO SCH (22:59)
[2020-02-11] MEDS: APIXABAN 2.5 MG TAB (ELIQUIS) PO SCH (22:59)
[2020-02-11] MEDS: MAGNESIUM CHLORIDE 64 MG TABCR (SLO MAG) PO SCH (23:12)
[2020-02-11] MEDS: PARoxetine 10MG TABLET PO SCH (23:12)
[2020-02-12] VITALS (7 sets, daily range): BP systolic 130–161; BP diastolic 66–78
[2020-02-12] MEDS: HumaLOG INSULIN (NovoLOG) PER UNIT SC SCH ×5 (00:07→23:46)
[2020-02-12] MEDS: metroNIDAZOLE 500 MG in IV 1 EA IV SCH ×3 (04:21→20:24)
[2020-02-12 05:40] LABS: HEMATOCRIT 30.2 % (36.0-47.0); MEAN CORPUSCULAR HEMOGLOBIN 31.8 pg (27.0-33.0); MEAN CORPUSCULAR HGB CONC 33.1 g/dl (32.0-36.5); MEAN CORPUSCULAR VOLUME 96.2 fl (80.0-96.0); PLATELET COUNT, AUTOMATED 338 10^3/uL (150-450); RED BLOOD COUNT 3.14 10^6/uL (4.00-5.40); WHITE BLOOD COUNT 22.1 10^3/uL (4.0-10.0)
[2020-02-12] MEDS: **hydrALAZINE** 50 MG TAB PO SCH ×3 (05:47→21:55)
[2020-02-12 06:03] LABS: CALCIUM LEVEL 8.3 MG/DL (8.8-10.2); CREATININE FOR GFR 2.44 MG/DL (0.55-1.30); GLOMERULAR FILTRATION RATE 20.3 (>32); MAGNESIUM LEVEL 2.1 MG/DL (1.8-2.4); POTASSIUM SERUM 3.8 MEQ/L (3.5-5.1)
--- NOTE | 2020-02-12 08:02 | ECGEPIP ---
[facility] - ED Test Date: 2020-02-11 Pat Name: KELVIN ESPARZA Department: Room: - Gender: Female Quality Assurance: : 1940 Requested By: ALECIA SALAZAR Order Number: [id number] Reading MD: Viky Tay Measurements Intervals [place] Rate: 66 P: 42 LA: 172 QRS: 5 QRSD: 127 T: 48 QT: 347 QTc: 366 Interpretive Statements SINUS RHYTHM INFERIOR MYOCARDIAL INFARCTION, PROBABLY OLD NSTTW abnormalities 02/06/20 Electronically Signed on 02-12-2020 8:02:24 EDT by Viky Tay
[2020-02-12] MEDS ORDERED: FERROUS SULFATE 325MG TAB PO SCH (09:00)
[2020-02-12] MEDS ORDERED: ROSUVASTATIN 10 MG TAB (CRESTOR) PO SCH (09:00)
[2020-02-12] MEDS: MAGNESIUM CHLORIDE 64 MG TABCR (SLO MAG) PO SCH ×2 (09:46→21:55)
[2020-02-12] MEDS: METOPROLOL TARTRATE 100 MG TAB PO SCH ×2 (09:47→20:24)
[2020-02-12] MEDS: ISOSORBIDE DIN (ISORDIL) 10 MG TAB PO SCH ×2 (09:47→20:23)
[2020-02-12] MEDS: VITAMIN D 1,000 INTERNATIONAL UNITS TABLET PO SCH (09:48)
[2020-02-12] MEDS: TORSEMIDE 20 MG TAB PO SCH ×2 (09:48→16:19)
[2020-02-12] MEDS: amLODIPine 10 MG TAB PO SCH (09:48)
[2020-02-12] MEDS: APIXABAN 2.5 MG TAB (ELIQUIS) PO SCH ×2 (09:48→20:23)
[2020-02-12 11:00] LABS: AMORPHOUS SEDIMENT SMALL (NEGATIVE); APPEARANCE, URINE HAZY (CLEAR); BACTERIA, URINE AUTO 1+ (NEGATIVE); BILIRUBIN, URINE AUTO NEGATIVE (NEGATIVE); BLOOD, URINE BLOOD NEGATIVE (NEGATIVE); COLOR, URINE YELLOW (YELLOW); GLUCOSE, URINE (UA) AUTO NEGATIVE (NEGATIVE); KETONE, URINE AUTO NEGATIVE (NEGATIVE); LEUKOCYTE ESTERASE, URINE AUTO 1+ (NEGATIVE); MUCUS, URINE SMALL (NEGATIVE); NITRITE, URINE AUTO NEGATIVE (NEGATIVE); PROTEIN, URINE AUTO 2+ mg/dL (NEGATIVE); RBC, URINE AUTO 2 /HPF (0-3); SPECIFIC GRAVITY URINE AUTO 1.012 (1.002-1.035); SQUAMOUS EPITHELIAL CELL UR AU 1 /HPF (0-6); UROBILINOGEN, URINE AUTO 0.2 mg/dL (0.0-2.0); WBC, URINE AUTO 7 /HPF (0-3)
--- NOTE | 2020-02-12 14:28 | IPNPDOC ---
Text Note Date of Service The patient was seen on 02/12/20. NOTE CC: Weakness Subjective: Courtney Birmingham is an 79 yr old female who presented to the ED with weakness. Today, patient still feels tired and weak. She states that this weakness started a month ago. It is a generalized weakness that is constantly occurring. She states that she has not been sick recently, has not had any incidences of bleeding, and has not changed her diet. The patient stated that she has felt depressed lately due to thinking about her son who unexpectedly pas sed away last year. She does state that she has not slept well, has loss of interest, loss of energy, and loss of appetite, but denies any feelings of guilt or self-worthiness, loss of concentration, no psychomotor losses, and no thoughts of suicidality. ROS: General: Positive for weakness, denies fever, chills, night sweats HEENT: Denies headache, lightheadedness, vision changes Cardiovascular: Denies chest pain, palpitations, leg swelling Respiratory: Denies shortness of breath, cough, wheezing GI: Positive for diarrhea, denies constipation, abdominal pain, vomiting, nausea : Denies hematuria Neuro: Denies numbness, tingling Objective: General: Patient was lethargic, in no acute distress, alert and oriented x3 Cardiovascular: RRR, no murmurs or gallops, normal S1 and S2 Respiratory: Lungs clear to auscultation bilaterally, no wheezing or crackles GI: Normal bowel sounds x4, nontender, nondistended, no hepatosplenomegaly, no fluid wave present, So's sign negative Extremities: Strength testing 5/5 in upper and lower extremities bilaterally, +2/4 pedal pulses bilaterally, no pitting edema bilaterally Neuro: Cranial nerves 2-12 intact bilaterally, sensation to light touch intact in upper and lower extremities bilaterally Labs: See below Imaging: -Abdominal x-ray on 02/11/[address] Brumfield showed air-filled nondilated small bowel loops in the central abdomen question minimal ileus versus enteritis, no evidence of obstruction, some vascular calcification, otherwise negative Assessment: Courtney Birmingham is a 79 yr old female w/ PMHx of NIDDM, chronic HTN, a trial fibrillation s/p ablation, gout, chronic diastolic CHF, CKD w/ neuropathy, Retinopathy 2/2 secondary hyperparathyroidism, depression, chronic anemia who presents w/ weakness. Patient has lowered BP due to treatment plan involving multiple antihypertensives Plan: 1. Hypertensive Urgency -Patient had blood pressure in ER >180 systolic BP but no end-organ damage -Patient's current blood pressure is 143/64 -Continue BP medications -Will discuss home health treatment 2. Leukocytosis -Patient has a WBC count of 22.1 trending up from 17.6; this is not something new as previous lab values have shown that this leukocytosis has been occurring for over a year -Patient does not qualify for SIRS criteria (exhibits leukocytosis but does not exhibit tachypnea, tachycardia, or hyperthermia/hypothermia) and patient does not appear to have infection -Peripheral smear ordered -Patient is not taking any steroids -Ordered procalcitonin 3. Chronic Anemia -Patient has hemoglobin of 10.0 trending down from 10.6 -Patient has a normal MCV, this may be anemia of chronic disease due to CKD -Will order iron studies including ferritin level 4. NIDDM -Patients glucose is 131 trending down from 221 -Patient currently taking HemaLog, glucose, glucagon, will continue 5. Chronic HTN -Patient currently being treated for Hypertensive Urgency 6. Chronic diastolic CHF -Patient's BNP was 1,683 -Patient is currently on metoprolol and other medications for Hypertensive Urgency 7. CKD w/ neuropathy -Patient's BUN was 69 and creatinine was 2.44, but this is baseline when comparing to previous lab values -Patient has NIDDM which most likely contributed to CKD 8. Depression -Patient currently has 4/9 of SIGECAPS, is not clinically depressed -Patient is currently on paroxetine, advise outpatient treatment if needed 9. DVT/Prophylaxis -Eliquis Dispo: Patient will be receiving ferritin, procalcitonin, and peripheral blood smear and is still undergoing treatment for hypertensive urgency VS,Fishbone, I+O VS, Fishbone, I+O Laboratory Tests 02/11/20 23:54 02/12/20 05:08 Vital Signs Date Time Temp Pulse Resp B/P (MAP) Pulse Ox O2 Delivery O2 Flow Rate FiO2 02/12/20 13:15 143/64 02/12/20 12:00 98.0 69 18 98 Room Air I&O- Last 24 Hours up to 6 AM 02/12/20 06:00 Intake Total 500 ml Output Total 200 ml Balance 300 ml GME ATTESTATION GME ATTESTATION My faculty preceptor for this patient encounter was physically present during the encounter and was fully available. All aspects of the patient interview, examination, medical decision making process, and medical care plan development were reviewed and approved by the faculty preceptor. The faculty preceptor is aware and concurs with the plan as stated in the body of this note and will attest to such by his/her cosignature. GME ATTESTATION GME ATTESTATION My faculty preceptor for this patient encounter was physically present during the encounter and was fully available. All aspects of the patient interview, examination, medical decision making process, and medical care plan development were reviewed and approved by the faculty preceptor. The faculty preceptor is aware and concurs with the plan as stated in the body of this note and will att est to such by his/her cosignature. SISSY HORTA OMS-IV Feb 12, 2020 14:28
[2020-02-12] MEDS: hydrOXYzine 25 MG TAB PO PRN (18:05)
[2020-02-12] MEDS: allopurinoL 100 MG TAB PO SCH (20:22)
[2020-02-12] MEDS: PARoxetine 10MG TABLET PO SCH ×2 (21:55→23:03)
[2020-02-13] VITALS: BP 140/63
[2020-02-13 04:00] VITALS: BP 140/63
[2020-02-13] MEDS: metroNIDAZOLE 500 MG in IV 1 EA IV SCH ×2 (04:11→13:00)
[2020-02-13 06:31] VITALS: BP 149/67
[2020-02-13] MEDS: **hydrALAZINE** 50 MG TAB PO SCH (06:31)
[2020-02-13] MEDS: hydrOXYzine 25 MG TAB PO PRN (06:32)
[2020-02-13] MEDS: HumaLOG INSULIN (NovoLOG) PER UNIT SC SCH (06:32)
[2020-02-13 07:58] LABS: BASO # 0.1 10^3/uL (0.0-0.2); BASO % 0.4 % (0.0-1.0); EOS # 0.3 10^3/uL (0.0-0.5); EOS % 1.8 % (0.0-3.0); HEMATOCRIT 28.8 % (36.0-47.0); HEMOGLOBIN 9.2 g/dl (12.0-15.5); LYMPH # 2.4 10^3/uL (1.5-5.0); MEAN CORPUSCULAR HGB CONC 31.9 g/dl (32.0-36.5); MONO # 1.1 10^3/uL (0.0-0.8); MONO % 6.3 % (0.0-5.0); NEUTROPHILS # 12.9 10^3/uL (1.5-8.5); NEUTROPHILS % 76.1 % (36.0-66.0); PLATELET COUNT, AUTOMATED 330 10^3/uL (150-450); RED BLOOD COUNT 2.97 10^6/uL (4.00-5.40); WHITE BLOOD COUNT 16.9 10^3/uL (4.0-10.0)
[2020-02-13 08:00] VITALS: BP 146/68
[2020-02-13 08:22] LABS: CALCIUM LEVEL 8.3 MG/DL (8.8-10.2); CREATININE FOR GFR 2.66 MG/DL (0.55-1.30); GLOMERULAR FILTRATION RATE 18.4 (>32); POTASSIUM SERUM 3.4 MEQ/L (3.5-5.1)
[2020-02-13] MEDS: APIXABAN 2.5 MG TAB (ELIQUIS) PO SCH (08:42)
[2020-02-13] MEDS: MAGNESIUM CHLORIDE 64 MG TABCR (SLO MAG) PO SCH (08:42)
[2020-02-13] MEDS: TORSEMIDE 20 MG TAB PO SCH (08:43)
[2020-02-13] MEDS: VITAMIN D 1,000 INTERNATIONAL UNITS TABLET PO SCH (08:43)
[2020-02-13] MEDS: amLODIPine 10 MG TAB PO SCH (08:43)
[2020-02-13] MEDS: METOPROLOL TARTRATE 100 MG TAB PO SCH (08:43)
[2020-02-13] MEDS: ISOSORBIDE DIN (ISORDIL) 10 MG TAB PO SCH (08:43)
[2020-02-13] MEDS ORDERED: CALCITRIOL 0.25 MCG CAP (S0169) PO SCH (09:00)
[2020-02-13] MEDS ORDERED: SLF 3 ML SYR IV PRN (10:15)
[2020-02-13] MEDS ORDERED: HYDR-3363 PO (11:07)
--- NOTE | 2020-02-13 11:33 | DS.PDOC ---
Discharge Summary General Date of Admission Feb 11, 2020 at 19:45 Date of Discharge 02/13/20 Attending Physician: REJI QUINONEZ MD Discharge Summary PROCEDURES PERFORMED DURING STAY: None ADMITTING DIAGNOSES: 1. Hypertensive Urgency DISCHARGE DIAGNOSES: 1. Hypertensive Urgency 2. Leukocytosis COMPLICATIONS/CHIEF COMPLAINT: Hypertensive Urgency Hypokalemia. HISTORY OF PRESENT ILLNESS: Courtney Birmingham is an 79F w/ PMH of NIDDM, Chronic HTN, Afib s/p ablation, Gout, chronic diastolic CHF, CKD w/ neuropathy, retinopathy and secondary hyperparathyroidism, depression, chronic anemia presented with weakness. Ms. Birmingham came into the hospital because she has been feeling weak and "not like myself" for a few weeks. She presented to the ER a few days ago and was started on Prozac. She was also admitted in August 2019 for management of hypertensive urgency. She denied having a fever, chills, nausea, vomiting, CP, dyspnea, joint pain, back pain, rash, feeling like she gained weight, or is having swelling. In the ER, she had a runny nose and 1 episode of loose stool in the ER. She also mentioned that a friend who was visiting her noticed that there were mouse droppings in patient's food. HOSPITAL COURSE: Was given potassium due to hypokalemia. Patient was given metoprolol and resumed amlodipine, hydralazine, increased torsemide, and aimed for her BP to be <160/100. Patient was placed on telemetry and had EKG done on 02/11/20, both showed no abnormal events. Patient had elevated leukocytosis, ordered blood cultures and respiratory panel, which all came back negative for growth. On 02/12/20, Patient's blood pressure came down to 143/64. Patient continued to have elevated leukocytosis that was trending down, ordered peripheral blood smear and procalcitonin, which came back normal. PT/OT cleared patient for discharge. DISCHARGE MEDICATIONS: Please see below. ALLERGIES: Please see below. PHYSICAL EXAMINATION ON DISCHARGE: VITAL SIGNS: Please see below. GENERAL: Patient was lethargic, in no acute distress, alert and oriented x3 CARDIOVASCULAR EXAMINATION: RRR, no murmurs or gallops, normal S1 and S2 RESPIRATORY EXAMINATION: Lungs clear to auscultation bilaterally, no wheezing or crackles ABDOMINAL EXAMINATION: Normal bowel sounds x4, nontender, nondistended, no hepatomegaly EXTREMITIES: Strength testing 5/5 in both upper and lower extremities bilaterall y, +2/4 pedal pulses bilaterally, no pitting edema bilaterally NEUROLOGICAL EXAMINATION: Cranial nerves 2-12 intact LABORATORY DATA: Please see below. IMAGING: -Abdominal x-ray on 02/11/[address] Brumfield showed air-filled nondilated small bowel loops in the central abdomen question minimal ileus versus enteritis, no evidence of obstruction, some vascular calcification, otherwise negative PROGNOSIS: Good ACTIVITY: As tolerated DIET: Regular diet DISCHARGE PLAN: 1. Patient's hypertensive urgency under control, continue taking BP medications and follow up with PCP next week 2. Patient came in w/ leukocytosis of 17.6, trending up to 22, and then trending down to 16.9. Through PE she showed no signs of pneumonia, UTI, infection, and denied headaches. Ordered a peripheral smear looking at the WBC count and came back negative. Ordered a procalcitonin which came back normal. Looking back at her WBC counts from previous encounters over the years, her WBC count has always been elevated. From a medicine standpoint, we have exhausted all options for exams, labs, and tests, and could not come to a conclusion on the reasoning for the leukocytosis. Any other problems related to the leukocytosis should be examined by her PCP in the future. 3. Dr. East spoke to patient about prospects of going home. Spoke to patient's family, who will plan lunch event for patient and check up on patient's mental health. Patient will continue paroxetine for depression, which will show improvement in 4-6 weeks. Patient does not have any suicidal or homicidal tendencies. Is advised for follow-up with her psychiatrist or psychoanalyst. 4. Was cleared by PT/OT for discharge DISCHARGE INSTRUCTIONS: 1. Follow up with PCP next week ITEMS TO FOLLOWUP ON ON OUTPATIENT: 1. Hypertensive urgency 2. Leukocytosis 3. Depression DISCHARGE CONDITION: Stable TIME SPENT ON DISCHARGE: Greater than 30 minutes. Vital Signs/I&Os Vital Signs Date Time Temp Pulse Resp B/P (MAP) Pulse Ox O2 Delivery O2 Flow Rate FiO2 02/13/20 08:00 98.0 64 17 146/68 (94) 96 Room Air I&O- Last 24 Hours up to 6 AM 02/13/20 06:00 Intake Total 780 ml Output Total 1000 ml Balance -220 ml Laboratory Data Labs 24H Laboratory Tests 2 02/12/20 12:05: Bedside Glucose (Misc Panel) 208H 02/12/20 17:26: Bedside Glucose (Misc Panel) 194H 02/12/20 23:42: Bedside Glucose (Misc Panel) 147H 02/13/20 04:25: 02/13/20 06:18: Bedside Glucose (Misc Panel) 155H 02/13/20 07:39: Immature Granulocyte % (Auto) 1.4, Neutrophils (%) (Auto) 76.1H, Lymphocytes (%) (Auto) 14.0L, Monocytes (%) (Auto) 6.3H, Eosinophils (%) (Auto) 1.8, Basophils (%) (Auto) 0.4, Neutrophils # (Auto) 12.9H, Lymphocytes # (Auto) 2.4, Monocytes # (Auto) 1.1H, Eosinophils # (Auto) 0.3, Basophils # (Auto) 0.1, Nucleated Red Blood Cells % (auto) 0.0, Anion Gap 10, Glomerular Filtration Rate 18.4L, Calcium Level 8.3L, Magnesium Level 2.0 CBC/BMP Laboratory Tests 02/13/20 07:39 FSBS Laboratory Tests Test 02/12/20 12:05 02/12/20 17:26 02/12/20 23:42 02/13/20 06:18 Range/Units Bedside Glucose (Misc Panel) 208 194 147 155 83-110 MG/DL Microbiology Microbiology 02/11/20 Respiratory Virus Panel (PCR) (LETICIA) - Final, Complete 02/11/20 Blood Culture - Preliminary, Resulted No growth after 24 hours . All specim... 02/11/20 Blood Culture - Preliminary, Resulted No growth after 24 hours . All specim... Discharge Medications Scheduled Allopurinol (Allopurinol) 100 Mg Tablet, 200 MG PO QHS, (Reported) Amlodipine Besylate (Amlodipine Besylate) 10 Mg Tablet, 10 MG PO DAILY, (Reported) Apixaban (Eliquis) 2.5 Mg Tablet, 2.5 MG PO BID, (Reported) Calcitriol (Rocaltrol) 0.25 Mcg Capsule, 0.25 MCG PO 3XW, (Reported) MON/WED/FRI Cholecalciferol (Vitamin D3) (Vitamin D3) 1,000 Unit Tablet, 1,000 UNITS PO DAILY, (Reported) Ferrous Sulfate (Ferrous Sulfate) 325 Mg Tab, 325 MG PO 4XWK, (Reported) SUN/SUN//SAT Glipizide (Glipizide ER) 10 Mg Tab.er.24, 10 MG PO BID, (Reported) Hydralazine HCl (Hydralazine HCl) 100 Mg Tablet, 100 MG PO TID, (Reported) Isosorbide Dinitrate (Isosorbide Dinitrate) 10 Mg Tablet, 10 MG PO BID, (Reported) Loratadine (Loratadine) 10 Mg Tab, 10 MG PO DAILY, (Reported) Magnesium Chloride (Mag64) 64 Mg Tabcr, 64 MG PO BID, (Reported) Metoprolol Tartrate (Metoprolol Tartrate) 100 Mg Tablet, 100 MG PO BID, (Reported) Paroxetine (Paroxetine HCl) 10 Mg Tablet, 10 MG PO QHS, (Reported) Rosuvastatin Calcium (Rosuvastatin Calcium) 10 Mg Tablet, 10 MG PO 4XWK, (Reported) SUN, , , SAT Saxagliptin HCl (Onglyza) 2.5 Mg Tab, 2.5 MG PO DAILY, (Reported) Torsemide (Torsemide) 20 Mg Tablet, 20 MG PO BID, (Reported) AM/DINNERTIME Scheduled PRN Hydroxyzine HCl (Hydroxyzine HCl) 25 Mg Tablet, 25 MG PO Q6HP PRN for ANXIETY Allergies Coded Allergies: No Known Allergies (Unverified , 02/01/19) GME ATTESTATION [facility] ATTESTATION My faculty preceptor for this patient encounter was physically present during the encounter and was fully available. All aspects of the patient interview, examination, medical decision making process, and medical care plan development were reviewed and approved by the faculty preceptor. The faculty preceptor is aware and concurs with the plan as stated in the body of this note and will attest to such by his/her cosignature. GME ATTESTATION E ATTESTATION My faculty preceptor for this patient encounter was physically present during the encounter and was fully available. All aspects of the patient interview, examination, medical decision making process, and medical care plan development were reviewed and approved by the faculty preceptor. The faculty preceptor is aware and concurs with the plan as stated in the body of this note and will attest to such by his/her cosignature. SISSY HORTA OMS-IV Feb 13, 2020 11:33
[2020-02-13] MEDS ORDERED: HumaLOG INSULIN (NovoLOG) PER UNIT SC SCH ×2 (12:00→21:00)
[2020-02-13] MEDS ORDERED: SLF 3 ML SYR IV SCH (14:00)
[2020-02-13] MEDS: POTASSIUM CHLORIDE 10 MEQ SR TABLET PO SCH ×2 (14:22→16:07)
== END 2020-02-13 16:30 | disposition home health service (06) | DRG 305 ==
LOC: M ED 12:06 → M ED INP 19:45 → ENRESERV 20:20 → M PCU 22:03
PROVIDERS: ADMIT Internal Medicine; ATTEND Internal Medicine
DX: I16.0 Hypertensive urgency (principal); I50.32 Chronic diastolic (congestive) heart failure; N18.4 Chronic kidney disease, stage 4 (severe); N25.81 Secondary hyperparathyroidism of renal origin; E87.6 Hypokalemia; E11.22 Type 2 diabetes mellitus with diabetic chronic kidney disease; I13.0 Hypertensive heart and chronic kidney disease with heart failure and stage 1 through stage 4 chronic kidney disease, or unspecified chronic kidney disease; M10.9 Gout, unspecified; E11.319 Type 2 diabetes mellitus with unspecified diabetic retinopathy without macular edema; E11.40 Type 2 diabetes mellitus with diabetic neuropathy, unspecified; F32.9 Major depressive disorder, single episode, unspecified; D63.1 Anemia in chronic kidney disease; M48.061 Spinal stenosis, lumbar region without neurogenic claudication; R53.1 Weakness; E66.9 Obesity, unspecified; Z68.30 Body mass index [BMI] 30.0-30.9, adult; Z79.01 Long term (current) use of anticoagulants; Z79.84 Long term (current) use of oral hypoglycemic drugs; Z79.899 Other long term (current) drug therapy

== ENCOUNTER 2020-02-15 14:00 | Inpatient (IN) | payer MEDICARE, OTHER ==
[~2020-02-15] VITALS: Ht 154.9 cm; Wt 70.5 kg
[~2020-02-15 14:00] MED LIST changes: +D31000TA2 PO; +HYDR-3363 PO; +PARO5TAB PO
[2020-02-15] MEDS ORDERED: NS 500 ML IV ONE (14:45)
--- NOTE | 2020-02-15 14:48 | REP ---
INDICATION: DYSPNEA/COUGH. COMPARISON: February 11, 2020. TECHNIQUE: Sitting AP portable chest x-ray. FINDINGS: Oxygen delivery tubing is seen. The lungs are symmetrically aerated. No infiltrate is seen. Pleural angles are sharp. Cardiomediastinal silhouette is unremarkable. The aorta is calcific. Pulmonary vasculature is not increased IMPRESSION: . No active disease. <Electronically signed by Ronnie Brumfield > 02/15/20 [id number]
[2020-02-15 15:03] LABS: BASO # 0.1 10^3/uL (0.0-0.2); BASO % 0.6 % (0.0-1.0); EOS # 0.3 10^3/uL (0.0-0.5); EOS % 1.6 % (0.0-3.0); HEMATOCRIT 32.1 % (36.0-47.0); HEMOGLOBIN 10.3 g/dl (12.0-15.5); LYMPH # 2.2 10^3/uL (1.5-5.0); LYMPH % 14.4 % (24.0-44.0); MEAN CORPUSCULAR HEMOGLOBIN 30.7 pg (27.0-33.0); MEAN CORPUSCULAR HGB CONC 32.1 g/dl (32.0-36.5); MEAN CORPUSCULAR VOLUME 95.8 fl (80.0-96.0); MONO # 0.9 10^3/uL (0.0-0.8); MONO % 5.6 % (0.0-5.0); NEUTROPHILS # 11.7 10^3/uL (1.5-8.5); NEUTROPHILS % 75.6 % (36.0-66.0); PLATELET COUNT, AUTOMATED 364 10^3/uL (150-450); RED BLOOD COUNT 3.35 10^6/uL (4.00-5.40); WHITE BLOOD COUNT 15.5 10^3/uL (4.0-10.0)
[2020-02-15 15:51] LABS: ALBUMIN 3.6 GM/DL (3.2-5.2); ALT/SGPT 20 U/L (12-78); BILIRUBIN,DIRECT < 0.1 MG/DL (0.0-0.2); BILIRUBIN,TOTAL 0.3 MG/DL (0.2-1.0); BLOOD UREA NITROGEN 74 MG/DL (7-18); CALCIUM LEVEL 8.7 MG/DL (8.8-10.2); CARBON DIOXIDE LEVEL 19 MEQ/L (21-32); CHLORIDE LEVEL 110 MEQ/L (98-107); CK-MB VALUE MASS < 1.0 NG/ML (<3.6); CPK CREATINE PHOSPHOKINASE 28 U/L (26-192); GLOMERULAR FILTRATION RATE 18.1 (>32); GLUCOSE, FASTING 266 MG/DL (70-100); MB/CK RELATIVE INDEX 3.57 (< OR =4); POTASSIUM SERUM 3.9 MEQ/L (3.5-5.1); SODIUM LEVEL 138 MEQ/L (136-145); TOTAL PROTEIN 6.6 GM/DL (6.4-8.2); TROPONIN I < 0.02 NG/ML (< 0.10)
[2020-02-15] MEDS ORDERED: cefTRIAXone SOD 1 GM in D5W MINI-BAG PLUS 50 ML IV ONE (16:45)
[2020-02-15] MEDS ORDERED: ACETAMINOPHEN TAB 650MG DOSE (2X325MG) PO PRN (17:00)
[2020-02-15] MEDS ORDERED: HYDR-3363 PO (17:16)
--- NOTE | 2020-02-15 17:29 | HPEPDOC ---
General Date of Admission 02/15/20 Date of Service: Feb 15, 2020 Chief Complaint The patient is a 79-year-old female admitted with a reason for visit of General Weakness. Source: Patient Exam Limitations: No limitations Timing/Duration: Week(s) Severity: Moderate History of Present Illness Patient is 79 years old female with past medical history of hypertension, diabetes type 2, atrial fibrillation status post ablation, diastolic CHF presented to the hospital with increased weakness. Patient stated that she's been having generalized weakness for past 3-4 weeks. She described weakness lack of interest, lack of appetite, lack of energy. Patient has a history of depression. In ER patient was found to have leukocytosis of 15, pyuria. Patient denied fever, chills, nausea, vomiting, diarrhea Home Medications Scheduled Allopurinol (Allopurinol) 100 Mg Tablet, 200 MG PO QHS, (Reported) Amlodipine Besylate (Amlodipine Besylate) 10 Mg Tablet, 10 MG PO DAILY, (Reported) Apixaban (Eliquis) 2.5 Mg Tablet, 2.5 MG PO BID, (Reported) Calcitriol (Rocaltrol) 0.25 Mcg Capsule, 0.25 MCG PO 3XW, (Reported) SUN/SUN/SUN Cholecalciferol (Vitamin D3) (Vitamin D3) 1,000 Unit Tablet, 1,000 UNITS PO DAILY, (Reported) Ferrous Sulfate (Ferrous Sulfate) 325 Mg Tab, 325 MG PO 4XWK, (Reported) SUN/SUN//SUN Glipizide (Glipizide ER) 10 Mg Tab.er.24, 10 MG PO BID, (Reported) Hydralazine HCl (Hydralazine HCl) 100 Mg Tablet, 100 MG PO TID, (Reported) Isosorbide Dinitrate (Isosorbide Dinitrate) 10 Mg Tablet, 10 MG PO BID, (Reported) Loratadine (Loratadine) 10 Mg Tab, 10 MG PO DAILY, (Reported) Magnesium Chloride (Mag64) 64 Mg Tabcr, 64 MG PO BID, (Reported) Metoprolol Tartrate (Metoprolol Tartrate) 100 Mg Tablet, 100 MG PO BID, (Reported) Paroxetine (Paroxetine HCl) 10 Mg Tablet, 10 MG PO QHS, (Reported) Rosuvastatin Calcium (Rosuvastatin Calcium) 10 Mg Tablet, 10 MG PO 4XWK, (Reported) SUN, , THURS, SAT Saxagliptin HCl (Onglyza) 2.5 Mg Tab, 2.5 MG PO DAILY, (Reported) Torsemide (Torsemide) 20 Mg Tablet, 20 MG PO BID, (Reported) AM/DINNERTIME Scheduled PRN Hydroxyzine HCl (Hydroxyzine HCl) 25 Mg Tablet, 25 MG PO Q6H PRN for ANXIETY, (Reported) Allergies Coded Allergies: No Known Allergies (Unverified , 02/01/19) Past Medical History Medical History NIDDM Chronic HTN A. fib s/p ablation Gout Chronic diastolic CHF CKD 4 w neuropathy, retinopathy and secondary hyperparathyroidism Depression Chronic Anemia Lumbar spinal stenosis Tonsillectomy D&C Surgical History Tonsillectomy D&C Family History I personally reviewed family history and found not pertinent Social History * Smoker: Denies Alcohol: Denies Drugs: denies A-FIB/CHADSVASC A-FIB History Current/History of A-Fib/PAF?: Yes Current PO Anticoag Therapy: Yes Review of Systems Constitutional: Reports: Weakness; Denies: Chills, Fever Eyes: Denies: Pain ENT: Denies: Head Aches Skin: Denies: Rash, Lesions Pulmonary: Denies: Dyspnea Cardiovascular: Denies: Chest Pain Gastrointestinal: Denies: Nausea, Vomiting Genitourinary: Denies: Frequency Hematologic: Denies: Bruising Endocrine: Denies: Polydipsia, Polyphagia Musculoskeletal: Denies: Neck Pain Neurological: Denies: Weakness Psych: Reports: Depression Physical Examination General Exam: Positive: Alert, Cooperative Eye Exam: Positive: PERRLA ENT Exam: Positive: Atraumatic Neck Exam: Positive: Supple; Negative: JVD Chest Exam: Positive: Clear to auscultation Heart Exam: Positive: Rate Normal Telemetry: Positive: No significant arrhythmia Abdomen Exam: Positive: Normal bowel sounds Extremity Exam: Negative: Clubbing Skin Exam: Positive: Nl turgor and temperature Neuro Exam: Positive: Strength at 5/5 X4 ext, Cranial Nerves 3-12 NL Psych Exam: Positive: Mental status NL Vital Signs Vital Signs Date Time Temp Pulse Resp B/P (MAP) Pulse Ox O2 Delivery O2 Flow Rate FiO2 02/15/20 16:45 64 164/73 (103) 99 02/15/20 15:32 97.2 Laboratory Data Labs 24H Laboratory Tests 2 02/15/20 14:22: Urine Color YELLOW, Urine Appearance CLOUDYH, Urine pH 5.0, Urine Specific [place] 1.008, Urine Protein 2+H, Urine Glucose (UA) NEGATIVE, Urine Ketones NEGATIVE, Urine Blood 1+H, Urine Nitrite NEGATIVE, Urine Bilirubin NEGATIVE, Urine Urobilinogen 0.2, Urine Leukocyte Esterase 3+H, Urine WBC (Auto) 54H, Urine RBC (Auto) 17H, Urine Hyaline Casts (Auto) 1, Urine Bacteria (Auto) 2+H, Urine Squamous Epithelial Cells 1, Urine Transitional Epithelial Cells <1, Urine Mucus (Auto) SMALL, Urine Sperm (Auto) 02/15/20 14:47: Immature Granulocyte % (Auto) 2.2, Neutrophils (%) (Auto) 75.6H, Lymphocytes (%) (Auto) 14.4L, Monocytes (%) (Auto) 5.6H, Eosinophils (%) (Auto) 1.6, Basophils (%) (Auto) 0.6, Neutrophils # (Auto) 11.7H, Lymphocytes # (Auto) 2.2, Monocytes # (Auto) 0.9H, Eosinophils # (Auto) 0.3, Basophils # (Auto) 0.1, Nucleated Red Blood Cells % (auto) 0.0, Anion Gap 9, Glomerular Filtration Rate 18.1L, Calcium Level 8.7L, Total Bilirubin 0.3, Direct Bilirubin < 0.1, Aspartate Amino Transf (AST/SGOT) 16, Alanine Aminotransferase (ALT/SGPT) 20, Alkaline Phosphatase 95, Total Creatine Kinase 28, Creatine Kinase MB < 1.0, Creatine Kinase MB Relative Index 3.57, Troponin I < 0.02, Total Protein 6.6, Albumin 3.6, Albumin/Globulin Ratio 1.2, Thyroid Stimulating Hormone (TSH) 2.490 CBC/BMP Laboratory Tests 02/15/20 14:47 Microbiology Microbiology 02/15/20 Blood Culture, Received Pending 02/15/20 Blood Culture, Received Pending 02/15/20 Urine Culture, Received Pending Assessment/Plan Patient is 79 years old female with past medical history of hypertension, diabetes type 2, atrial fibrillation status post ablation, diastolic CHF presented to the hospital with increased weakness. Patient stated that she's been having generalized weakness for past 3-4 weeks. She described weakness lack of interest, lack of appetite, lack of energy. Patient has a history of depression. In ER patient was found to have leukocytosis of 15, pyuria. Patient denied fever, chills, nausea, vomiting, diarrhea Problems (1) UTI (urinary tract infection) Status: Acute Problem Text: Patient has leukocytosis with pyuria Ceftriaxone IV Await urine culture (2) Diabetes Status: Chronic Problem Text: Diabetes diet Insulin sliding scale Detemir (3) Physical deconditioning Status: Chronic Problem Text: Most likely due to multiple comorbidities Also could be attributed to depression I will increase her dose of paroxetine (4) CKD (chronic kidney disease), stage IV Status: Chronic Problem Text: Creatinine at baseline Continue to monitor (5) Hypertension Status: Chronic Problem Text: Continue home cardioprotective medications (6) Depression Status: Chronic Problem Text: I increased the dose of paroxetine Plan / VTE VTE Prophylaxis Ordered?: Yes KAM CEJA DO Feb 15, 2020 17:29
[2020-02-15] MEDS ORDERED: GLUCOSE 4GM CHEW TABLET PO PRN (17:30)
[2020-02-15] MEDS ORDERED: GLUCAGON INJ 1MG VIAL SC PRN (17:30)
[2020-02-15] MEDS ORDERED: DEXTROSE 50% 50 ML SYRINGE IV PRN (17:30)
[2020-02-15 18:10] LABS: PHOSPHORUS LEVEL 3.2 MG/DL (2.5-4.9)
[2020-02-15 20:30] VITALS: BP 160/60
[2020-02-15] MEDS ORDERED: PARoxetine 10MG TABLET PO SCH (21:00)
[2020-02-15] MEDS: HumaLOG INSULIN (NovoLOG) PER UNIT SC SCH ×2 (21:00→21:08)
[2020-02-15] MEDS: cefTRIAXone SOD 1 GM in D5W MINI-BAG PLUS 50 ML IV SCH (21:59)
[2020-02-15] MEDS ORDERED: LEVEMIR (INSULIN DETEMIR) 1 UNITS/0.01ML SC ONE (22:00)
[2020-02-15] MEDS: LEVEMIR (INSULIN DETEMIR) 1 UNITS/0.01ML SC SCH (22:01)
[2020-02-15] MEDS: MAGNESIUM CHLORIDE 64 MG TABCR (SLO MAG) PO SCH (22:44)
[2020-02-15] MEDS: APIXABAN 2.5 MG TAB (ELIQUIS) PO SCH (22:44)
[2020-02-15] MEDS: ISOSORBIDE DIN (ISORDIL) 10 MG TAB PO SCH (22:45)
[2020-02-15] MEDS: PARoxetine 10MG TABLET PO SCH (22:45)
[2020-02-15] MEDS: **hydrALAZINE** 50 MG TAB PO SCH (22:46)
[2020-02-15] MEDS: allopurinoL 100 MG TAB PO SCH (22:46)
[2020-02-15] MEDS: METOPROLOL TARTRATE 100 MG TAB PO SCH (22:47)
[2020-02-15] MEDS: TORSEMIDE 20 MG TAB PO SCH (22:47)
[2020-02-16 06:00] VITALS: BP 140/66
[2020-02-16] MEDS: HumaLOG INSULIN (NovoLOG) PER UNIT SC SCH ×4 (07:30→19:48)
--- NOTE | 2020-02-16 07:53 | ECGEPIP ---
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
[2020-02-16] MEDS: LEVEMIR (INSULIN DETEMIR) 1 UNITS/0.01ML SC SCH (08:56)
[2020-02-16] MEDS ORDERED: ENOXAPARIN 30MG/0.3ML SYRINGE (J1650 PER 10MG) SC SCH (09:00)
[2020-02-16] MEDS ORDERED: LEVEMIR (INSULIN DETEMIR) 1 UNITS/0.01ML SC ONE (09:00)
[2020-02-16 09:01] LABS: BASO # 0.1 10^3/uL (0.0-0.2); BASO % 0.4 % (0.0-1.0); EOS # 0.2 10^3/uL (0.0-0.5); EOS % 1.1 % (0.0-3.0); HEMATOCRIT 32.3 % (36.0-47.0); HEMOGLOBIN 10.5 g/dl (12.0-15.5); LYMPH # 1.9 10^3/uL (1.5-5.0); LYMPH % 11.2 % (24.0-44.0); MEAN CORPUSCULAR HEMOGLOBIN 31.3 pg (27.0-33.0); MEAN CORPUSCULAR HGB CONC 32.5 g/dl (32.0-36.5); MEAN CORPUSCULAR VOLUME 96.4 fl (80.0-96.0); MONO # 0.8 10^3/uL (0.0-0.8); MONO % 4.4 % (0.0-5.0); NEUTROPHILS # 13.9 10^3/uL (1.5-8.5); NEUTROPHILS % 81.9 % (36.0-66.0); PLATELET COUNT, AUTOMATED 340 10^3/uL (150-450); RED BLOOD COUNT 3.35 10^6/uL (4.00-5.40)
[2020-02-16] MEDS: MAGNESIUM CHLORIDE 64 MG TABCR (SLO MAG) PO SCH ×2 (09:01→20:15)
[2020-02-16] MEDS: LORATADINE 10 MG TAB PO SCH (09:01)
[2020-02-16] MEDS: CALCITRIOL 0.25 MCG CAP (S0169) PO SCH (09:02)
[2020-02-16] MEDS: **hydrALAZINE** 50 MG TAB PO SCH ×3 (09:02→20:14)
[2020-02-16] MEDS: TORSEMIDE 20 MG TAB PO SCH ×2 (09:02→20:14)
[2020-02-16] MEDS: VITAMIN D 1,000 INTERNATIONAL UNITS TABLET PO SCH (09:03)
[2020-02-16] MEDS: FERROUS SULFATE 325MG TAB PO SCH (09:03)
[2020-02-16] MEDS: APIXABAN 2.5 MG TAB (ELIQUIS) PO SCH ×2 (09:03→20:13)
[2020-02-16] MEDS: ISOSORBIDE DIN (ISORDIL) 10 MG TAB PO SCH ×2 (09:03→20:14)
[2020-02-16] MEDS: ROSUVASTATIN 10 MG TAB (CRESTOR) PO SCH (09:03)
[2020-02-16] MEDS: METOPROLOL TARTRATE 100 MG TAB PO SCH ×2 (09:04→20:13)
[2020-02-16] MEDS: amLODIPine 10 MG TAB PO SCH (09:04)
[2020-02-16 09:29] LABS: CALCIUM LEVEL 8.4 MG/DL (8.8-10.2); CREATININE FOR GFR 2.61 MG/DL (0.55-1.30); GLOMERULAR FILTRATION RATE 18.8 (>32); MAGNESIUM LEVEL 2.1 MG/DL (1.8-2.4); POTASSIUM SERUM 3.9 MEQ/L (3.5-5.1)
--- NOTE | 2020-02-16 11:04 | IPNPDOC ---
Text Note Date of Service The patient was seen on 02/16/20. NOTE Subjective: No any acute events overnight. Patient continues to complain of g eneralized weakness and depressed mood Objective: GENERAL APPEARANCE: NAD HEENT: no scleral icterus, no JVD, EOMI CARDIOVASCULAR: Irregularly irregular LUNGS: CTA ABDOMEN: soft & not tender w palpitation MUSCULOSKELETAL: no cyanosis, no swelling INTEGUMENT: no generalized palor NEUROLOGICAL: cranial nerve function from 2-12 intact intact, follows commands, speech not dysarthric Assessment/Plan Patient is 79 years old female with past medical history of hypertension, diabetes type 2, atrial fibrillation status post ablation, diastolic CHF presented to the hospital with increased weakness. Patient stated that she's been having generalized weakness for past 3-4 weeks. She described weakness lack of interest, lack of appetite, lack of energy. Patient has a history of depression. In ER patient was found to have leukocytosis of 15, pyuria. Patient denied fever, chills, nausea, vomiting, diarrhea Problems (1) UTI (urinary tract infection) Patient has leukocytosis with pyuria on admission Ceftriaxone IV Await urine culture (2) Diabetes Diabetes diet Insulin sliding scale Detemir (3) Physical deconditioning Most likely due to multiple comorbidities Also could be attributed to depression I increased her dose of paroxetine PT/OT (4) CKD (chronic kidney disease), stage IV Creatinine at baseline Continue to monitor (5) Hypertension Continue home cardioprotective medications (6) Depression I increased the dose of paroxetine VS,Fishbone, I+O VS, Fishbone, I+O Laboratory Tests 02/15/20 14:47 02/16/20 08:42 Vital Signs Date Time Temp Pulse Resp B/P (MAP) Pulse Ox O2 Delivery O2 Flow Rate FiO2 02/16/20 09:04 95 157/65 02/16/20 06:00 96.7 20 97 02/15/20 20:30 Room Air I&O- Last 24 Hours up to 6 AM 02/16/20 06:00 Intake Total 300 ml Output Total 0 ml Balance 300 ml KAM CEJA DO Feb 16, 2020 11:04
[2020-02-16 14:00] VITALS: BP 132/49
[2020-02-16] MEDS: cefTRIAXone SOD 1 GM in D5W MINI-BAG PLUS 50 ML IV SCH (16:46)
[2020-02-16] MEDS: allopurinoL 100 MG TAB PO SCH (20:13)
[2020-02-16] MEDS: PARoxetine 10MG TABLET PO SCH (20:15)
[2020-02-16 22:00] VITALS: BP 147/54
[2020-02-17 06:00] VITALS: BP_SYST 130; BP_SYST 139; BP_DIAS 67; BP_DIAS 72
[2020-02-17 06:19] LABS: HEMATOCRIT 31.2 % (36.0-47.0); HEMOGLOBIN 9.9 g/dl (12.0-15.5); MEAN CORPUSCULAR HEMOGLOBIN 30.8 pg (27.0-33.0); MEAN CORPUSCULAR HGB CONC 31.7 g/dl (32.0-36.5); MEAN CORPUSCULAR VOLUME 97.2 fl (80.0-96.0); PLATELET COUNT, AUTOMATED 348 10^3/uL (150-450); RED BLOOD COUNT 3.21 10^6/uL (4.00-5.40); WHITE BLOOD COUNT 17.6 10^3/uL (4.0-10.0)
[2020-02-17 06:41] LABS: CALCIUM LEVEL 8.9 MG/DL (8.8-10.2); CREATININE FOR GFR 2.66 MG/DL (0.55-1.30); GLOMERULAR FILTRATION RATE 18.4 (>32); MAGNESIUM LEVEL 2.3 MG/DL (1.8-2.4); POTASSIUM SERUM 3.6 MEQ/L (3.5-5.1)
[2020-02-17] MEDS: HumaLOG INSULIN (NovoLOG) PER UNIT SC SCH ×4 (08:02→19:58)
[2020-02-17] MEDS: MAGNESIUM CHLORIDE 64 MG TABCR (SLO MAG) PO SCH ×2 (08:02→20:04)
[2020-02-17] MEDS: VITAMIN D 1,000 INTERNATIONAL UNITS TABLET PO SCH (08:03)
[2020-02-17] MEDS: APIXABAN 2.5 MG TAB (ELIQUIS) PO SCH ×2 (08:03→20:06)
[2020-02-17] MEDS: **hydrALAZINE** 50 MG TAB PO SCH ×3 (08:04→20:04)
[2020-02-17] MEDS: LEVEMIR (INSULIN DETEMIR) 1 UNITS/0.01ML SC SCH (08:04)
[2020-02-17] MEDS: LORATADINE 10 MG TAB PO SCH (08:04)
[2020-02-17] MEDS: ISOSORBIDE DIN (ISORDIL) 10 MG TAB PO SCH ×2 (08:05→20:05)
[2020-02-17] MEDS: amLODIPine 10 MG TAB PO SCH (08:05)
[2020-02-17] MEDS: TORSEMIDE 20 MG TAB PO SCH ×2 (08:05→20:05)
[2020-02-17] MEDS: METOPROLOL TARTRATE 100 MG TAB PO SCH ×2 (08:06→20:05)
[2020-02-17] MEDS: ROSUVASTATIN 10 MG TAB (CRESTOR) PO SCH (08:07)
[2020-02-17] MEDS: FERROUS SULFATE 325MG TAB PO SCH (08:07)
--- NOTE | 2020-02-17 12:29 | IPNPDOC ---
Text Note Date of Service The patient was seen on 02/17/20. NOTE Subjective: No any acute events overnight. Patient denies fever, chills, nausea, vomiting, diarrhea or dysuria Objective: GENERAL APPEARANCE: NAD HEENT: no scleral icterus, no JVD, EOMI CARDIOVASCULAR: Irregularly irregular LUNGS: CTA ABDOMEN: soft & not tender w palpitation MUSCULOSKELETAL: no cyanosis, no swelling INTEGUMENT: no generalized palor NEUROLOGICAL: cranial nerve function from 2-12 intact intact, follows commands, speech not dysarthric Assessment/Plan Patient is 79 years old female with past medical history of hypertension, diabetes type 2, atrial fibrillation status post ablation, diastolic CHF presented to the hospital with increased weakness. Patient stated that she's been having generalized weakness for past 3-4 weeks. She described weakness lack of interest, lack of appetite, lack of energy. Patient has a history of depression. In ER patient was found to have leukocytosis of 15, pyuria. Patient denied fever, chills, nausea, vomiting, diarrhea Problems (1) UTI (urinary tract infection) Patient has leukocytosis with pyuria on admission Changed ceftriaxone to levofloxacin by mouth urine culture positive for Escherichia coli (2) Diabetes Diabetes diet Insulin sliding scale Detemir (3) Physical deconditioning Most likely due to multiple comorbidities Also could be attributed to depression I increased her dose of paroxetine PT/OT (4) CKD (chronic kidney disease), stage IV Creatinine at baseline Continue to monitor (5) Hypertension Continue home cardioprotective medications (6) Depression I increased the dose of paroxetine VS,Fishbone, I+O VS, Fishbone, I+O Laboratory Tests 02/17/20 05:48 Vital Signs Date Time Temp Pulse Resp B/P (MAP) Pulse Ox O2 Delivery O2 Flow Rate FiO2 02/17/20 08:06 67 02/17/20 08:04 148/54 02/17/20 06:00 99.1 17 97 Room Air I&O- Last 24 Hours up to 6 AM 02/17/20 06:00 Intake Total 810 ml Output Total 450 ml Balance 360 ml KAM CEJA DO Feb 17, 2020 12:28
[2020-02-17] MEDS: LevoFLOXacin 250 MG TABLET PO SCH (13:21)
[2020-02-17 14:00] VITALS: BP 142/52
[2020-02-17] MEDS: allopurinoL 100 MG TAB PO SCH (20:05)
[2020-02-17] MEDS: PARoxetine 10MG TABLET PO SCH (20:06)
[2020-02-17 22:00] VITALS: BP 141/53
[2020-02-18] MEDS: LevoFLOXacin 250 MG TABLET PO SCH ×2 (05:28→10:33)
[2020-02-18 05:55] LABS: HEMATOCRIT 32.8 % (36.0-47.0); HEMOGLOBIN 10.5 g/dl (12.0-15.5); MEAN CORPUSCULAR VOLUME 96.8 fl (80.0-96.0); PLATELET COUNT, AUTOMATED 345 10^3/uL (150-450); RED BLOOD COUNT 3.39 10^6/uL (4.00-5.40); WHITE BLOOD COUNT 17.5 10^3/uL (4.0-10.0)
[2020-02-18 06:00] VITALS: BP 139/55
[2020-02-18 06:29] LABS: CALCIUM LEVEL 9.2 MG/DL (8.8-10.2); CREATININE FOR GFR 2.72 MG/DL (0.55-1.30); GLOMERULAR FILTRATION RATE 17.9 (>32); MAGNESIUM LEVEL 2.2 MG/DL (1.8-2.4); POTASSIUM SERUM 3.2 MEQ/L (3.5-5.1)
[2020-02-18] MEDS: amLODIPine 10 MG TAB PO SCH (08:40)
[2020-02-18] MEDS: VITAMIN D 1,000 INTERNATIONAL UNITS TABLET PO SCH (08:40)
[2020-02-18] MEDS: TORSEMIDE 20 MG TAB PO SCH ×2 (08:40→21:21)
[2020-02-18] MEDS: ISOSORBIDE DIN (ISORDIL) 10 MG TAB PO SCH ×2 (08:40→21:00)
[2020-02-18] MEDS: **hydrALAZINE** 50 MG TAB PO SCH ×3 (08:41→21:00)
[2020-02-18] MEDS: METOPROLOL TARTRATE 100 MG TAB PO SCH ×2 (08:41→21:22)
[2020-02-18] MEDS: APIXABAN 2.5 MG TAB (ELIQUIS) PO SCH ×2 (08:41→21:23)
[2020-02-18] MEDS: MAGNESIUM CHLORIDE 64 MG TABCR (SLO MAG) PO SCH ×2 (08:42→21:22)
[2020-02-18] MEDS: LORATADINE 10 MG TAB PO SCH (08:42)
[2020-02-18] MEDS: HumaLOG INSULIN (NovoLOG) PER UNIT SC SCH ×4 (08:43→21:00)
[2020-02-18] MEDS: LEVEMIR (INSULIN DETEMIR) 1 UNITS/0.01ML SC SCH (08:44)
[2020-02-18] MEDS: CALCITRIOL 0.25 MCG CAP (S0169) PO SCH (08:45)
[2020-02-18] MEDS ORDERED: POTASSIUM CHLORIDE 10 MEQ SR TABLET PO ONE (09:30)
--- NOTE | 2020-02-18 10:25 | IPNPDOC ---
Text Note Date of Service The patient was seen on 02/18/20. NOTE Subjective: No any acute events overnight. Patient continues to complain of g eneralized weakness and diffuse abdominal pain Objective: GENERAL APPEARANCE: NAD HEENT: no scleral icterus, no JVD, EOMI CARDIOVASCULAR: Irregularly irregular LUNGS: CTA ABDOMEN: soft & not tender w palpitation MUSCULOSKELETAL: no cyanosis, no swelling INTEGUMENT: no generalized palor NEUROLOGICAL: cranial nerve function from 2-12 intact intact, follows commands, speech not dysarthric Assessment/Plan Patient is 79 years old female with past medical history of hypertension, diabetes type 2, atrial fibrillation status post ablation, diastolic CHF presented to the hospital with increased weakness. Patient stated that she's been having generalized weakness for past 3-4 weeks. She described weakness lack of interest, lack of appetite, lack of energy. Patient has a history of depression. In ER patient was found to have leukocytosis of 15, pyuria. Patient denied fever, chills, nausea, vomiting, diarrhea Problems (1) UTI (urinary tract infection) Patient has leukocytosis with pyuria on admission Changed ceftriaxone to levofloxacin by mouth urine culture positive for Escherichia coli sensitive to quinolone Patient continues to have leukocytosis of 17. (2) Diabetes Diabetes diet Insulin sliding scale Detemir (3) Physical deconditioning Most likely due to multiple comorbidities Also could be attributed to depression I increased her dose of paroxetine PT/OT (4) CKD (chronic kidney disease), stage IV Creatinine at baseline Continue to monitor (5) Hypertension Continue home cardioprotective medications (6) Depression I increased the dose of paroxetine Abdominal pain Abdomen soft on the palpation patient continues to have persistent leukocytosis Will proceed with CT of abdomen/pelvis Atrial fibrillation Continue Eliquis Heart rate under control VS,Fishbone, I+O VS, Fishbone, I+O Laboratory Tests 02/18/20 05:33 Vital Signs Date Time Temp Pulse Resp B/P (MAP) Pulse Ox O2 Delivery O2 Flow Rate FiO2 02/18/20 08:41 145/60 02/18/20 08:41 72 02/18/20 06:00 97.9 18 95 Room Air I&O- Last 24 Hours up to 6 AM 02/18/20 06:00 Intake Total 1245 ml Output Total 1475 ml Balance -230 ml KAM CEJA DO Feb 18, 2020 10:24
--- NOTE | 2020-02-18 11:41 | REP ---
INDICATION: abdominal pain. COMPARISON: Abdominal series 02/11/2020, CT 02/06/2020 TECHNIQUE: Noncontrast imaging with coronal and sagittal reconstructions. FINDINGS: CT abdomen: Minor linear subsegmental atelectasis in the deep sulcus right lower lobe without acute infiltrate, nodule or effusion. Heart size unchanged with left atrial and ventricular enlargement. Small amount of the radiodense material in the fundus of the stomach and showing reflux into the small hiatal hernia and lower esophagus is noted but no oral contrast elsewhere in bowel loops or colon. There is diffuse atherosclerotic calcifications scattered in the distal thoracic and throughout abdominal aorta without aneurysm no hepatomegaly, splenomegaly, hepatic or splenic mass, biliary dilatation or adjacent ascites. Gallbladder shows a few small layered calcified stones. Pancreas is without calcification to suggest a stone some mild atrophy but no mass, adenopathy or peripancreatic edema/fluid. Adrenal glands symmetric and unchanged kidneys show vascular calcifications and renal arteries and their branches in this sinus but also a few calcifications in pyramids, unchanged. No hydronephrosis or hydroureter no ureteral stone identified on this study. Small bowel loops show some fluid but no abnormal dilatation. No mesenteric edema. No periaortic, mesenteric or retroperitoneal pathologic sized lymphadenopathy. Scattered normal sized nodes are present. Small stable hyperdense nodule, about 7 mm, off the lateral aspect lower pole of the right kidney colon shows stool and gas scattered in the transverse colon more in the left colon fluid-filled right colon. Cannot confirm mass or inflammatory change about the cecum. There are a few small pericecal nodes. Bone windows show old grade 1-2 compression of L2 superior endplate stable is a few mm of anterolisthesis of L4 on 5 also unchanged. Vacuum phenomenon at multiple levels with facet arthritic changes as well visualized ribs intact lower thoracic levels show degenerative changes of the compression fractures or destructive lesion. CT pelvis: Sacrum, iliac bones, acetabuli, hips and pubic bones with some degenerative change but no destructive lesions or fractures evident. Small bowel loops fluid-filled without dilatation. Distal left colon sigmoid and rectum with stool gas and some fluid but no inflammatory changes or obstruction. Nonspecific scattered gas in bowel loops. Iliac arteries with calcification but no aneurysm. No ventral or inguinal hernia nor pathologic inguinal adenopathy. No pelvic adenopathy. Uterus not enlarged. Is slightly retroverted and tilted towards the left. No pelvic mass. No ascites or free air in the abdomen or pelvis IMPRESSION: 1. Small hiatal hernia and some reflux of gastric contents into the hernia and lower esophagus. 2. Nonobstructing small bilateral renal calculi. No hydronephrosis, hydroureter or ureteral stone. Small hyperdensity projecting off the right kidney posteriorly unchanged and likely a hyperdense cyst. 3. Some mild cholelithiasis without biliary dilatation. Pancreas, liver, spleen and adrenal glands normal. 4. Nonspecific gas pattern some scattered fluid and stool in the colon and fluid in the small bowel loops without obstruction or dilatation. No inflammatory changes in the mesentery, ascites or free air. <Electronically signed by Jim Seth > 02/18/20 1032
[2020-02-18 12:15] LABS: C REACTIVE PROTEIN QUANTITATIV 0.61 MG/DL (0.00-0.30)
[2020-02-18 13:26] VITALS: BP 148/60
[2020-02-18 15:09] LABS: ERYTHROCYTE SEDIMENTATION RATE 65 mm/hr (0-30)
[2020-02-18] MEDS: PARoxetine 10MG TABLET PO SCH (21:23)
[2020-02-18] MEDS: hydrOXYzine 25 MG TAB PO PRN (21:23)
[2020-02-18] MEDS: allopurinoL 100 MG TAB PO SCH (21:23)
[2020-02-18 22:00] VITALS: BP 138/50
[2020-02-19] MEDS: LevoFLOXacin 250 MG TABLET PO SCH (05:19)
[2020-02-19 06:00] VITALS: BP 153/57
[2020-02-19 06:19] LABS: HEMATOCRIT 32.3 % (36.0-47.0); HEMOGLOBIN 10.3 g/dl (12.0-15.5); MEAN CORPUSCULAR HEMOGLOBIN 31.2 pg (27.0-33.0); MEAN CORPUSCULAR HGB CONC 31.9 g/dl (32.0-36.5); MEAN CORPUSCULAR VOLUME 97.9 fl (80.0-96.0); PLATELET COUNT, AUTOMATED 338 10^3/uL (150-450); WHITE BLOOD COUNT 21.7 10^3/uL (4.0-10.0)
[2020-02-19 07:07] LABS: CALCIUM LEVEL 9.1 MG/DL (8.8-10.2); CREATININE FOR GFR 2.86 MG/DL (0.55-1.30); GLOMERULAR FILTRATION RATE 16.9 (>32); MAGNESIUM LEVEL 2.2 MG/DL (1.8-2.4); POTASSIUM SERUM 3.4 MEQ/L (3.5-5.1)
[2020-02-19] MEDS: HumaLOG INSULIN (NovoLOG) PER UNIT SC SCH ×4 (08:15→20:40)
[2020-02-19] MEDS: VITAMIN D 1,000 INTERNATIONAL UNITS TABLET PO SCH (08:16)
[2020-02-19] MEDS: APIXABAN 2.5 MG TAB (ELIQUIS) PO SCH ×2 (08:16→20:51)
[2020-02-19] MEDS: LORATADINE 10 MG TAB PO SCH (08:16)
[2020-02-19] MEDS: MAGNESIUM CHLORIDE 64 MG TABCR (SLO MAG) PO SCH ×2 (08:16→20:53)
[2020-02-19] MEDS: TORSEMIDE 20 MG TAB PO SCH (08:16)
[2020-02-19] MEDS: **hydrALAZINE** 50 MG TAB PO SCH ×3 (08:17→20:52)
[2020-02-19] MEDS: ISOSORBIDE DIN (ISORDIL) 10 MG TAB PO SCH ×2 (08:18→20:53)
[2020-02-19] MEDS: METOPROLOL TARTRATE 100 MG TAB PO SCH ×2 (08:18→20:52)
[2020-02-19] MEDS: amLODIPine 10 MG TAB PO SCH (08:18)
[2020-02-19] MEDS: LEVEMIR (INSULIN DETEMIR) 1 UNITS/0.01ML SC SCH (08:19)
[2020-02-19] MEDS: ROSUVASTATIN 10 MG TAB (CRESTOR) PO SCH (08:20)
[2020-02-19] MEDS: FERROUS SULFATE 325MG TAB PO SCH (08:20)
[2020-02-19] MEDS: NS 1,000 ML IV SCH ×2 (08:56→17:03)
--- NOTE | 2020-02-19 13:37 | IPNPDOC ---
Text Note Date of Service The patient was seen on 02/19/20. NOTE Subjective: No any acute events overnight. Patient stated that she feels better today Objective: GENERAL APPEARANCE: NAD HEENT: no scleral icterus, no JVD, EOMI CARDIOVASCULAR: Irregularly irregular LUNGS: CTA ABDOMEN: soft & not tender w palpitation MUSCULOSKELETAL: no cyanosis, no swelling INTEGUMENT: no generalized palor NEUROLOGICAL: cranial nerve function from 2-12 intact intact, follows commands, speech not dysarthric Assessment/Plan Patient is 79 years old female with past medical history of hypertension, diabetes type 2, atrial fibrillation status post ablation, diastolic CHF presented to the hospital with increased weakness. Patient stated that she's been having generalized weakness for past 3-4 weeks. She described weakness lack of interest, lack of appetite, lack of energy. Patient has a history of depression. In ER patient was found to have leukocytosis of 15, pyuria. Patient denied fever, chills, nausea, vomiting, diarrhea Problems (1) UTI (urinary tract infection) Patient had leukocytosis with pyuria on admission Changed ceftriaxone to levofloxacin by mouth urine culture positive for Escherichia coli sensitive to quinolone Patient continues to have persistent leukocytosis of 21 today Procalcitonin negative Appreciate/agree with ID consult (2) Diabetes Diabetes diet Insulin sliding scale Detemir (3) Physical deconditioning Most likely due to multiple comorbidities Also could be attributed to depression I increased her dose of paroxetine PT/OT (4) CKD (chronic kidney disease), stage IV Creatinine at baseline Continue to monitor (5) Hypertension Continue home cardioprotective medications (6) Depression I increased the dose of paroxetine Abdominal pain resolved Abdomen soft on the palpation patient continues to have persistent leukocytosis CT abdomen and pelvis showed Small hiatal hernia and some reflux of gastric cont ents into the hernia and lower esophagus. Nonobstructing small bilateral renal calculi. No hydronephrosis, hydroureter or ureteral stone. Small hyperdensity projecting off the right kidney posteriorly unchanged and likely a hyperdense cyst. Some mild cholelithiasis without biliary dilatation. Pancreas, liver, spleen and adrenal glands normal. Nonspecific gas pattern some scattered fluid and stool in the colon and fluid in the small bowel loops without obstruction or dilatation. No inflammatory changes in the mesentery, ascites or free air. Atrial fibrillation Continue Eliquis Heart rate under control VS,Fishbone, I+O VS, Fishbone, I+O Laboratory Tests 02/19/20 05:50 Vital Signs Date Time Temp Pulse Resp B/P (MAP) Pulse Ox O2 Delivery O2 Flow Rate FiO2 02/19/20 08:18 70 02/19/20 08:17 146/55 02/19/20 06:00 98.6 18 95 Room Air I&O- Last 24 Hours up to 6 AM 02/19/20 06:00 Intake Total 390 ml Output Total 1100 ml Balance -710 ml KAM CEJA DO Feb 19, 2020 13:37
[2020-02-19 14:00] VITALS: BP 140/55
--- NOTE | 2020-02-19 18:18 | REPVR ---
PROCEDURE INFORMATION: Exam: CT Chest Without Contrast Exam date and time: 02/19/2020 5:13 PM Age: 79 years old Clinical indication: Abnormal findings; Abnormal diagnostic tests; Abnormal ekg; Additional info: Wbc 22 R/O lymphoma TECHNIQUE: Imaging protocol: Computed tomography of the chest without contrast. 3D rendering (Not supervised by radiologist): MIP and/or 3D reconstructed images were created by the technologist. Radiation optimization: All CT scans at this facility use at least one of these dose optimization techniques: automated exposure control; mA and/or kV adjustment per patient size (includes targeted exams where dose is matched to clinical indication); or iterative reconstruction. COMPARISON: CT Chest without contrast 02/06/2020 5:18 PM FINDINGS: Lungs: Both lungs are well-aerated. Pleural space: Unremarkable. No pneumothorax. No pleural effusion. Heart: The heart size is normal. Coronary artery calcification is present. In addition, atherosclerotic calcific vascular disease of the thoracoabdominal aorta and major arteries of the upper abdomen is noted. Aorta: No thoracic or upper abdominal aortic aneurysm. No acute intramural thoracic aortic hematoma. Lymph nodes: No CT evidence of lymphoma in the chest or upper abdomen. Bones/joints: There are multiple levels of chronic degenerative vertebral body endplate osteophytosis anteriorly in the thoracic spine together with multilevel calcification of the anterior longitudinal ligament of the spine which probably represents diffuse idiopathic skeletal hyperostosis (DISH). Chronic anterior and central compression fractures of the superior vertebral body endplates of T10, T12 and L1 are present with central height loss maximally measuring 40% in the L1 vertebral body. Mild retropulsion of the superior endplates of T12 and L1 is seen into the spinal canal, causing minimal central spinal canal stenosis. Soft tissues: Unremarkable. IMPRESSION: 1. No CT evidence of lymphoma in the chest or upper abdomen. 2. Both lungs are well-aerated. 3. The heart size is normal. Coronary artery calcification is present. In addition, atherosclerotic calcific vascular disease of the thoracoabdominal aorta and major arteries of the upper abdomen is noted. 4. There are multiple levels of chronic degenerative vertebral body endplate osteophytosis anteriorly in the thoracic spine together with multilevel calcification of the anterior longitudinal ligament of the spine which probably represents diffuse idiopathic skeletal hyperostosis (DISH). 5. Chronic anterior and central compression fractures of the superior vertebral body endplates of T10, T12 and L1 are present with central height loss maximally measuring 40% in the L1 vertebral body. Mild retropulsion of the superior endplates of T12 and L1 is seen into the spinal canal, causing minimal central spinal canal stenosis. Electronically signed by: Darek Monte On 02/19/2020 18:17:45 PM
[2020-02-19 19:44] LABS: FOLATE 8.4 NG/ML (>5.4)
[2020-02-19] MEDS: PARoxetine 10MG TABLET PO SCH (20:51)
[2020-02-19 22:00] VITALS: BP 148/59
[2020-02-20] MEDS: NS 1,000 ML IV SCH ×3 (04:22→22:15)
[2020-02-20 05:57] LABS: HEMATOCRIT 30.1 % (36.0-47.0); HEMOGLOBIN 9.6 g/dl (12.0-15.5); MEAN CORPUSCULAR HEMOGLOBIN 30.9 pg (27.0-33.0); MEAN CORPUSCULAR HGB CONC 31.9 g/dl (32.0-36.5); MEAN CORPUSCULAR VOLUME 96.8 fl (80.0-96.0); PLATELET COUNT, AUTOMATED 322 10^3/uL (150-450); RED BLOOD COUNT 3.11 10^6/uL (4.00-5.40); WHITE BLOOD COUNT 23.6 10^3/uL (4.0-10.0)
[2020-02-20 06:00] VITALS: BP 151/59
[2020-02-20 06:36] LABS: CALCIUM LEVEL 8.7 MG/DL (8.8-10.2); CREATININE FOR GFR 2.61 MG/DL (0.55-1.30); GLOMERULAR FILTRATION RATE 18.8 (>32); MAGNESIUM LEVEL 2.1 MG/DL (1.8-2.4); POTASSIUM SERUM 3.6 MEQ/L (3.5-5.1)
[2020-02-20] MEDS: MAGNESIUM CHLORIDE 64 MG TABCR (SLO MAG) PO SCH ×2 (08:17→22:11)
[2020-02-20] MEDS: VITAMIN D 1,000 INTERNATIONAL UNITS TABLET PO SCH (08:17)
[2020-02-20] MEDS: ISOSORBIDE DIN (ISORDIL) 10 MG TAB PO SCH ×3 (08:18→22:24)
[2020-02-20] MEDS: METOPROLOL TARTRATE 100 MG TAB PO SCH ×2 (08:18→22:13)
[2020-02-20] MEDS: APIXABAN 2.5 MG TAB (ELIQUIS) PO SCH ×2 (08:18→22:14)
[2020-02-20] MEDS: LORATADINE 10 MG TAB PO SCH (08:18)
[2020-02-20] MEDS: amLODIPine 10 MG TAB PO SCH (08:18)
[2020-02-20] MEDS: ONDANSETRON 4 MG TAB PO PRN (08:19)
[2020-02-20] MEDS: **hydrALAZINE** 50 MG TAB PO SCH ×4 (08:19→22:24)
[2020-02-20] MEDS: LEVEMIR (INSULIN DETEMIR) 1 UNITS/0.01ML SC SCH (08:21)
[2020-02-20] MEDS: HumaLOG INSULIN (NovoLOG) PER UNIT SC SCH ×4 (08:21→22:15)
[2020-02-20] MEDS: CALCITRIOL 0.25 MCG CAP (S0169) PO SCH (08:25)
[2020-02-20] MEDS ORDERED: POTASSIUM CHLORIDE 10 MEQ SR TABLET PO ONE (08:30)
[2020-02-20 12:08] LABS: ANTINUCLEAR ANTIBODIES DIRECT Negative (Negative)
--- NOTE | 2020-02-20 13:23 | IPNPDOC ---
Text Note Date of Service The patient was seen on 02/20/20. NOTE Subjective: No any acute events overnight. Patient denies fever, chills, nausea, diarrhea or dysuria Objective: GENERAL APPEARANCE: NAD HEENT: no scleral icterus, no JVD, EOMI CARDIOVASCULAR: Irregularly irregular LUNGS: CTA ABDOMEN: soft & not tender w palpitation MUSCULOSKELETAL: no cyanosis, no swelling INTEGUMENT: no generalized palor NEUROLOGICAL: cranial nerve function from 2-12 intact intact, follows commands, speech not dysarthric Assessment/Plan Patient is 79 years old female with past medical history of hypertension, diabetes type 2, atrial fibrillation status post ablation, diastolic CHF presented to the hospital with increased weakness. Patient stated that she's been having generalized weakness for past 3-4 weeks. She described weakness lack of interest, lack of appetite, lack of energy. Patient has a history of depression. In ER patient was found to have leukocytosis of 15, pyuria. Patient denied fever, chills, nausea, vomiting, diarrhea Problems (1) UTI (urinary tract infection) Patient had leukocytosis with pyuria on admission completed course of ab leukocytosis Persistent There is concern for leukemia Appreciate/agree with shade cutter consult Diabetes Diabetes diet Insulin sliding scale Detemir Physical deconditioning Most likely due to multiple comorbidities Also could be attributed to depression I increased her dose of paroxetine PT/OT CKD (chronic kidney disease), stage IV Creatinine at baseline Continue to monitor Hypertension Continue home cardioprotective medications Depression I increased the dose of paroxetine Abdominal pain resolved Abdomen soft on the palpation patient continues to have persistent leukocytosis CT abdomen and pelvis showed Small hiatal hernia and some reflux of gastric contents into the hernia and lower esophagus. Nonobstructing small bilateral renal calculi. No hydronephrosis, hydroureter or ureteral stone. Small hyperdensity projecting off the right kidney posteriorly unchanged and likely a hyperdense cyst. Some mild cholelithiasis without biliary dilatation. Pancreas, liver, spleen and adrenal glands normal. Nonspecific gas pattern some scattered fluid and stool in the colon and fluid in the small bowel loops without obstruction or dilatation. No inflammatory changes in the mesentery, ascites or free air. Atrial fibrillation Continue Eliquis Heart rate under control VS,Fishbone, I+O VS, Fishbone, I+O Laboratory Tests 02/20/20 05:41 Vital Signs Date Time Temp Pulse Resp B/P (MAP) Pulse Ox O2 Delivery O2 Flow Rate FiO2 02/20/20 08:18 169/66 02/20/20 08:18 86 02/20/20 06:00 96.7 18 98 02/19/20 14:00 Room Air I&O- Last 24 Hours up to 6 AM 02/20/20 06:00 Intake Total 3064 ml Output Total 1400 ml Balance 1664 ml KAM CEJA DO Feb 20, 2020 13:23
[2020-02-20 14:00] VITALS: BP 135/53
[2020-02-20 16:08] LABS: Lyme Disease IgG/IgM Antibodie <0.91 ISR (0.00-0.90); Lyme Disease IgM Ab Quantitati <0.80 index (0.00-0.79)
--- NOTE | 2020-02-20 18:43 | CR.PDOC ---
General Date of Consultation: Feb 20, 2020 Referring Provider: KAM CEJA DO Attending Physician: VILMA KUMAR MD Consultation REASON FOR CONSULTATION/CHIEF COMPLAINT: [Leukocytosis with progressively rising white blood cell count]. HISTORY OF PRESENT ILLNESS: [I had the pleasure of seeing Ms. Courtney Birmingham in consultation for leukocytosis and and with progressively rising white blood cell count while hospitalized. As you know Mrs. Birmingham is an 79 years old white female was admitted on first February 2020 because of generalized weakness and not feeling well. Urinalysis revealed UTI with many white blood cells on urinalysis and 2+ bacteria. On admission white blood cell count was 17,000 and she has been having white blood cell count every day area her white blood cell count went up to 21.7 and today it went up further to 23.6. On admission she wasn't anemic with hemoglobin of 10.5 and today to 9.6. Platelets remain stable. Differential count revealed that her neutrophil were 81.9% although no further differential count was done during next few days. Patient was started on an tibiotics. She has been feeling weak and tired and lethargic. She is a known hypertensive and is diabetic with atrial fibrillation. She also has congestive heart failure with increasing weakness. She is able to perform her daily function and she lives alone. ALLERGIES: Please see below. HOME MEDICATIONS: Please see below. PAST MEDICAL HISTORY:Past medical history is significant for chronic renal disease with stage IV CK D also severe depression because of the myself to grown up sons and her . She has a history of NIDDM and hypertension FAMILY HISTORY: No family history of leukemia or lymphoma. of coronary artery disease. Hereditary Diseases: No pertinent disease Unexpected deaths due to medical reasons: 2 sons due to accidents at their young age SOCIAL HISTORY: Denies tobacco or alcohol abuse. She lives alone since her possibly many years ago REVIEW OF SYSTEMS: CONSTITUTIONAL: [Feels weak and fatigued out and tired]. HEENT: No cough, wheezing . CARDIOVASCULAR: [Denies chest pain or palpitation]. RESPIRATORY: [Denies major cough or phlegm]. GENITOURINARY: [When she came she had some increased frequency]. MUSCULOSKELETAL: [Generalized weakness]. GASTROINTESTINAL: [No nausea vomiting or diarrhea]. SKIN: [Denies any rash]. NEUROLOGICAL: [Generalized weakness]. PSYCHIATRIC: [Severe depression]. ENDOCRINE: [NIDDM]. HEMATOLOGIC/LYMPHATIC: [Not a known case of leukemia or lymphoma although now with leukocytosis]. ALLERGIC/IMMUNOLOGIC: . PHYSICAL EXAMINATION: VITAL SIGNS: Please see below. GENERAL APPEARANCE: [Depressed-looking female in no acute distress]. HEENT: [WNL EOMI oral cavity clear without mucositis or thrush]. RESPIRATORY: [Lungs clear to auscultation]. CARDIOVASCULAR: No murmur ABDOMEN: Soft PRESENT NO HEPATOSPLENOMEGALY . EXTREMITIES: [No pedal edema. NEUROLOGICAL: Generalized weakness but no focal neurological deficit . PSYCHIATRIC: [Slightly depressed because of that HER-2 young sons and ]. LABORATORY DATA: Please see below. ASSESSMENT/PLAN: [Mrs. Birmingham is an 79-year-old white female who is admitted because of increasing weakness. She is found to have UTI and leukocytosis. While hospitalized her white blood cell count went up from 17,000-23,000 over 4 days. Acute rising white blood cell count is highly likely due to her UTI. I examined peripheral blood smear there is no immature cells and all these cells are mature with increase neutrophil in the peripheral blood smear. Toxic granulation was also noted in neutrophils. Patient needs to continue her antibiotic until completely recover from UTI. She definitely has no acute leukemia. To rule out chronic myeloid leukemia] but should be sent out for FISH for BCRABL translocation. This patient is going home and appointment should be made at our office for further follow-up as outpatient. Blood should be drawn for BCR -ABL testing before discharge. If tests cannot be done over this weekend she can go home and come back on Sunday for blood test. 2. . Vital Signs/I&O Vital Signs Date Time Temp Pulse Resp B/P (MAP) Pulse Ox O2 Delivery O2 Flow Rate FiO2 02/20/20 16:45 146/57 02/20/20 14:00 97.6 72 16 98 Room Air I&O- Last 24 Hours up to 6 AM 02/20/20 06:00 Intake Total 3064 ml Output Total 1400 ml Balance 1664 ml Laboratory Data Labs 24H Laboratory Tests 2 02/19/20 20:37: Bedside Glucose (Misc Panel) 241H 02/20/20 05:41: Nucleated Red Blood Cells % (auto) 0.0, Anion Gap 9, Glomerular Filtration Rate 18.8L, Calcium Level 8.7L, Magnesium Level 2.1 02/20/20 11:26: Bedside Glucose (Misc Panel) 194H 02/20/20 16:42: Bedside Glucose (Misc Panel) 200H Peripheral blood smear is showing normocytic normochromic at cells. Increase in neutrophils which seems to be reactive with toxic granulation. No immature cells or blasts noted CBC/BMP Laboratory Tests 02/20/20 05:41 Microbiology Microbiology 02/19/20 Blood Culture - Preliminary, Resulted No growth after 24 hours . All specim... 02/19/20 Blood Culture - Preliminary, Resulted No growth after 24 hours . All specim... 02/15/20 Blood Culture - Final, Complete NO GROWTH AFTER 5 DAYS 02/15/20 Blood Culture - Final, Complete NO GROWTH AFTER 5 DAYS 02/15/20 Urine Culture - Final, Complete Escherichia Coli Allergies Coded Allergies: No Known Allergies (Unverified , 02/01/19) Home Medications Scheduled Allopurinol (Allopurinol) 100 Mg Tablet, 200 MG PO QHS, (Reported) Amlodipine Besylate (Amlodipine Besylate) 10 Mg Tablet, 10 MG PO DAILY, (Repor bri) Apixaban (Eliquis) 2.5 Mg Tablet, 2.5 MG PO BID, (Reported) Calcitriol (Rocaltrol) 0.25 Mcg Capsule, 0.25 MCG PO 3XW, (Reported) SUN/SUN/SUN Cholecalciferol (Vitamin D3) (Vitamin D3) 1,000 Unit Tablet, 1,000 UNITS PO DAILY, (Reported) Ferrous Sulfate (Ferrous Sulfate) 325 Mg Tab, 325 MG PO 4XWK, (Reported) SUN/SUN//SAT Glipizide (Glipizide ER) 10 Mg Tab.er.24, 10 MG PO BID, (Reported) Hydralazine HCl (Hydralazine HCl) 100 Mg Tablet, 100 MG PO TID, (Reported) Isosorbide Dinitrate (Isosorbide Dinitrate) 10 Mg Tablet, 10 MG PO BID, (Reported) Loratadine (Loratadine) 10 Mg Tab, 10 MG PO DAILY, (Reported) Magnesium Chloride (Mag64) 64 Mg Tabcr, 64 MG PO BID, (Reported) Metoprolol Tartrate (Metoprolol Tartrate) 100 Mg Tablet, 100 MG PO BID, (Reported) Paroxetine (Paroxetine HCl) 10 Mg Tablet, 10 MG PO QHS, (Reported) Rosuvastatin Calcium (Rosuvastatin Calcium) 10 Mg Tablet, 10 MG PO 4XWK, (R eported) TORY, VINNY, THURS, SAT Saxagliptin HCl (Onglyza) 2.5 Mg Tab, 2.5 MG PO DAILY, (Reported) Torsemide (Torsemide) 20 Mg Tablet, 20 MG PO BID, (Reported) AM/DINNERTIME Scheduled PRN Hydroxyzine HCl (Hydroxyzine HCl) 25 Mg Tablet, 25 MG PO Q6H PRN for ANXIETY, (Reported) VILMA KUMAR MD Feb 20, 2020 18:19
[2020-02-20 22:00] VITALS: BP 148/58
[2020-02-20] MEDS: RAMELTEON 8 MG TAB (ROZEREM) PO SCH (22:12)
[2020-02-20] MEDS: PARoxetine 10MG TABLET PO SCH (22:13)
[2020-02-21] MEDS: hydrOXYzine 25 MG TAB PO PRN (01:30)
[2020-02-21 06:00] VITALS: BP 145/57
[2020-02-21 06:51] LABS: HEMOGLOBIN 9.1 g/dl (12.0-15.5); MEAN CORPUSCULAR HEMOGLOBIN 31.9 pg (27.0-33.0); MEAN CORPUSCULAR HGB CONC 32.5 g/dl (32.0-36.5); MEAN CORPUSCULAR VOLUME 98.2 fl (80.0-96.0); PLATELET COUNT, AUTOMATED 311 10^3/uL (150-450); RED BLOOD COUNT 2.85 10^6/uL (4.00-5.40)
[2020-02-21 06:59] LABS: WHITE BLOOD COUNT 31.3 10^3/uL (4.0-10.0)
[2020-02-21 07:13] LABS: CALCIUM LEVEL 8.4 MG/DL (8.8-10.2); CREATININE FOR GFR 2.26 MG/DL (0.55-1.30); GLOMERULAR FILTRATION RATE 22.2 (>32); MAGNESIUM LEVEL 2.1 MG/DL (1.8-2.4); POTASSIUM SERUM 4.1 MEQ/L (3.5-5.1)
[2020-02-21] MEDS: NS 1,000 ML IV SCH ×2 (08:43→18:56)
[2020-02-21] MEDS: MAGNESIUM CHLORIDE 64 MG TABCR (SLO MAG) PO SCH ×2 (08:45→21:59)
[2020-02-21] MEDS: HumaLOG INSULIN (NovoLOG) PER UNIT SC SCH ×4 (08:45→21:00)
[2020-02-21] MEDS: LEVEMIR (INSULIN DETEMIR) 1 UNITS/0.01ML SC SCH (08:46)
[2020-02-21] MEDS: VITAMIN D 1,000 INTERNATIONAL UNITS TABLET PO SCH (08:47)
[2020-02-21] MEDS: METOPROLOL TARTRATE 100 MG TAB PO SCH ×2 (08:47→21:59)
[2020-02-21] MEDS: APIXABAN 2.5 MG TAB (ELIQUIS) PO SCH ×2 (08:47→21:59)
[2020-02-21] MEDS: LORATADINE 10 MG TAB PO SCH (08:48)
[2020-02-21] MEDS: amLODIPine 10 MG TAB PO SCH (08:48)
[2020-02-21] MEDS: ISOSORBIDE DIN (ISORDIL) 10 MG TAB PO SCH ×2 (08:49→21:59)
[2020-02-21] MEDS: **hydrALAZINE** 50 MG TAB PO SCH ×3 (08:49→21:58)
[2020-02-21] MEDS: ROSUVASTATIN 10 MG TAB (CRESTOR) PO SCH (08:53)
[2020-02-21] MEDS: FERROUS SULFATE 325MG TAB PO SCH (08:53)
[2020-02-21 09:08] LABS: BASO # 0.1 10^3/uL (0.0-0.2); BASO % 0.3 % (0.0-1.0); EOS % 0.1 % (0.0-3.0); LYMPH % 6.5 % (24.0-44.0); MONO # 1.2 10^3/uL (0.0-0.8); MONO % 3.9 % (0.0-5.0); NEUTROPHILS # 27.1 10^3/uL (1.5-8.5); NEUTROPHILS % 88.6 % (36.0-66.0)
--- NOTE | 2020-02-21 09:49 | REP ---
INDICATION: Pna. COMPARISON: CT 02/19/2020, AP CHEST 02/15/2020 TECHNIQUE: AP PORTABLE FINDINGS: THERE IS EVENTRATION OF THE RIGHT DIAPHRAGM. THIS IS UNCHANGED. THE LUNG LACKEY ARE WELL INFLATED WITHOUT INFILTRATE, EFFUSION, ATELECTASIS OR MASS. THE AORTA AND AIRWAY INTACT. HEART NOT GROSSLY ENLARGED. NO WIDENING OF THE MEDIASTINUM. THERE ARE DEGENERATIVE CHANGES THROUGHOUT THE SPINE WITH MARGINAL OSTEOPHYTES. AC JOINT ARTHRITIS ALSO NOTED. BONES APPEAR DEMINERALIZED. IMPRESSION: 1. NO INFILTRATE, EFFUSION, ATELECTASIS OR MASS. 2. NO GROSS CARDIOMEGALY, VASCULAR REDISTRIBUTION OR PULMONARY EDEMA. THE AORTA AND AIRWAY INTACT AND UNCHANGED. <Electronically signed by Jim Seth > 02/21/20 0930
[2020-02-21] MEDS: cefTRIAXone SOD 1 GM in D5W MINI-BAG PLUS 50 ML IV SCH ×2 (10:35→22:00)
[2020-02-21 13:29] VITALS: BP 154/56
--- NOTE | 2020-02-21 15:06 | IPNPDOC ---
Text Note Date of Service The patient was seen on 02/21/20. NOTE Subjective: No any acute events overnight. Patient stated that she feels better today, more energy Objective: GENERAL APPEARANCE: NAD HEENT: no scleral icterus, no JVD, EOMI CARDIOVASCULAR: Irregularly irregular LUNGS: CTA ABDOMEN: soft & not tender w palpitation MUSCULOSKELETAL: no cyanosis, no swelling INTEGUMENT: no generalized palor NEUROLOGICAL: cranial nerve function from 2-12 intact intact, follows commands, speech not dysarthric Assessment/Plan Patient is 79 years old female with past medical history of hypertension, diabetes type 2, atrial fibrillation status post ablation, diastolic CHF presented to the hospital with increased weakness. Patient stated that she's been having generalized weakness for past 3-4 weeks. She described weakness lack of interest, lack of appetite, lack of energy. Patient has a history of depression. In ER patient was found to have leukocytosis of 15, pyuria. Patient denied fever, chills, nausea, vomiting, diarrhea Problems (1) UTI (urinary tract infection) Patient had leukocytosis with pyuria on admission completed course of ab leukocytosis Persistent Worsening today Dr. Raya consulted patient yesterday, he recommended to start antibiotics and check BCR/ ABL translocation peripheral blood smear there is no immature cells and all these cells are mature with increase neutrophil in the peripheral blood smear. Toxic granulation was also noted in neutrophils Patient can developed leukemoid reaction Started ceftriaxone empirically Blood culture ordered Dr. Del nAgel by phone recommended WBC tag scan Diabetes Diabetes diet Insulin sliding scale Detemir Physical deconditioning Most likely due to multiple comorbidities Also could be attributed to depression I increased her dose of paroxetine PT/OT CKD (chronic kidney disease), stage IV Creatinine at baseline Continue to monitor Hypertension Continue home cardioprotective medications Depression I increased the dose of paroxetine Abdominal pain resolved Abdomen soft on the palpation patient continues to have persistent leukocytosis CT abdomen and pelvis showed Small hiatal hernia and some reflux of gastric contents into the hernia and lower esophagus. Nonobstructing small bilateral renal calculi. No hydronephrosis, hydroureter or ureteral stone. Small h yperdensity projecting off the right kidney posteriorly unchanged and likely a hyperdense cyst. Some mild cholelithiasis without biliary dilatation. Pancreas, liver, spleen and adrenal glands normal. Nonspecific gas pattern some scattered fluid and stool in the colon and fluid in the small bowel loops without obstruction or dilatation. No inflammatory changes in the mesentery, ascites or free air. Atrial fibrillation Continue Eliquis Heart rate under control VS,Fishbone, I+O VS, Fishbone, I+O Laboratory Tests 02/21/20 06:30 Vital Signs Date Time Temp Pulse Resp B/P (MAP) Pulse Ox O2 Delivery O2 Flow Rate FiO2 02/21/20 13:29 97.9 68 14 154/56 (88) 96 Room Air I&O- Last 24 Hours up to 6 AM 02/21/20 06:00 Intake Total 2370 ml Output Total 1150 ml Balance 1220 ml KAM CEJA DO Feb 21, 2020 15:06
[2020-02-21 16:34] VITALS: BP 145/60
[2020-02-21] MEDS: RAMELTEON 8 MG TAB (ROZEREM) PO SCH (21:57)
[2020-02-21] MEDS: PARoxetine 10MG TABLET PO SCH (21:59)
[2020-02-21 22:00] VITALS: BP 152/57
[2020-02-22] MEDS: ONDANSETRON 4 MG TAB PO PRN ×2 (03:19→09:28)
[2020-02-22] MEDS: NS 1,000 ML IV SCH (03:20)
[2020-02-22 06:00] VITALS: BP 145/62
[2020-02-22 06:58] LABS: HEMATOCRIT 29.6 % (36.0-47.0); HEMOGLOBIN 9.2 g/dl (12.0-15.5); MEAN CORPUSCULAR HGB CONC 31.1 g/dl (32.0-36.5); MEAN CORPUSCULAR VOLUME 99.7 fl (80.0-96.0); PLATELET COUNT, AUTOMATED 315 10^3/uL (150-450); RED BLOOD COUNT 2.97 10^6/uL (4.00-5.40)
[2020-02-22 07:00] LABS: WHITE BLOOD COUNT 31.5 10^3/uL (4.0-10.0)
[2020-02-22 07:07] LABS: C REACTIVE PROTEIN QUANTITATIV 6.75 MG/DL (0.00-0.30)
[2020-02-22 07:12] LABS: CALCIUM LEVEL 8.2 MG/DL (8.8-10.2); CREATININE FOR GFR 1.93 MG/DL (0.55-1.30); GLOMERULAR FILTRATION RATE 26.6 (>32); MAGNESIUM LEVEL 2.1 MG/DL (1.8-2.4)
[2020-02-22] MEDS: ISOSORBIDE DIN (ISORDIL) 10 MG TAB PO SCH ×2 (08:42→21:50)
[2020-02-22] MEDS: **hydrALAZINE** 50 MG TAB PO SCH ×3 (08:42→21:50)
[2020-02-22] MEDS: MAGNESIUM CHLORIDE 64 MG TABCR (SLO MAG) PO SCH ×2 (08:42→21:49)
[2020-02-22] MEDS: LORATADINE 10 MG TAB PO SCH (08:43)
[2020-02-22] MEDS: APIXABAN 2.5 MG TAB (ELIQUIS) PO SCH ×2 (08:43→21:50)
[2020-02-22] MEDS: amLODIPine 10 MG TAB PO SCH (08:43)
[2020-02-22] MEDS: VITAMIN D 1,000 INTERNATIONAL UNITS TABLET PO SCH (08:43)
[2020-02-22] MEDS: HumaLOG INSULIN (NovoLOG) PER UNIT SC SCH ×4 (08:44→21:00)
[2020-02-22] MEDS: METOPROLOL TARTRATE 100 MG TAB PO SCH ×2 (08:44→21:50)
[2020-02-22] MEDS: LEVEMIR (INSULIN DETEMIR) 1 UNITS/0.01ML SC SCH (08:45)
[2020-02-22] MEDS ORDERED: TORSEMIDE 20 MG TAB PO SCH (09:00)
[2020-02-22 10:29] LABS: PHOSPHORUS LEVEL 3.1 MG/DL (2.5-4.9); URIC ACID 5.3 MG/DL (2.6-6.0)
[2020-02-22] MEDS: TORSEMIDE 20 MG TAB PO SCH (11:02)
[2020-02-22] MEDS: cefTRIAXone SOD 1 GM in D5W MINI-BAG PLUS 50 ML IV SCH (11:02)
--- NOTE | 2020-02-22 12:22 | IPNPDOC ---
Text Note Date of Service The patient was seen on 02/22/20. NOTE Subjective: Patient had nausea in the morning and vomited once. Patient denied fever, chest pain, palpitations GENERAL APPEARANCE: NAD HEENT: no scleral icterus, no JVD, EOMI CARDIOVASCULAR: Irregularly irregular LUNGS: CTA ABDOMEN: soft & not tender w palpitation MUSCULOSKELETAL: no cyanosis, no swelling INTEGUMENT: no generalized palor NEUROLOGICAL: cranial nerve function from 2-12 intact intact, follows commands, speech not dysarthric Assessment/Plan Patient is 79 years old female with past medical history of hypertension, diabetes type 2, atrial fibrillation status post ablation, diastolic CHF presented to the hospital with increased weakness. Patient stated that she's been having generalized weakness for past 3-4 weeks. She described weakness lack of interest, lack of appetite, lack of energy. Patient has a history of depression. In ER patient was found to have leukocytosis of 15, pyuria. Patient denied fever, chills, nausea, vomiting, diarrhea Problems (1) UTI (urinary tract infection) Patient had leukocytosis with pyuria on admission completed course of ab leukocytosis Persistent Worsening today Dr. Raya consulted patient yesterday, he recommended to start antibiotics and check BCR/ ABL translocation peripheral blood smear there is no immature cells and all these cells are mature with increase neutrophil in the peripheral blood smear. Toxic granulation was also noted in neutrophils Patient can developed leukemoid reaction Blood culture one set from 03/02/20 showed gram positive cocci in clusters. Multiple blood cultures sets negative. Most likely is contamination, however she has persistent leukocytosis, I changed ceftriaxone for vancomycin IV Dr. Del Angel by phone recommended WBC tag scan Diabetes Diabetes diet Insulin sliding scale Detemir Physical deconditioning Most likely due to multiple comorbidities Also could be attributed to depression I increased her dose of paroxetine PT/OT CKD (chronic kidney disease), stage IV Creatinine at baseline Continue to monitor Hypertension Continue home cardioprotective medications Depression I increased the dose of paroxetine Abdominal pain resolved Abdomen soft on the palpation patient continues to have persistent leukocytosis CT abdomen and pelvis showed Small hiatal hernia and some reflux of gastric contents into the hernia and lower esophagus. Nonobstructing small bilateral r enal calculi. No hydronephrosis, hydroureter or ureteral stone. Small hyperdensity projecting off the right kidney posteriorly unchanged and likely a hyperdense cyst. Some mild cholelithiasis without biliary dilatation. Pancreas, liver, spleen and adrenal glands normal. Nonspecific gas pattern some scattered fluid and stool in the colon and fluid in the small bowel loops without obstruction or dilatation. No inflammatory changes in the mesentery, ascites or free air. Atrial fibrillation Continue Eliquis Heart rate under control VS,Fishbone, I+O VS, Fishbone, I+O Laboratory Tests 02/22/20 06:22 Vital Signs Date Time Temp Pulse Resp B/P (MAP) Pulse Ox O2 Delivery O2 Flow Rate FiO2 02/22/20 08:44 75 152/56 02/22/20 06:00 98.1 18 98 Room Air I&O- Last 24 Hours up to 6 AM 02/22/20 06:00 Intake Total 2750 ml Output Total 600 ml Balance 2150 ml KAM CEJA DO Feb 22, 2020 12:22
[2020-02-22] MEDS ORDERED: VANCOMYCIN HCL 750 MG, VIAL MATE ADAPTER 1 EACH in D5W 250 ML IV SCH (12:30)
[2020-02-22] MEDS ORDERED: VANCOMYCIN HCL 1,000 MG, VIAL MATE ADAPTER 1 EACH in D5W 250 ML IV ONE (13:00)
[2020-02-22 14:00] VITALS: BP 153/56
[2020-02-22] MEDS: PARoxetine 20 MG TAB PO SCH (21:49)
[2020-02-22] MEDS: RAMELTEON 8 MG TAB (ROZEREM) PO SCH (21:50)
[2020-02-22 22:00] VITALS: BP 155/58
[2020-02-23 06:00] VITALS: BP 156/59
[2020-02-23 06:17] LABS: HEMATOCRIT 29.4 % (36.0-47.0); HEMOGLOBIN 9.4 g/dl (12.0-15.5); MEAN CORPUSCULAR HEMOGLOBIN 31.3 pg (27.0-33.0); PLATELET COUNT, AUTOMATED 332 10^3/uL (150-450); WHITE BLOOD COUNT 28.4 10^3/uL (4.0-10.0)
[2020-02-23 06:41] LABS: CALCIUM LEVEL 8.8 MG/DL (8.8-10.2); CREATININE FOR GFR 2.13 MG/DL (0.55-1.30); GLOMERULAR FILTRATION RATE 23.7 (>32); POTASSIUM SERUM 3.2 MEQ/L (3.5-5.1); VANCOMYCIN RANDOM 10.2 UG/ML
--- NOTE | 2020-02-23 07:28 | CR ---
DATE OF CONSULTATION: 02/19/2020 Asked to consult by Dr. Isaac for evaluation of leukocytosis with generalized weakness. HISTORY OF PRESENT ILLNESS: Courtney is a pleasant 79-year-old female with a history of depression that has been worse in the past month since she has been confined to the house and the sudden of her son about a year ago. Her depression has been worse. The patient states that she thinks her problem is related to depression. She denies any fever or chills. She states her weakness has been over the past 4 weeks gotten worse. She has no interest, no appetite, no energy. She has been seeing a counselor. Her son dropped , and no autopsy was done. The etiology his remained unclear. She was admitted on February 10 and discharged on February 12 with hypertensive emergency. At that time she had leukocytosis with a white count anywhere from 15-18. She had a CT abdomen, which showed enteritis, and therefore was treated with intravenous (IV) Flagyl. She was home less than 48 hours and came back with what she described as weakness and was treated with IV ceftriaxone from February 14 to February 16 and then switched to oral levofloxacin. Patient states she never had dysuria, flank pain, frequency. No urinary symptoms at all. She denied fever, chills, nausea, vomiting, or diarrhea. Her primary care provider is Dr. Martin. MEDICAL HISTORY: 1. Ndd-Dpmmxyb-njpgeedqh diabetes. 2. Hypertension. 3. Atrial fibrillation status post ablation. 4. gout. 5. Chronic diastolic heart failure. 6. Chronic kidney disease with neuropathy, retinopathy, and secondary hyperparathyroidism. 7. Major depression. 8. Anemia of chronic disease. 9. The patient had a bone marrow biopsy done [place] [address] Leyva and CARRIE in 2018. 10. Lumbar spinal stenosis. SURGICAL HISTORY: 1. Tonsillectomy. 2. Dilatation and curettage (D and C). FAMILY HISTORY: She has two sons. One acutely a year ago. She does not know the cause of his . Her lived to be , and her father had a stroke in his late 60s. SOCIAL HISTORY: She lives alone in [place]. 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 She drives. Does not smoke, drink, or use drugs. REVIEW OF SYSTEMS: She reports weakness, fatigue, depression, lack of interest. She has no fever or chills, no chest pain, no headache, no nausea, vomiting, or diarrhea, no neck pain or back pain. PHYSICAL EXAMINATION: She is a pleasant female in no acute distress. HEART: Normal S1, S2. No murmurs, rubs, or gallops. LUNGS: Clear. No wheezes, rhonchi or rales. ABDOMEN: Soft, nontender. No hepatosplenomegaly. Mildly obese. BACK: No costovertebral angle (CVA) or lumbosacral tenderness EXTREMITIES: No edema, clubbing, or cyanosis. Her nails are long and need to be trimmed. Dorsalis pedis pulses 1+. SKIN: Tanned but no rashes to suggest infection. She has multiple freckles and skin lesions suggestive of seborrheic keratosis. LABORATORY DATA: White count 21.7. Has fluctuated in the past 10 days from 22.1 to 15.5. Peripheral smear was done during the previous hospitalization, which did not show any blasts. Today her white count is 21.7, hemoglobin 10.3, hematocrit 32.3, platelets 338. ESR 65. Sodium 139, potassium 3.4, chloride 108, bicarbonate 22, BUN 71, creatinine 2.86, glucose 171, calcium 9.1, magnesium 2.2, CRP 0.61. Procalcitonin 0.11. TSH 2.49. Iron 35, TIBC 16%, 16% iron saturation. CT abdomen and pelvis shows a small hiatal hernia with some reflux into the esophagus. Nonobstructing bilateral renal calculi. No hydronephrosis, hydroureter, or stones. Some mild cholelithiasis without dilatation. Pancreas, liver, spleen, adrenals normal, and nonspecific bowel-gas pattern. Chest x-ray showed no acute disease. Aorta is calcific. IMPRESSION: This is an 79-year-old female with a history of hypertension, diabetes, hyperlipidemia, chronic kidney disease, who presents on these two admissions in the past 10 days with weakness, depressive symptoms, hypertensive emergency. The patient admits to being very depressed since the loss of her son and COVID, being house bound. Patient states she is usually very busy and is on three boards, but she has not been able to do any of that. She denied any symptoms to suggest an infection. No fever, chills, night sweats. Her labs, including her CRP being 0.61, procalcitonin 0.11, do not suggest an infectious etiology. She does not have symptomatic bacteriuria. Her urinalysis on previous admission had 5 white cells, 7 white cells, on February 14 four white cells, currently 5 white cells, and the patient has no symptoms. She has received two doses of IV ceftriaxone and currently on levofloxacin. PLAN: Discontinue antibiotics. She does not have an infectious cause of leukocytosis. She needs to be further worked up for possible chronic myeloid leukemia (CML), chronic lymphocytic leukemia (CLL), other causes of leukocytosis. Chest CT was obtained. Consider consultation with hematology. Will add lactic dehydrogenase (LDH), vitamin B12, and folate to work up her anemia. Discontinue levofloxacin. MTDD
--- NOTE | 2020-02-23 07:37 | IPN ---
DATE: 02/20/2020 Courtney is not feeling well. She just states she does not know what is wrong with her, and she is weak. She agrees that she is depressed. She would not mind increasing her antidepressant. She was on Paxil 10 mg, and that was increased by Dr. Isaac to 20 mg. She has had no fever or chills. No nausea, vomiting, or diarrhea. No abdominal pain. No dysuria, hematuria, or flank pain. LABORATORY DATA: White count is 23.6, hemoglobin 9.6, hematocrit 30.1, platelets 322. ESR 65. Sodium 140, potassium 3.6, chloride 111, bicarbonate 20, BUN 72, creatinine 2.61, glucose 195, calcium 8.7, magnesium 2.1. LDH 237. Folate was 8.4. Procalcitonin 0.1. Urine culture on February 14 had Escherichia (E) coli more than 1000. On February 14 two sets of blood cultures were no growth. On February 18, two sets of blood cultures were no growth after [address] done on February 18 shows no evidence of lymphoma in chest or upper abdomen. Both lungs are well aerated. Heart size is normal. Coronary calcification is present. Multiple-level degenerative vertebral end-plate osteophytosis with calcification and anterior central compression fractures at T10, T12, L1 with height loss. PHYSICAL EXAMINATION: Temperature is 97.6, pulse 72, respirations 16, blood pressure 135/53, oxygen saturation 98% on room air. HEART: Normal S1, S2. No murmurs. LUNGS: Clear. No wheezes, rhonchi or rales. ABDOMEN: Soft, nontender. No hepatosplenomegaly. BACK: No costovertebral angle (CVA) tenderness. EXTREMITIES: No clubbing, cyanosis, or edema. SKIN: Tanned. IMPRESSION: 1. Asymptomatic bacteria with Escherichia (E) coli. Antibiotics were discontinued. She already has received 3 days of broad-spectrum, including Rocephin and Levaquin. 2. Leukocytosis of unclear etiology. Rule out hematologic causes. I would suggest consulting with hematology or outpatient followup. Possibly a flow cytometry. Cortisol level will be also obtained. 3. Depression Paxil dose has been increased to 20 mg. PLAN: Case is discussed with Dr. Isaac. Please do not use empiric antibiotic to treat the white count. The patient is asymptomatic. CT abdomen, chest, and pelvis were all negative. As long as she does not have any focus of infection, I would not treat her with antibiotic, as this will increase her risk of Clostridium (C) difficile infection and multi-drug resistant organism. This could be further worked up as an outpatient. The patient is cleared from physical therapy. MTDD
[2020-02-23] MEDS ORDERED: POTASSIUM CHLORIDE 10 MEQ SR TABLET PO ONE ×2 (08:15→16:30)
[2020-02-23] MEDS: MAGNESIUM CHLORIDE 64 MG TABCR (SLO MAG) PO SCH ×2 (08:43→21:55)
[2020-02-23] MEDS: VITAMIN D 1,000 INTERNATIONAL UNITS TABLET PO SCH (08:43)
[2020-02-23] MEDS: LORATADINE 10 MG TAB PO SCH (08:44)
[2020-02-23] MEDS: ROSUVASTATIN 10 MG TAB (CRESTOR) PO SCH (08:44)
[2020-02-23] MEDS: FERROUS SULFATE 325MG TAB PO SCH (08:44)
[2020-02-23] MEDS: amLODIPine 10 MG TAB PO SCH (08:44)
[2020-02-23] MEDS: APIXABAN 2.5 MG TAB (ELIQUIS) PO SCH ×2 (08:44→21:56)
[2020-02-23] MEDS: CALCITRIOL 0.25 MCG CAP (S0169) PO SCH (08:44)
[2020-02-23] MEDS: **hydrALAZINE** 50 MG TAB PO SCH ×3 (08:45→22:00)
[2020-02-23] MEDS: ISOSORBIDE DIN (ISORDIL) 10 MG TAB PO SCH ×2 (08:45→21:59)
[2020-02-23] MEDS: TORSEMIDE 20 MG TAB PO SCH (08:46)
[2020-02-23] MEDS: HumaLOG INSULIN (NovoLOG) PER UNIT SC SCH ×4 (08:47→21:00)
[2020-02-23] MEDS: LEVEMIR (INSULIN DETEMIR) 1 UNITS/0.01ML SC SCH (08:48)
[2020-02-23] MEDS: METOPROLOL TARTRATE 100 MG TAB PO SCH ×2 (08:49→22:01)
[2020-02-23] MEDS ORDERED: VANCOMYCIN HCL 1,000 MG, VIAL MATE ADAPTER 1 EACH in D5W 250 ML IV SCH (09:00)
[2020-02-23 09:46] LABS: CORTISOL AM 24.8 UG/DL (4.3-22.4)
[2020-02-23 14:00] VITALS: BP 140/54
--- NOTE | 2020-02-23 16:27 | IPNPDOC ---
Text Note Date of Service The patient was seen on 02/23/20. NOTE Subjective: Patient had nausea in the morning and vomited once. Patient denied fever, chest pain, palpitations GENERAL APPEARANCE: NAD HEENT: no scleral icterus, no JVD, EOMI CARDIOVASCULAR: Irregularly irregular LUNGS: CTA ABDOMEN: soft & not tender w palpitation MUSCULOSKELETAL: no cyanosis, no swelling INTEGUMENT: no generalized palor NEUROLOGICAL: cranial nerve function from 2-12 intact intact, follows commands, speech not dysarthric Assessment/Plan Patient is 79 years old female with past medical history of hypertension, diabetes type 2, atrial fibrillation status post ablation, diastolic CHF presented to the hospital with increased weakness. Patient stated that she's been having generalized weakness for past 3-4 weeks. She described weakness lack of interest, lack of appetite, lack of energy. Patient has a history of depression. In ER patient was found to have leukocytosis of 15, pyuria. Patient denied fever, chills, nausea, vomiting, diarrhea Problems (1) UTI (urinary tract infection) Patient had leukocytosis with pyuria on admission completed course of ab leukocytosis Persistent Worsening today Dr. Raya consulted patient yesterday, he recommended to start antibiotics and check BCR/ ABL translocation peripheral blood smear there is no immature cells and all these cells are mature with increase neutrophil in the peripheral blood smear. Toxic granulation was also noted in neutrophils Patient can developed leukemoid reaction Blood culture one set from 03/02/20 showed gram positive cocci in clusters. Multiple blood cultures sets negative. Most likely is contamination, however she has persistent leukocytosis, I changed ceftriaxone for vancomycin IV. Today Repeated blood culture was negative. Vancomycin DC Dr. Del Angel recommended WBC tag scan Diabetes Diabetes diet Insulin sliding scale Detemir Physical deconditioning Most likely due to multiple comorbidities Also could be attributed to depression I increased her dose of paroxetine PT/OT CKD (chronic kidney disease), stage IV Creatinine at baseline Continue to monitor Hypertension Continue home cardioprotective medications Depression I increased the dose of paroxetine Abdominal pain resolved Abdomen soft on the palpation patient continues to have persistent leukocytosis CT abdomen and pelvis showed Small hiatal hernia and some reflux of gastric contents into the hernia and lower esophagus. Nonobstructing small bilateral renal calculi. No hydronephrosis, hydroureter or ureteral stone. Small hyperdensity projecting off the right kidney posteriorly unchanged and likely a hyperdense cyst. Some mild cholelithiasis without biliary dilatation. Pancreas, liver, spleen and adrenal glands normal. Nonspecific gas pattern some scattered fluid and stool in the colon and fluid in the small bowel loops without obstruction or dilatation. No inflammatory changes in the mesentery, ascites or free air. Atrial fibrillation Continue Eliquis Heart rate under control VS,Fishbone, I+O VS, Fishbone, I+O Laboratory Tests 02/23/20 05:57 Vital Signs Date Time Temp Pulse Resp B/P (MAP) Pulse Ox O2 Delivery O2 Flow Rate FiO2 02/23/20 08:49 79 162/59 02/23/20 06:00 97.8 20 95 Room Air I&O- Last 24 Hours up to 6 AM 02/23/20 06:00 Intake Total 2590 ml Output Total 1550 ml Balance 1040 ml KAM CEJA DO Feb 23, 2020 16:27
[2020-02-23] MEDS: allopurinoL 100 MG TAB PO SCH (21:55)
[2020-02-23] MEDS: RAMELTEON 8 MG TAB (ROZEREM) PO SCH (21:59)
[2020-02-23 22:00] VITALS: BP 157/57
[2020-02-23] MEDS: PARoxetine 20 MG TAB PO SCH (22:00)
[2020-02-24 06:00] VITALS: BP 152/50
[2020-02-24 06:09] LABS: HEMATOCRIT 28.7 % (36.0-47.0); HEMOGLOBIN 9.2 g/dl (12.0-15.5); MEAN CORPUSCULAR HEMOGLOBIN 31.3 pg (27.0-33.0); MEAN CORPUSCULAR HGB CONC 32.1 g/dl (32.0-36.5); MEAN CORPUSCULAR VOLUME 97.6 fl (80.0-96.0); PLATELET COUNT, AUTOMATED 336 10^3/uL (150-450); RED BLOOD COUNT 2.94 10^6/uL (4.00-5.40)
[2020-02-24 06:15] LABS: WHITE BLOOD COUNT 31.1 10^3/uL (4.0-10.0)
[2020-02-24 06:38] LABS: ALBUMIN 2.4 GM/DL (3.2-5.2); BILIRUBIN,TOTAL 0.3 MG/DL (0.2-1.0); CALCIUM LEVEL 8.6 MG/DL (8.8-10.2); CREATININE FOR GFR 2.28 MG/DL (0.55-1.30); GLOMERULAR FILTRATION RATE 21.9 (>32); POTASSIUM SERUM 3.6 MEQ/L (3.5-5.1); TOTAL PROTEIN 5.7 GM/DL (6.4-8.2)
[2020-02-24] MEDS ORDERED: ALENDRONATE 35MG TABLET PO SCH (07:00)
[2020-02-24] MEDS: HumaLOG INSULIN (NovoLOG) PER UNIT SC SCH ×4 (08:23→21:00)
[2020-02-24] MEDS: LEVEMIR (INSULIN DETEMIR) 1 UNITS/0.01ML SC SCH (08:24)
[2020-02-24] MEDS: LORATADINE 10 MG TAB PO SCH (08:25)
[2020-02-24] MEDS: TORSEMIDE 20 MG TAB PO SCH (08:25)
[2020-02-24] MEDS: MAGNESIUM CHLORIDE 64 MG TABCR (SLO MAG) PO SCH ×2 (08:25→21:33)
[2020-02-24] MEDS: APIXABAN 2.5 MG TAB (ELIQUIS) PO SCH ×2 (08:25→21:34)
[2020-02-24] MEDS: ISOSORBIDE DIN (ISORDIL) 10 MG TAB PO SCH ×2 (08:26→21:00)
[2020-02-24] MEDS: METOPROLOL TARTRATE 100 MG TAB PO SCH ×2 (08:26→21:36)
[2020-02-24] MEDS: VITAMIN D 1,000 INTERNATIONAL UNITS TABLET PO SCH (08:27)
[2020-02-24] MEDS: **hydrALAZINE** 50 MG TAB PO SCH ×3 (08:27→21:00)
[2020-02-24] MEDS: amLODIPine 10 MG TAB PO SCH (08:27)
[2020-02-24] MEDS: FERROUS SULFATE 325MG TAB PO SCH (08:29)
--- NOTE | 2020-02-24 08:33 | IPN ---
DATE: 02/23/2020 SUBJECTIVE: Courtney was seen today. She is complaining of some nausea and vomited once this morning. When she is asked what are her complaints, she states she does not know how to express it other than having a vague abdominal pain that is relieved after a bowel movement and just not feeling well. She does not have significant pain. No fever or chills. She was seen in consultation by hematology who did not feel her white count is hematologic disease. The smear was reviewed and there is no evidence of malignant cells. She has received so far Levaquin on 02/16 through 02/18, ceftriaxone 02/14 to 02/16 and then 02/20 to 02/21. This was a total of eight days of antibiotics and her white count is still elevated. She was started on vancomycin on 02/21 for one positive blood culture on 02/20 and that was one out of eight. LABORATORY DATA: White count 28.4, hemoglobin 9.4, hematocrit 29.4, platelets 332,000. Sodium 141, potassium 3.2, chloride 115, bicarb 18, BUN 58, creatinine 2.13, glucose 194, calcium 8.8, magnesium 2. BNP 4110. CRP 6.75, which is increased from 02/17 at 0.61. Cortisol level is slightly elevated at 24.8 and procalcitonin 0.29 with previous procalcitonin being 0.08 and 0.11. ASSESSMENT: 1. Nonspecific abdominal pain with one episode of nausea and vomiting. 2. Leukocytosis with no obvious focus of infection. The patient has received ample antibiotics to treat a urinary tract infection including five days of Rocephin and two days of levofloxacin. She does not have evidence of abscess on CT abdomen and pelvis. I doubt the urine is the cause of this leukocytosis. She will be scheduled for a tagged white blood cell scan with Indium to rule out any other possible infectious etiology causing this leukocytosis. 3. One positive blood culture out of eight with gram-positive cocci in cluster. This most likely is skin contaminant with 7/8 other blood cultures negative. We will obtain echocardiogram for further workup of leukocytosis. 4. Depression on increased dose of Prozac. 5. Slightly elevated cortisol level that needs to be followed up possibly as an outpatient with endocrinology with a result of 24.8 with a normal of 22.4. This could be stress-induced as well. PLAN: Discontinue IV vancomycin. Continue with IV Rocephin until tagged white blood cell scan. Obtain echocardiogram. Case has been discussed with Dr. Isaac. [facility]
--- NOTE | 2020-02-24 08:36 | ECHO ---
DATE OF PROCEDURE: 02/23/2020 Age: 79 Gender: Female Height: 154 cm Weight: 71 kg REFERRING PHYSICIAN: Dr. Isaac. INDICATION: Murmur. MEASUREMENTS: IVS 1.2 cm LV 3.7 cm LVPW 1.4 cm LA 3.6 cm Aorta 2.8 cm IVC 1.1 cm Mitral E wave velocity 78 Mitral A wave velocity 114 E prime septal 4.8 E prime lateral 8.6 FINDINGS: This study is of good technical quality. Patient is in sinus rhythm. Normal left ventricular (LV) size with [id number] left ventricular hypertrophy (LVH) and hyperdynamic left ventricular (LV) systolic function. Estimated left ventricular ejection fraction (LVEF) 70% to 75%. No segmental wall motion abnormalities are noted. Right ventricle is normal. Both atria appear normal. Aortic valve is tricuspid. It is minimally sclerotic, but mobility is preserved. There are also mild degenerative abnormalities of the mitral valve with mitral annular calcifications, but mobility of leaflets is intact. Tricuspid and pulmonic valves appear normal. No pericardial effusion is noted. Inferior vena cava is of relatively small size and appropriately collapses with inspiration indicative of normal central venous pressure. The aortic root is normal. The aortic arch and abdominal aorta were not visualized. Doppler interrogation of the aortic valve reveals no significant stenosis or insufficiency. There is trace mitral and tricuspid insufficiency. Calculated pulmonary artery pressure is in the high 30s corresponding to mild pulmonary hypertension. Mitral inflow pattern on tissue Doppler imaging of the mitral annulus revealed grade 1 diastolic dysfunction. CONCLUSIONS: 1. Study is of good technical quality, underlying sinus rhythm. 2. Normal left ventricular (LV) size with mild left ventricular hypertrophy (LVH), hyperdynamic left ventricular (LV) systolic function (LVEF of 70% to 75%) and grade 1 diastolic dysfunction. 3. No significant valvular disease. 4. Normal central venous pressure and mild pulmonary hypertension. COMMENTS: The heart murmur is most likely due to underlying aortic sclerosis. Overall study most consistent with hypertensive heart disease. MTDD
--- NOTE | 2020-02-24 12:05 | IPNPDOC ---
Text Note Date of Service The patient was seen on 02/24/20. NOTE Subjective: No any acute events overnight. Overnight patient developed 3 epi sodes of liquid stool. Patient was tested positive for C. difficile infection GENERAL APPEARANCE: NAD HEENT: no scleral icterus, no JVD, EOMI CARDIOVASCULAR: Irregularly irregular LUNGS: CTA ABDOMEN: soft & not tender w palpitation MUSCULOSKELETAL: no cyanosis, no swelling INTEGUMENT: no generalized pallor NEUROLOGICAL: cranial nerve function from 2-12 intact intact, follows commands, speech not dysarthric Assessment/Plan Patient is 79 years old female with past medical history of hypertension, diabetes type 2, atrial fibrillation status post ablation, diastolic CHF presented to the hospital with increased weakness. Patient stated that she's been having generalized weakness for past 3-4 weeks. She described weakness lack of interest, lack of appetite, lack of energy. Patient has a history of depression. In ER patient was found to have leukocytosis of 15, pyuria. Patient denied fever, chills, nausea, vomiting, diarrhea Problems (1) UTI (urinary tract infection) Patient had leukocytosis with pyuria on admission completed course of ab leukocytosis Most likely secondary to C. difficile infection C. difficile Yesterday night patient was tested positive for C. difficile infection Vancomycin by mouth started Diabetes Diabetes diet Insulin sliding scale Detemir Physical deconditioning Most likely due to multiple comorbidities Also could be attributed to depression I increased her dose of paroxetine PT/OT CKD (chronic kidney disease), stage IV Creatinine at baseline Continue to monitor Hypertension Continue home cardioprotective medications Depression I increased the dose of paroxetine Abdominal pain resolved Abdomen soft on the palpation patient continues to have persistent leukocytosis CT abdomen and pelvis showed Small hiatal hernia and some reflux of gastric contents into the hernia and lower esophagus. Nonobstructing small bilateral renal calculi. No hydronephrosis, hydroureter or ureteral stone. Small hyperdensity projecting off the right kidney posteriorly unchanged and likely a hyperdense cyst. Some mild cholelithiasis without biliary dilatation. Pancreas, liver, spleen and adrenal glands normal. Nonspecific gas pattern some scattered fluid and stool in the colon and fluid in the small bowel loops without obstruction or dilatation. No inflammatory changes in the mesentery, ascites or free air. Atrial fibrillation Continue Eliquis Heart rate under control VS,Fishbone, I+O VS, Fishbone, I+O Laboratory Tests 02/24/20 05:43 Vital Signs Date Time Temp Pulse Resp B/P (MAP) Pulse Ox O2 Delivery O2 Flow Rate FiO2 02/24/20 08:26 80 02/24/20 08:26 156/57 02/24/20 06:00 98.6 15 95 Room Air I&O- Last 24 Hours up to 6 AM 02/24/20 06:00 Intake Total 1000 ml Output Total 1601 ml Balance -601 ml KAM CEJA DO Feb 24, 2020 12:05
[2020-02-24] MEDS: ROSUVASTATIN 10 MG TAB (CRESTOR) PO SCH (12:22)
[2020-02-24 14:00] VITALS: BP 123/51
[2020-02-24] MEDS: RAMELTEON 8 MG TAB (ROZEREM) PO SCH (21:33)
[2020-02-24] MEDS: PARoxetine 20 MG TAB PO SCH (21:34)
[2020-02-24] MEDS: allopurinoL 100 MG TAB PO SCH (21:34)
[2020-02-24 22:00] VITALS: BP 158/55
[2020-02-25 03:23] LABS: CLOSTRIDIUM DIFFICILE PCR POSITIVE (NEGATIVE)
[2020-02-25] MEDS: VANCOMYCIN ORAL SOL 250MG/5ML ORAL SYRINGE PO SCH ×3 (05:59→18:23)
[2020-02-25 06:00] VITALS: BP 138/46
[2020-02-25 06:15] LABS: HEMATOCRIT 28.3 % (36.0-47.0); HEMOGLOBIN 8.9 g/dl (12.0-15.5); MEAN CORPUSCULAR HEMOGLOBIN 30.6 pg (27.0-33.0); MEAN CORPUSCULAR HGB CONC 31.4 g/dl (32.0-36.5); MEAN CORPUSCULAR VOLUME 97.3 fl (80.0-96.0); PLATELET COUNT, AUTOMATED 348 10^3/uL (150-450); RED BLOOD COUNT 2.91 10^6/uL (4.00-5.40); WHITE BLOOD COUNT 26.6 10^3/uL (4.0-10.0)
[2020-02-25 06:40] LABS: ALBUMIN 2.4 GM/DL (3.2-5.2); BILIRUBIN,TOTAL 0.3 MG/DL (0.2-1.0); CALCIUM LEVEL 8.4 MG/DL (8.8-10.2); CREATININE FOR GFR 2.43 MG/DL (0.55-1.30); GLOMERULAR FILTRATION RATE 20.4 (>32); POTASSIUM SERUM 3.1 MEQ/L (3.5-5.1); TOTAL PROTEIN 5.5 GM/DL (6.4-8.2)
[2020-02-25] MEDS ORDERED: POTASSIUM CHLORIDE 10 MEQ SR TABLET PO ONE (09:00)
[2020-02-25] MEDS: APIXABAN 2.5 MG TAB (ELIQUIS) PO SCH ×2 (09:23→21:16)
[2020-02-25] MEDS: MAGNESIUM CHLORIDE 64 MG TABCR (SLO MAG) PO SCH ×2 (09:23→21:14)
[2020-02-25] MEDS: LORATADINE 10 MG TAB PO SCH (09:24)
[2020-02-25] MEDS: amLODIPine 10 MG TAB PO SCH (09:24)
[2020-02-25] MEDS: **hydrALAZINE** 50 MG TAB PO SCH ×3 (09:24→21:16)
[2020-02-25] MEDS: TORSEMIDE 20 MG TAB PO SCH (09:24)
[2020-02-25] MEDS: VITAMIN D 1,000 INTERNATIONAL UNITS TABLET PO SCH (09:25)
[2020-02-25] MEDS: METOPROLOL TARTRATE 100 MG TAB PO SCH ×2 (09:25→21:16)
[2020-02-25] MEDS: ISOSORBIDE DIN (ISORDIL) 10 MG TAB PO SCH ×2 (09:25→21:15)
[2020-02-25] MEDS: HumaLOG INSULIN (NovoLOG) PER UNIT SC SCH ×4 (09:26→21:00)
[2020-02-25] MEDS: LEVEMIR (INSULIN DETEMIR) 1 UNITS/0.01ML SC SCH (09:32)
[2020-02-25] MEDS: CALCITRIOL 0.25 MCG CAP (S0169) PO SCH (09:35)
[2020-02-25] MEDS ORDERED: VANC1CAP6 PO (12:11)
[2020-02-25 14:00] VITALS: BP 132/44
[2020-02-25] MEDS: ONDANSETRON 4 MG TAB PO PRN ×2 (16:26→21:16)
[2020-02-25] MEDS: RAMELTEON 8 MG TAB (ROZEREM) PO SCH (21:15)
[2020-02-25] MEDS: PARoxetine 20 MG TAB PO SCH (21:16)
[2020-02-25] MEDS: allopurinoL 100 MG TAB PO SCH (21:16)
[2020-02-25 22:00] VITALS: BP 169/71
[2020-02-26] MEDS: VANCOMYCIN ORAL SOL 250MG/5ML ORAL SYRINGE PO SCH ×4 (00:23→17:48)
[2020-02-26 06:00] VITALS: BP 134/44
[2020-02-26 06:02] LABS: HEMATOCRIT 28.9 % (36.0-47.0); HEMOGLOBIN 9.2 g/dl (12.0-15.5); MEAN CORPUSCULAR HEMOGLOBIN 30.8 pg (27.0-33.0); MEAN CORPUSCULAR HGB CONC 31.8 g/dl (32.0-36.5); MEAN CORPUSCULAR VOLUME 96.7 fl (80.0-96.0); PLATELET COUNT, AUTOMATED 362 10^3/uL (150-450); RED BLOOD COUNT 2.99 10^6/uL (4.00-5.40)
[2020-02-26 06:25] LABS: ALBUMIN 2.4 GM/DL (3.2-5.2); BILIRUBIN,TOTAL 0.4 MG/DL (0.2-1.0); CALCIUM LEVEL 8.3 MG/DL (8.8-10.2); CREATININE FOR GFR 2.62 MG/DL (0.55-1.30); GLOMERULAR FILTRATION RATE 18.7 (>32); POTASSIUM SERUM 3.5 MEQ/L (3.5-5.1); TOTAL PROTEIN 5.7 GM/DL (6.4-8.2)
[2020-02-26] MEDS: MAGNESIUM CHLORIDE 64 MG TABCR (SLO MAG) PO SCH ×2 (08:47→21:57)
[2020-02-26] MEDS: HumaLOG INSULIN (NovoLOG) PER UNIT SC SCH ×4 (08:47→22:01)
[2020-02-26] MEDS: TORSEMIDE 20 MG TAB PO SCH (08:48)
[2020-02-26] MEDS: amLODIPine 10 MG TAB PO SCH (08:48)
[2020-02-26] MEDS: VITAMIN D 1,000 INTERNATIONAL UNITS TABLET PO SCH (08:49)
[2020-02-26] MEDS: METOPROLOL TARTRATE 100 MG TAB PO SCH ×2 (08:49→22:00)
[2020-02-26] MEDS: APIXABAN 2.5 MG TAB (ELIQUIS) PO SCH ×2 (08:49→22:00)
[2020-02-26] MEDS: LORATADINE 10 MG TAB PO SCH (08:49)
[2020-02-26] MEDS: **hydrALAZINE** 50 MG TAB PO SCH ×3 (08:50→21:59)
[2020-02-26] MEDS: ISOSORBIDE DIN (ISORDIL) 10 MG TAB PO SCH ×2 (08:50→22:00)
[2020-02-26] MEDS: LEVEMIR (INSULIN DETEMIR) 1 UNITS/0.01ML SC SCH (08:51)
[2020-02-26] MEDS: ROSUVASTATIN 10 MG TAB (CRESTOR) PO SCH (08:57)
[2020-02-26] MEDS: FERROUS SULFATE 325MG TAB PO SCH (08:57)
--- NOTE | 2020-02-26 12:29 | IPNPDOC ---
Text Note Date of Service The patient was seen on 02/26/20. NOTE Subjective: No any acute events overnight. Overnight patient developed 2 epi sodes of liquid stool. Today the charging nurse told me that patient was admitted with diarrhea, but number of bowel movements was not documented properly during hospital stay. GENERAL APPEARANCE: NAD HEENT: no scleral icterus, no JVD, EOMI CARDIOVASCULAR: Irregularly irregular LUNGS: CTA ABDOMEN: soft & not tender w palpitation MUSCULOSKELETAL: no cyanosis, no swelling INTEGUMENT: no generalized pallor NEUROLOGICAL: cranial nerve function from 2-12 intact intact, follows commands, speech not dysarthric Assessment/Plan Patient is 79 years old female with past medical history of hypertension, diabetes type 2, atrial fibrillation status post ablation, diastolic CHF presented to the hospital with increased weakness. Patient stated that she's been having generalized weakness for past 3-4 weeks. She described weakness lack of interest, lack of appetite, lack of energy. Patient has a history of depression. In ER patient was found to have leukocytosis of 15, pyuria. Patient denied fever, chills, nausea, vomiting, diarrhea Problems (1) UTI (urinary tract infection) Patient had leukocytosis with pyuria on admission completed course of ab leukocytosis Most likely secondary to C. difficile infection Await wbc scan tag C. difficile on 02/26/20 patient was tested positive for C. difficile infection Vancomycin by mouth started Diabetes Diabetes diet Insulin sliding scale Detemir Physical deconditioning Most likely due to multiple comorbidities Also could be attributed to depression I increased her dose of paroxetine PT/OT CKD (chronic kidney disease), stage IV Creatinine at baseline Continue to monitor Hypertension Continue home cardioprotective medications Depression I increased the dose of paroxetine Abdominal pain resolved Abdomen soft on the palpation patient continues to have persistent leukocytosis CT abdomen and pelvis showed Small hiatal hernia and some reflux of gastric contents into the hernia and lower esophagus. Nonobstructing small bilateral renal calculi. No hydronephrosis, hydroureter or ureteral stone. Small hyperdensity projecting off the right kidney posteriorly unchanged and likely a hyperdense cyst. Some mild cholelithiasis without biliary dilatation. Pancreas, liver, spleen and adrenal glands normal. Nonspecific gas pattern some scattered fluid and stool in the colon and fluid in the small bowel loops without obstruction or dilatation. No inflammatory changes in the mesentery, ascites or free air. Atrial fibrillation Continue Eliquis Heart rate under control VS,Fishbone, I+O VS, Fishbone, I+O Laboratory Tests 02/26/20 05:36 Vital Signs Date Time Temp Pulse Resp B/P (MAP) Pulse Ox O2 Delivery O2 Flow Rate FiO2 02/26/20 08:48 80 118/58 02/26/20 06:00 98.9 17 96 Room Air I&O- Last 24 Hours up to 6 AM 02/26/20 06:00 Intake Total 250 ml Output Total 750 ml Balance -500 ml KAM CEJA DO Feb 26, 2020 12:29
[2020-02-26 14:00] VITALS: BP 142/46
--- NOTE | 2020-02-26 14:08 | REP ---
INDICATION: wbc in 111 for elevated wbc leukocytosis. COMPARISON: CT chest abdomen pelvis February 18 and February 18, 2020 respectively. TECHNIQUE: Six hundred fifty-nine uCi Indium 111 labeled leukocytes is administered and whole body imaging is acquired after 3 and 24 hours. FINDINGS: Expected physiologic distribution to the lungs on the 3 hour images is seen. There is normal activity in the liver spleen and axial bone marrow. There is abnormal uptake throughout the colon consistent with enterocolitis or inflammatory bowel disease. This persists on 24 hour whole body scans. No other abnormal focus of increased uptake is seen.. IMPRESSION: Diffuse moderate colonic uptake consistent with inflammatory bowel disease/enterocolitis.. Otherwise negative whole body indium 111 white blood cell scan. <Electronically signed by Ronnie Brumfield > 02/26/20 [id number]
[2020-02-26] MEDS ORDERED: PARO20TA3 PO (16:20)
[2020-02-26] MEDS ORDERED: ALEN35TA54 PO (16:20)
[2020-02-26] MEDS: RAMELTEON 8 MG TAB (ROZEREM) PO SCH (21:58)
[2020-02-26] MEDS: PARoxetine 20 MG TAB PO SCH (21:58)
[2020-02-26] MEDS: allopurinoL 100 MG TAB PO SCH (21:59)
[2020-02-26 22:00] VITALS: BP 140/47
[2020-02-27] MEDS: VANCOMYCIN ORAL SOL 250MG/5ML ORAL SYRINGE PO SCH ×2 (00:32→05:51)
[2020-02-27 06:00] VITALS: BP 137/49
[2020-02-27 06:02] LABS: HEMATOCRIT 27.7 % (36.0-47.0); HEMOGLOBIN 8.6 g/dl (12.0-15.5); MEAN CORPUSCULAR HEMOGLOBIN 30.4 pg (27.0-33.0); MEAN CORPUSCULAR VOLUME 97.9 fl (80.0-96.0); PLATELET COUNT, AUTOMATED 398 10^3/uL (150-450); RED BLOOD COUNT 2.83 10^6/uL (4.00-5.40)
[2020-02-27 06:07] LABS: WHITE BLOOD COUNT 30.7 10^3/uL (4.0-10.0)
[2020-02-27 06:31] LABS: ALBUMIN 2.3 GM/DL (3.2-5.2); BILIRUBIN,TOTAL 0.3 MG/DL (0.2-1.0); CALCIUM LEVEL 8.4 MG/DL (8.8-10.2); CREATININE FOR GFR 2.91 MG/DL (0.55-1.30); GLOMERULAR FILTRATION RATE 16.6 (>32); MAGNESIUM LEVEL 2.2 MG/DL (1.8-2.4); POTASSIUM SERUM 3.7 MEQ/L (3.5-5.1); TOTAL PROTEIN 5.2 GM/DL (6.4-8.2)
[2020-02-27] MEDS: MAGNESIUM CHLORIDE 64 MG TABCR (SLO MAG) PO SCH ×2 (09:31→21:26)
[2020-02-27] MEDS: APIXABAN 2.5 MG TAB (ELIQUIS) PO SCH ×2 (09:32→21:29)
[2020-02-27] MEDS: HumaLOG INSULIN (NovoLOG) PER UNIT SC SCH ×4 (09:32→21:00)
[2020-02-27] MEDS: LORATADINE 10 MG TAB PO SCH (09:32)
[2020-02-27] MEDS: VITAMIN D 1,000 INTERNATIONAL UNITS TABLET PO SCH (09:32)
[2020-02-27] MEDS: TORSEMIDE 20 MG TAB PO SCH (09:33)
[2020-02-27] MEDS: LEVEMIR (INSULIN DETEMIR) 1 UNITS/0.01ML SC SCH (09:34)
[2020-02-27] MEDS: **hydrALAZINE** 50 MG TAB PO SCH ×3 (09:34→21:00)
[2020-02-27] MEDS: ISOSORBIDE DIN (ISORDIL) 10 MG TAB PO SCH ×2 (09:35→21:00)
[2020-02-27] MEDS: amLODIPine 10 MG TAB PO SCH (09:35)
[2020-02-27] MEDS: METOPROLOL TARTRATE 100 MG TAB PO SCH ×2 (09:35→21:33)
[2020-02-27] MEDS: CALCITRIOL 0.25 MCG CAP (S0169) PO SCH (09:40)
[2020-02-27] MEDS: FIDAXOMICIN 200 MG TAB (DIFICID) PO SCH ×2 (12:25→21:28)
[2020-02-27 14:00] VITALS: BP 130/55
--- NOTE | 2020-02-27 14:39 | IPN ---
DATE: 02/27/2020 SUBJECTIVE: Courtney does not have any complaints today. Nursing states that she continues to have watery stools and is incontinent. The patient does not work with physical therapy all of the time. She stated she got out of the bed today and walked around the room. She states she does not want to go home, she does not feel comfortable, and she feels unsafe because she is weak. Her son, Jase [place], is a construction and he travels to [place] at times, but she states that he may be willing to stay with her home if she gets discharged, but she has not discussed that with him. Her health care proxy is not her son, it is Franchesca, who is a retired nurse. OBJECTIVE: VITAL SIGNS: Temperature 98.8, pulse 76, blood pressure 142/58, O2 sat 96% on room air. HEART: Normal S1, S2, no murmurs, irregularly irregular. LUNGS: Clear with no wheezing, rales, or rhonchi. ABDOMEN: Soft, obese, and nontender. No hepatosplenomegaly. EXTREMITIES: No clubbing, cyanosis, or edema. LABORATORY DATA: White count 30.7, hemoglobin 8.6, hematocrit 27.7, platelets 398,000. Sodium 142, potassium 3.7, chloride 111, bicarb 19, BUN 69, creatinine 2.91, glucose 196, calcium 8.4, magnesium 2.2, total bilirubin 0.38, AST 26, ALT 20, alkaline phosphatase 104, total protein 5.2, albumin 2.3. MEDICATIONS: - vancomycin 125 mg p.o. q. 6 hours currently day #3. - torsemide 20 mg p.o. daily. She is not on any proton pump inhibitor (PPI) of H2 blockers. Other medications have been reviewed. IMPRESSION: 1. Clostridium difficile colitis with tagged white blood cell scan showing diffuse uptake in the colon, but no other sources of infection. The patient states she did not come with diarrhea, the diarrhea started about a week ago when she had four bowel movements that were incontinence. CT abdomen and pelvis done on admission did not show colitis either. My suspicion is the patient developed C difficile hospital onset after she was on antibiotics for presumed urinary tract infection. 2. Escherichia coli (E. coli) bacteriuria was treated with Rocephin and levofloxacin currently asymptomatic. 3. Severe leukocytosis. Will have to monitor her white count after her treatment for C. difficile. If it persists, then she will need further hematologic workup. PLAN: Discontinue p.o. vancomycin. Patient is at high risk of recurrent C. diff and fidaxomicin is narrower spectrum better drug with less relapse rate. Will start 200 mg p.o. b.i.d. for 10 days. Patient would also be a candidate for IV ZINPLAVA, which could be given at discharge at the infusion unit. The patient should be evaluated for acute rehabilitation. She has not passed physical therapy and does not feel safe to go home. [facility]
--- NOTE | 2020-02-27 15:36 | IPNPDOC ---
Text Note Date of Service The patient was seen on 02/27/20. NOTE Subjective: No any acute events overnight. Patient continues to have watery stool with incontinence GENERAL APPEARANCE: NAD HEENT: no scleral icterus, no JVD, EOMI CARDIOVASCULAR: Irregularly irregular LUNGS: CTA ABDOMEN: soft & not tender w palpitation MUSCULOSKELETAL: no cyanosis, no swelling INTEGUMENT: no generalized pallor NEUROLOGICAL: cranial nerve function from 2-12 intact intact, follows commands, speech not dysarthric Assessment/Plan Patient is 79 years old female with past medical history of hypertension, diabetes type 2, atrial fibrillation status post ablation, diastolic CHF presented to the hospital with increased weakness. Patient stated that she's b een having generalized weakness for past 3-4 weeks. She described weakness lack of interest, lack of appetite, lack of energy. Patient has a history of depression. In ER patient was found to have leukocytosis of 15, pyuria. Patient denied fever, chills, nausea, vomiting, diarrhea Problems (1) UTI (urinary tract infection) Patient had leukocytosis with pyuria on admission completed course of ab leukocytosis Most likely secondary to C. difficile infection wbc scan tag showed colitis Will have to monitor her white count after her treatment for C. difficile. If it persists, then she will need further hematologic workup. C. difficile on 02/26/20 patient was tested positive for C. difficile infection Vancomycin by mouth started. Today, Dr. Del Angel changed vancomycin for Fidaxomicin, 200 mg p.o. b.i.d. for [address] Del Angel recommended IV ZINPLAVA, which could be given at discharge at the infusion unit. Diabetes Diabetes diet Insulin sliding scale Detemir Physical deconditioning Most likely due to multiple comorbidities Also could be attributed to depression I increased her dose of paroxetine PT/OT recommended rehabilitation after discharge CKD (chronic kidney disease), stage IV Continue to monitor Hypertension Continue home cardioprotective medications Depression I increased the dose of paroxetine Abdominal pain resolved Abdomen soft on the palpation patient continues to have persistent leukocytosis CT abdomen and pelvis showed Small hiatal hernia and some reflux of gastric contents into the hernia and lower esophagus. Nonobstructing small bilateral renal calculi. No hydronephrosis, hydroureter or ureteral stone. Small hyperdensity projecting off the right kidney posteriorly unchanged and likely a hyperdense cyst. Some mild cholelithiasis without biliary dilatation. Pancreas, liver, spleen and adrenal glands normal. Nonspecific gas pattern some scattered fluid and stool in the colon and fluid in the small bowel loops without obstruction or dilatation. No inflammatory changes in the mesentery, ascites or free air. Atrial fibrillation Continue Eliquis Heart rate under control VS,Fishbone, I+O VS, Fishbone, I+O Laboratory Tests 02/27/20 05:37 Vital Signs Date Time Temp Pulse Resp B/P (MAP) Pulse Ox O2 Delivery O2 Flow Rate FiO2 02/27/20 14:00 98.5 72 16 130/55 (80) 96 Room Air I&O- Last 24 Hours up to 6 AM 02/27/20 05:59 Intake Total 1380 ml Output Total 0 ml Balance 1380 ml KAM CEJA DO Feb 27, 2020 15:36
[2020-02-27] MEDS: RAMELTEON 8 MG TAB (ROZEREM) PO SCH (21:28)
[2020-02-27] MEDS: PARoxetine 20 MG TAB PO SCH (21:29)
[2020-02-27 22:00] VITALS: BP 134/53
[2020-02-28 06:00] VITALS: BP_SYST 141; BP_SYST 147; BP_DIAS 50
[2020-02-28 07:22] LABS: HEMATOCRIT 27.3 % (36.0-47.0); HEMOGLOBIN 8.8 g/dl (12.0-15.5); MEAN CORPUSCULAR HEMOGLOBIN 31.5 pg (27.0-33.0); MEAN CORPUSCULAR HGB CONC 32.2 g/dl (32.0-36.5); MEAN CORPUSCULAR VOLUME 97.8 fl (80.0-96.0); PLATELET COUNT, AUTOMATED 396 10^3/uL (150-450); RED BLOOD COUNT 2.79 10^6/uL (4.00-5.40); WHITE BLOOD COUNT 22.5 10^3/uL (4.0-10.0)
[2020-02-28 07:42] LABS: ALBUMIN 2.4 GM/DL (3.2-5.2); BILIRUBIN,TOTAL 0.4 MG/DL (0.2-1.0); CALCIUM LEVEL 8.8 MG/DL (8.8-10.2); CREATININE FOR GFR 3.05 MG/DL (0.55-1.30); GLOMERULAR FILTRATION RATE 15.7 (>32); MAGNESIUM LEVEL 2.2 MG/DL (1.8-2.4); POTASSIUM SERUM 3.8 MEQ/L (3.5-5.1); TOTAL PROTEIN 5.2 GM/DL (6.4-8.2)
--- NOTE | 2020-02-28 09:25 | IPNPDOC ---
Text Note Date of Service The patient was seen on 02/28/20. NOTE Subjective: No any acute events overnight. Patient stated that she feels better today GENERAL APPEARANCE: NAD HEENT: no scleral icterus, no JVD, EOMI CARDIOVASCULAR: Irregularly irregular LUNGS: CTA ABDOMEN: soft & not tender w palpitation MUSCULOSKELETAL: no cyanosis, no swelling INTEGUMENT: no generalized pallor NEUROLOGICAL: cranial nerve function from 2-12 intact intact, follows commands, speech not dysarthric Assessment/Plan Patient is 79 years old female with past medical history of hypertension, diabetes type 2, atrial fibrillation status post ablation, diastolic CHF presented to the hospital with increased weakness. Patient stated that she's been having generalized weakness for past 3-4 weeks. She described weakness lack of interest, lack of appetite, lack of energy. Patient has a history of depression. In ER patient was found to have leukocytosis of 15, pyuria. Patient denied fever, chills, nausea, vomiting, diarrhea Problems (1) UTI (urinary tract infection) Patient had leukocytosis with pyuria on admission completed course of ab leukocytosis Most likely secondary to C. difficile infection wbc scan tag showed colitis Will have to monitor her white count after her treatment for C. difficile. If it persists, then she will need further hematologic workup. C. difficile on 02/26/20 patient was tested positive for C. difficile infection Vancomycin by mouth started. Today, Dr. Del Angel changed vancomycin for Fidaxomicin, 200 mg p.o. b.i.d. for [address] Del Angel recommended IV ZINPLAVA, which could be given at discharge at the infusion unit. Diabetes Diabetes diet Insulin sliding scale Detemir Physical deconditioning Most likely due to multiple comorbidities Also could be attributed to depression I increased her dose of paroxetine PT/OT recommended rehabilitation after discharge CKD (chronic kidney disease), stage IV Continue to monitor Hypertension Continue home cardioprotective medications Depression I increased the dose of paroxetine Abdominal pain resolved Abdomen soft on the palpation patient continues to have persistent leukocytosis CT abdomen and pelvis showed Small hiatal hernia and some reflux of gastric contents into the hernia and lower esophagus. Nonobstructing small bilateral renal calculi. No hydronephrosis, hydroureter or ureteral stone. Small hyperdensity projecting off the right kidney posteriorly unchanged and likely a hyperdense cyst. Some mild cholelithiasis without biliary dilatation. Pancreas, liver, spleen and adrenal glands normal. Nonspecific gas pattern some scattered fluid and stool in the colon and fluid in the small bowel loops without obstruction or dilatation. No inflammatory changes in the mesentery, ascites or free air. Atrial fibrillation Continue Eliquis Heart rate under control VS,Fishbone, I+O VS, Fishbone, I+O Laboratory Tests 02/28/20 06:01 Vital Signs Date Time Temp Pulse Resp B/P (MAP) Pulse Ox O2 Delivery O2 Flow Rate FiO2 02/28/20 06:00 97.6 69 20 141/50 (80) 97 Room Air I&O- Last 24 Hours up to 6 AM 02/28/20 06:00 Intake Total 890 ml Output Total 0 ml Balance 890 ml KAM CEJA DO Feb 28, 2020 09:25
[2020-02-28] MEDS: MAGNESIUM CHLORIDE 64 MG TABCR (SLO MAG) PO SCH ×2 (09:42→20:23)
[2020-02-28] MEDS: HumaLOG INSULIN (NovoLOG) PER UNIT SC SCH ×4 (09:42→20:28)
[2020-02-28] MEDS: LEVEMIR (INSULIN DETEMIR) 1 UNITS/0.01ML SC SCH (09:42)
[2020-02-28] MEDS: VITAMIN D 1,000 INTERNATIONAL UNITS TABLET PO SCH (09:43)
[2020-02-28] MEDS: TORSEMIDE 20 MG TAB PO SCH (09:43)
[2020-02-28] MEDS: APIXABAN 2.5 MG TAB (ELIQUIS) PO SCH ×2 (09:43→20:23)
[2020-02-28] MEDS: LORATADINE 10 MG TAB PO SCH (09:43)
[2020-02-28] MEDS: FIDAXOMICIN 200 MG TAB (DIFICID) PO SCH ×2 (09:43→20:25)
[2020-02-28] MEDS: amLODIPine 10 MG TAB PO SCH (09:45)
[2020-02-28] MEDS: ISOSORBIDE DIN (ISORDIL) 10 MG TAB PO SCH ×2 (09:45→20:30)
[2020-02-28] MEDS: **hydrALAZINE** 50 MG TAB PO SCH ×3 (09:46→20:30)
[2020-02-28] MEDS: METOPROLOL TARTRATE 100 MG TAB PO SCH ×2 (09:46→20:29)
[2020-02-28] MEDS: ROSUVASTATIN 10 MG TAB (CRESTOR) PO SCH (09:48)
[2020-02-28] MEDS: FERROUS SULFATE 325MG TAB PO SCH (09:48)
[2020-02-28 14:00] VITALS: BP 130/50
[2020-02-28] MEDS: PARoxetine 20 MG TAB PO SCH (20:24)
[2020-02-28] MEDS: RAMELTEON 8 MG TAB (ROZEREM) PO SCH (20:25)
[2020-02-29 06:00] VITALS: BP 158/59
[2020-02-29 07:11] LABS: HEMATOCRIT 27.2 % (36.0-47.0); HEMOGLOBIN 8.6 g/dl (12.0-15.5); MEAN CORPUSCULAR HEMOGLOBIN 30.6 pg (27.0-33.0); MEAN CORPUSCULAR HGB CONC 31.6 g/dl (32.0-36.5); MEAN CORPUSCULAR VOLUME 96.8 fl (80.0-96.0); PLATELET COUNT, AUTOMATED 330 10^3/uL (150-450); RED BLOOD COUNT 2.81 10^6/uL (4.00-5.40); WHITE BLOOD COUNT 13.8 10^3/uL (4.0-10.0)
[2020-02-29 07:40] LABS: ALBUMIN 2.3 GM/DL (3.2-5.2); BILIRUBIN,TOTAL 0.6 MG/DL (0.2-1.0); CALCIUM LEVEL 8.1 MG/DL (8.8-10.2); CREATININE FOR GFR 3.16 MG/DL (0.55-1.30); GLOMERULAR FILTRATION RATE 15.1 (>32); MAGNESIUM LEVEL 2.2 MG/DL (1.8-2.4); TOTAL PROTEIN 5.5 GM/DL (6.4-8.2)
[2020-02-29] MEDS: HumaLOG INSULIN (NovoLOG) PER UNIT SC SCH ×4 (09:32→20:19)
[2020-02-29] MEDS: VITAMIN D 1,000 INTERNATIONAL UNITS TABLET PO SCH (09:33)
[2020-02-29] MEDS: SODIUM BICARBONATE 325 MG TAB PO SCH ×2 (09:33→20:23)
[2020-02-29] MEDS: MAGNESIUM CHLORIDE 64 MG TABCR (SLO MAG) PO SCH ×2 (09:33→20:20)
[2020-02-29] MEDS: FIDAXOMICIN 200 MG TAB (DIFICID) PO SCH ×2 (09:33→20:22)
[2020-02-29] MEDS: APIXABAN 2.5 MG TAB (ELIQUIS) PO SCH ×2 (09:33→20:22)
[2020-02-29] MEDS: METOPROLOL TARTRATE 100 MG TAB PO SCH ×2 (09:34→20:26)
[2020-02-29] MEDS: ISOSORBIDE DIN (ISORDIL) 10 MG TAB PO SCH ×2 (09:34→20:27)
[2020-02-29] MEDS: LORATADINE 10 MG TAB PO SCH (09:34)
[2020-02-29] MEDS: **hydrALAZINE** 50 MG TAB PO SCH ×3 (09:34→20:27)
[2020-02-29] MEDS: amLODIPine 10 MG TAB PO SCH (09:35)
[2020-02-29] MEDS: LEVEMIR (INSULIN DETEMIR) 1 UNITS/0.01ML SC SCH (09:35)
[2020-02-29 14:00] VITALS: BP 139/55
--- NOTE | 2020-02-29 15:42 | IPNPDOC ---
Text Note Date of Service The patient was seen on 02/29/20. NOTE Subjective: No any acute events overnight. Patient stated that she feels better today, Diarrhea and abdominal pain getting better. PHYSICAL EXAM: VITALS: As below GENERAL APPEARANCE: NAD HEENT: no scleral icterus, moist mucous membranes NECK: no JVD CARDIOVASCULAR: Irregularly irregular, rate normal, no rub/ murmur or gallop LUNGS: CTA, no ronchi or wheezes, diminished breath sound at the bases. ABDOMEN: soft & not tender w palpitation, normal bowel sounds MUSCULOSKELETAL: no cyanosis, no swelling Extremities: No edema NEUROLOGICAL: cranial nerve function from 2-12 intact intact, follows commands, speech not dysarthric Labs and Radiology : reviewed Assessment/Plan Patient is 79 years old female with past medical history of hypertension, diabetes type 2, atrial fibrillation status post ablation, diastolic CHF presented to the hospital with increased weakness. Patient stated that she's been having generalized weakness for past 3-4 weeks. She described weakness lack of interest, lack of appetite, lack of energy. Patient has a history of depression. In ER patient was found to have leukocytosis of 15, pyuria. Admitted for UTI. Now has developed C diff colitis. C. diff colitis wbc scan tag showed colitis on 02/26/20 patient was tested positive for C. difficile infection Vancomycin by mouth started. Today, Dr. Del Angel changed vancomycin for Fidaxomicin, 200 mg p.o. b.i.d. for [address] Del Angel recommended IV ZINPLAVA, which could be given at discharge at the infusion unit. UTI (urinary tract infection) Patient had leukocytosis with pyuria on admission completed course of ab Diabetes with neuropathy, retinopathy Diabetes diet Insulin sliding scale, Levemir FS Ac and HS CKD (chronic kidney disease), stage IV with secondary hyperparathyroidism. mild worsening of creatinine. calcitriol mild acidosis will start bicarb. Physical deconditioning Most likely due to multiple comorbidities PT/OT recommended rehabilitation after discharge Hypertension amlodipine, metoprolol, hydralazine, torsemide on hold Major Depression paroxetine dose increased Atrial fibrillation Continue Eliquis, metoprolol Heart rate under control Diastolic CHF torsemide. Acute on chronic anemia, due to CKD patient had a bone marrow biopsy [place] [address] Leyva and SPEP in 2018. Hb lower than baseline of 10. on Iron supplements. due to infection/ phlebotomy will continue to monitor. Gout. allopurinol Lumbar spinal stenosis. VS,Fishbone, I+O VS, Fishbone, I+O Laboratory Tests 02/29/20 06:50 Vital Signs Date Time Temp Pulse Resp B/P (MAP) Pulse Ox O2 Delivery O2 Flow Rate FiO2 02/29/20 06:00 98.3 66 18 158/59 (92) 95 Room Air I&O- Last 24 Hours up to 6 AM 02/29/20 06:00 Intake Total 780 ml Output Total 450 ml Balance 330 ml DANIEL ZEPEDA MD Feb 29, 2020 08:10
[2020-02-29] MEDS: PARoxetine 20 MG TAB PO SCH (20:21)
[2020-02-29] MEDS: RAMELTEON 8 MG TAB (ROZEREM) PO SCH (20:21)
[2020-02-29] MEDS: allopurinoL 100 MG TAB PO SCH (20:24)
[2020-02-29 22:00] VITALS: BP 143/64
[2020-03-01 06:00] VITALS: BP 146/59
[2020-03-01 06:07] LABS: HEMATOCRIT 27.8 % (36.0-47.0); MEAN CORPUSCULAR HEMOGLOBIN 31.1 pg (27.0-33.0); MEAN CORPUSCULAR HGB CONC 32.4 g/dl (32.0-36.5); MEAN CORPUSCULAR VOLUME 96.2 fl (80.0-96.0); PLATELET COUNT, AUTOMATED 398 10^3/uL (150-450); RED BLOOD COUNT 2.89 10^6/uL (4.00-5.40); WHITE BLOOD COUNT 12.4 10^3/uL (4.0-10.0)
[2020-03-01 06:36] LABS: ALBUMIN 2.5 GM/DL (3.2-5.2); BILIRUBIN,TOTAL 0.3 MG/DL (0.2-1.0); CALCIUM LEVEL 8.2 MG/DL (8.8-10.2); CREATININE FOR GFR 3.1 MG/DL (0.55-1.30); GLOMERULAR FILTRATION RATE 15.4 (>32); MAGNESIUM LEVEL 2.2 MG/DL (1.8-2.4); POTASSIUM SERUM 3.8 MEQ/L (3.5-5.1); TOTAL PROTEIN 5.7 GM/DL (6.4-8.2)
[2020-03-01] MEDS: MAGNESIUM CHLORIDE 64 MG TABCR (SLO MAG) PO SCH ×2 (08:10→21:10)
[2020-03-01] MEDS: LEVEMIR (INSULIN DETEMIR) 1 UNITS/0.01ML SC SCH (08:11)
[2020-03-01] MEDS: FIDAXOMICIN 200 MG TAB (DIFICID) PO SCH ×2 (08:11→21:09)
[2020-03-01] MEDS: HumaLOG INSULIN (NovoLOG) PER UNIT SC SCH ×4 (08:11→21:10)
[2020-03-01] MEDS: SODIUM BICARBONATE 325 MG TAB PO SCH ×2 (08:12→21:10)
[2020-03-01] MEDS: APIXABAN 2.5 MG TAB (ELIQUIS) PO SCH ×2 (08:12→21:09)
[2020-03-01] MEDS: VITAMIN D 1,000 INTERNATIONAL UNITS TABLET PO SCH (08:12)
[2020-03-01] MEDS: LORATADINE 10 MG TAB PO SCH (08:12)
[2020-03-01] MEDS: ISOSORBIDE DIN (ISORDIL) 10 MG TAB PO SCH ×2 (08:13→21:09)
[2020-03-01] MEDS: amLODIPine 10 MG TAB PO SCH (08:13)
[2020-03-01] MEDS: METOPROLOL TARTRATE 100 MG TAB PO SCH ×2 (08:13→21:09)
[2020-03-01] MEDS: **hydrALAZINE** 50 MG TAB PO SCH ×3 (08:14→21:09)
[2020-03-01] MEDS: FERROUS SULFATE 325MG TAB PO SCH (08:16)
[2020-03-01] MEDS: CALCITRIOL 0.25 MCG CAP (S0169) PO SCH (08:16)
[2020-03-01] MEDS: ROSUVASTATIN 10 MG TAB (CRESTOR) PO SCH (08:16)
--- NOTE | 2020-03-01 11:11 | IPNPDOC ---
Text Note Date of Service The patient was seen on 03/01/20. NOTE Subjective: No any acute events overnight. Patient stated that she feels better today, Diarrhea and abdominal pain getting better has resolved. Says her appetite remains poor. PHYSICAL EXAM: VITALS: As below GENERAL APPEARANCE: NAD HEENT: no scleral icterus, moist mucous membranes NECK: no JVD CARDIOVASCULAR: Irregularly irregular, rate normal, no rub/ murmur or gallop LUNGS: CTA, no ronchi or wheezes, diminished breath sound at the bases. ABDOMEN: soft & not tender w palpitation, normal bowel sounds MUSCULOSKELETAL: no cyanosis, no swelling Extremities: No edema NEUROLOGICAL: cranial nerve function from 2-12 intact intact, follows commands, speech not dysarthric Labs and Radiology : reviewed Assessment/Plan Patient is 79 years old female with past medical history of hypertension, diabetes type 2, atrial fibrillation status post ablation, diastolic CHF presen bri to the hospital with increased weakness. Patient stated that she's been having generalized weakness for past 3-4 weeks. She described weakness lack of interest, lack of appetite, lack of energy. Patient has a history of depression. In ER patient was found to have leukocytosis of 15, pyuria. Admitted for UTI. Now has developed C diff colitis. C. diff colitis wbc scan tag showed colitis on 02/26/20 patient was tested positive for C. difficile infection On Fidaxomicin, 200 mg p.o. b.i.d. for 10 days started on 02/27/20 Dr. Del Angel recommended IV ZINPLAVA, which could be given at discharge at the infusion unit. UTI (urinary tract infection) completed course of antibiotic. Diabetes with neuropathy, retinopathy Diabetes diet Insulin sliding scale, Levemir FS Ac and HS CKD (chronic kidney disease), stage IV with secondary hyperparathyroidism. mild worsening of creatinine. calcitriol, bicarbonate. Physical deconditioning Most likely due to multiple comorbidities PT/OT recommended rehabilitation after discharge Hypertension amlodipine, metoprolol, hydralazine, torsemide Major Depression paroxetine dose increased Atrial fibrillation Continue Eliquis, metoprolol Heart rate under control Diastolic CHF torsemide. Acute on chronic anemia, due to CKD patient had a bone marrow [place] [address] Leyva and CARRIE in 2018. Hb lower than baseline of 10. on Iron supplements. due to infection/ phlebotomy will continue to monitor. Gout. allopurinol Lumbar spinal stenosis. Dispo: continued Rehab after discharge. May be a problem getting NH while patient still on Dificid because of cost of the Dificid. VS,Nayely, I+O VSNayely, I+O Laboratory Tests 03/01/20 05:45 Vital Signs Date Time Temp Pulse Resp B/P (MAP) Pulse Ox O2 Delivery O2 Flow Rate FiO2 03/01/20 08:13 69 03/01/20 08:13 151/58 03/01/20 06:00 98.9 18 98 Room Air I&O- Last 24 Hours up to 6 AM 03/01/20 06:00 Intake Total 290 ml Output Total 800 ml Balance -510 ml DANIEL ZEPEDA MD Mar 01, 2020 11:11
[2020-03-01 14:00] VITALS: BP 133/47
[2020-03-01] MEDS: PARoxetine 20 MG TAB PO SCH (21:09)
[2020-03-01] MEDS: RAMELTEON 8 MG TAB (ROZEREM) PO SCH (21:10)
[2020-03-01] MEDS: allopurinoL 100 MG TAB PO SCH (21:10)
[2020-03-01 22:00] VITALS: BP 167/65
[2020-03-02 02:40] VITALS: BP 154/52
[2020-03-02 06:00] VITALS: BP 165/74
[2020-03-02] MEDS: HumaLOG INSULIN (NovoLOG) PER UNIT SC SCH ×4 (09:45→21:00)
[2020-03-02] MEDS: TORSEMIDE 20 MG TAB PO SCH (09:46)
[2020-03-02] MEDS: FIDAXOMICIN 200 MG TAB (DIFICID) PO SCH ×2 (09:46→21:16)
[2020-03-02] MEDS: MAGNESIUM CHLORIDE 64 MG TABCR (SLO MAG) PO SCH ×2 (09:46→21:17)
[2020-03-02] MEDS: amLODIPine 10 MG TAB PO SCH (09:47)
[2020-03-02] MEDS: APIXABAN 2.5 MG TAB (ELIQUIS) PO SCH ×2 (09:47→21:16)
[2020-03-02] MEDS: LORATADINE 10 MG TAB PO SCH (09:47)
[2020-03-02] MEDS: **hydrALAZINE** 50 MG TAB PO SCH ×3 (09:47→21:16)
[2020-03-02] MEDS: VITAMIN D 1,000 INTERNATIONAL UNITS TABLET PO SCH (09:47)
[2020-03-02] MEDS: SODIUM BICARBONATE 325 MG TAB PO SCH ×2 (09:47→21:17)
[2020-03-02] MEDS: METOPROLOL TARTRATE 100 MG TAB PO SCH ×2 (09:47→21:16)
[2020-03-02] MEDS: ISOSORBIDE DIN (ISORDIL) 10 MG TAB PO SCH ×2 (09:48→21:16)
[2020-03-02] MEDS: LEVEMIR (INSULIN DETEMIR) 1 UNITS/0.01ML SC SCH (09:49)
[2020-03-02] MEDS: FERROUS SULFATE 325MG TAB PO SCH (09:56)
[2020-03-02] MEDS: ROSUVASTATIN 10 MG TAB (CRESTOR) PO SCH (09:56)
--- NOTE | 2020-03-02 11:57 | IPN ---
DATE: 03/01/2020 SUBJECTIVE: Courtney seems to be doing much better today. She is in good spirits. She denies any nausea, vomiting, or diarrhea. She has no abdominal pain. She has a smile on her face. She promised me she will get out of bed to have dinner. She was being evaluated for rehab but did well for physical therapy today. PHYSICAL EXAMINATION: Vital signs: Temperature 98.6, pulse 77, respirations 17, blood pressure 133/47, O2 saturation 96% on room air. Heart: Normal S1, S2 with a systolic ejection murmur 2/6. Lungs are clear. No wheezes, rales or rhonchi. Abdomen is soft and nontender, no hepatosplenomegaly. No bowel movement documented yesterday or today. LABS: White count is 12.8 down from 30.7 three days ago, hemoglobin 9, hematocrit 27.8, platelets 398. Sodium 137, potassium 3.8, chloride 108, bicarb 20, BUN 70, creatinine 3.1, glucose 229, calcium 8.2, magnesium 2.2, bilirubin 0.3, AST 59, ALT 51, alkaline phosphatase 104, total protein 5.7, albumin 2.1 IMPRESSION: 1. C. difficile colitis improving with Fidaxomicin 200 mg twice a day with a start date of 02/26 and date of 03/08. The patient would benefit from IV Zinplava due to advanced age, chronic kidney disease, severe leukocytosis, is at high risk of relapse. This would be done at the infusion unit after discharge. 2. Diabetes with neuropathy, retinopathy and chronic kidney disease with slightly worsening creatinine. The patient was encouraged to increase fluid intake. 3. Deconditioning. The patient was encouraged to get out of bed and have dinner in the chair. PLAN: 1. Encourage ambulation. 2. Continue Dificid at current dose with end of therapy scheduled for 03/08. 3. IV Zinplava needs to be scheduled as an outpatient with prior authorization at dose of 750 mg IV infusion. MTDD
--- NOTE | 2020-03-02 12:01 | IPNPDOC ---
Text Note Date of Service The patient was seen on 03/02/20. NOTE Subjective: No any acute events overnight. Patient stated that she feels better today, Diarrhea and abdominal pain getting better has resolved. Says her appetite remains poor. PHYSICAL EXAM: VITALS: As below GENERAL APPEARANCE: NAD HEENT: no scleral icterus, moist mucous membranes NECK: no JVD CARDIOVASCULAR: Irregularly irregular, rate normal, no rub/ murmur or gallop LUNGS: CTA, no ronchi or wheezes, diminished breath sound at the bases. ABDOMEN: soft & not tender w palpitation, normal bowel sounds MUSCULOSKELETAL: no cyanosis, no swelling Extremities: No edema NEUROLOGICAL: cranial nerve function from 2-12 intact intact, follows commands, speech not dysarthric Labs and Radiology : reviewed Assessment/Plan Patient is 79 years old female with past medical history of hypertension, diabetes type 2, atrial fibrillation status post ablation, diastolic CHF presented to the hospital with increased weakness. Patient stated that she's been having generalized weakness for past 3-4 weeks. She described weakness lack of interest, lack of appetite, lack of energy. Patient has a history of depression. In ER patient was found to have leukocytosis of 15, pyuria. Admitted for UTI. Now has developed C diff colitis. C. diff colitis wbc scan tag showed colitis on 02/26/20 patient was tested positive for C. difficile infection On Fidaxomicin, 200 mg p.o. b.i.d. for 10 days started on 02/27/20 Dr. Del Angel recommended IV ZINPLAVA, which could be given at discharge at the infusion unit. UTI (urinary tract infection) completed course of antibiotic. Diabetes with neuropathy, retinopathy Diabetes diet Insulin sliding scale, Levemir FS Ac and HS CKD (chronic kidney disease), stage IV with secondary hyperparathyroidism. mild worsening of creatinine. calcitriol, bicarbonate. Physical deconditioning Most likely due to multiple comorbidities PT/OT recommended rehabilitation after discharge Hypertension amlodipine, metoprolol, hydralazine, torsemide Major Depression paroxetine dose increased Atrial fibrillation Continue Eliquis, metoprolol Heart rate under control Diastolic CHF torsemide. Acute on chronic anemia, due to CKD patient had a bone marrow [place] [address] Leyva and CARRIE in 2018. Hb lower than baseline of 10. on Iron supplements. due to infection/ phlebotomy will continue to monitor. Gout. allopurinol Lumbar spinal stenosis. Dispo: continued Rehab after discharge. May be a problem getting NH while patient still on Dificid because of cost of the Dificid. VS,Fishbone, I+O VS, Fishbone, I+O Vital Signs Date Time Temp Pulse Resp B/P (MAP) Pulse Ox O2 Delivery O2 Flow Rate FiO2 03/02/20 09:47 143/56 03/02/20 09:47 73 03/02/20 06:00 98.3 18 98 Room Air I&O- Last 24 Hours up to 6 AM 03/02/20 06:00 Intake Total 470 ml Output Total 900 ml Balance -430 ml DANIEL ZEPEDA MD Mar 02, 2020 12:01
[2020-03-02 14:00] VITALS: BP 142/54
[2020-03-02] MEDS: PARoxetine 20 MG TAB PO SCH (21:16)
[2020-03-02] MEDS: allopurinoL 100 MG TAB PO SCH (21:17)
[2020-03-02] MEDS: RAMELTEON 8 MG TAB (ROZEREM) PO SCH (21:17)
[2020-03-02 22:00] VITALS: BP 144/53
[2020-03-03 05:59] LABS: BASO # 0.1 10^3/uL (0.0-0.2); BASO % 0.6 % (0.0-1.0); EOS # 0.3 10^3/uL (0.0-0.5); EOS % 3.2 % (0.0-3.0); HEMOGLOBIN 9.2 g/dl (12.0-15.5); LYMPH # 2.1 10^3/uL (1.5-5.0); MEAN CORPUSCULAR HEMOGLOBIN 31.1 pg (27.0-33.0); MEAN CORPUSCULAR HGB CONC 31.7 g/dl (32.0-36.5); MONO # 0.8 10^3/uL (0.0-0.8); MONO % 7.4 % (0.0-5.0); NEUTROPHILS # 6.9 10^3/uL (1.5-8.5); NEUTROPHILS % 66.3 % (36.0-66.0); PLATELET COUNT, AUTOMATED 371 10^3/uL (150-450); RED BLOOD COUNT 2.96 10^6/uL (4.00-5.40); WHITE BLOOD COUNT 10.4 10^3/uL (4.0-10.0)
[2020-03-03 06:00] VITALS: BP 147/53
[2020-03-03 06:24] LABS: CALCIUM LEVEL 8.3 MG/DL (8.8-10.2); CREATININE FOR GFR 3.07 MG/DL (0.55-1.30); GLOMERULAR FILTRATION RATE 15.6 (>32)
[2020-03-03] MEDS: FIDAXOMICIN 200 MG TAB (DIFICID) PO SCH ×2 (09:08→20:51)
[2020-03-03] MEDS: MAGNESIUM CHLORIDE 64 MG TABCR (SLO MAG) PO SCH ×2 (09:08→20:53)
[2020-03-03] MEDS: ISOSORBIDE DIN (ISORDIL) 10 MG TAB PO SCH ×2 (09:10→20:51)
[2020-03-03] MEDS: amLODIPine 10 MG TAB PO SCH (09:10)
[2020-03-03] MEDS: METOPROLOL TARTRATE 100 MG TAB PO SCH ×2 (09:11→20:51)
[2020-03-03] MEDS: **hydrALAZINE** 50 MG TAB PO SCH ×3 (09:12→20:51)
[2020-03-03] MEDS: VITAMIN D 1,000 INTERNATIONAL UNITS TABLET PO SCH (09:12)
[2020-03-03] MEDS: TORSEMIDE 20 MG TAB PO SCH (09:12)
[2020-03-03] MEDS: LORATADINE 10 MG TAB PO SCH (09:12)
[2020-03-03] MEDS: SODIUM BICARBONATE 325 MG TAB PO SCH ×2 (09:12→20:53)
[2020-03-03] MEDS: APIXABAN 2.5 MG TAB (ELIQUIS) PO SCH ×2 (09:12→20:56)
[2020-03-03] MEDS: HumaLOG INSULIN (NovoLOG) PER UNIT SC SCH ×4 (09:13→20:53)
[2020-03-03] MEDS: LEVEMIR (INSULIN DETEMIR) 1 UNITS/0.01ML SC SCH (09:16)
[2020-03-03] MEDS: CALCITRIOL 0.25 MCG CAP (S0169) PO SCH (09:16)
[2020-03-03] MEDS ORDERED: DIFI200T PO (10:15)
--- NOTE | 2020-03-03 10:21 | IPN ---
DATE: 03/02/2020 SUBJECTIVE: Courtney seems to be doing much better. She is in better spirits. She denies any diarrhea, nausea, vomiting, or abdominal pain. She states she did not have a bowel movement. According to physical therapy, she needs one to two days of rehab. OBJECTIVE: The patient was up in the chair for breakfast and will be getting up for dinner. She states her appetite is coming back. No labs were done today. Yesterday her white count was 12.4, hemoglobin 9, hematocrit 27.8, sodium 137, potassium 3.8, chloride 108, bicarb 20, BUN 17, creatinine 3.1, glucose 229. ASSESSMENT: Clostridium difficile colitis with failure to vancomycin. Responded to fidaxomicin with improvement of her white count down to 12,000. Will repeat a CBC and basic profile tomorrow. Patient will need to be treated for a total of 10 days. Currently day #4 with end of therapy anticipated 03/08. Patient at high risk of relapse from Clostridium difficile and therefore, will need IV Zinplava infusion as an outpatient. Please obtain prior authorization from her insurance and schedule as an outpatient through the infusion unit. PLAN: Consult PFS for fidaxomicin, prior authorization, as well as Zinplava. Her dose would be 750 mg x1 dose at the infusion unit one to two days after discharge. MTDD
--- NOTE | 2020-03-03 12:26 | IPNPDOC ---
Text Note Date of Service The patient was seen on 03/03/20. NOTE Subjective: No any acute events overnight. Patient stated that she feels better today, Diarrhea and abdominal pain getting better has resolved. Says her appetite remains poor. Working better with physical therapy. PHYSICAL EXAM: VITALS: As below GENERAL APPEARANCE: NAD HEENT: no scleral icterus, moist mucous membranes NECK: no JVD CARDIOVASCULAR: Irregularly irregular, rate normal, no rub/ murmur or gallop LUNGS: CTA, no ronchi or wheezes, diminished breath sound at the bases. ABDOMEN: soft & not tender w palpitation, normal bowel sounds MUSCULOSKELETAL: no cyanosis, no swelling Extremities: No edema NEUROLOGICAL: cranial nerve function from 2-12 intact intact, follows commands, speech not dysarthric Labs and Radiology : reviewed Assessment/Plan Patient is 79 years old female with past medical history of hypertension, diabetes type 2, atrial fibrillation status post ablation, diastolic CHF presented to the hospital with increased weakness. Patient stated that she's been having generalized weakness for past 3-4 weeks. She described weakness lack of interest, lack of appetite, lack of energy. Patient has a history of depression. In ER patient was found to have leukocytosis of 15, pyuria. Admitted for UTI. Now has developed C diff colitis. C. diff colitis wbc scan tag showed colitis on 02/26/20 patient was tested positive for C. difficile infection On Fidaxomicin, 200 mg p.o. b.i.d. for 10 days started on 02/27/20 Dr. Del Angel recommended IV ZINPLAVA, which could be given at discharge at the infusion unit. UTI (urinary tract infection) completed course of antibiotic. Diabetes with neuropathy, retinopathy Diabetes diet Insulin sliding scale, Levemir FS Ac and HS CKD (chronic kidney disease), stage IV with secondary hyperparathyroidism. mild worsening of creatinine. calcitriol, bicarbonate. Physical deconditioning Most likely due to multiple comorbidities PT/OT recommended rehabilitation after discharge Hypertension amlodipine, metoprolol, hydralazine, torsemide Major Depression paroxetine dose increased Atrial fibrillation Continue Eliquis, metoprolol Heart rate under control Diastolic CHF torsemide. Acute on chronic anemia, due to CKD patient had a bone marrow [place] [address] Leyva and CARRIE in 2018. Hb lower than baseline of 10. on Iron supplements. due to infection/ phlebotomy will continue to monitor. Gout. allopurinol Lumbar spinal stenosis. Dispo: Home with services in the next 24 hours. VS,Nayely, I+O VS, Nayely, I+O Laboratory Tests 03/03/20 05:43 Vital Signs Date Time Temp Pulse Resp B/P (MAP) Pulse Ox O2 Delivery O2 Flow Rate FiO2 03/03/20 09:10 148/55 03/03/20 09:10 71 03/03/20 06:00 98.5 18 94 Room Air I&O- Last 24 Hours up to 6 AM 03/03/20 06:00 Intake Total 900 ml Output Total 800 ml Balance 100 ml DANIEL ZEPEDA MD Mar 03, 2020 12:26
[2020-03-03 14:00] VITALS: BP 143/52
[2020-03-03] MEDS: PARoxetine 20 MG TAB PO SCH (20:52)
[2020-03-03] MEDS: allopurinoL 100 MG TAB PO SCH (20:53)
[2020-03-03] MEDS: RAMELTEON 8 MG TAB (ROZEREM) PO SCH (20:53)
[2020-03-03 22:00] VITALS: BP 145/54
[2020-03-04 06:00] VITALS: BP 151/56
[2020-03-04] MEDS: HumaLOG INSULIN (NovoLOG) PER UNIT SC SCH ×2 (08:44→14:02)
[2020-03-04] MEDS: FIDAXOMICIN 200 MG TAB (DIFICID) PO SCH (08:44)
[2020-03-04] MEDS: MAGNESIUM CHLORIDE 64 MG TABCR (SLO MAG) PO SCH (08:44)
[2020-03-04] MEDS ORDERED: SODI325T9 PO (08:45)
[2020-03-04] MEDS: LEVEMIR (INSULIN DETEMIR) 1 UNITS/0.01ML SC SCH (08:45)
[2020-03-04] MEDS: TORSEMIDE 20 MG TAB PO SCH (08:45)
[2020-03-04] MEDS: SODIUM BICARBONATE 325 MG TAB PO SCH (08:46)
[2020-03-04] MEDS: amLODIPine 10 MG TAB PO SCH (08:46)
[2020-03-04] MEDS: LORATADINE 10 MG TAB PO SCH (08:46)
[2020-03-04] MEDS: ISOSORBIDE DIN (ISORDIL) 10 MG TAB PO SCH (08:46)
[2020-03-04] MEDS: METOPROLOL TARTRATE 100 MG TAB PO SCH (08:47)
[2020-03-04] MEDS: VITAMIN D 1,000 INTERNATIONAL UNITS TABLET PO SCH (08:47)
[2020-03-04] MEDS: APIXABAN 2.5 MG TAB (ELIQUIS) PO SCH (08:47)
[2020-03-04 08:49] VITALS: BP 160/50
[2020-03-04] MEDS: **hydrALAZINE** 50 MG TAB PO SCH (08:49)
[2020-03-04] MEDS: FERROUS SULFATE 325MG TAB PO SCH (08:49)
[2020-03-04] MEDS: ROSUVASTATIN 10 MG TAB (CRESTOR) PO SCH (08:50)
--- NOTE | 2020-03-04 12:00 | DS.PDOC ---
Discharge Summary General Date of Admission Feb 15, 2020 at 17:17 Date of Discharge 03/04/20 Discharge Summary PROCEDURES PERFORMED DURING STAY: [None]. DISCHARGE DIAGNOSES: C . diff Colitis UTI Acute on chronic anemia Physical deconditioning. 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 HOSPITAL COURSE: Patient is 79 years old female with past medical history of hypertension, diabetes type 2, atrial fibrillation status post ablation, diast olic CHF presented to the hospital with increased weakness. Patient stated that she's been having generalized weakness for past 3-4 weeks. She described weakness lack of interest, lack of appetite, lack of energy. Patient has a history of depression so was initially thought that she was having an episode fo major depression. In ER patient was found to have leukocytosis of 15, pyuria. Admitted for UTI, then developed C diff colitis. Patient had been in the hospital for several days and now she is weak and deconditioned. Patient has been evaluated by PT an OT and has recommended discharge home with services as she is somewhat below her usual functional ability. C. diff colitis wbc scan tag showed colitis on 02/26/20 patient was tested positive for C. difficile infection On Fidaxomicin, 200 mg p.o. b.i.d. for 10 days started on 02/27/20 Dr. De lAngel recommended IV ZINPLAVA, which could be given at discharge at the infusion unit. UTI (urinary tract infection) completed course of antibiotic. Diabetes with neuropathy, retinopathy Diabetes diet Insulin sliding scale, Levemir FS Ac and HS CKD (chronic kidney disease), stage IV with secondary hyperparathyroidism. mild worsening of creatinine. calcitriol, bicarbonate. Physical deconditioning Most likely due to multiple comorbidities PT/OT recommended rehabilitation after discharge Hypertension amlodipine, metoprolol, hydralazine, torsemide Major Depression paroxetine dose increased Atrial fibrillation Continue Eliquis, metoprolol Heart rate under control Diastolic CHF torsemide. Acute on chronic anemia, due to CKD patient had a bone marrow biopsy [place] [address] Leyva and CARRIE in 2018. Hb lower than baseline of 10. on Iron supplements. due to infection/ phlebotomy Gout. allopurinol Lumbar spinal stenosis. DISCHARGE MEDICATIONS: Please see below. ALLERGIES: Please see below. PHYSICAL EXAMINATION ON DISCHARGE: VITAL SIGNS: Please see below. GENERAL APPEARANCE: NAD HEENT: no scleral icterus, moist mucous membranes NECK: no JVD CARDIOVASCULAR: Irregularly irregular, rate normal, no rub/ murmur or gallop LUNGS: CTA, no ronchi or wheezes, diminished breath sound at the bases. ABDOMEN: soft & not tender w palpitation, normal bowel sounds MUSCULOSKELETAL: no cyanosis, no swelling Extremities: No edema NEUROLOGICAL: cranial nerve function from 2-12 intact intact, follows commands, speech not dysarthric LABORATORY DATA: Please see below. ACTIVITY: [As tolerated]. DIET: As tolerated DISCHARGE PLAN: Home with services DISCHARGE INSTRUCTIONS: PMD in [address] Del Angel in [address] Magana in 2 weeks DISCHARGE CONDITION: [Stable]. TIME SPENT ON DISCHARGE: 35 minutes. Vital Signs/I&Os Vital Signs Date Time Temp Pulse Resp B/P (MAP) Pulse Ox O2 Delivery O2 Flow Rate FiO2 03/04/20 08:49 160/50 03/04/20 08:47 66 03/04/20 06:00 97.3 18 96 Room Air I&O- Last 24 Hours up to 6 AM 03/04/20 06:00 Intake Total 720 ml Output Total 1050 ml Balance -330 ml Laboratory Data Labs 24H Laboratory Tests 2 03/03/20 12:05: Bedside Glucose (Misc Panel) 225H 03/03/20 17:20: Bedside Glucose (Misc Panel) 220H 03/03/20 20:09: Bedside Glucose (Misc Panel) 188H 03/04/20 05:27: Bedside Glucose (Misc Panel) 201H 03/04/20 11:26: Bedside Glucose (Misc Panel) 193H FSBS Laboratory Tests Test 03/03/20 12:05 03/03/20 17:20 03/03/20 20:09 03/04/20 05:27 Range/Units Bedside Glucose (Misc Panel) 225 220 188 201 83-110 MG/DL Test 03/04/20 11:26 Range/Units Bedside Glucose (Misc Panel) 193 83-110 MG/DL Discharge Medications Scheduled Alendronate Sodium (Alendronate Sodium) 35 Mg Tablet, 35 MG PO Tu@07 Allopurinol (Allopurinol) 100 Mg Tablet, 200 MG PO QHS, (Reported) Amlodipine Besylate (Amlodipine Besylate) 10 Mg Tablet, 10 MG PO DAILY, (Reported) Apixaban (Eliquis) 2.5 Mg Tablet, 2.5 MG PO BID, (Reported) Calcitriol (Rocaltrol) 0.25 Mcg Capsule, 0.25 MCG PO 3XW, (Reported) SUN/SUN/SUN Cholecalciferol (Vitamin D3) (Vitamin D3) 1,000 Unit Tablet, 1,000 UNITS PO DAILY, (Reported) Ferrous Sulfate (Ferrous Sulfate) 325 Mg Tab, 325 MG PO 4XWK, (Reported) SUN/SUN//SAT Fidaxomicin (Dificid) 200 Mg Tablet, 200 MG PO BID Glipizide (Glipizide ER) 10 Mg Tab.er.24, 10 MG PO BID, (Reported) Hydralazine HCl (Hydralazine HCl) 100 Mg Tablet, 100 MG PO TID, (Reported) Isosorbide Dinitrate (Isosorbide Dinitrate) 10 Mg Tablet, 10 MG PO BID, (R eported) Loratadine (Loratadine) 10 Mg Tab, 10 MG PO DAILY, (Reported) Magnesium Chloride (Mag64) 64 Mg Tabcr, 64 MG PO BID, (Reported) Metoprolol Tartrate (Metoprolol Tartrate) 100 Mg Tablet, 100 MG PO BID, (Reported) Paroxetine HCl (Paroxetine HCl) 20 Mg Tablet, 20 MG PO QHS Rosuvastatin Calcium (Rosuvastatin Calcium) 10 Mg Tablet, 10 MG PO 4XWK, (Reported) SUN, , , SAT Saxagliptin HCl (Onglyza) 2.5 Mg Tab, 2.5 MG PO DAILY, (Reported) Sodium Bicarbonate (Sodium Bicarbonate) 325 Mg Tablet, 325 MG PO DAILY Torsemide (Torsemide) 20 Mg Tablet, 20 MG PO BID, (Reported) AM/DINNERTIME Scheduled PRN Hydroxyzine HCl (Hydroxyzine HCl) 25 Mg Tablet, 25 MG PO Q6H PRN for ANXIETY, (Reported) Allergies Coded Allergies: No Known Allergies (Unverified , 02/01/19) DANIEL ZEPEDA MD Mar 04, 2020 12:00
== END 2020-03-04 15:25 | disposition home health service (06) | DRG 690 ==
LOC: EDBD 14:00 → M ED 14:00 → M ED INP 17:17 → ENRESERV 18:26 → M MSPAV 20:29
PROVIDERS: ADMIT Internal Medicine; ATTEND Internal Medicine Nephrology
DX: N39.0 Urinary tract infection, site not specified (principal); I50.32 Chronic diastolic (congestive) heart failure; N18.4 Chronic kidney disease, stage 4 (severe); N25.81 Secondary hyperparathyroidism of renal origin; A04.72 Enterocolitis due to Clostridium difficile, not specified as recurrent; R53.1 Weakness; I11.0 Hypertensive heart disease with heart failure; E11.22 Type 2 diabetes mellitus with diabetic chronic kidney disease; K44.9 Diaphragmatic hernia without obstruction or gangrene; B96.20 Unspecified Escherichia coli [E. coli] as the cause of diseases classified elsewhere; N20.0 Calculus of kidney; K21.9 Gastro-esophageal reflux disease without esophagitis; I48.91 Unspecified atrial fibrillation; D72.823 Leukemoid reaction; D63.1 Anemia in chronic kidney disease; M10.9 Gout, unspecified; E11.40 Type 2 diabetes mellitus with diabetic neuropathy, unspecified; E11.319 Type 2 diabetes mellitus with unspecified diabetic retinopathy without macular edema; D64.9 Anemia, unspecified; F32.9 Major depressive disorder, single episode, unspecified; M48.061 Spinal stenosis, lumbar region without neurogenic claudication; Z79.01 Long term (current) use of anticoagulants; Z79.84 Long term (current) use of oral hypoglycemic drugs; Z79.899 Other long term (current) drug therapy

== ENCOUNTER 2020-03-08 16:09 | Outpatient (CLI) | payer MEDICARE, OTHER ==
[~2020-03-08] VITALS: Ht 154.9 cm; Wt 70.5 kg
[~2020-03-08 16:09] MED LIST changes: +ALEN35TA54 PO; +DIFI200T PO; +PARO20TA3 PO; +SODI325T9 PO; +VANC1CAP6 PO
[2020-03-08 16:21] VITALS: BP 156/69
[2020-03-08] MEDS ORDERED: BEZLOTOXUMAB 700 MG in NS 100 ML IV ONE (17:00)
[2020-03-08 18:28] VITALS: BP 160/67
== END 2020-03-08 18:30 | disposition home or self-care (01) ==
LOC: M INFU 16:09
PROVIDERS: ATTEND Internal Medicine Infectious Disease
DX: A04.72 Enterocolitis due to Clostridium difficile, not specified as recurrent (principal)
CPT/HCPCS: 96365; J0565

== ENCOUNTER → 2020-04-02 | Outpatient (CLI) | payer MEDICARE, OTHER ==
[~2020-04-02] MED LIST changes: +LABE100T4 PO; -LABE10TAB PO; +MIRT-62 PO; -REME15TA PO
--- NOTE | 2020-04-02 14:48 | REP ---
INDICATION: N28.89 F/U HYPERDENSITY RT KIDNEY NOTED ON CT. COMPARISON: Abdomen and pelvis CTs performed on 02/18/2020 and 11/04/2018. TECHNIQUE: Renal ultrasound. FINDINGS: The right kidney measures 8.7 x 4.2 x 4.7 cm. Left kidney measures 8.7 x 3.6 x 4.7 cm. The kidneys are in the low normal size range. The renal cortices are echogenic bilaterally. This is compatible with medical renal disease. There is no hydronephrosis on the right or the left. There are no solid renal masses on the right or the left. Right kidney: The small exophytic structure projecting from the right kidney on the comparison CT studies projects from the posterolateral renal cortex at the mid to lower pole. This is not visible by ultrasound, however, is unchanged on the 2 CT scans. It measures approximately 1 cm in diameter. 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 On the ultrasound today there is a right renal cortical cyst arising from the upper pole posteriorly measuring 1.6 x 1.4 x 1.1 cm. This is not visible on the comparison CT studies. By ultrasound this is compatible with a Bosniak type 1 cyst. Left kidney: There are a few small echogenic foci at the midpole compatible with nonobstructive calculi. There are no solid or cystic left renal masses. With color Doppler assessment there are bilateral ureteral jets into the bladder. IMPRESSION: The small cyst-like projection from the right kidney identified on the comparison CT studies is not visible by ultrasound, however, lb review of the CT studies this is compatible with a Bosniak type 1 hyperdense cyst containing proteinaceous material. On the ultrasound study today there is a 1.6 cm right renal cyst arising from the upper pole, not visible on the comparison CT studies, compatible with a Bosniak type 1 renal cyst. There are tiny nonobstructive calculi in the right renal midpole. There are no calculi in the left kidney. There is no hydronephrosis on the right or the left. There are no solid renal masses on the right or the left. There are bilateral ureteral jets into the bladder. The kidneys are in the low normal size range. The renal cortices are echogenic bilaterally compatible with medical renal disease. <Electronically signed by Balwinder Narvaez > 04/02/20 [id number]
== END ==
LOC: M WHC 08:55
PROVIDERS: ATTEND Family Medicine
DX: N28.89 Other specified disorders of kidney and ureter (principal)

== ENCOUNTER 2020-04-07 16:37 | Emergency (ER) | payer MEDICARE, OTHER ==
[~2020-04-07] VITALS: Ht 154.9 cm; Wt 63.6 kg
[2020-04-07 17:00] VITALS: BP 150/68
--- NOTE | 2020-04-07 17:00 | REP ---
INDICATION: fall/eloquis COMPARISON: None. TECHNIQUE: Axial noncontrast images from the skull base to the thoracic inlet with coronal reformations. This CT examination was performed using the following dose reduction techniques: Automated exposure control, adjustment of mA and/or kv according to the patient's size, and use of iterative reconstruction technique. FINDINGS: Age-related atrophy and microvascular ischemic changes are appreciated. The ventricles and sulci are symmetric. Mcnulty-white differentiation is maintained. There is no evidence for acute intracranial hemorrhage, mass/mass effect, pathology or infarction. No extra-axial fluid collection. Calvarium is intact. Paranasal sinuses and mastoid air cells are clear. IMPRESSION: Age related atrophy and microvascular ischemic changes. No acute intracranial hemorrhage, infarction, or mass/mass effect. <Electronically signed by Daniel Morales > 04/07/20 [id number]
--- NOTE | 2020-04-07 17:03 | REP ---
INDICATION: fall/eloquis COMPARISON: None. TECHNIQUE: Axial noncontrast images from the skull base to the thoracic inlet with coronal and sagittal re-formations This CT examination was performed using the following dose reduction techniques: Automated exposure control, adjustment of mA and/or kv according to the patient's size, and use of iterative reconstruction technique. FINDINGS: Age-related osteopenia and advanced multilevel degenerative changes are appreciated. No acute fracture/compression injury or subluxation identified. Spinal canal appears relatively patent although posterior osteophytes are identified which narrow the canal to approximately 7 mm AP diameter at the C7-T1, C5-C6 levels. Paravertebral soft tissues are grossly unremarkable. IMPRESSION: Advanced multilevel degenerative changes. No acute fracture/compression injury or subluxation. <Electronically signed by Daniel Morales > 04/07/20 [id number]
== END 2020-04-07 17:35 | disposition home or self-care (01) ==
LOC: M ED 16:37
DX: S09.90XA Unspecified injury of head, initial encounter (principal); W01.198A Fall on same level from slipping, tripping and stumbling with subsequent striking against other object, initial encounter; Y92.89 Other specified places as the place of occurrence of the external cause; Y93.E9 Activity, other interior property and clothing maintenance; Y99.8 Other external cause status; I48.91 Unspecified atrial fibrillation; E11.9 Type 2 diabetes mellitus without complications; I12.9 Hypertensive chronic kidney disease with stage 1 through stage 4 chronic kidney disease, or unspecified chronic kidney disease; N18.9 Chronic kidney disease, unspecified; M48.061 Spinal stenosis, lumbar region without neurogenic claudication; Z79.899 Other long term (current) drug therapy

== ENCOUNTER → 2020-05-10 | Outpatient (REF) | payer MEDICARE, OTHER ==
[2020-05-10 15:46] LABS: BASO % 0.3 % (0.0-1.0); EOS # 0.1 10^3/uL (0.0-0.5); EOS % 0.8 % (0.0-3.0); HEMOGLOBIN 10.7 g/dl (12.0-15.5); LYMPH # 3.1 10^3/uL (1.5-5.0); LYMPH % 22.5 % (24.0-44.0); MEAN CORPUSCULAR HEMOGLOBIN 30.8 pg (27.0-33.0); MEAN CORPUSCULAR HGB CONC 32.4 g/dl (32.0-36.5); MEAN CORPUSCULAR VOLUME 95.1 fl (80.0-96.0); MONO # 0.7 10^3/uL (0.0-0.8); NEUTROPHILS # 9.8 10^3/uL (1.5-8.5); NEUTROPHILS % 70.6 % (36.0-66.0); PLATELET COUNT, AUTOMATED 301 10^3/uL (150-450); RED BLOOD COUNT 3.47 10^6/uL (4.00-5.40); WHITE BLOOD COUNT 13.9 10^3/uL (4.0-10.0)
[2020-05-10 16:24] LABS: CALCIUM LEVEL 9.4 MG/DL (8.8-10.2); CREATININE FOR GFR 3.57 MG/DL (0.55-1.30)
== END ==
LOC: M SFHCPLAZ 13:45
PROVIDERS: ATTEND Internal Medicine Infectious Disease
DX: A04.72 Enterocolitis due to Clostridium difficile, not specified as recurrent (principal); Z79.899 Other long term (current) drug therapy
CPT/HCPCS: 36415; 80048; 85025; G0463

== ENCOUNTER → 2020-05-11 | Outpatient (REF) | payer MEDICARE, OTHER | LOC: M SFHCPLAZ 16:53 | PROVIDERS: ATTEND Internal Medicine Infectious Disease | DX: A04.72 Enterocolitis due to Clostridium difficile, not specified as recurrent (principal) ==

== ENCOUNTER → 2020-05-31 | Outpatient (REF) | payer MEDICARE, OTHER ==
[2020-05-31 19:25] LABS: PERCENT SATURATION 21.6 % (13.2-45.0)
== END ==
LOC: M LAB REF 17:55
PROVIDERS: ATTEND Internal Medicine Nephrology
DX: N18.9 Chronic kidney disease, unspecified (principal); D63.1 Anemia in chronic kidney disease

== ENCOUNTER → 2020-06-18 | Outpatient (CLI) | payer MEDICARE, OTHER | LOC: M LAB 09:41 | PROVIDERS: ATTEND Nurse Practitioner Family | DX: E11.65 Type 2 diabetes mellitus with hyperglycemia (principal) ==

== ENCOUNTER → 2020-06-18 | Outpatient (CLI) | payer MEDICARE, OTHER ==
--- NOTE | 2020-06-18 11:40 | REP ---
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 TECHNIQUE: Real time compression and duplex Doppler evaluation of the Bilateral upper extremity deep venous system is performed. FINDINGS: The Bilateral subclavian, jugular, axillary, brachial, basilic and cephalic veins are fully compressible where accessible with transducer pressure, and demonstrate no intraluminal thrombus and normal venous waveforms. There is no evidence of deep venous thrombosis. Arterial structures are heavily calcified and small in size. Right: Basilic vein size (mm)/ Cephalic vein size (mm) Upper humerus: 5/ Lower humerus:3/ Upper forearm: 04/16 Lower forearm/wrist: 04/16 Median cubital:2 Right arterial structures: Peak systolic velocity (cm/s)/waveform/size (mm) Axillary: 94/biphasic/7 Brachial: 160/biphasic/4 Radial: 24/biphasic/3 Ulnar:100/biphasic/3 Left: Basilic vein size (mm)/ Cephalic vein size (mm) Upper humerus: 3/1 Lower humerus:2/7 Upper forearm: 04/16 Lower forearm/wrist:04/16 Median cubital:1 Left arterial structures: Peak systolic velocity (cm/s)/waveform/size (mm) Axillary: 146/biphasic/5 Brachial: 85/biphasic/3 Radial: 88/biphasic/2 Ulnar: 39/biphasic/1 IMPRESSION: No evidence of deep venous thrombosis of the Bilateral upper extremity deep vein system. Arterial and venous sizes are given above. <Electronically signed by Balwinder Mcnulty > 06/18/20 [id number]
== END ==
LOC: M RAD 09:45
PROVIDERS: ATTEND Internal Medicine Nephrology
DX: E11.22 Type 2 diabetes mellitus with diabetic chronic kidney disease (principal); N18.4 Chronic kidney disease, stage 4 (severe); R60.0 Localized edema

== ENCOUNTER → 2020-09-10 | Outpatient (CLI) | payer MEDICARE, OTHER ==
[~2020-09-10] MED LIST changes: +COVI30VI IM; +CULTCAP2 PO; +FLUT15.819; +OXYC1TAB23 PO
== END ==
LOC: M LABSMTC 10:31
PROVIDERS: ATTEND Anesthesiology
DX: Z01.818 Encounter for other preprocedural examination (principal); Z11.52 Encounter for screening for COVID-19

== ENCOUNTER 2020-09-15 10:10 | Day surgery (SDC) | payer MEDICARE, OTHER ==
[~2020-09-15] VITALS: Ht 154.9 cm; Wt 63.0 kg
[~2020-09-15 10:10] MED LIST changes: +LR 1,000 ML IV ONE; +MIDAZOLAM INJ 2MG/2ML VIAL (J2250 PER 1MG) IV PRN; -OXYC1TAB23 PO; +ceFAZolin SOD 2 GM in IV 1 EA IV ONE; +fentaNYL 100 MCG/2 ML INJECTION (J3010) IV PRN
[2020-09-15] MEDS ORDERED: HumaLOG INSULIN (NovoLOG) PER UNIT SC ONE (11:45)
[2020-09-15] MEDS ORDERED: HEPARIN SOD (PORCINE) 5000UNITS/ML 1ML VIAL/SYRINGE As Ordered ONE (12:59)
[2020-09-15] MEDS ORDERED: BUPIVACAINE/EPIN 0.5% 30 ML VIAL As Ordered ONE ×2 (12:59→13:37)
[2020-09-15] MEDS ORDERED: LIDOCAINE 1% SDV 30ML VIAL As Ordered ONE ×2 (12:59→13:37)
[2020-09-15] MEDS ORDERED: LIDOCAINE 1% MDV 20ML VIAL XX ONE (13:10)
[2020-09-15] MEDS ORDERED: dexameTHASONE 10MG/1ML VIAL PRES.FREE (J1100 PER 1MG) XX ONE (13:10)
[2020-09-15] MEDS ORDERED: ROPIvacaine 0.5% 30ML INJECTION (J2795 PER 1MG) XX ONE (13:10)
[2020-09-15] MEDS ORDERED: ETOMIDATE INJ 20MG/10ML VIAL As Ordered ONE (14:04)
[2020-09-15] MEDS ORDERED: propofoL 200 MG/20 ML VIAL As Ordered ONE (14:04)
[2020-09-15] MEDS ORDERED: LIDOCAINE 2% 100MG/5ML SDV (FOR ANES.) As Ordered ONE (14:04)
[2020-09-15] MEDS ORDERED: KETAMINE HCL 200 MG/20 ML VIAL As Ordered ONE (14:19)
[2020-09-15] MEDS ORDERED: MIDAZOLAM INJ 2MG/2ML VIAL (J2250 PER 1MG) As Ordered ONE (14:20)
--- NOTE | 2020-09-15 15:44 | ROOPDOC ---
[facility] Report Of Operation Report of Operation DATE OF PROCEDURE: 09/15/20 PREPROCEDURE DIAGNOSES: End-stage renal disease POSTPROCEDURE DIAGNOSES: Same PROCEDURE: Right brachial basilic AV fistula creation SURGEON: Dominick Hill MD ANESTHESIA: Monitored anesthesia care and scalene nerve block with local anesthesia INDICATION FOR PROCEDURE: This is a very pleasant 80-year-old patient with renal insufficiency requiring access for dialysis. Her vein mapping revealed heavily calcified arteries and bilateral upper extremities as well as relatively small veins. Her best option for an oncologist fistula with a right brachial basilic AV fistula. Risks benefits and alternatives were explained and the patient was agreeable to proceed. Informed consent was obtained. I noted a bruise over the anatomic location of the basilic vein in the antecubital crease prior surgery. The patient said she had a lab draw there a few days ago. I did warn her preop that this pain may no longer be suitable for fistula creation if it has thrombosed. She understands this is a risk, but I told her that I would try to find an alternate vein if that was the case, possibly a lateral branch of the basilic vein. She was agreeable to proceed. REPORT OF OPERATION: The patient was brought to the operating room in stable condition after a scalene nerve block was placed by our anesthesia colleagues in preop holding. Anesthesia and antibiotics were administered without complication. Her right upper extremity was prepped and draped in a sterile fashion. A timeout was performed. Local anesthesia was administered to the skin and subcutaneous tissue over the brachial artery pulse 1 fingerbreadth distal to the antecubital crease. A transverse incision was made and carried down to the subcutaneous tissue with Bovie cautery. The basilic vein in the cephalic vein were identified, both were thrombosed. The median cubital vein was tiny and thrombosed. We then dissected deeper and identified another branch of the basilic vein. We were able to mobilize his proximally and distally. Although the vein was somewhat small, I estimate 2-2.5 mm diameter, it seemed patent and suitable. Distally, we found a branch point and ligated both of these with suture and then connected the branch point with a pot scissors for a larger patch for anastomosis. We then passed serial dilators through the vein, 2.5 mm, 3 mm, 3.5 mm, 4 mm in all passed easily. We flushed the vein with heparinized saline. We then dissected down to the brachial artery which was heavily calcified. We dissected proximally distally in Vesseloops were placed. We secured the Vesseloops and created a 5 mm arteriotomy. We did not have good hemostasis with Vesseloops alone to heavy calcium, and gentle vascular clamps were placed with good hemostasis. We irrigated with heparinized saline. We then anastomosis the vein to the artery and an end-to-side fashion with 6-0 Prolene suture, and before the final sutures are placed we flushed the inflow and outflow arteries and heparinized saline was used to irrigate. We then placed her final sutures and good hemostasis was noted. We restored flow first to the vein and the inflow artery, then to the hand. We had a good Doppler signal over the basilic vein, good Doppler flow over the brachial artery proximal and distal to the anastomosis, and a strong signal over the palmar arch of the hand. The fingers were warm and well perfused. We then irrigated with saline and the deep tissues were approximated with 2-0 Vicryl suture. The deep dermal layer was approximated with 4-0 Vicryl suture. The skin was closed with a running subcuticular Monocryl suture. The incision was clean and dried and Mastisol and Steri-Strips replace the length of the incision. A 4 x 4 and Tegaderm were placed as a final dressing, and a sling was applied to protect the arm until the nerve block resolves and motor and sensory function return to her baseline. The patient was then allowed to awaken from anesthesia was taken to recovery in stable condition. She tolerated the procedure and anesthesia well. ESTIMATED BLOOD LOSS: Approximately 25 mL. COMPLICATIONS: None. PLAN: Okay to resume home diet and medications. Okay to resume eliquis in the morning, 09/16/2020. No lifting greater than 5 pounds or strenuous exercise right upper extremity for one week. Continue to use squeeze ball right hand to improve circulation help fistula mature. Max Steri-Strips intact 7 days. Okay to remove Tegaderm and gauze after 48 hours. Okay to remove the sling when sensory and motor function return to her baseline. Follow-up in one week to check incision. We appreciate the opportunity to participate in the care of this patient. DOMINICK HILL MD Sep 15, 2020 15:44
[2020-09-15] MEDS ORDERED: OXYC1TAB23 PO (15:48)
[2020-09-15 16:40] VITALS: BP 178/75
--- NOTE | 2020-09-18 00:20 | ECGEPIP ---
[facility] Test Date: 2020-09-15 Pat Name: KELVIN ESPARZA Department: Room: - Gender: Female [employer]: [place] : 1940 Requested By: LONNIE Rojas Order Number: [id number] Reading MD: Aaron Christensen Measurements Intervals [place] Rate: 67 P: 9 NE: 170 QRS: 28 QRSD: 90 T: 38 QT: 420 QTc: 443 Interpretive Statements Normal sinus rhythm Minimal voltage criteria for LVH, may be normal variant ( Klemme product ) Possible Inferior infarct , age undetermined Poor R wave progression vs prior anterior wall infarct Compared to prior tracings (3) in the system, No remarkable changes Electronically Signed on 09-18-2020 0:19:34 EDT by Aaron Christensen
== END 2020-09-15 16:50 | disposition home or self-care (01) ==
LOC: M SDC 10:10
PROVIDERS: ATTEND Surgery Vascular Surgery
DX: N18.6 End stage renal disease (principal); I48.91 Unspecified atrial fibrillation; I11.9 Hypertensive heart disease without heart failure; E78.00 Pure hypercholesterolemia, unspecified; E11.40 Type 2 diabetes mellitus with diabetic neuropathy, unspecified; D64.9 Anemia, unspecified; M48.00 Spinal stenosis, site unspecified; E07.9 Disorder of thyroid, unspecified; D68.9 Coagulation defect, unspecified; Z79.899 Other long term (current) drug therapy; Z79.01 Long term (current) use of anticoagulants
CPT/HCPCS: 36821; 64415; 93005; J0690; J1100; J1644; J2250; J2795; J3010

== ENCOUNTER 2020-10-19 21:03 | Emergency (ER) | payer MEDICARE, OTHER ==
[~2020-10-19] VITALS: Ht 157.5 cm; Wt 65.0 kg
[~2020-10-19 21:03] MED LIST changes: -LR 1,000 ML IV ONE; -MIDAZOLAM INJ 2MG/2ML VIAL (J2250 PER 1MG) IV PRN; +OXYC1TAB23 PO; -ceFAZolin SOD 2 GM in IV 1 EA IV ONE; -fentaNYL 100 MCG/2 ML INJECTION (J3010) IV PRN
[2020-10-19] MEDS ORDERED: PERCOCET 5MG/325MG TAB PO ONE (21:30)
[2020-10-19] MEDS ORDERED: TORS10TA3 PO (21:40)
[2020-10-19] MEDS ORDERED: HYDR100T PO (21:40)
[2020-10-19] MEDS ORDERED: TORS20TA2 PO (21:40)
[2020-10-19 22:30] VITALS: BP 175/74
--- NOTE | 2020-10-19 23:11 | REPVR ---
PROCEDURE INFORMATION: Exam: XR Right Elbow Exam date and time: 10/19/20 (10:00pm) Age: 80 years old Clinical indication: Right shoulder pain. Fall. TECHNIQUE: Imaging protocol: XR Right elbow Views: 3 or more views COMPARISON: No prior pertinent studies FINDINGS: No acute fracture nor dislocation. Vascular calcifications are seen. A few small surgical clips (probably vascular clips) in the soft tissues anterior to the left elbow. IMPRESSION: No acute traumatic findings. Electronically signed by: Lety Hurd On 10/19/2020 23:11:10 PM
--- NOTE | 2020-10-19 23:20 | REPVR ---
PROCEDURE INFORMATION: Exam: XR Right Shoulder Exam date and time: 10/19/20 (9:41pm) Age: 80 years old Clinical indication: Fall. Right shoulder pain. TECHNIQUE: Imaging protocol: XR Right shoulder Views: 2 or more views COMPARISON: No previous pertinent studies FINDINGS: Acute comminuted fracture of the proximal right humerus (at the neck region), with involvement of the greater tuberosity, also. Bone impaction is present. The humeral head is rotated somewhat, relative to the humeral shaft. Widened right acromio-humeral space, measuring 15-17 mm (normal space = 8-12 mm) -- compatible with inferior subluxation of the right humeral head (effusion likely present, also). The right clavicle and right scapula appear intact. The visualized shaft of the right humerus is otherwise intact. The right lung is clear. IMPRESSION: Acute comminuted fracture of the proximal right humerus. Bone impaction is present. The humeral head is rotated. See additional comments above. Electronically signed by: Lety Hurd On 10/19/2020 23:20:23 PM
== END 2020-10-19 23:36 | disposition home or self-care (01) ==
LOC: M ED 21:03
DX: S42.211A Unspecified displaced fracture of surgical neck of right humerus, initial encounter for closed fracture (principal); S51.811A Laceration without foreign body of right forearm, initial encounter; S81.811A Laceration without foreign body, right lower leg, initial encounter; W19.XXXA Unspecified fall, initial encounter; Y92.009 Unspecified place in unspecified non-institutional (private) residence as the place of occurrence of the external cause; Y93.9 Activity, unspecified; Y99.9 Unspecified external cause status; I51.9 Heart disease, unspecified; E11.9 Type 2 diabetes mellitus without complications; I10 Essential (primary) hypertension; Z79.01 Long term (current) use of anticoagulants; Z79.84 Long term (current) use of oral hypoglycemic drugs; Z79.899 Other long term (current) drug therapy

== ENCOUNTER 2020-10-22 00:36 | Inpatient (IN) | payer MEDICARE, OTHER ==
[~2020-10-22] VITALS: Ht 157.5 cm; Wt 62.1 kg
[2020-10-22] MEDS ORDERED: NS 500 ML IV ONE (01:05)
[2020-10-22 01:22] LABS: BASO # 0.1 10^3/uL (0.0-0.2); BASO % 0.3 % (0.0-1.0); EOS # 0.1 10^3/uL (0.0-0.5); EOS % 0.5 % (0.0-3.0); HEMOGLOBIN 9.6 g/dl (12.0-15.5); LYMPH # 2.8 10^3/uL (1.5-5.0); LYMPH % 14.4 % (24.0-44.0); MEAN CORPUSCULAR HEMOGLOBIN 31.9 pg (27.0-33.0); MEAN CORPUSCULAR HGB CONC 33.1 g/dl (32.0-36.5); MEAN CORPUSCULAR VOLUME 96.3 fl (80.0-96.0); MONO # 1.7 10^3/uL (0.0-0.8); MONO % 8.8 % (2.0-8.0); NEUTROPHILS # 14.4 10^3/uL (1.5-8.5); NEUTROPHILS % 75.3 % (36.0-66.0); PLATELET COUNT, AUTOMATED 265 10^3/uL (150-450); RED BLOOD COUNT 3.01 10^6/uL (4.00-5.40)
[2020-10-22 01:35] LABS: WHITE BLOOD COUNT 19.1 10^3/uL (4.0-10.0)
[2020-10-22 01:43] LABS: OSMOLALITY SERUM 322 MOSM/KG (280-301)
--- NOTE | 2020-10-22 01:55 | REPVR ---
PROCEDURE INFORMATION: Exam: CT Cervical Spine Without Contrast Exam date and time: 10/22/2020 12:47 AM Age: 80 years old Clinical indication: Injury or trauma; Fall; Blunt trauma; Additional info: Unwitnessed fall TECHNIQUE: Imaging protocol: Computed tomography images of the cervical spine without contrast. Radiation optimization: All CT scans at this facility use at least one of these dose optimization techniques: automated exposure control; mA and/or kV adjustment per patient size (includes targeted exams where dose is matched to clinical indication); or iterative reconstruction. COMPARISON: CT Spine,cervical w/o contrast 04/07/2020 4:42 PM FINDINGS: Bones/joints: [id number] levoconvex curvature. Non-specific straightening. Grade 1 anterolisthesis of C2 on C3, C4 on C5, C7 on T1 and T1 on T2. Vertebral body heights are preserved. Mild degenerative change about the dens. Moderate prevertebral osteophytosis. There are bilateral facet joint degenerative changes. No acute cervical spine fracture. Discs/Spinal canal/Neural foramina: Central canal stenosis most prominent at C5-C6, likely [id number]. Multilevel cervical foraminal stenoses. Thyroid: Heterogeneous thyroid gland. Lungs: Lung apices are normal. Vasculature: Vascular calcification. Soft tissues: Unremarkable. IMPRESSION: No acute cervical spine fracture. Electronically signed by: Eriberto Kuo On 10/22/2020 01:54:28 AM
[2020-10-22 01:56] LABS: ALBUMIN 3.5 GM/DL (3.2-5.2); ALT/SGPT 55 U/L (12-78); BILIRUBIN,DIRECT < 0.1 MG/DL (0.0-0.2); BILIRUBIN,TOTAL 0.5 MG/DL (0.2-1.0); BLOOD UREA NITROGEN 91 MG/DL (7-18); CARBON DIOXIDE LEVEL 28 MEQ/L (21-32); CHLORIDE LEVEL 99 MEQ/L (98-107); CK-MB VALUE MASS < 1.0 NG/ML (<3.6); CPK CREATINE PHOSPHOKINASE 88 U/L (26-192); CREATININE FOR GFR 2.71 MG/DL (0.55-1.30); ETHYL ALCOHOL (ETHANOL) < 0.003 % (0.000-0.010); GLOMERULAR FILTRATION RATE 17.9 (>32); GLUCOSE, FASTING 285 MG/DL (70-100); MB/CK RELATIVE INDEX 1.14 (< OR =4); POTASSIUM SERUM 4.4 MEQ/L (3.5-5.1); SODIUM LEVEL 134 MEQ/L (136-145); TOTAL PROTEIN 6.9 GM/DL (6.4-8.2); TROPONIN I < 0.02 NG/ML (< 0.10)
--- NOTE | 2020-10-22 01:57 | REPVR ---
PROCEDURE INFORMATION: Exam: CT Head Without Contrast Exam date and time: 10/22/2020 12:47 AM Age: 80 years old Clinical indication: Injury or trauma; Fall; Blunt trauma (contusions or hematomas); Additional info: Unwitnessed fall TECHNIQUE: Imaging protocol: Computed tomography of the head without contrast. Radiation optimization: All CT scans at this facility use at least one of these dose optimization techniques: automated exposure control; mA and/or kV adjustment per patient size (includes targeted exams where dose is matched to clinical indication); or iterative reconstruction. COMPARISON: CT Head without contrast 04/07/2020 4:42 PM FINDINGS: Brain: Moderate to severe volume loss. Mild decreased attenuation of the supratentorial white matter is likely secondary to chronic microvascular ischemia. No acute intracranial hemorrhage, midline shift or intracranial mass effect. Cerebral ventricles: Stable ventriculomegaly. Paranasal sinuses: Visualized sinuses are unremarkable. No fluid levels. Mastoid air cells: Visualized mastoid air cells are well aerated. Bones/joints: Hyperostosis frontalis interna. No acute calvarial fracture. Soft tissues: Unremarkable. IMPRESSION: No acute intracranial abnormality. Electronically signed by: Eriberto Kuo On 10/22/2020 01:56:30 AM
[2020-10-22 02:08] LABS: RSV AMPLIFICATION NEGATIVE (NEGATIVE)
--- NOTE | 2020-10-22 04:57 | REPVR ---
PROCEDURE INFORMATION: Exam: XR Chest Exam date and time: 10/22/2020 4:38 AM Age: 80 years old Clinical indication: Other: Altered menal status; Additional info: Altered mental status TECHNIQUE: Imaging protocol: XR of the chest. Views: 1 view. COMPARISON: MS Chest, 1 view 02/21/2020 9:22 AM FINDINGS: Lungs: No consolidation. Pleural spaces: Unremarkable. No pleural effusion. No pneumothorax. Heart/Mediastinum: Unremarkable. No cardiomegaly. Vasculature: Aortic calcification. Bones/joints: Displaced fracture of the proximal right humerus. Osteopenia. There are degenerative changes involving the spine. IMPRESSION: 1. No acute cardiopulmonary process. 2. Fracture of the proximal right humerus. Electronically signed by: Eriberto Kuo On 10/22/2020 04:56:34 AM
--- NOTE | 2020-10-22 04:58 | REPVR ---
PROCEDURE INFORMATION: Exam: XR Right Shoulder Exam date and time: 10/22/2020 4:38 AM Age: 80 years old Clinical indication: Other: Previous fracture, new fall TECHNIQUE: Imaging protocol: XR Right shoulder. Views: 2 or more views. COMPARISON: CR Shoulder, complete RIGHT 10/19/2020 9:31 PM FINDINGS: Bones/joints: Impacted and displaced fracture of the right humeral head and neck. Alignment appears mildly improved. Osteopenia. Mild degenerative change. Soft tissues: Normal. IMPRESSION: Redemonstration of fracture of the proximal right humerus, alignment mildly improved. No new acute osseous abnormality. Electronically signed by: Eriberto Kuo On 10/22/2020 04:58:12 AM
[2020-10-22] MEDS ORDERED: PARO20TA3 PO (07:01)
[2020-10-22] MEDS ORDERED: TORS20TA2 PO (07:01)
[2020-10-22] MEDS ORDERED: DEXTROSE 50% 50 ML SYRINGE IV PRN (07:55)
[2020-10-22] MEDS ORDERED: GLUCAGON INJ 1MG VIAL SC PRN (07:55)
[2020-10-22] MEDS ORDERED: GLUCOSE 4GM CHEW TABLET PO PRN (07:55)
[2020-10-22 08:10] LABS: AMPHETAMINES LEVEL URINE NEGATIVE (NEGATIVE); BARBITURATES URINE NEGATIVE (NEGATIVE); BENZODIAZEPINES URINE NEGATIVE (NEGATIVE); CANNABINOIDS URINE NEGATIVE (NEGATIVE); COCAINE METABOLITE URINE NEGATIVE (NEGATIVE); METHADONE URINE NEGATIVE (NEGATIVE); OPIATES URINE NEGATIVE (NEGATIVE); PHENCYCLIDINE URINE NEGATIVE (NEGATIVE)
[2020-10-22] MEDS: ISOSORBIDE DIN (ISORDIL) 10 MG TAB PO SCH ×2 (09:00→20:57)
[2020-10-22] MEDS: METOPROLOL TARTRATE 100 MG TAB PO SCH ×2 (09:00→20:56)
[2020-10-22] MEDS: **hydrALAZINE** 50 MG TAB PO SCH ×2 (09:00→20:57)
[2020-10-22] MEDS: LORATADINE 10 MG TAB PO SCH ×2 (09:00→15:52)
[2020-10-22] MEDS: TORSEMIDE 10 MG TABLET PO SCH (09:00)
--- NOTE | 2020-10-22 11:04 | HPEPDOC ---
[facility] Medical History & Physical Date of Admission Oct 22, 2020 Date of Service: Oct 22, 2020 Primary Care Physician: MODESTA COHN MD Attending Physician: ISAAC PHELPS DO History and Physical CHIEF COMPLAINT: Fall with head injury HISTORY OF PRESENT ILLNESS: Patient is an 80-year-old female who presents to the emergency department earlier today after falling and hitting her head. Patient fell on 10/19/2020 and broke her right humerus. Patient was sent home in a sling and has been doing well until she states that she tripped and fell. Patient hit her head. Patient states that she does not know if she hit her head but does remember everything else about the event. Patient says that her friends that she was with became scared after she fell and called EMS. Patient was observed in the emergency department but because she is on Eliquis for her atrial fibrillation, it was deemed necessary that the patient be admitted for observation with neuro checks in order to ensure that the patient's fall does not cause a bleed. Patient states that she is feeling well. Patient just says that her arm is sore but is not painful. Patient is feeling otherwise well and denies having any pain in her head. PAST MEDICAL HISTORY: 1. Type 2 diabetes mellitus. 2. Hypertension. 3. Atrial fibrillation status post ablation. 4. Gout 5. Chronic heart failure with preserved ejection fraction 6. Chronic kidney disease stage IV 7. Depression 8. Chronic anemia 9. Lumbar spinal stenosis PAST SURGICAL HISTORY: 1. Tonsillectomy. 2. D&C. 3. Recent fistula formation in right arm. 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 Patient denies smoking, drinking, or illicit drug use FAMILY HISTORY: Patient has a family history of stroke ALLERGIES: Please see below. REVIEW OF SYSTEMS: General: Patient denies fevers HEENT: Patient denies headaches Cardiovascular: Patient denies chest pain Respiratory: Patient denies shortness of breath, cough GI: Patient denies abdominal pain, nausea, vomiting, diarrhea : Patient denies increased frequency or pain with urination Extremities: Patient reports some mild swelling in her lower extremities bilaterally. Patient does report some mild achiness in her right arm as above Neurological: Patient denies numbness or tingling in legs Skin: Patient denies any new rashes or lesions. Hematologic: Patient denies any easy bruising. Lymphatic: Patient denies any lumps lumps or bumps in neck, axilla, or groin HOME MEDICATIONS: Please see below. PHYSICAL EXAMINATION: VITAL SIGNS: Temperature 97.3, pulse 70, respiratory rate 18, blood pressure 132/60, pulse oximetry 98% on room air. General: Alert and oriented x3 female patient who is resting comfortably on the emergency department stretcher. Patient was able to answer all questions appropriately. Patient did not appear to be in any acute distress. HEENT: Normocephalic, atraumatic, moist mucous membranes. Neck: No lymphadenopathy or thyromegaly Cardiac: Regular rate and rhythm, no murmurs, normal S1, normal S2 Pulm: Clear to auscultation bilaterally. No wheezes, rhonchi, rales Abd: Nondistended, nontender to palpation, normal bowel sounds Ext: No edema bilateral lower extremities Neuro: Patient had equal strength in upper and lower extremities bilaterally. Patient reported sensation to light touch in upper and lower extremities bilaterally. Cranial nerves III through XII intact bilaterally Skin: Patient had darkening of the skin around the ankles bilaterally, patient did have a small abrasion on the top of her head no other rashes, injuries, or lesions LABORATORY DATA: See below. IMAGING: CT of the head performed without contrast on 10/22/2020 was reported to show no acute intracranial abnormality CT of the cervical spine without contrast performed on 10/22/2020 was reported to show no acute cervical spine fracture. Chest x-ray performed on 10/22/2020 was reported to show no acute cardiopulmonary process. Fracture of proximal right humerus. Right shoulder x-ray performed on 10/22/2020 is reported to show redemonstration of fracture of the proximal humerus alignment mildly improved, no new acute osseous abnormality. MICROBIOLOGY: Please see below. ASSESSMENT: Patient is a an 80-year-old female who presented to the emergency department after tripping and falling and hitting her head. Patient is on Eliquis for anticoagulation due to her atrial fibrillation.. . PLAN: 1. Fall with injury to her head. Patient will be admitted for observation due to the patient being on anticoagulation. Patient will have every 4 neurochecks. Patient's neurochecks have been normal since being in the hospital. If the patient develops abnormal neurological symptoms, repeat CT of the head will be performed. At this time, Eliquis is being held. If her neurochecks remain normal for 24 hours, Eliquis can be restarted and the patient can be discharged home tomorrow pending working with physical therapy. Patient will be working with physical therapy. 2. Hypertension. Patient does have difficult to control hypertension at sometimes. Her home medications have been started with hold parameters. 3. Right humeral fracture. Patient was seen in the emergency department on 10/19/2020 and was placed in a sling. X-ray was reported to show mild improvement in the alignment. Patient will continue in the sling and will follow up with orthopedic surgery after her discharge. 4. Atrial fibrillation. Patient is currently rate controlled with metoprolol. We will hold her anticoagulation as above and restarted upon discharge. 5. Chronic kidney disease stage IV. We will hold all nephrotoxic agents and continue to monitor the patient. 6. Heart failure with preserved ejection fraction. Patient appears compensated on exam and will continue with her home regimen. 7. DVT prophylaxis: Teds and sequentials due to anticoagulation being held. 8. CODE STATUS: Full code Disposition: Patient will be placed under observation on the medical surgical floor. I do not believe the patient needs telemetry as the patient did not pass out causing the fall and she says she tripped. Patient will be observed and if neurochecks are normal and the patient is able to be safely discharged home, she will be discharged home tomorrow. Vital Signs Vital Signs Date Time Temp Pulse Resp B/P (MAP) Pulse Ox O2 Delivery O2 Flow Rate FiO2 10/22/20 10:30 70 18 191/78 (115) 98 Room Air 10/22/20 06:00 97.3 Laboratory Data Labs 24H Laboratory Tests 2 10/22/20 01:03: Urine Opiates Screen NEGATIVE, Urine Methadone Screen NEGATIVE, Urine Barbiturates Screen NEGATIVE, Urine Phencyclidine Screen NEGATIVE, Urine Amphetamines Screen NEGATIVE, Urine Benzodiazepines Screen NEGATIVE, Urine Cocaine Metabolite Screen NEGATIVE, Urine Cannabinoids Screen NEGATIVE 10/22/20 01:09: Immature Granulocyte % (Auto) 0.7, Neutrophils (%) (Auto) 75.3H, Lymphocytes (%) (Auto) 14.4L, Monocytes (%) (Auto) 8.8H, Eosinophils (%) (Auto) 0.5, Basophils (%) (Auto) 0.3, Neutrophils # (Auto) 14.4H, Lymphocytes # (Auto) 2.8, Monocytes # (Auto) 1.7H, Eosinophils # (Auto) 0.1, Basophils # (Auto) 0.1, Nucleated Red Blood Cells % (auto) 0.0, Anion Gap 7L, Glomerular Filtration Rate 17.9L, Osmolality 322H, Lactic Acid Level 1.3, Calcium Level 9.0, Total Bilirubin 0.5, Direct Bilirubin < 0.1, Aspartate Amino Transf (AST/SGOT) 39H, Alanine Aminotransferase (ALT/SGPT) 55, Alkaline Phosphatase 141H, Total Creatine Kinase 88, Creatine Kinase MB < 1.0, Creatine Kinase MB Relative Index 1.14, Troponin I < 0.02, Total Protein 6.9, Albumin 3.5, Albumin/Globulin Ratio 1.0L, Thyroid Stimulating Hormone (TSH) 2.130, Ethyl Alcohol Level < 0.003, Coronavirus (COVID-19)(PCR) NEGATIVE, Influenza Type A (RT-PCR) NEGATIVE, Influenza Type B (RT-PCR) NEGATIVE, Respiratory Syncytial Virus (PCR) NEGATIVE CBC/BMP Laboratory Tests 10/22/20 01:09 Home Medications Scheduled Allopurinol (Allopurinol) 100 Mg Tablet, 200 MG PO QHS Amlodipine Besylate (Amlodipine Besylate) 10 Mg Tablet, 10 MG PO DAILY Apixaban (Eliquis) 2.5 Mg Tablet, 2.5 MG PO BID Calcitriol (Rocaltrol) 0.25 Mcg Capsule, 0.25 MCG PO 3XW MON/WED/FRI Cholecalciferol (Vitamin D3) (Vitamin D3) 1,000 Unit Tablet, 1,000 UNITS PO DAILY Ferrous Sulfate (Ferrous Sulfate) 325 Mg Tab, 325 MG PO 4XWK MON/E/TH/SAT Glipizide (Glipizide ER) 10 Mg Tab.er.24, 10 MG PO BID Isosorbide Dinitrate (Isosorbide Dinitrate) 10 Mg Tablet, 10 MG PO BID L. Rhamnosus GG/Inulin (Culturelle Capsule) 1 Each Cap.sprink, 1 CAP PO DAILY Loratadine (Loratadine) 10 Mg Tab, 10 MG PO DAILY Magnesium Chloride (Mag64) 64 Mg Tabcr, 64 MG PO BID Metoprolol Tartrate (Metoprolol Tartrate) 100 Mg Tablet, 100 MG PO BID Paroxetine HCl (Paroxetine HCl) 20 Mg Tablet, 20 MG PO QHS Rosuvastatin Calcium (Rosuvastatin Calcium) 10 Mg Tablet, 10 MG PO 4XWK MON, TUES, THURS, SAT Saxagliptin HCl (Onglyza) 2.5 Mg Tab, 2.5 MG PO DAILY Torsemide (Torsemide) 20 Mg Tablet, 20 MG PO QPM Torsemide (Torsemide) 20 Mg Tablet, 30 MG PO DAILY hydrALAZINE HCL (Hydralazine HCl) 100 Mg Tablet, 50 MG PO BID Scheduled PRN Fluticasone Propionate (Fluticasone Propionate) 15.8 Ml [place].susp, 1 SPRAY NA DAILY PRN for NASAL CONGESTION Allergies Coded Allergies: No Known Allergies (Unverified , 09/01/20) A-FIB/CHADSVASC A-FIB History Current/History of A-Fib/PAF?: Yes Current PO Anticoag Therapy: Yes Treatment Treatment ordered: Apixaban ISAAC PHELPS DO Oct 22, 2020 11:04
[2020-10-22] MEDS: HumaLOG INSULIN (NovoLOG) PER UNIT SC SCH ×3 (12:00→20:58)
[2020-10-22 14:00] VITALS: BP 159/59
[2020-10-22] MEDS: VITAMIN D 1,000 INTERNATIONAL UNITS TABLET PO SCH (15:51)
[2020-10-22] MEDS: CALCITRIOL 0.25 MCG CAP (S0169) PO SCH (15:51)
[2020-10-22] MEDS: TORSEMIDE 20 MG TAB PO SCH (15:52)
--- NOTE | 2020-10-22 16:58 | ECGEPIP ---
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
[2020-10-22] MEDS: allopurinoL 100 MG TAB PO SCH (20:56)
[2020-10-22] MEDS: PARoxetine 20MG TABLET PO SCH (20:58)
[2020-10-22] MEDS: ACETAMINOPHEN TAB 650MG DOSE (2X325MG) PO PRN (20:59)
[2020-10-22 21:38] VITALS: BP 131/57
[2020-10-22 22:00] VITALS: BP 131/57
[2020-10-23 06:00] VITALS: BP 161/70
[2020-10-23 07:07] LABS: HEMATOCRIT 27.7 % (36.0-47.0); HEMOGLOBIN 9.1 g/dl (12.0-15.5); MEAN CORPUSCULAR HEMOGLOBIN 31.5 pg (27.0-33.0); MEAN CORPUSCULAR HGB CONC 32.9 g/dl (32.0-36.5); MEAN CORPUSCULAR VOLUME 95.8 fl (80.0-96.0); PLATELET COUNT, AUTOMATED 269 10^3/uL (150-450); RED BLOOD COUNT 2.89 10^6/uL (4.00-5.40); WHITE BLOOD COUNT 22.2 10^3/uL (4.0-10.0)
[2020-10-23 07:51] LABS: CALCIUM LEVEL 8.8 MG/DL (8.8-10.2); CREATININE FOR GFR 2.68 MG/DL (0.55-1.30); GLOMERULAR FILTRATION RATE 18.2 (>32); MAGNESIUM LEVEL 2.1 MG/DL (1.8-2.4); POTASSIUM SERUM 3.3 MEQ/L (3.5-5.1)
[2020-10-23] MEDS: **hydrALAZINE** 50 MG TAB PO SCH ×2 (09:00→22:10)
[2020-10-23] MEDS: ISOSORBIDE DIN (ISORDIL) 10 MG TAB PO SCH ×2 (09:00→22:10)
[2020-10-23] MEDS: FERROUS SULFATE 325MG TAB PO SCH (09:02)
[2020-10-23] MEDS: VITAMIN D 1,000 INTERNATIONAL UNITS TABLET PO SCH (09:02)
[2020-10-23] MEDS: ROSUVASTATIN 10 MG TAB (CRESTOR) PO SCH (09:02)
[2020-10-23] MEDS: HumaLOG INSULIN (NovoLOG) PER UNIT SC SCH ×4 (09:02→22:11)
[2020-10-23] MEDS: TORSEMIDE 10 MG TABLET PO SCH (09:03)
[2020-10-23] MEDS: METOPROLOL TARTRATE 100 MG TAB PO SCH ×2 (09:11→22:10)
[2020-10-23 14:00] VITALS: BP 119/47
--- NOTE | 2020-10-23 14:03 | IPNPDOC ---
Text Note Date of Service The patient was seen on 10/23/20. NOTE Subjective: Patient is an 80-year-old female who presented to the emergency d [facility] yesterday after falling and hitting her head. Patient also fell on 10/19/2020 and broke her right humerus. Patient states that she is doing better however, patient work with physical therapy and was unable to walk with them. Patient was quite weak and became quite fatigued very quickly while working with physical therapy. Patient lives alone at home because of this increased weakness. Patient does not appear safe to be discharged at this time. Patient is otherwise feeling well at this time. Review of systems: General: Patient denies fevers HEENT: Patient denies headaches Cardiovascular: Patient denies chest pain Respiratory: Patient denies shortness of breath, cough GI: Patient denies abdominal pain, nausea, vomiting, diarrhea : Patient denies increased frequency or pain with urination Extremities: Patient reports pain in her right shoulder Neurological: Patient denies numbness or tingling in legs Physical exam: Vitals: See below General: Alert and oriented female patient who was laying in bed when I walked in the room. Patient did not appear to be in any acute distress. HEENT: Normocephalic, atraumatic, moist mucous membranes. Neck: No lymphadenopathy or thyromegaly Cardiac: Regular rate and rhythm, no murmurs, normal S1, normal S2 Pulm: Clear to auscultation bilaterally. No wheezes, rhonchi, rales Abd: Nondistended, nontender to palpation, normal bowel sounds Ext: No edema bilateral lower extremities, patient had sling on right shoulder with ecchymosis surrounding the right shoulder. Labs: See below Imaging: No new imaging has been performed Assessment/plan: 80-year-old female presented to the emergency department after tripping and falling and hitting her head. Patient is on Eliquis for anticoagulation due to her atrial fibrillation. Patient has become weaker and was not able to work successfully with physical therapy. 1. Fall with injury to her head. Patient's neurochecks have been negative so neurochecks have been discontinued. Patient's Eliquis will be restarted at this time. We will continue to monitor the patient. 2. Weakness. Patient was unable to work with physical therapy and she became very fatigued very quickly. Physical therapy recommended occupational therapy order as the patient cannot use a conventional rolling walker due to her humeral fracture. Patient will need a different walker with training for this. Patient is currently not safe to be discharged home and will need continued work-up for this new onset weakness. 3. Frequent falls. Patient is fallen twice in the last 3 days causing a humeral fracture as well as head injury. Patient will need continued physical therapy at this time. 4. Hypertension. Patient does have difficult to control hypertension. Patient did have low blood pressure when she stood up while working with physical therapy although in speaking with the physical therapist they stated it was difficult to hear the heart sounds. We will continue to monitor the patient's blood pressure. 5. Right humeral fracture. Patient was seen in the emergency department on 6020 for this and was placed in a sling. Patient will follow up with orthopedic surgery upon her discharge. 6. Atrial fibrillation. Patient is rate controlled metoprolol. We will restart her anticoagulation. 7. Chronic kidney disease stage IV. We will hold all nephrotoxic agents continue monitor the patient 8. Heart failure preserved ejection fraction. Patient appears compensated on exam today. DVT Prophylaxis: Patient will now be fully anticoagulated with her Eliquis Disposition: Patient will be changed from observation to inpatient admission as I expect the patient will require further work-up for the weakness and further treatment for this as well. Patient's discharge is pending possible placement or possible home with occupational therapy services. VS,Tieshae, I+O VS, Fishbone, I+O Laboratory Tests 10/23/20 06:57 Vital Signs Date Time Temp Pulse Resp B/P (MAP) Pulse Ox O2 Delivery O2 Flow Rate FiO2 10/23/20 09:11 100 124/60 10/23/20 06:00 99.6 18 97 Room Air I&O- Last 24 Hours up to 6 AM 10/23/20 06:00 Intake Total 1580 ml Balance 1580 ml ISAAC PHELPS DO Oct 23, 2020 14:03
[2020-10-23] MEDS: ACETAMINOPHEN TAB 650MG DOSE (2X325MG) PO PRN (16:16)
[2020-10-23] MEDS: TORSEMIDE 20 MG TAB PO SCH (18:18)
[2020-10-23 22:00] VITALS: BP 156/58
[2020-10-23] MEDS: allopurinoL 100 MG TAB PO SCH (22:09)
[2020-10-23] MEDS: PARoxetine 20MG TABLET PO SCH (22:10)
[2020-10-23] MEDS: APIXABAN 2.5 MG TAB (ELIQUIS) PO SCH (22:10)
[2020-10-24] MEDS: ACETAMINOPHEN TAB 650MG DOSE (2X325MG) PO PRN (02:58)
[2020-10-24 07:10] LABS: BASO % 0.2 % (0.0-1.0); EOS # 0.2 10^3/uL (0.0-0.5); EOS % 0.9 % (0.0-3.0); HEMATOCRIT 25.2 % (36.0-47.0); HEMOGLOBIN 8.5 g/dl (12.0-15.5); LYMPH # 2.8 10^3/uL (1.5-5.0); LYMPH % 16.8 % (24.0-44.0); MEAN CORPUSCULAR HEMOGLOBIN 32.3 pg (27.0-33.0); MEAN CORPUSCULAR HGB CONC 33.7 g/dl (32.0-36.5); MEAN CORPUSCULAR VOLUME 95.8 fl (80.0-96.0); MONO # 1.3 10^3/uL (0.0-0.8); MONO % 7.8 % (2.0-8.0); NEUTROPHILS # 12.5 10^3/uL (1.5-8.5); NEUTROPHILS % 73.6 % (36.0-66.0); PLATELET COUNT, AUTOMATED 266 10^3/uL (150-450); RED BLOOD COUNT 2.63 10^6/uL (4.00-5.40); WHITE BLOOD COUNT 16.9 10^3/uL (4.0-10.0)
[2020-10-24 07:28] LABS: CALCIUM LEVEL 8.6 MG/DL (8.8-10.2); CREATININE FOR GFR 2.98 MG/DL (0.55-1.30); GLOMERULAR FILTRATION RATE 16.1 (>32); MAGNESIUM LEVEL 1.9 MG/DL (1.8-2.4); POTASSIUM SERUM 3.4 MEQ/L (3.5-5.1)
[2020-10-24] MEDS: HumaLOG INSULIN (NovoLOG) PER UNIT SC SCH ×4 (08:18→20:22)
[2020-10-24] MEDS: LORATADINE 10 MG TAB PO SCH (08:19)
[2020-10-24] MEDS: APIXABAN 2.5 MG TAB (ELIQUIS) PO SCH ×2 (08:19→20:21)
[2020-10-24] MEDS: VITAMIN D 1,000 INTERNATIONAL UNITS TABLET PO SCH (08:20)
[2020-10-24] MEDS: TORSEMIDE 10 MG TABLET PO SCH (08:20)
[2020-10-24] MEDS: **hydrALAZINE** 50 MG TAB PO SCH ×2 (09:00→20:22)
[2020-10-24] MEDS ORDERED: POTASSIUM CHLORIDE 10 MEQ SR TABLET PO ONE (09:00)
[2020-10-24] MEDS: ISOSORBIDE DIN (ISORDIL) 10 MG TAB PO SCH ×2 (09:00→20:22)
[2020-10-24] MEDS: METOPROLOL TARTRATE 100 MG TAB PO SCH ×2 (09:34→20:22)
--- NOTE | 2020-10-24 11:38 | IPNPDOC ---
Text Note Date of Service The patient was seen on 10/24/20. NOTE Subjective: Patient is an 80-year-old female presented to the emergency depar tment 2 days ago after hitting her head. Patient fell on 10/19/2020 and broke her right humerus. Patient states that she is feeling better however, she is still very weak and having difficulty moving about states that she is able to walk to the door and back but that all that she was able to do this morning. Patient is wondering why she is so weak but is otherwise feeling well. Review of systems: General: Patient denies fevers HEENT: Patient denies headaches Cardiovascular: Patient denies chest pain Respiratory: Patient denies shortness of breath, cough GI: Patient denies abdominal pain, nausea, vomiting, diarrhea : Patient denies increased frequency or pain with urination Extremities: Patient reports achiness in her right shoulder. Patient denies any pain or swelling in her lower extremities Neurological: Patient denies numbness or tingling in legs Physical exam: Vitals: See below General: Alert and oriented female patient who was sitting in the bedside chair when I walked in the room. Patient did not appear to be in any acute distress. HEENT: Normocephalic, atraumatic, moist mucous membranes. Neck: No lymphadenopathy or thyromegaly Cardiac: Regular rate and rhythm, no murmurs, normal S1, normal S2 Pulm: Clear to auscultation bilaterally. No wheezes, rhonchi, rales Abd: Nondistended, nontender to palpation, normal bowel sounds Ext: No edema bilateral lower extremities, patient had a sling on her right shoulder with ecchymosis surrounding the right shoulder. Labs: See below Imaging: No new imaging has been performed Assessment/plan: 80-year-old female present to the emergency department after tripping and falling and hitting her head 2 days ago. Patient is on anticoagulation due to atrial fibrillation. Patient has become weaker and not been able to walk burns ccessfully with physical therapy. 1. Fall with injury to her head. Patient is neurochecks were negative so they were discontinued. Eliquis is restarted. We will continue to monitor the patient 2. Weakness. Patient was not doing well with physical therapy and is becoming very fatigued very quickly. Occupational Therapy orders have been ordered as patient cannot use conventional rolling walker due to humeral fracture. Patient may need subacute rehab. 3. Frequent falls. Patient has fallen twice in the last 3 days causing humeral fracture as well as head injury. Patient will need continued physical therapy. Patient may need subacute rehab or acute rehab. 4. Hypertension. Patient has difficulty control hypertension. Patient has had low blood pressures and high blood pressures. We will continue her current regimen with hold parameters. 5. Right humeral fracture. Patient was seen in the emergency department on 10/19/2020 for this. Patient is in a sling and will follow up with orthopedic surgery. 6. Atrial fibrillation. Rate controlled metoprolol. On Eliquis for ant icoagulation. 7. Chronic kidney disease stage IV. At baseline. 8. Heart failure with preserved ejection fraction. Appears compensated on exam today. DVT Prophylaxis: Fully anticoagulated with Eliquis Disposition: Pending improvement with PT, patient may need acute or subacute rehab. VS,Fishbone, I+O VS, Fishbone, I+O Laboratory Tests 10/24/20 06:51 Vital Signs Date Time Temp Pulse Resp B/P (MAP) Pulse Ox O2 Delivery O2 Flow Rate FiO2 10/24/20 09:34 72 127/47 10/23/20 22:00 98.4 20 98 Room Air I&O- Last 24 Hours up to 6 AM 10/24/20 06:00 Intake Total 1320 ml Output Total 600 ml Balance 720 ml ISAAC PHELPS DO Oct 24, 2020 11:37
[2020-10-24 14:00] VITALS: BP 128/49
[2020-10-24] MEDS: TORSEMIDE 20 MG TAB PO SCH (17:29)
[2020-10-24] MEDS: allopurinoL 100 MG TAB PO SCH (20:21)
[2020-10-24] MEDS: PARoxetine 20MG TABLET PO SCH (20:21)
[2020-10-24 22:00] VITALS: BP 148/67
[2020-10-24] MEDS ORDERED: NS 1,000 ML IV ONE (23:35)
[2020-10-25 06:00] VITALS: BP 148/65
[2020-10-25 06:57] LABS: HEMATOCRIT 24.2 % (36.0-47.0); HEMOGLOBIN 8.2 g/dl (12.0-15.5); MEAN CORPUSCULAR HEMOGLOBIN 32.3 pg (27.0-33.0); MEAN CORPUSCULAR HGB CONC 33.9 g/dl (32.0-36.5); MEAN CORPUSCULAR VOLUME 95.3 fl (80.0-96.0); PLATELET COUNT, AUTOMATED 294 10^3/uL (150-450); RED BLOOD COUNT 2.54 10^6/uL (4.00-5.40); WHITE BLOOD COUNT 19.1 10^3/uL (4.0-10.0)
[2020-10-25 07:27] LABS: CALCIUM LEVEL 8.2 MG/DL (8.8-10.2); CREATININE FOR GFR 2.68 MG/DL (0.55-1.30); GLOMERULAR FILTRATION RATE 18.2 (>32); MAGNESIUM LEVEL 1.8 MG/DL (1.8-2.4); POTASSIUM SERUM 2.6 MEQ/L (3.5-5.1)
[2020-10-25] MEDS ORDERED: POTASSIUM CHLORIDE 10 MEQ SR TABLET PO SCH (08:00)
[2020-10-25] MEDS: ISOSORBIDE DIN (ISORDIL) 10 MG TAB PO SCH ×2 (09:00→22:44)
[2020-10-25] MEDS: **hydrALAZINE** 50 MG TAB PO SCH ×2 (09:00→22:43)
[2020-10-25] MEDS: LORATADINE 10 MG TAB PO SCH (10:06)
[2020-10-25] MEDS: FERROUS SULFATE 325MG TAB PO SCH (10:06)
[2020-10-25] MEDS: HumaLOG INSULIN (NovoLOG) PER UNIT SC SCH ×4 (10:06→22:53)
[2020-10-25] MEDS: ROSUVASTATIN 10 MG TAB (CRESTOR) PO SCH (10:06)
[2020-10-25] MEDS: CALCITRIOL 0.25 MCG CAP (S0169) PO SCH (10:06)
[2020-10-25] MEDS: VITAMIN D 1,000 INTERNATIONAL UNITS TABLET PO SCH (10:07)
[2020-10-25] MEDS: TORSEMIDE 10 MG TABLET PO SCH (10:08)
[2020-10-25] MEDS: APIXABAN 2.5 MG TAB (ELIQUIS) PO SCH ×2 (10:08→22:32)
[2020-10-25] MEDS: METOPROLOL TARTRATE 100 MG TAB PO SCH ×2 (10:09→22:43)
--- NOTE | 2020-10-25 12:52 | IPNPDOC ---
Text Note Date of Service The patient was seen on 10/25/20. NOTE Subjective: Patient is an 80-year-old female presented to emergency department 3 days ago after hitting her head. Patient fell on 10/19/2020 and broke her right humerus. Patient states that she is feeling better however she is very weak and having a difficult time moving. Patient has been working with physical therapy but is not currently safe to go home. Patient did receive but 800 cc of IV fluid overnight due to worsening kidney function. Patient is otherwise doing we ll today. Review of systems: General: Patient denies fevers HEENT: Patient denies headaches Cardiovascular: Patient denies chest pain Respiratory: Patient denies shortness of breath, cough GI: Patient denies abdominal pain, nausea, vomiting, diarrhea : Patient denies increased frequency or pain with urination Extremities: Patient denies swelling or pain in extremities Neurological: Patient denies numbness or tingling in legs Physical exam: Vitals: See below General: Alert and oriented female patient who was sitting in bed when I walked in. Patient did not appear to be in any acute distress. HEENT: Normocephalic, atraumatic, moist mucous membranes. Neck: No lymphadenopathy or thyromegaly Cardiac: Regular rate and rhythm, no murmurs, normal S1, normal S2 Pulm: Clear to auscultation bilaterally. No wheezes, rhonchi, rales Abd: Nondistended, nontender to palpation, normal bowel sounds Ext: Trace pitting edema around the bilateral ankles, patient had sling on right shoulder with ecchymosis around the right shoulder Labs: See below Imaging: No new imaging has been performed. Assessment/plan: 80-year-old female present to the emergency department after tripping and falling and hitting her head 3 days ago. Patient is on anticoagulation due to atrial fibrillation. Patient has become weaker and is not able to walk successfully physical therapy. 1. Fall with injury to her head. Patient's neuro checks were negative so they have discontinued. Eliquis restarted. Continue monitor patient 2. Weakness. Patient is not doing well with physical therapy and is not safe to go home. Patient will need subacute rehab for possible placement. 3. Frequent falls. Patient has fallen twice in 3 days causing humeral fracture as well as head injury. Patient will need subacute rehab for possible placement. 4. Hypertension. Patient has difficult to control hypertension. Patient will continue with her current regimen at home. 5. Right humeral fracture. Patient is in a sling will follow with orthopedic surgery. 6. Atrial fibrillation. Rate controlled on metoprolol. On Eliquis for anticoagulation. 7. Chronic kidney disease stage IV. Patient's creatinine is 2.6. Her baseline is around 2.5-3. 8. Heart failure with preserved ejection fraction. Appears compensated on examination today. We will continue with torsemide DVT Prophylaxis: Full anticoagulation with Eliquis Disposition: Patient will be transitioned to ALC status as the patient is medically cleared for discharge to a alf facility for subacute rehab. VS,Fishbone, I+O VS, Fishbone, I+O Laboratory Tests 10/25/20 06:29 Vital Signs Date Time Temp Pulse Resp B/P (MAP) Pulse Ox O2 Delivery O2 Flow Rate FiO2 10/25/20 10:10 72 137/50 10/25/20 06:00 98.4 20 96 Room Air I&O- Last 24 Hours up to 6 AM 10/25/20 06:00 Intake Total 1360 ml Output Total 0 ml Balance 1360 ml ISAAC PHELPS DO Oct 25, 2020 12:52
[2020-10-25] MEDS: POTASSIUM CHLORIDE 10 MEQ SR TABLET PO SCH ×2 (13:14→14:21)
[2020-10-25 14:00] VITALS: BP 133/66
[2020-10-25] MEDS: TORSEMIDE 20 MG TAB PO SCH (18:16)
[2020-10-25 20:04] VITALS: BP 118/65
[2020-10-25] MEDS: allopurinoL 100 MG TAB PO SCH (22:32)
[2020-10-25] MEDS: PARoxetine 20MG TABLET PO SCH (22:32)
[2020-10-26 06:00] VITALS: BP 145/50
[2020-10-26 06:31] LABS: HEMATOCRIT 27.4 % (36.0-47.0); MEAN CORPUSCULAR HEMOGLOBIN 31.4 pg (27.0-33.0); MEAN CORPUSCULAR HGB CONC 32.8 g/dl (32.0-36.5); MEAN CORPUSCULAR VOLUME 95.5 fl (80.0-96.0); PLATELET COUNT, AUTOMATED 374 10^3/uL (150-450); RED BLOOD COUNT 2.87 10^6/uL (4.00-5.40); WHITE BLOOD COUNT 17.5 10^3/uL (4.0-10.0)
[2020-10-26 07:01] LABS: CALCIUM LEVEL 9.2 MG/DL (8.8-10.2); CREATININE FOR GFR 2.74 MG/DL (0.55-1.30); GLOMERULAR FILTRATION RATE 17.7 (>32); MAGNESIUM LEVEL 1.7 MG/DL (1.8-2.4)
[2020-10-26] MEDS ORDERED: POTASSIUM CHLORIDE 10 MEQ SR TABLET PO ONE (07:20)
[2020-10-26 08:04] LABS: CLOSTRIDIUM DIFFICILE PCR POSITIVE (NEGATIVE)
[2020-10-26] MEDS: HumaLOG INSULIN (NovoLOG) PER UNIT SC SCH ×4 (08:22→21:00)
[2020-10-26] MEDS: FERROUS SULFATE 325MG TAB PO SCH (08:23)
[2020-10-26] MEDS: LORATADINE 10 MG TAB PO SCH (08:23)
[2020-10-26] MEDS: ROSUVASTATIN 10 MG TAB (CRESTOR) PO SCH (08:23)
[2020-10-26] MEDS: APIXABAN 2.5 MG TAB (ELIQUIS) PO SCH ×2 (08:23→21:01)
[2020-10-26] MEDS: VITAMIN D 1,000 INTERNATIONAL UNITS TABLET PO SCH (08:23)
[2020-10-26] MEDS: ISOSORBIDE DIN (ISORDIL) 10 MG TAB PO SCH ×2 (08:24→21:00)
[2020-10-26] MEDS: **hydrALAZINE** 50 MG TAB PO SCH ×2 (08:24→21:00)
[2020-10-26] MEDS: TORSEMIDE 10 MG TABLET PO SCH (08:24)
[2020-10-26] MEDS: METOPROLOL TARTRATE 100 MG TAB PO SCH ×2 (08:25→21:01)
[2020-10-26] MEDS: FIDAXOMICIN 200 MG TAB (DIFICID) PO SCH ×2 (09:47→21:01)
--- NOTE | 2020-10-26 13:21 | IPNPDOC ---
Text Note Date of Service The patient was seen on 10/26/20. NOTE Subjective: Patient is an 80-year-old female presents the emergency department on 10/22/2020 after hitting her head. Patient fell on 10/19/2020 and broke her right humerus which she came to the emergency department for and was sent home with a sling. Patient had multiple episodes of watery diarrhea and a C. difficile test was sent and came back positive. Patient does have a history of C. difficile that was treated in February. Patient has not been receiving antibiotics at this time but is having diarrhea and is weaker today than she was prior. Patient had been placed on ALC status with the plan to hopefully discharge the patient to [facility] rehab facility today however, because of new diagnosis of C. difficile and increased weakness with some vomiting and was switched another day or 2 in the hospital but denies having any pain. Review of systems: General: Patient denies fevers HEENT: Patient denies headaches Cardiovascular: Patient denies chest pain Respiratory: Patient denies shortness of breath, cough GI: Patient reports vomiting and diarrhea as above. Patient denies abdominal pain : Patient denies increased frequency or pain with urination Extremities: Patient denies swelling or pain in extremities Neurological: Patient denies numbness or tingling in legs Physical exam: Vitals: See below General: Alert and oriented female patient who was sitting in bed when I walked in. Patient did not appear to be in any acute distress. HEENT: Normocephalic, atraumatic, moist mucous membranes. Neck: No lymphadenopathy or thyromegaly Cardiac: Regular rate and rhythm, no murmurs, normal S1, normal S2 Pulm: Clear to auscultation bilaterally. No wheezes, rhonchi, rales Abd: Nondistended, nontender to palpation, normal bowel sounds Ext: Trace edema around the bilateral ankles. Sling on right shoulder with ecchymosis around the right shoulder. Labs: See below Imaging: No new imaging has been performed Assessment/plan: 80-year-old female present to the emergency department after tripping and falling and hitting her head 4 days ago. Patient is on anticoagulation due to atrial fibrillation so she was admitted for observation. Patient was weak and was unable to successfully participate with physical therapy so patient was admitted for possible placement was found to have C. difficile last evening. 1. C. difficile colitis. Patient had C. difficile colitis in February which was treated. Patient had a watery diarrhea overnight on 10/25/2020. Patient has not been on any stool softeners or antibiotics. Because of this diagnosis is a recurrent diagnosis although it was 8 months ago patient will be started on Dificid. We will continue to monitor the patient. 2. Fall with injury to her head. Neurochecks were negative on her first day of admission so they were discontinued. Eliquis was restarted. Continue monitoring the patient and work with physical therapy. 3. Weakness. This may be secondary to C. difficile infection however, patient did not start having diarrhea to last night. Patient will have to continue work with physical therapy. 4. Frequent falls. Patient has fallen twice in 3 days causing humeral fracture and head injury. Will need subacute rehab. 5. Hypertension. Patient is difficult to control hypertension. Continue with her current home regimen. 6. Right humeral fracture. Patient is in a sling and will need follow-up with orthopedic surgery 7. Atrial fibrillation. Rate is controlled with metoprolol and Eliquis for anticoagulation. 8. Chronic kidney disease stage IV. Creatinine is at baseline. 9. Heart failure with preserved ejection fraction. Appears compensated on exam today. Continue home diuretics. DVT Prophylaxis: Full anticoagulation with Eliquis Disposition: Patient will be transition from ALC status to acute inpatient admission due to her recurrent C. difficile infection. Plan is to discharge the patient once medically cleared to subacute rehab. VS,Fishbone, I+O VS, Fishbone, I+O Laboratory Tests 10/26/20 06:13 Vital Signs Date Time Temp Pulse Resp B/P (MAP) Pulse Ox O2 Delivery O2 Flow Rate FiO2 10/26/20 08:25 79 144/50 10/26/20 06:00 98.6 18 98 Room Air I&O- Last 24 Hours up to 6 AM 10/26/20 05:59 Intake Total 1090 ml Output Total 0 ml Balance 1090 ml ISAAC PHELPS DO Oct 26, 2020 13:21
[2020-10-26 14:00] VITALS: BP 113/67
[2020-10-26] MEDS: TORSEMIDE 20 MG TAB PO SCH (17:17)
[2020-10-26 20:11] VITALS: BP 135/64
[2020-10-26] MEDS: PARoxetine 20MG TABLET PO SCH (21:01)
[2020-10-26] MEDS: POTASSIUM CHLORIDE 10 MEQ SR TABLET PO SCH (21:01)
[2020-10-26] MEDS: allopurinoL 100 MG TAB PO SCH (21:01)
[2020-10-27 06:07] VITALS: BP 140/63
[2020-10-27 07:30] LABS: HEMATOCRIT 25.6 % (36.0-47.0); HEMOGLOBIN 8.5 g/dl (12.0-15.5); MEAN CORPUSCULAR HEMOGLOBIN 31.5 pg (27.0-33.0); MEAN CORPUSCULAR HGB CONC 33.2 g/dl (32.0-36.5); MEAN CORPUSCULAR VOLUME 94.8 fl (80.0-96.0); PLATELET COUNT, AUTOMATED 376 10^3/uL (150-450); WHITE BLOOD COUNT 16.5 10^3/uL (4.0-10.0)
[2020-10-27 08:09] LABS: CALCIUM LEVEL 8.4 MG/DL (8.8-10.2); CREATININE FOR GFR 2.78 MG/DL (0.55-1.30); GLOMERULAR FILTRATION RATE 17.4 (>32); MAGNESIUM LEVEL 1.6 MG/DL (1.8-2.4); POTASSIUM SERUM 2.9 MEQ/L (3.5-5.1)
[2020-10-27] MEDS ORDERED: POTASSIUM CHLORIDE 10 MEQ SR TABLET PO ONE (08:15)
[2020-10-27] MEDS ORDERED: KCL 10MEQ/100ML SWI (KRUN) 10 MEQ in IV 1 EA IV ONE (08:15)
[2020-10-27] MEDS ORDERED: MAG SULF 1GM/100ML (MAG RUN) 1 GM in IV 1 EA IV ONE (08:15)
[2020-10-27] MEDS: HumaLOG INSULIN (NovoLOG) PER UNIT SC SCH ×4 (08:46→21:16)
[2020-10-27] MEDS: LORATADINE 10 MG TAB PO SCH (08:48)
[2020-10-27] MEDS: FIDAXOMICIN 200 MG TAB (DIFICID) PO SCH ×2 (08:48→21:00)
[2020-10-27] MEDS: APIXABAN 2.5 MG TAB (ELIQUIS) PO SCH ×2 (08:48→21:00)
[2020-10-27] MEDS: METOPROLOL TARTRATE 100 MG TAB PO SCH ×2 (08:49→21:01)
[2020-10-27] MEDS: VITAMIN D 1,000 INTERNATIONAL UNITS TABLET PO SCH (08:49)
[2020-10-27] MEDS: CALCITRIOL 0.25 MCG CAP (S0169) PO SCH (08:49)
[2020-10-27] MEDS ORDERED: MAGNESIUM GLUCONATE 500 MG TAB PO SCH (09:00)
[2020-10-27] MEDS: **hydrALAZINE** 50 MG TAB PO SCH ×2 (09:00→20:59)
[2020-10-27] MEDS: ISOSORBIDE DIN (ISORDIL) 10 MG TAB PO SCH ×2 (09:00→21:00)
[2020-10-27 14:00] VITALS: BP 116/44
--- NOTE | 2020-10-27 18:40 | IPNPDOC ---
Text Note Date of Service The patient was seen on 10/27/20. NOTE Continue iron supplementation subjective: No any acute events overnight, patient stated that diarrhea improved, she had semiformed stool overnight Objective: GENERAL APPEARANCE: NAD HEENT: no scleral icterus, no JVD, EOMI CARDIOVASCULAR: S1S2 LUNGS: CTA ABDOMEN: soft & not tender w palpitation MUSCULOSKELETAL: no cyanosis, no swelling INTEGUMENT: no generalized pallor NEUROLOGICAL: cranial nerve function from 2-12 intact intact, follows commands, speech not dysarthric Assessment and plan Patient is 80 years old female with past medical history of hypertension, frequent falls presented to hospital with deconditioning C. difficile colitis Continue treatment with fidaxomicin Diarrhea and leukocytosis improved Atrial fibrillation Heart rate under control Continue Eliquis Acute on chronic kidney injury Most likely secondary to volume depletion secondary to torsemide Torsemide and allopurinol on hold. Gentle IV fluid Deconditioning/frequent falls PT/OT Type 2 diabetes Diabetes diet Insulin sliding scale I added detemir 10 units twice daily to better control glucose level electrolyte imbalance/hypomagnesemia/ hypokalemia Replaced Hypertension Blood pressure under control Continue home meds Normocytic anemia Multifactorial. Anemia of chronic images superimposed with iron deficient anemia Continue iron supplementation Diastolic CHF Note in acute exacerbation Due to acute kidney injury, torsemide on hold Right humeral fracture Patient is in a sling Appreciate/agree with orthopedic surgeon consult Nayely AVENDANO, I+O Nayely AVENDANO I+O Laboratory Tests 10/27/20 07:06 Vital Signs Date Time Temp Pulse Resp B/P (MAP) Pulse Ox O2 Delivery O2 Flow Rate FiO2 10/27/20 14:00 98.0 72 18 116/44 (68) 100 Room Air I&O- Last 24 Hours up to 6 AM 10/27/20 06:00 Intake Total 240 ml Output Total 0 ml Balance 240 ml KAM CEJA DO Oct 27, 2020 18:40
[2020-10-27 19:52] LABS: ALBUMIN 2.7 GM/DL (3.2-5.2); BILIRUBIN,TOTAL 0.4 MG/DL (0.2-1.0); CALCIUM LEVEL 8.7 MG/DL (8.8-10.2); CREATININE FOR GFR 2.88 MG/DL (0.55-1.30); GLOMERULAR FILTRATION RATE 16.7 (>32); POTASSIUM SERUM 3.5 MEQ/L (3.5-5.1); TOTAL PROTEIN 6.1 GM/DL (6.4-8.2)
[2020-10-27] MEDS: POTASSIUM CHLORIDE 10 MEQ SR TABLET PO SCH (21:01)
[2020-10-27] MEDS: PARoxetine 20MG TABLET PO SCH (21:01)
[2020-10-27] MEDS: LEVEMIR (INSULIN DETEMIR) 1 UNITS/0.01ML SC SCH (21:16)
[2020-10-27 22:00] VITALS: BP 148/51
[2020-10-28 06:00] VITALS: BP 149/57
[2020-10-28 07:06] LABS: HEMATOCRIT 25.1 % (36.0-47.0); HEMOGLOBIN 8.6 g/dl (12.0-15.5); MEAN CORPUSCULAR HEMOGLOBIN 32.1 pg (27.0-33.0); MEAN CORPUSCULAR HGB CONC 34.3 g/dl (32.0-36.5); MEAN CORPUSCULAR VOLUME 93.7 fl (80.0-96.0); PLATELET COUNT, AUTOMATED 417 10^3/uL (150-450); RED BLOOD COUNT 2.68 10^6/uL (4.00-5.40); WHITE BLOOD COUNT 16.7 10^3/uL (4.0-10.0)
[2020-10-28 07:32] LABS: CALCIUM LEVEL 8.5 MG/DL (8.8-10.2); CREATININE FOR GFR 2.76 MG/DL (0.55-1.30); GLOMERULAR FILTRATION RATE 17.6 (>32); MAGNESIUM LEVEL 1.7 MG/DL (1.8-2.4); POTASSIUM SERUM 3.1 MEQ/L (3.5-5.1)
[2020-10-28] MEDS ORDERED: POTASSIUM CHLORIDE 10 MEQ SR TABLET PO ONE (07:40)
[2020-10-28] MEDS ORDERED: MAGNESIUM GLUCONATE 500 MG TAB PO SCH (09:00)
[2020-10-28] MEDS: HumaLOG INSULIN (NovoLOG) PER UNIT SC SCH ×2 (09:27→13:31)
[2020-10-28] MEDS: LORATADINE 10 MG TAB PO SCH (09:30)
[2020-10-28] MEDS: **hydrALAZINE** 50 MG TAB PO SCH (09:30)
[2020-10-28] MEDS: FIDAXOMICIN 200 MG TAB (DIFICID) PO SCH (09:30)
[2020-10-28] MEDS: ROSUVASTATIN 10 MG TAB (CRESTOR) PO SCH (09:30)
[2020-10-28] MEDS: APIXABAN 2.5 MG TAB (ELIQUIS) PO SCH (09:30)
[2020-10-28] MEDS: METOPROLOL TARTRATE 100 MG TAB PO SCH (09:31)
[2020-10-28] MEDS: ISOSORBIDE DIN (ISORDIL) 10 MG TAB PO SCH (09:31)
[2020-10-28] MEDS: FERROUS SULFATE 325MG TAB PO SCH (09:31)
[2020-10-28 09:32] VITALS: BP 149/56
[2020-10-28] MEDS: LEVEMIR (INSULIN DETEMIR) 1 UNITS/0.01ML SC SCH (09:32)
[2020-10-28] MEDS: VITAMIN D 1,000 INTERNATIONAL UNITS TABLET PO SCH (09:32)
[2020-10-28] MEDS ORDERED: FIDA200TA PO (10:40)
--- NOTE | 2020-10-28 11:22 | DS.PDOC ---
Discharge Summary General Date of Admission Oct 23, 2020 at 13:57 Date of Discharge 10/28/20 Discharge Summary PROCEDURES PERFORMED DURING STAY: [None]. ADMITTING DIAGNOSES: C. difficile colitis Atrial fibrillation Acute on chronic kidney injury Deconditioning/frequent falls Type 2 diabetes Hypertension Normocytic anemia Diastolic CHF electrolyte imbalance/hypomagnesemia/ hypokalemia Right humeral fracture DISCHARGE DIAGNOSES: C. difficile colitis Atrial fibrillation Acute on chronic kidney injury Deconditioning/frequent falls Type 2 diabetes Hypertension Normocytic anemia Diastolic CHF electrolyte imbalance/hypomagnesemia/ hypokalemia Right humeral fracture COMPLICATIONS/CHIEF COMPLAINT: Closed Fracture Of Anatomical Neck Of Humerus,Fall. HISTORY OF PRESENT ILLNESS:Patient is an 80-year-old female who presents to the emergency department earlier today after falling and hitting her head. Patient fell on 10/19/2020 and broke her right humerus. Patient was sent home in a sling and has been doing well until she states that she tripped and fell. Patient hit her head. Patient states that she does not know if she hit her head but does remember everything else about the event. Patient says that her friends that she was with became scared after she fell and called EMS. Patient was observed in the emergency department but because she is on Eliquis for her atrial fibrillation, it was deemed necessary that the patient be admitted for observation with neuro checks in order to ensure that the patient's fall does not cause a bleed. Patient states that she is feeling well. Patient just says that her arm is sore but is not painful. Patient is feeling otherwise well and denies having any pain in her head. HOSPITAL COURSE: During the hospital stay the following issue addressed C. difficile colitis Patient received treatment with fidaxomicin Diarrhea and leukocytosis improved Atrial fibrillation Heart rate under control Continue Eliquis Acute on chronic kidney injury Most likely secondary to volume depletion secondary to torsemide Torsemide and allopurinol on hold. Patient received gentle IV fluid. Kidney function improved. I reduced the dose of torsemide on discharge Deconditioning/frequent falls PT/OT Type 2 diabetes Diabetes diet Insulin sliding scale I added detemir 10 units twice daily to better control glucose level electrolyte imbalance/hypomagnesemia/ hypokalemia Replaced Hypertension Blood pressure under control Continue home meds Normocytic anemia Multifactorial. Anemia of chronic images superimposed with iron deficient anemia Continue iron supplementation Diastolic CHF Note in acute exacerbation Due to acute kidney injury, torsemide was on hold Right humeral fracture Patient is in a sling I talked to Dr. Jackson today, he recommended close follow-up with him, continue physical therapy, no indication for surgical intervention for now DISCHARGE MEDICATIONS: Please see below. ALLERGIES: Please see below. PHYSICAL EXAMINATION ON DISCHARGE: VITAL SIGNS: Please see below. GENERAL APPEARANCE: NAD HEENT: no scleral icterus, no JVD, EOMI CARDIOVASCULAR: S1S2 LUNGS: CTA ABDOMEN: soft & not tender w palpitation MUSCULOSKELETAL: no cyanosis, no swelling INTEGUMENT: no generalized pallor NEUROLOGICAL: cranial nerve function from 2-12 intact intact, follows commands, speech not dysarthric LABORATORY DATA: Please see below. IMAGING: [facility] NAME: KELVIN ESPARZA DATE OF : 1940 BUSINESS NUMBER: [id number] AGE: 80 SEX: F REPORT #: [id number] ROOM: ED TECHNOLOGIST: [facility] DOCTOR: ALECIA UCRTIS MD Ordered for Date&Time: 10/22/20 010 cc: [~ rep ct ivnm] Service Date&Time: 10/22/20 0438 This report is in Signed status. Interpretation performed by [facility]. Thank you for having your radiology procedures performed at [facility] RADIOLOGY REPORT Date&Time printed: [~ rep prt dt last] [~ rep prt tm last] Page 1 of 1 [place] [id number] RADIOLOGY REPORT This report is in Signed status. Interpretation performed by [facility]. Thank you for having your radiology procedures performed at [facility] RADIOLOGY REPORT Date&Time printed: [~ rep prt dt last] [~ rep prt tm last] Page 1 of 1 PROCEDURE INFORMATION: Exam: XR Right Shoulder Exam date and time: 10/22/2020 4:38 AM Age: 80 years old Clinical indication: Other: Previous fracture, new fall TECHNIQUE: Imaging protocol: XR Right shoulder. Views: 2 or more views. COMPARISON: CR Shoulder, complete RIGHT 10/19/2020 9:31 PM FINDINGS: Bones/joints: Impacted and displaced fracture of the right humeral head and neck. Alignment appears mildly improved. Osteopenia. Mild degenerative change. Soft tissues: Normal. IMPRESSION: Redemonstration of fracture of the proximal right humerus, alignment mildly improved. No new acute osseous abnormality. Electronically signed by: Eriberto Kuo On 10/22/2020 04:58:12 AM DD: ERIBERTO KUO MD 10/22/208 DT: JOSE 10/22/20457 DS: ANJANA 10/22/20457 [~ rep ct labl] PROGNOSIS: Fair ACTIVITY: [As tolerated]. DIET: Diabetes DISCHARGE PLAN: Subacute rehab DISCHARGE INSTRUCTIONS: Follow-up with Dr. Jackson in 2 3 days, follow-up with PCP in 2 3 days DISCHARGE CONDITION: [Stable]. TIME SPENT ON DISCHARGE:40 minutes. Vital Signs/I&Os Vital Signs Date Time Temp Pulse Resp B/P (MAP) Pulse Ox O2 Delivery O2 Flow Rate FiO2 10/28/20 09:32 70 149/56 10/28/20 06:00 97.6 19 100 Room Air I&O- Last 24 Hours up to 6 AM 10/28/20 06:00 Intake Total 2120 ml Output Total 0 ml Balance 2120 ml Laboratory Data Labs 24H Laboratory Tests 2 10/27/20 11:32: Bedside Glucose (Misc Panel) 287H 10/27/20 16:23: Bedside Glucose (Misc Panel) 328H 10/27/20 19:04: Anion Gap 14, Glomerular Filtration Rate 16.7L, Calcium Level 8.7L, Total Bilirubin 0.4, Aspartate Amino Transf (AST/SGOT) 104H, Alanine Aminotransferase (ALT/SGPT) 124H, Alkaline Phosphatase 168H, Total Protein 6.1L, Albumin 2.7L, Albumin/Globulin Ratio 0.8L 10/27/20 20:41: Bedside Glucose (Misc Panel) 269H 10/28/20 06:47: Nucleated Red Blood Cells % (auto) 0.0, Anion Gap 10, Glomerular Filtration Rate 17.6L, Calcium Level 8.5L, Magnesium Level 1.7L 10/28/20 09:22: Urine Color YELLOW, Urine Appearance HAZY, Urine pH 5.0, Urine Specific [place] 1.010, Urine Protein 2+H, Urine Glucose (UA) 1+H, Urine Ketones NEGATIVE, Urine Blood NEGATIVE, Urine Nitrite NEGATIVE, Urine Bilirubin NEGATIVE, Urine Urobilinogen 0.2, Urine Leukocyte Esterase 2+H, Urine WBC (Auto) 51H, Urine RBC (Auto) 0, Urine Hyaline Casts (Auto) 0, Urine Bacteria (Auto) 1+H, Urine Squamous Epithelial Cells 1, Urine Sperm (Auto) CBC/BMP Laboratory Tests 10/27/20 19:04 10/28/20 06:47 FSBS Laboratory Tests Test 10/27/20 11:32 10/27/20 16:23 10/27/20 20:41 Range/Units Bedside Glucose (Misc Panel) 287 328 269 83-110 MG/DL Microbiology Microbiology 10/28/20 Urine Culture, Received Pending Discharge Medications Scheduled Allopurinol (Allopurinol) 100 Mg Tablet, 200 MG PO QHS, (Reported) Amlodipine Besylate (Amlodipine Besylate) 10 Mg Tablet, 10 MG PO DAILY, (Reported) Apixaban (Eliquis) 2.5 Mg Tablet, 2.5 MG PO BID, (Reported) Calcitriol (Rocaltrol) 0.25 Mcg Capsule, 0.25 MCG PO 3XW, (Reported) SUN/SUN/SUN Cholecalciferol (Vitamin D3) (Vitamin D3) 1,000 Unit Tablet, 1,000 UNITS PO DAILY, (Reported) Ferrous Sulfate (Ferrous Sulfate) 325 Mg Tab, 325 MG PO 4XWK, (Reported) SUN/SUN//SAT Fidaxomicin (Dificid) 200 Mg Tablet, 200 MG PO BID Glipizide (Glipizide ER) 10 Mg Tab.er.24, 10 MG PO BID, (Reported) Isosorbide Dinitrate (Isosorbide Dinitrate) 10 Mg Tablet, 10 MG PO BID, (Reported) L. Rhamnosus GG/Inulin (Culturelle Capsule) 1 Each Cap.sprink, 1 CAP PO DAILY, (Reported) Loratadine (Loratadine) 10 Mg Tab, 10 MG PO DAILY, (Reported) Magnesium Chloride (Mag64) 64 Mg Tabcr, 64 MG PO BID, (Reported) Metoprolol Tartrate (Metoprolol Tartrate) 100 Mg Tablet, 100 MG PO BID, (Reported) Paroxetine HCl (Paroxetine HCl) 20 Mg Tablet, 20 MG PO QHS, (Reported) Rosuvastatin Calcium (Rosuvastatin Calcium) 10 Mg Tablet, 10 MG PO 4XWK, (Reported) SUN, , , SAT Saxagliptin HCl (Onglyza) 2.5 Mg Tab, 2.5 MG PO DAILY, (Reported) Torsemide (Torsemide) 20 Mg Tablet, 20 MG PO QPM, (Reported) hydrALAZINE HCL (Hydralazine HCl) 100 Mg Tablet, 50 MG PO BID, (Reported) Scheduled PRN Fluticasone Propionate (Fluticasone Propionate) 15.8 Ml [place].susp, 1 SPRAY NA DAILY PRN for NASAL CONGESTION, (Reported) Allergies Coded Allergies: No Known Allergies (Unverified , 09/01/20) KAM CEJA DO Oct 28, 2020 11:22
[2020-10-28 14:00] VITALS: BP 125/41
== END 2020-10-28 15:05 | DRG 372 ==
LOC: M ED 00:36 → M ED INP 09:01 → ENRESERV 12:57 → M MS5PR 13:30 → OBSVTOIN 10-23 13:57
PROVIDERS: ADMIT Family Medicine; ATTEND Internal Medicine
DX: A04.71 Enterocolitis due to Clostridium difficile, recurrent (principal); I50.32 Chronic diastolic (congestive) heart failure; N18.4 Chronic kidney disease, stage 4 (severe); I13.0 Hypertensive heart and chronic kidney disease with heart failure and stage 1 through stage 4 chronic kidney disease, or unspecified chronic kidney disease; N17.9 Acute kidney failure, unspecified; S09.90XA Unspecified injury of head, initial encounter; W18.09XA Striking against other object with subsequent fall, initial encounter; Y92.9 Unspecified place or not applicable; Y93.89 Activity, other specified; Y99.8 Other external cause status; E11.22 Type 2 diabetes mellitus with diabetic chronic kidney disease; I48.91 Unspecified atrial fibrillation; M10.9 Gout, unspecified; E83.42 Hypomagnesemia; E87.6 Hypokalemia; R53.1 Weakness; R29.6 Repeated falls; R53.83 Other fatigue; F32.9 Major depressive disorder, single episode, unspecified; D64.9 Anemia, unspecified; S42.291D Other displaced fracture of upper end of right humerus, subsequent encounter for fracture with routine healing; M48.061 Spinal stenosis, lumbar region without neurogenic claudication; Z20.822 Contact with and (suspected) exposure to COVID-19; Z79.01 Long term (current) use of anticoagulants; Z79.84 Long term (current) use of oral hypoglycemic drugs; Z79.899 Other long term (current) drug therapy

== ENCOUNTER → 2020-11-10 | Outpatient (CLI) | payer MEDICARE, OTHER ==
[~2020-11-10] MED LIST changes: +FIDA200TA PO
--- NOTE | 2020-11-10 12:47 | REP ---
INDICATION: PAIN. COMPARISON: Comparison radiographs are from October 22, 2020.. TECHNIQUE: Six views of the right shoulder are presented. FINDINGS: Six views of the right shoulder demonstrate inferior subluxation of the humeral head relative to the glenoid consistent with a large joint effusion. There is a comminuted impacted fracture of the surgical neck of the right humerus. There is diffuse osteopenia. There is no magno dislocation. AC joint is normally aligned. Vascular calcification is observed. IMPRESSION: Impacted comminuted fracture surgical neck right humerus with evidence of large glenohumeral joint effusion and attendant inferior position of the humeral head relative to the glenoid. <Electronically signed by Ronnie Brumfield > 11/10/20 [id number]
== END ==
LOC: M SOG 10:49
PROVIDERS: ATTEND Orthopaedic Surgery Adult Reconstructive Orthopaedic Surgery
DX: M25.511 Pain in right shoulder (principal); S42.201A Unspecified fracture of upper end of right humerus, initial encounter for closed fracture; W18.30XA Fall on same level, unspecified, initial encounter; Y92.009 Unspecified place in unspecified non-institutional (private) residence as the place of occurrence of the external cause

== ENCOUNTER → 2020-11-25 | Outpatient (REF) | payer MEDICARE, OTHER ==
[~2020-11-25] MED LIST changes: -ALEN35TA54 PO; +ALEN35TA56 PO
== END ==
LOC: M LAB REF 16:57
PROVIDERS: ATTEND Internal Medicine Nephrology
DX: N18.4 Chronic kidney disease, stage 4 (severe) (principal)

== ENCOUNTER → 2020-12-01 | Outpatient (CLI) | payer MEDICARE, OTHER ==
--- NOTE | 2020-12-01 12:25 | REP ---
INDICATION: FX OF HUMERAL HEAD. COMPARISON: 11/10/2020 TECHNIQUE: Six views as on the prior FINDINGS: Previously described comminuted proximal humeral fracture with the humeral head inferior subluxation is seen today with callus formation consistent with healing. There is no significant change in appearance of the alignment or position. IMPRESSION: No change other than healing <Electronically signed by Raheem Burrell > 12/01/20 [id number]
== END ==
LOC: M SOG 11:35
PROVIDERS: ATTEND Orthopaedic Surgery Adult Reconstructive Orthopaedic Surgery
DX: S42.211A Unspecified displaced fracture of surgical neck of right humerus, initial encounter for closed fracture (principal); W18.30XA Fall on same level, unspecified, initial encounter; Y92.009 Unspecified place in unspecified non-institutional (private) residence as the place of occurrence of the external cause

== ENCOUNTER 2020-12-13 16:01 | Outpatient (CLI) | payer MEDICARE, OTHER ==
[~2020-12-13] VITALS: Ht 157.5 cm; Wt 64.5 kg
[~2020-12-13 16:01] MED LIST changes: +BEZLOTOXUMAB 650 MG in NS 100 ML IV ONE
[2020-12-13 16:59] VITALS: BP 153/58
[2020-12-13 18:25] VITALS: BP 148/66
== END 2020-12-13 18:25 | disposition home or self-care (01) ==
LOC: M INFU 16:01
PROVIDERS: ATTEND Internal Medicine Infectious Disease
DX: A04.71 Enterocolitis due to Clostridium difficile, recurrent (principal)
CPT/HCPCS: 96365; J0565

== ENCOUNTER → 2021-01-22 | Outpatient (REF) | payer MEDICARE, OTHER ==
[~2021-01-22] MED LIST changes: -BEZLOTOXUMAB 650 MG in NS 100 ML IV ONE
== END ==
LOC: M LAB REF 19:36
PROVIDERS: ATTEND Internal Medicine Infectious Disease
DX: A04.72 Enterocolitis due to Clostridium difficile, not specified as recurrent (principal)

== ENCOUNTER → 2021-01-27 | Outpatient (CLI) | payer MEDICARE, OTHER ==
[2021-01-27 13:21] LABS: BASO # 0.1 10^3/uL (0.0-0.2); BASO % 0.4 % (0.0-1.0); EOS # 0.4 10^3/uL (0.0-0.5); EOS % 2.7 % (0.0-3.0); HEMOGLOBIN 10.2 g/dl (12.0-15.5); LYMPH # 2.4 10^3/uL (1.5-5.0); LYMPH % 17.2 % (24.0-44.0); MEAN CORPUSCULAR HEMOGLOBIN 31.1 pg (27.0-33.0); MEAN CORPUSCULAR HGB CONC 32.9 g/dl (32.0-36.5); MEAN CORPUSCULAR VOLUME 94.5 fl (80.0-96.0); MONO # 0.9 10^3/uL (0.0-0.8); MONO % 6.2 % (2.0-8.0); NEUTROPHILS # 10.2 10^3/uL (1.5-8.5); PLATELET COUNT, AUTOMATED 321 10^3/uL (150-450); RED BLOOD COUNT 3.28 10^6/uL (4.00-5.40); WHITE BLOOD COUNT 13.9 10^3/uL (4.0-10.0)
[2021-01-27 13:48] LABS: ALBUMIN 3.6 GM/DL (3.2-5.2); BILIRUBIN,TOTAL 0.4 MG/DL (0.2-1.0); CALCIUM LEVEL 9.8 MG/DL (8.8-10.2); CREATININE FOR GFR 3.77 MG/DL (0.55-1.30); GLOMERULAR FILTRATION RATE 12.2 (>32); POTASSIUM SERUM 3.4 MEQ/L (3.5-5.1); TOTAL PROTEIN 7.2 GM/DL (6.4-8.2)
== END ==
LOC: M PLALAB 10:45
PROVIDERS: ATTEND Internal Medicine Infectious Disease
DX: A04.71 Enterocolitis due to Clostridium difficile, recurrent (principal); Z79.01 Long term (current) use of anticoagulants; Z79.899 Other long term (current) drug therapy; I12.9 Hypertensive chronic kidney disease with stage 1 through stage 4 chronic kidney disease, or unspecified chronic kidney disease; N18.4 Chronic kidney disease, stage 4 (severe); S42.301D Unspecified fracture of shaft of humerus, right arm, subsequent encounter for fracture with routine healing; Y92.9 Unspecified place or not applicable; Y93.9 Activity, unspecified; E11.319 Type 2 diabetes mellitus with unspecified diabetic retinopathy without macular edema; I48.91 Unspecified atrial fibrillation
CPT/HCPCS: 36415; 80053; 85025; G0463

== ENCOUNTER → 2021-01-31 | Outpatient (CLI) | payer MEDICARE, OTHER ==
--- NOTE | 2021-01-31 12:43 | REP ---
INDICATION: RT HUMERAL FX. COMPARISON: 12/01/2020. TECHNIQUE: Three views right shoulder. FINDINGS: The fracture of the proximal right humerus is again noted unchanged in position and alignment. There is increased healing callus formation at the site of the fracture. IMPRESSION: Progressive healing of proximal right humeral fracture with no change in alignment. <Electronically signed by Balwinder Mcnulty > 01/31/21 [id number]
== END ==
LOC: M SOG 08:20
PROVIDERS: ATTEND Orthopaedic Surgery Adult Reconstructive Orthopaedic Surgery
DX: S42.211A Unspecified displaced fracture of surgical neck of right humerus, initial encounter for closed fracture (principal)

== ENCOUNTER → 2021-03-02 | Outpatient (REF) | payer MEDICARE, OTHER | LOC: M LAB REF 13:03 | PROVIDERS: ATTEND Nurse Practitioner Family | DX: E11.22 Type 2 diabetes mellitus with diabetic chronic kidney disease (principal) ==

== ENCOUNTER → 2021-06-27 | Outpatient (CLI) | payer MEDICARE, OTHER ==
[~2021-06-27] MED LIST changes: -D31000TA2 PO; +ISOS10TA3 PO; -ISOS1TAB13 PO; +KETO2SHA8 TOP; +VITA100093 PO
[2021-06-27 15:30] LABS: BASO % 0.2 % (0.0-1.0); EOS # 0.1 10^3/uL (0.0-0.5); EOS % 0.5 % (0.0-3.0); HEMATOCRIT 29.7 % (36.0-47.0); HEMOGLOBIN 9.8 g/dl (12.0-15.5); LYMPH # 1.6 10^3/uL (1.5-5.0); LYMPH % 9.4 % (24.0-44.0); MEAN CORPUSCULAR HEMOGLOBIN 31.3 pg (27.0-33.0); MEAN CORPUSCULAR VOLUME 94.9 fl (80.0-96.0); MONO # 0.6 10^3/uL (0.0-0.8); MONO % 3.3 % (2.0-8.0); NEUTROPHILS # 14.7 10^3/uL (1.5-8.5); NEUTROPHILS % 86.1 % (36.0-66.0); PLATELET COUNT, AUTOMATED 340 10^3/uL (150-450); RED BLOOD COUNT 3.13 10^6/uL (4.00-5.40); WHITE BLOOD COUNT 17.1 10^3/uL (4.0-10.0)
[2021-06-27 16:03] LABS: ALBUMIN 3.7 GM/DL (3.2-5.2); BILIRUBIN,TOTAL 0.5 MG/DL (0.2-1.0); CALCIUM LEVEL 9.5 MG/DL (8.8-10.2); CREATININE FOR GFR 4.31 MG/DL (0.55-1.30); GLOMERULAR FILTRATION RATE 10.5 (>32); POTASSIUM SERUM 3.1 MEQ/L (3.5-5.1); TOTAL PROTEIN 7.3 GM/DL (6.4-8.2)
[2021-06-27 16:42] LABS: CLOSTRIDIUM DIFFICILE PCR POSITIVE (NEGATIVE)
== END ==
LOC: M PLALAB 13:16
PROVIDERS: ATTEND Internal Medicine Infectious Disease
DX: A04.71 Enterocolitis due to Clostridium difficile, recurrent (principal); Z79.899 Other long term (current) drug therapy

== ENCOUNTER 2021-06-29 15:17 | Inpatient (IN) | payer MEDICARE, OTHER ==
[~2021-06-29] VITALS: Ht 157.5 cm; Wt 63.7 kg
[~2021-06-29 15:17] MED LIST changes: -KETO2SHA8 TOP
[2021-06-29] MEDS ORDERED: NS 500 ML IV ONE (16:10)
[2021-06-29] MEDS ORDERED: ACETAMINOPHEN TAB 650MG DOSE (2X325MG) PO PRN (17:15)
[2021-06-29] MEDS ORDERED: POTASSIUM CHLORIDE 10% LIQ 20 MEQ/15 ML UDC PO ONE ×2 (17:20→20:50)
[2021-06-29] MEDS ORDERED: GLUCAGON INJ 1MG VIAL SC PRN (17:50)
[2021-06-29] MEDS ORDERED: GLUCOSE 4GM CHEW TABLET PO PRN (17:50)
[2021-06-29] MEDS ORDERED: DEXTROSE 50% 50 ML SYRINGE IV PRN (17:50)
[2021-06-29 18:10] LABS: INR 1.18; PROTHROMBIN TIME 15.4 SECONDS (12.7-14.5)
[2021-06-29 18:12] LABS: PARTIAL THROMBOPLASTIN TIME 48.7 SECONDS (25.9-37.0)
[2021-06-29 18:17] LABS: MAGNESIUM LEVEL 2.2 MG/DL (1.8-2.4); PHOSPHORUS LEVEL 4.7 MG/DL (2.5-4.9)
[2021-06-29] MEDS ORDERED: NS 1,000 ML IV SCH (18:30)
[2021-06-29 20:15] LABS: HEMOGLOBIN 9.1 g/dl (12.0-15.5)
[2021-06-29] MEDS: HumaLOG INSULIN (NovoLOG) PER UNIT SC SCH (21:00)
[2021-06-29] MEDS ORDERED: KETO2SHA8 TOP (22:26)
[2021-06-29] MEDS ORDERED: DIFI200T PO (22:26)
[2021-06-29] MEDS ORDERED: TORS20TA2 PO (22:26)
[2021-06-29] MEDS ORDERED: HOME MED LIST COMPLETE! XX SCH (22:30)
[2021-06-29 22:56] VITALS: BP 138/60
[2021-06-29] MEDS ORDERED: NS 0.45% IV SCH (23:15)
[2021-06-29] MEDS ORDERED: POTASSIUM CHLORIDE IV SCH (23:15)
[2021-06-29] MEDS ORDERED: SODIUM BICARBONATE IV SCH (23:15)
[2021-06-30] VITALS (9 sets, daily range): BP systolic 123–141; BP diastolic 42–66
[2021-06-30] MEDS: HumaLOG INSULIN (NovoLOG) PER UNIT SC SCH ×4 (07:30→21:00)
[2021-06-30 08:25] LABS: HEMATOCRIT 22.6 % (36.0-47.0); HEMOGLOBIN 7.5 g/dl (12.0-15.5); MEAN CORPUSCULAR HEMOGLOBIN 31.9 pg (27.0-33.0); MEAN CORPUSCULAR HGB CONC 33.2 g/dl (32.0-36.5); MEAN CORPUSCULAR VOLUME 96.2 fl (80.0-96.0); PLATELET COUNT, AUTOMATED 263 10^3/uL (150-450); RED BLOOD COUNT 2.35 10^6/uL (4.00-5.40); WHITE BLOOD COUNT 13.6 10^3/uL (4.0-10.0)
[2021-06-30 08:53] LABS: ALBUMIN 3.1 GM/DL (3.2-5.2); CALCIUM LEVEL 8.9 MG/DL (8.8-10.2); CREATININE FOR GFR 3.99 MG/DL (0.55-1.30); GLOMERULAR FILTRATION RATE 11.4 (>32); PERCENT SATURATION 17.3 % (13.2-45.0); PHOSPHORUS LEVEL 4.4 MG/DL (2.5-4.9); POTASSIUM SERUM 3.5 MEQ/L (3.5-5.1)
[2021-06-30] MEDS: FIDAXOMICIN 200 MG TAB (DIFICID) PO SCH ×2 (10:19→22:06)
[2021-06-30] MEDS: METOPROLOL TARTRATE 100MG TAB PO SCH ×2 (10:19→22:09)
[2021-06-30] MEDS: LORATADINE 10 MG TAB PO SCH (10:19)
[2021-06-30] MEDS: APIXABAN 2.5 MG TAB (ELIQUIS) PO SCH ×2 (10:19→22:09)
[2021-06-30] MEDS: ROSUVASTATIN 10 MG TAB (CRESTOR) PO SCH (10:19)
[2021-06-30] MEDS: FERROUS SULFATE 325MG TAB PO SCH (10:20)
[2021-06-30] MEDS: **hydrALAZINE** 50 MG TAB PO SCH ×2 (10:20→22:08)
[2021-06-30] MEDS: ISOSORBIDE DIN (ISORDIL) 10MG TAB PO SCH ×2 (10:20→22:09)
[2021-06-30] MEDS: VITAMIN D 1,000 INTERNATIONAL UNITS TABLET PO SCH (10:20)
[2021-06-30 18:54] LABS: HEMOGLOBIN 9.2 g/dl (12.0-15.5)
[2021-06-30] MEDS: PARoxetine 20MG TABLET PO SCH (22:07)
[2021-06-30] MEDS: allopurinoL 100 MG TAB PO SCH (22:10)
[2021-07-01 06:00] VITALS: BP 127/49
[2021-07-01 06:46] LABS: BASO % 0.3 % (0.0-1.0); EOS # 0.4 10^3/uL (0.0-0.5); HEMATOCRIT 27.2 % (36.0-47.0); LYMPH # 2.8 10^3/uL (1.5-5.0); LYMPH % 23.5 % (24.0-44.0); MEAN CORPUSCULAR HEMOGLOBIN 30.3 pg (27.0-33.0); MEAN CORPUSCULAR HGB CONC 33.1 g/dl (32.0-36.5); MEAN CORPUSCULAR VOLUME 91.6 fl (80.0-96.0); MONO # 1.3 10^3/uL (0.0-0.8); MONO % 10.7 % (2.0-8.0); NEUTROPHILS # 7.5 10^3/uL (1.5-8.5); NEUTROPHILS % 61.8 % (36.0-66.0); PLATELET COUNT, AUTOMATED 269 10^3/uL (150-450); RED BLOOD COUNT 2.97 10^6/uL (4.00-5.40); WHITE BLOOD COUNT 12.1 10^3/uL (4.0-10.0)
[2021-07-01 07:15] LABS: CALCIUM LEVEL 9.3 MG/DL (8.8-10.2); CREATININE FOR GFR 3.89 MG/DL (0.55-1.30); GLOMERULAR FILTRATION RATE 11.8 (>32); POTASSIUM SERUM 3.6 MEQ/L (3.5-5.1)
[2021-07-01] MEDS: HumaLOG INSULIN (NovoLOG) PER UNIT SC SCH ×4 (07:30→21:00)
[2021-07-01] MEDS: **hydrALAZINE** 50 MG TAB PO SCH ×2 (09:00→21:23)
[2021-07-01] MEDS: ISOSORBIDE DIN (ISORDIL) 10MG TAB PO SCH ×2 (09:00→21:24)
[2021-07-01] MEDS: CALCITRIOL 0.25 MCG CAP (S0169) PO SCH (09:18)
[2021-07-01] MEDS: LORATADINE 10 MG TAB PO SCH (09:18)
[2021-07-01] MEDS: FIDAXOMICIN 200 MG TAB (DIFICID) PO SCH ×2 (09:18→21:23)
[2021-07-01] MEDS: APIXABAN 2.5 MG TAB (ELIQUIS) PO SCH ×2 (09:18→21:25)
[2021-07-01] MEDS: VITAMIN D 1,000 INTERNATIONAL UNITS TABLET PO SCH (09:23)
[2021-07-01] MEDS: METOPROLOL TARTRATE 100MG TAB PO SCH ×2 (09:47→21:23)
[2021-07-01 14:00] VITALS: BP 137/44
[2021-07-01] MEDS ORDERED: FERRIC CARBOXYMALTOSE INJ 750 MG, VIAL MATE ADAPTER 1 EACH in NS 250 ML IV ONE (18:00)
[2021-07-01 18:11] VITALS: BP 141/48
[2021-07-01] MEDS: allopurinoL 100 MG TAB PO SCH (21:25)
[2021-07-01] MEDS: PARoxetine 20MG TABLET PO SCH (21:26)
[2021-07-01 21:27] VITALS: BP 141/50
[2021-07-02 05:04] VITALS: BP 140/51
[2021-07-02 06:23] LABS: BASO % 0.4 % (0.0-1.0); EOS # 0.3 10^3/uL (0.0-0.5); HEMATOCRIT 28.4 % (36.0-47.0); HEMOGLOBIN 9.3 g/dl (12.0-15.5); LYMPH # 2.6 10^3/uL (1.5-5.0); LYMPH % 25.5 % (24.0-44.0); MEAN CORPUSCULAR HEMOGLOBIN 30.5 pg (27.0-33.0); MEAN CORPUSCULAR HGB CONC 32.7 g/dl (32.0-36.5); MEAN CORPUSCULAR VOLUME 93.1 fl (80.0-96.0); MONO # 1.1 10^3/uL (0.0-0.8); NEUTROPHILS % 59.1 % (36.0-66.0); PLATELET COUNT, AUTOMATED 265 10^3/uL (150-450); RED BLOOD COUNT 3.05 10^6/uL (4.00-5.40); WHITE BLOOD COUNT 10.2 10^3/uL (4.0-10.0)
[2021-07-02 07:00] VITALS: BP 143/50
[2021-07-02 07:10] LABS: CREATININE FOR GFR 3.62 MG/DL (0.55-1.30); GLOMERULAR FILTRATION RATE 12.8 (>32)
[2021-07-02] MEDS: HumaLOG INSULIN (NovoLOG) PER UNIT SC SCH ×4 (07:48→20:58)
[2021-07-02 08:00] VITALS: BP 143/50
[2021-07-02] MEDS: VITAMIN D 1,000 INTERNATIONAL UNITS TABLET PO SCH (08:26)
[2021-07-02] MEDS: FIDAXOMICIN 200 MG TAB (DIFICID) PO SCH ×2 (08:26→20:57)
[2021-07-02] MEDS: METOPROLOL TARTRATE 100MG TAB PO SCH ×2 (08:26→20:57)
[2021-07-02] MEDS: APIXABAN 2.5 MG TAB (ELIQUIS) PO SCH ×2 (08:27→20:57)
[2021-07-02] MEDS: ISOSORBIDE DIN (ISORDIL) 10MG TAB PO SCH ×2 (08:27→20:56)
[2021-07-02] MEDS: ROSUVASTATIN 10 MG TAB (CRESTOR) PO SCH (08:27)
[2021-07-02] MEDS: LORATADINE 10 MG TAB PO SCH (08:27)
[2021-07-02] MEDS: **hydrALAZINE** 50 MG TAB PO SCH ×2 (08:27→20:57)
[2021-07-02] MEDS: FERROUS SULFATE 325MG TAB PO SCH (08:28)
[2021-07-02] MEDS: SODIUM BICARBONATE 325 MG TAB PO SCH ×2 (11:49→20:54)
[2021-07-02] MEDS: allopurinoL 100 MG TAB PO SCH (20:57)
[2021-07-02] MEDS: PARoxetine 20MG TABLET PO SCH (20:57)
[2021-07-03 06:00] VITALS: BP 142/52
[2021-07-03 06:26] LABS: BASO % 0.3 % (0.0-1.0); EOS # 0.4 10^3/uL (0.0-0.5); EOS % 3.6 % (0.0-3.0); HEMATOCRIT 26.7 % (36.0-47.0); HEMOGLOBIN 8.7 g/dl (12.0-15.5); LYMPH # 2.8 10^3/uL (1.5-5.0); LYMPH % 26.7 % (24.0-44.0); MEAN CORPUSCULAR HEMOGLOBIN 30.6 pg (27.0-33.0); MEAN CORPUSCULAR HGB CONC 32.6 g/dl (32.0-36.5); MONO # 1.2 10^3/uL (0.0-0.8); MONO % 11.7 % (2.0-8.0); NEUTROPHILS % 56.8 % (36.0-66.0); PLATELET COUNT, AUTOMATED 250 10^3/uL (150-450); RED BLOOD COUNT 2.84 10^6/uL (4.00-5.40); WHITE BLOOD COUNT 10.5 10^3/uL (4.0-10.0)
[2021-07-03 06:44] LABS: CALCIUM LEVEL 8.7 MG/DL (8.8-10.2); CREATININE FOR GFR 3.6 MG/DL (0.55-1.30); GLOMERULAR FILTRATION RATE 12.9 (>32); POTASSIUM SERUM 3.6 MEQ/L (3.5-5.1)
[2021-07-03] MEDS: HumaLOG INSULIN (NovoLOG) PER UNIT SC SCH ×4 (07:45→20:48)
[2021-07-03] MEDS: FIDAXOMICIN 200 MG TAB (DIFICID) PO SCH ×2 (09:51→20:47)
[2021-07-03] MEDS: VITAMIN D 1,000 INTERNATIONAL UNITS TABLET PO SCH (09:51)
[2021-07-03] MEDS: ISOSORBIDE DIN (ISORDIL) 10MG TAB PO SCH ×2 (09:51→20:47)
[2021-07-03] MEDS: METOPROLOL TARTRATE 100MG TAB PO SCH ×2 (09:51→20:48)
[2021-07-03] MEDS: LORATADINE 10 MG TAB PO SCH (09:51)
[2021-07-03] MEDS: **hydrALAZINE** 50 MG TAB PO SCH ×2 (09:51→20:47)
[2021-07-03] MEDS: APIXABAN 2.5 MG TAB (ELIQUIS) PO SCH ×2 (09:51→20:47)
[2021-07-03] MEDS: SODIUM BICARBONATE 325 MG TAB PO SCH ×2 (09:52→20:46)
[2021-07-03] MEDS: allopurinoL 100 MG TAB PO SCH (20:48)
[2021-07-03] MEDS: PARoxetine 20MG TABLET PO SCH (20:48)
[2021-07-04 06:00] VITALS: BP 141/51
[2021-07-04] MEDS: APIXABAN 2.5 MG TAB (ELIQUIS) PO SCH ×3 (09:00→21:00)
[2021-07-04] MEDS: FIDAXOMICIN 200 MG TAB (DIFICID) PO SCH (09:09)
[2021-07-04] MEDS: SODIUM BICARBONATE 325 MG TAB PO SCH ×2 (09:10→21:31)
[2021-07-04] MEDS: CALCITRIOL 0.25 MCG CAP (S0169) PO SCH (09:11)
[2021-07-04] MEDS: ROSUVASTATIN 10 MG TAB (CRESTOR) PO SCH (09:11)
[2021-07-04] MEDS: FERROUS SULFATE 325MG TAB PO SCH (09:11)
[2021-07-04] MEDS: LORATADINE 10 MG TAB PO SCH (09:11)
[2021-07-04] MEDS: VITAMIN D 1,000 INTERNATIONAL UNITS TABLET PO SCH (09:11)
[2021-07-04] MEDS: HumaLOG INSULIN (NovoLOG) PER UNIT SC SCH ×4 (09:12→19:38)
[2021-07-04] MEDS: METOPROLOL TARTRATE 100MG TAB PO SCH ×2 (09:12→21:31)
[2021-07-04] MEDS: **hydrALAZINE** 50 MG TAB PO SCH ×2 (09:12→21:30)
[2021-07-04] MEDS: ISOSORBIDE DIN (ISORDIL) 10MG TAB PO SCH ×2 (09:13→21:31)
[2021-07-04] MEDS ORDERED: POLYETHYLENE GLYCOL (MIRALAX) 238GM BOTTLE PO ONE (16:00)
[2021-07-04 20:00] VITALS: BP 147/53
[2021-07-04] MEDS: PARoxetine 20MG TABLET PO SCH (21:30)
[2021-07-04] MEDS: allopurinoL 100 MG TAB PO SCH (21:31)
[2021-07-05 05:00] VITALS: BP 154/55
[2021-07-05] MEDS: HumaLOG INSULIN (NovoLOG) PER UNIT SC SCH ×4 (07:30→20:40)
[2021-07-05] MEDS: **hydrALAZINE** 50 MG TAB PO SCH ×2 (07:47→20:49)
[2021-07-05] MEDS: ISOSORBIDE DIN (ISORDIL) 10MG TAB PO SCH ×2 (07:47→20:49)
[2021-07-05] MEDS: METOPROLOL TARTRATE 100MG TAB PO SCH ×2 (07:47→20:50)
[2021-07-05 08:04] LABS: BASO % 0.3 % (0.0-1.0); EOS # 0.3 10^3/uL (0.0-0.5); HEMATOCRIT 28.2 % (36.0-47.0); HEMOGLOBIN 9.1 g/dl (12.0-15.5); LYMPH # 2.6 10^3/uL (1.5-5.0); LYMPH % 24.5 % (24.0-44.0); MEAN CORPUSCULAR HEMOGLOBIN 30.5 pg (27.0-33.0); MEAN CORPUSCULAR HGB CONC 32.3 g/dl (32.0-36.5); MEAN CORPUSCULAR VOLUME 94.6 fl (80.0-96.0); MONO % 9.4 % (2.0-8.0); NEUTROPHILS # 6.5 10^3/uL (1.5-8.5); NEUTROPHILS % 62.1 % (36.0-66.0); PLATELET COUNT, AUTOMATED 235 10^3/uL (150-450); RED BLOOD COUNT 2.98 10^6/uL (4.00-5.40); WHITE BLOOD COUNT 10.5 10^3/uL (4.0-10.0)
[2021-07-05 08:32] LABS: CALCIUM LEVEL 8.7 MG/DL (8.8-10.2); CREATININE FOR GFR 2.89 MG/DL (0.55-1.30); GLOMERULAR FILTRATION RATE 16.6 (>32); MAGNESIUM LEVEL 1.8 MG/DL (1.8-2.4); POTASSIUM SERUM 3.9 MEQ/L (3.5-5.1)
[2021-07-05] MEDS: APIXABAN 2.5 MG TAB (ELIQUIS) PO SCH ×2 (09:00→20:49)
[2021-07-05] MEDS: SODIUM BICARBONATE 325 MG TAB PO SCH ×2 (09:00→20:48)
[2021-07-05 14:00] VITALS: BP 141/51
[2021-07-05] MEDS: FECAL MICROBIOTA PREPARATION 250 ML BTL (J3590) XX SCH (14:00)
[2021-07-05] MEDS ORDERED: propofoL 200 MG/20 ML VIAL As Ordered ONE (14:29)
[2021-07-05] MEDS ORDERED: LIDOCAINE 2% 100MG/5ML SDV (FOR ANES.) As Ordered ONE (14:29)
[2021-07-05 16:24] VITALS: BP 143/51
[2021-07-05] MEDS: VITAMIN D 1,000 INTERNATIONAL UNITS TABLET PO SCH (16:42)
[2021-07-05] MEDS: FERROUS SULFATE 325MG TAB PO SCH (16:42)
[2021-07-05] MEDS: LORATADINE 10 MG TAB PO SCH (16:42)
[2021-07-05] MEDS: ROSUVASTATIN 10 MG TAB (CRESTOR) PO SCH (16:42)
[2021-07-05] MEDS: PARoxetine 20MG TABLET PO SCH (20:48)
[2021-07-05] MEDS: allopurinoL 100 MG TAB PO SCH (20:50)
[2021-07-05 22:00] VITALS: BP 149/52
[2021-07-06 06:00] VITALS: BP 136/51
[2021-07-06 06:22] LABS: BASO % 0.3 % (0.0-1.0); EOS # 0.3 10^3/uL (0.0-0.5); EOS % 2.9 % (0.0-3.0); HEMATOCRIT 27.4 % (36.0-47.0); HEMOGLOBIN 8.9 g/dl (12.0-15.5); LYMPH # 2.5 10^3/uL (1.5-5.0); LYMPH % 23.6 % (24.0-44.0); MEAN CORPUSCULAR HEMOGLOBIN 30.8 pg (27.0-33.0); MEAN CORPUSCULAR HGB CONC 32.5 g/dl (32.0-36.5); MEAN CORPUSCULAR VOLUME 94.8 fl (80.0-96.0); MONO % 9.7 % (2.0-8.0); NEUTROPHILS # 6.7 10^3/uL (1.5-8.5); NEUTROPHILS % 63.1 % (36.0-66.0); PLATELET COUNT, AUTOMATED 236 10^3/uL (150-450); RED BLOOD COUNT 2.89 10^6/uL (4.00-5.40); WHITE BLOOD COUNT 10.6 10^3/uL (4.0-10.0)
[2021-07-06 06:50] LABS: BILIRUBIN,TOTAL 0.3 MG/DL (0.2-1.0); CALCIUM LEVEL 8.8 MG/DL (8.8-10.2); CREATININE FOR GFR 2.62 MG/DL (0.55-1.30); GLOMERULAR FILTRATION RATE 18.6 (>32); MAGNESIUM LEVEL 1.8 MG/DL (1.8-2.4); POTASSIUM SERUM 3.5 MEQ/L (3.5-5.1); TOTAL PROTEIN 6.4 GM/DL (6.4-8.2)
[2021-07-06] MEDS: ISOSORBIDE DIN (ISORDIL) 10MG TAB PO SCH (09:00)
[2021-07-06] MEDS: **hydrALAZINE** 50 MG TAB PO SCH (09:00)
[2021-07-06] MEDS: HumaLOG INSULIN (NovoLOG) PER UNIT SC SCH ×2 (09:01→13:01)
[2021-07-06] MEDS: LORATADINE 10 MG TAB PO SCH (09:02)
[2021-07-06] MEDS: SODIUM BICARBONATE 325 MG TAB PO SCH (09:02)
[2021-07-06] MEDS: APIXABAN 2.5 MG TAB (ELIQUIS) PO SCH (09:02)
[2021-07-06] MEDS: VITAMIN D 1,000 INTERNATIONAL UNITS TABLET PO SCH (09:02)
[2021-07-06] MEDS: CALCITRIOL 0.25 MCG CAP (S0169) PO SCH (09:02)
[2021-07-06 09:03] VITALS: BP 136/51
[2021-07-06] MEDS: METOPROLOL TARTRATE 100MG TAB PO SCH (09:03)
[2021-07-06] MEDS: FECAL MICROBIOTA PREPARATION 250 ML BTL (J3590) XX SCH (12:55)
== END 2021-07-06 15:08 | disposition home health service (06) | DRG 372 ==
LOC: M ED 15:17 → M ED INP 16:55 → ENRESERV 19:55 → M MSPAV 22:15
PROVIDERS: ADMIT Family Medicine; ATTEND Internal Medicine
PROC: 30233N1 Transfusion of Nonautologous Red Blood Cells into Peripheral Vein, Percutaneous Approach (ICD-10-PCS; 2021-06-30)
PROC: 3E1H88Z Irrigation of Lower GI using Irrigating Substance, Via Natural or Artificial Opening Endoscopic (ICD-10-PCS; 2021-07-05)
PROC: 3E0H8GC Introduction of Other Therapeutic Substance into Lower GI, Via Natural or Artificial Opening Endoscopic (ICD-10-PCS; principal; 2021-07-05 14:30)
DX: A04.71 Enterocolitis due to Clostridium difficile, recurrent (principal); N18.4 Chronic kidney disease, stage 4 (severe); I48.92 Unspecified atrial flutter; N25.81 Secondary hyperparathyroidism of renal origin; I50.32 Chronic diastolic (congestive) heart failure; I13.0 Hypertensive heart and chronic kidney disease with heart failure and stage 1 through stage 4 chronic kidney disease, or unspecified chronic kidney disease; N17.9 Acute kidney failure, unspecified; E87.2 Acidosis; E87.6 Hypokalemia; Z66 Do not resuscitate; E11.22 Type 2 diabetes mellitus with diabetic chronic kidney disease; E78.2 Mixed hyperlipidemia; D50.9 Iron deficiency anemia, unspecified; D63.1 Anemia in chronic kidney disease; I48.91 Unspecified atrial fibrillation; G47.33 Obstructive sleep apnea (adult) (pediatric); L57.0 Actinic keratosis; E86.0 Dehydration; E11.621 Type 2 diabetes mellitus with foot ulcer; L97.529 Non-pressure chronic ulcer of other part of left foot with unspecified severity; I27.20 Pulmonary hypertension, unspecified; M48.061 Spinal stenosis, lumbar region without neurogenic claudication; F03.90 Unspecified dementia, unspecified severity, without behavioral disturbance, psychotic disturbance, mood disturbance, and anxiety; E11.3299 Type 2 diabetes mellitus with mild nonproliferative diabetic retinopathy without macular edema, unspecified eye; K57.90 Diverticulosis of intestine, part unspecified, without perforation or abscess without bleeding; Z86.16 Personal history of COVID-19; Z79.01 Long term (current) use of anticoagulants; Z79.84 Long term (current) use of oral hypoglycemic drugs; Z79.899 Other long term (current) drug therapy; K57.30 Diverticulosis of large intestine without perforation or abscess without bleeding

== ENCOUNTER → 2021-06-29 | Outpatient (CLI) | payer MEDICARE, OTHER ==
[2021-06-29 13:07] LABS: BASO # 0.1 10^3/uL (0.0-0.2); BASO % 0.3 % (0.0-1.0); EOS # 0.3 10^3/uL (0.0-0.5); EOS % 1.6 % (0.0-3.0); HEMATOCRIT 25.8 % (36.0-47.0); HEMOGLOBIN 8.7 g/dl (12.0-15.5); LYMPH # 2.5 10^3/uL (1.5-5.0); LYMPH % 14.4 % (24.0-44.0); MEAN CORPUSCULAR HEMOGLOBIN 31.9 pg (27.0-33.0); MEAN CORPUSCULAR HGB CONC 33.7 g/dl (32.0-36.5); MEAN CORPUSCULAR VOLUME 94.5 fl (80.0-96.0); MONO # 1.1 10^3/uL (0.0-0.8); NEUTROPHILS # 13.6 10^3/uL (1.5-8.5); NEUTROPHILS % 77.1 % (36.0-66.0); PLATELET COUNT, AUTOMATED 298 10^3/uL (150-450); RED BLOOD COUNT 2.73 10^6/uL (4.00-5.40); WHITE BLOOD COUNT 17.7 10^3/uL (4.0-10.0)
[2021-06-29 13:40] LABS: ALBUMIN 3.6 GM/DL (3.2-5.2); BILIRUBIN,TOTAL 0.3 MG/DL (0.2-1.0); CALCIUM LEVEL 9.5 MG/DL (8.8-10.2); CREATININE FOR GFR 4.37 MG/DL (0.55-1.30); GLOMERULAR FILTRATION RATE 10.3 (>32); MAGNESIUM LEVEL 2.1 MG/DL (1.8-2.4); POTASSIUM SERUM 3.2 MEQ/L (3.5-5.1); TOTAL PROTEIN 6.8 GM/DL (6.4-8.2)
== END ==
LOC: M WUC 11:13
PROVIDERS: ATTEND Internal Medicine Infectious Disease
DX: N18.5 Chronic kidney disease, stage 5 (principal); A04.71 Enterocolitis due to Clostridium difficile, recurrent; E87.6 Hypokalemia

== ENCOUNTER → 2021-07-14 | Outpatient (CLI) | payer MEDICARE, OTHER ==
[~2021-07-14] MED LIST changes: +KETO2SHA8 TOP
== END ==
LOC: M RAD 12:56
PROVIDERS: ATTEND Podiatrist Foot & Ankle Surgery
DX: R94.39 Abnormal result of other cardiovascular function study (principal); I73.9 Peripheral vascular disease, unspecified

== ENCOUNTER → 2021-08-19 | Outpatient (REF) | payer MEDICARE, OTHER | LOC: M LAB REF 16:34 | PROVIDERS: ATTEND Podiatrist Foot & Ankle Surgery | DX: D16.32 Benign neoplasm of short bones of left lower limb (principal) ==

== ENCOUNTER 2021-09-08 15:40 | Outpatient (CLI) | payer MEDICARE, OTHER ==
[~2021-09-08] VITALS: Ht 157.5 cm; Wt 61.3 kg
[2021-09-08] MEDS ORDERED: BEZLOTOXUMAB 650 MG in NS 100 ML IV ONE (16:00)
[2021-09-08 16:30] VITALS: BP 153/65
[2021-09-08 17:40] VITALS: BP 139/63
== END 2021-09-08 17:42 | disposition home or self-care (01) ==
LOC: M INFU 15:40
PROVIDERS: ATTEND Internal Medicine Infectious Disease
DX: A04.71 Enterocolitis due to Clostridium difficile, recurrent (principal)
CPT/HCPCS: 96365; J0565

== ENCOUNTER → 2021-09-23 | Outpatient (REF) | payer MEDICARE, OTHER ==
[2021-09-23 12:02] LABS: INR 0.99; PROTHROMBIN TIME 13.5 SECONDS (12.7-14.5)
== END ==
LOC: M SFHCPLAZ 08:23
PROVIDERS: ATTEND Internal Medicine Hematology
DX: I48.91 Unspecified atrial fibrillation (principal)

== ENCOUNTER → 2021-09-26 | Outpatient (REF) | payer MEDICARE, OTHER ==
[2021-09-26 16:07] LABS: INR 0.98; PROTHROMBIN TIME 13.4 SECONDS (12.7-14.5)
== END ==
LOC: M SFHCPLAZ 10:10
PROVIDERS: ATTEND Internal Medicine Hematology
DX: Z79.01 Long term (current) use of anticoagulants (principal); I48.91 Unspecified atrial fibrillation

== ENCOUNTER → 2021-09-30 | Outpatient (REF) | payer MEDICARE, OTHER ==
[~2021-09-30] MED LIST changes: +JANT5TAB PO; +WARF-23 PO
[2021-09-30 11:40] LABS: PROTHROMBIN TIME 23.1 SECONDS (12.7-14.5)
== END ==
LOC: M SFHCPLAZ 08:39
PROVIDERS: ATTEND Internal Medicine Hematology
DX: Z79.01 Long term (current) use of anticoagulants (principal)

== ENCOUNTER 2021-10-01 20:26 | Inpatient (IN) | payer MEDICARE, OTHER ==
[~2021-10-01] VITALS: Ht 157.5 cm; Wt 57.3 kg
[~2021-10-01 20:26] MED LIST changes: -JANT5TAB PO; -WARF-23 PO
[2021-10-01] MEDS ORDERED: JANT5TAB PO (20:54)
[2021-10-01] MEDS ORDERED: DIFI200T PO (20:54)
[2021-10-01] MEDS ORDERED: WARF-23 PO (20:54)
[2021-10-01 21:54] LABS: BASO % 0.1 % (0.0-1.0); EOS # 0.1 10^3/uL (0.0-0.5); EOS % 0.9 % (0.0-3.0); HEMATOCRIT 30.3 % (36.0-47.0); LYMPH # 2.2 10^3/uL (1.5-5.0); LYMPH % 14.7 % (24.0-44.0); MEAN CORPUSCULAR HEMOGLOBIN 31.6 pg (27.0-33.0); MEAN CORPUSCULAR VOLUME 95.9 fl (80.0-96.0); MONO # 0.9 10^3/uL (0.0-0.8); MONO % 6.2 % (2.0-8.0); NEUTROPHILS # 11.6 10^3/uL (1.5-8.5); NEUTROPHILS % 77.6 % (36.0-66.0); PLATELET COUNT, AUTOMATED 232 10^3/uL (150-450); RED BLOOD COUNT 3.16 10^6/uL (4.00-5.40); WHITE BLOOD COUNT 14.9 10^3/uL (4.0-10.0)
[2021-10-01 22:23] LABS: MB/CK RELATIVE INDEX 3.45 (< OR =4)
[2021-10-01 22:28] LABS: ALBUMIN 3.9 GM/DL (3.2-5.2); BILIRUBIN,DIRECT 0.1 MG/DL (0.0-0.2); BILIRUBIN,TOTAL 0.4 MG/DL (0.2-1.0); CALCIUM LEVEL 9.8 MG/DL (8.8-10.2); CREATININE FOR GFR 3.94 MG/DL (0.55-1.30); GLOMERULAR FILTRATION RATE 11.6 (>32); POTASSIUM SERUM 3.8 MEQ/L (3.5-5.1); THYROID STIMULATING HORMONE 2.19 uIU/ML (0.358-3.740); TOTAL PROTEIN 7.5 GM/DL (6.4-8.2)
[2021-10-01] MEDS ORDERED: NS 500 ML IV ONE (23:30)
[2021-10-02] MEDS ORDERED: HumuLIN R (REGULAR) INSULIN (NovoLIN R) **100U/ML** PER UNIT IV ONE (00:55)
[2021-10-02] MEDS ORDERED: HOME MED LIST COMPLETE! XX SCH (01:20)
[2021-10-02] MEDS ORDERED: DEXTROSE 50% 50 ML SYRINGE IV PRN (03:20)
[2021-10-02] MEDS ORDERED: GLUCOSE 4GM CHEW TABLET PO PRN (03:20)
[2021-10-02] MEDS ORDERED: GLUCAGON INJ 1MG VIAL SC PRN (03:20)
[2021-10-02] MEDS ORDERED: ASPIRIN 81 MG CHEW TABLET PO ONE (04:00)
[2021-10-02 04:44] LABS: ERYTHROCYTE SEDIMENTATION RATE 67 mm/hr (0-30)
[2021-10-02] MEDS: PARoxetine 20MG TABLET PO SCH ×2 (05:24→20:11)
[2021-10-02 06:05] VITALS: BP 144/91
[2021-10-02 07:27] LABS: INR 2.81; PROTHROMBIN TIME 29.9 SECONDS (12.7-14.5)
[2021-10-02] MEDS: INSULIN LISPRO (NovoLOG) PER UNIT SC SCH ×4 (07:30→20:00)
[2021-10-02 07:55] LABS: CALCIUM LEVEL 9.3 MG/DL (8.8-10.2); CREATININE FOR GFR 3.71 MG/DL (0.55-1.30); GLOMERULAR FILTRATION RATE 12.4 (>32); PHOSPHORUS LEVEL 3.6 MG/DL (2.5-4.9); POTASSIUM SERUM 3.1 MEQ/L (3.5-5.1)
[2021-10-02 08:02] VITALS: BP 148/65
[2021-10-02 08:24] LABS: BASO % 0.3 % (0.0-1.0); EOS # 0.2 10^3/uL (0.0-0.5); EOS % 1.1 % (0.0-3.0); HEMATOCRIT 29.3 % (36.0-47.0); HEMOGLOBIN 9.5 g/dl (12.0-15.5); LYMPH # 4.2 10^3/uL (1.5-5.0); LYMPH % 26.6 % (24.0-44.0); MEAN CORPUSCULAR HEMOGLOBIN 31.6 pg (27.0-33.0); MEAN CORPUSCULAR HGB CONC 32.4 g/dl (32.0-36.5); MEAN CORPUSCULAR VOLUME 97.3 fl (80.0-96.0); MONO # 1.5 10^3/uL (0.0-0.8); MONO % 9.6 % (2.0-8.0); NEUTROPHILS # 9.8 10^3/uL (1.5-8.5); NEUTROPHILS % 61.8 % (36.0-66.0); PLATELET COUNT, AUTOMATED 217 10^3/uL (150-450); RED BLOOD COUNT 3.01 10^6/uL (4.00-5.40); WHITE BLOOD COUNT 15.8 10^3/uL (4.0-10.0)
[2021-10-02] MEDS: METOPROLOL TARTRATE 100MG TAB PO SCH ×2 (08:29→20:11)
[2021-10-02] MEDS ORDERED: POTASSIUM CHLORIDE 10MEQ SR TABLET PO ONE (08:30)
[2021-10-02] MEDS: **hydrALAZINE** 50 MG TAB PO SCH ×2 (08:30→20:11)
[2021-10-02] MEDS: LEVEMIR (INSULIN DETEMIR) 1 UNITS/0.01ML SC SCH (08:32)
[2021-10-02] MEDS: ISOSORBIDE DIN (ISORDIL) 10MG TAB PO SCH ×2 (09:47→17:14)
[2021-10-02] MEDS: FIDAXOMICIN 200 MG TAB (DIFICID) PO SCH (09:47)
[2021-10-02 11:54] VITALS: BP 146/66
[2021-10-02] MEDS: KCL 20MEQ in NS 1000ML 1,000 ML IV SCH ×2 (12:37→23:50)
[2021-10-02 16:21] VITALS: BP 154/69
[2021-10-02] MEDS ORDERED: WARFARIN SOD 5MG TAB PO SCH (17:00)
[2021-10-02] MEDS ORDERED: TORSEMIDE 20 MG TAB PO SCH (17:00)
[2021-10-02 19:47] VITALS: BP 151/65
[2021-10-02] MEDS: allopurinoL 100 MG TAB PO SCH (20:11)
[2021-10-02] MEDS ORDERED: ATORVASTATIN 20 MG TAB PO SCH (21:00)
[2021-10-03 03:55] VITALS: BP 147/65
[2021-10-03 05:48] LABS: BASO % 0.3 % (0.0-1.0); EOS # 0.4 10^3/uL (0.0-0.5); EOS % 2.9 % (0.0-3.0); HEMATOCRIT 27.5 % (36.0-47.0); HEMOGLOBIN 8.5 g/dl (12.0-15.5); LYMPH # 3.2 10^3/uL (1.5-5.0); LYMPH % 25.2 % (24.0-44.0); MEAN CORPUSCULAR HEMOGLOBIN 30.5 pg (27.0-33.0); MEAN CORPUSCULAR HGB CONC 30.9 g/dl (32.0-36.5); MEAN CORPUSCULAR VOLUME 98.6 fl (80.0-96.0); MONO % 7.9 % (2.0-8.0); NEUTROPHILS # 7.9 10^3/uL (1.5-8.5); NEUTROPHILS % 62.9 % (36.0-66.0); PLATELET COUNT, AUTOMATED 197 10^3/uL (150-450); RED BLOOD COUNT 2.79 10^6/uL (4.00-5.40); WHITE BLOOD COUNT 12.6 10^3/uL (4.0-10.0)
[2021-10-03 05:59] LABS: INR 3.16; PROTHROMBIN TIME 32.7 SECONDS (12.7-14.5)
[2021-10-03 06:08] LABS: CALCIUM LEVEL 9.1 MG/DL (8.8-10.2); CREATININE FOR GFR 3.45 MG/DL (0.55-1.30); GLOMERULAR FILTRATION RATE 13.5 (>32); MAGNESIUM LEVEL 2.1 MG/DL (1.8-2.4); POTASSIUM SERUM 4.5 MEQ/L (3.5-5.1)
[2021-10-03 07:46] VITALS: BP 151/69
[2021-10-03] MEDS: FIDAXOMICIN 200 MG TAB (DIFICID) PO SCH (08:10)
[2021-10-03] MEDS: CALCITRIOL 0.25 MCG CAP (S0169) PO SCH (08:10)
[2021-10-03] MEDS: ASPIRIN 81 MG CHEW TABLET PO SCH (08:10)
[2021-10-03] MEDS: ROSUVASTATIN 10 MG TAB (CRESTOR) PO SCH (08:10)
[2021-10-03] MEDS: METOPROLOL TARTRATE 100MG TAB PO SCH ×2 (08:11→20:50)
[2021-10-03] MEDS: ISOSORBIDE DIN (ISORDIL) 10MG TAB PO SCH ×2 (08:11→17:38)
[2021-10-03] MEDS: **hydrALAZINE** 50 MG TAB PO SCH ×2 (08:11→20:49)
[2021-10-03] MEDS: LEVEMIR (INSULIN DETEMIR) 1 UNITS/0.01ML SC SCH (08:12)
[2021-10-03] MEDS: INSULIN LISPRO (NovoLOG) PER UNIT SC SCH ×4 (08:13→20:46)
[2021-10-03] MEDS ORDERED: FERROUS SULFATE 325MG TAB PO SCH (09:00)
[2021-10-03] MEDS ORDERED: BISACODYL 10 MG SUPP PR ONE (09:50)
[2021-10-03] MEDS: SODIUM BICARBONATE 150 MEQ in STERILE WATER LITER BAG 1,000 ML IV SCH (10:33)
[2021-10-03 11:57] VITALS: BP 143/65
[2021-10-03] MEDS ORDERED: LIDOCAINE 1% MDV 20ML VIAL As Ordered ONE (15:57)
[2021-10-03 17:40] VITALS: BP 125/54
[2021-10-03 18:00] VITALS: BP 140/72
[2021-10-03] MEDS: SODIUM CHLORIDE 0.9% INJ 10 ML SYR IV SCH (19:10)
[2021-10-03] MEDS: PARoxetine 20MG TABLET PO SCH (20:49)
[2021-10-03] MEDS: allopurinoL 100 MG TAB PO SCH (20:50)
[2021-10-03 22:00] VITALS: BP_SYST 137; BP_SYST 96; BP_DIAS 50; BP_DIAS 51
[2021-10-04 01:53] VITALS: BP 129/69
[2021-10-04 05:50] VITALS: BP 133/49
[2021-10-04] MEDS: SODIUM BICARBONATE 150 MEQ in STERILE WATER LITER BAG 1,000 ML IV SCH ×2 (05:54→23:23)
[2021-10-04] MEDS: SODIUM CHLORIDE 0.9% INJ 10 ML SYR IV SCH ×2 (05:55→16:47)
[2021-10-04 06:05] LABS: BASO % 0.3 % (0.0-1.0); EOS # 0.5 10^3/uL (0.0-0.5); EOS % 3.9 % (0.0-3.0); HEMOGLOBIN 8.4 g/dl (12.0-15.5); LYMPH # 2.8 10^3/uL (1.5-5.0); LYMPH % 24.3 % (24.0-44.0); MEAN CORPUSCULAR HEMOGLOBIN 31.7 pg (27.0-33.0); MEAN CORPUSCULAR HGB CONC 32.3 g/dl (32.0-36.5); MEAN CORPUSCULAR VOLUME 98.1 fl (80.0-96.0); MONO # 0.9 10^3/uL (0.0-0.8); NEUTROPHILS # 7.2 10^3/uL (1.5-8.5); PLATELET COUNT, AUTOMATED 200 10^3/uL (150-450); RED BLOOD COUNT 2.65 10^6/uL (4.00-5.40); WHITE BLOOD COUNT 11.4 10^3/uL (4.0-10.0)
[2021-10-04 06:18] LABS: INR 3.58
[2021-10-04 06:34] LABS: CREATININE FOR GFR 3.11 MG/DL (0.55-1.30); GLOMERULAR FILTRATION RATE 15.3 (>32); MAGNESIUM LEVEL 2.1 MG/DL (1.8-2.4); POTASSIUM SERUM 4.1 MEQ/L (3.5-5.1)
[2021-10-04] MEDS ORDERED: BISACODYL 10 MG SUPP PR ONE (07:35)
[2021-10-04] MEDS: LEVEMIR (INSULIN DETEMIR) 1 UNITS/0.01ML SC SCH (08:45)
[2021-10-04] MEDS: INSULIN LISPRO (NovoLOG) PER UNIT SC SCH ×4 (08:46→21:00)
[2021-10-04] MEDS: **hydrALAZINE** 50 MG TAB PO SCH ×2 (08:46→21:49)
[2021-10-04] MEDS: FIDAXOMICIN 200 MG TAB (DIFICID) PO SCH (08:46)
[2021-10-04] MEDS: ASPIRIN 81 MG CHEW TABLET PO SCH (08:46)
[2021-10-04] MEDS: ISOSORBIDE DIN (ISORDIL) 10MG TAB PO SCH ×2 (08:47→16:49)
[2021-10-04] MEDS: ROSUVASTATIN 10 MG TAB (CRESTOR) PO SCH (08:47)
[2021-10-04] MEDS: METOPROLOL TARTRATE 100MG TAB PO SCH ×2 (08:47→21:49)
[2021-10-04] MEDS ORDERED: FERRIC CARBOXYMALTOSE INJ 750 MG, VIAL MATE ADAPTER 1 EACH in NS 250 ML IV ONE (13:00)
[2021-10-04 14:00] VITALS: BP 134/71
[2021-10-04 20:19] VITALS: BP 138/49
[2021-10-04] MEDS: PARoxetine 20MG TABLET PO SCH (21:49)
[2021-10-04] MEDS: allopurinoL 100 MG TAB PO SCH (21:50)
[2021-10-05 05:16] VITALS: BP 138/50
[2021-10-05 06:24] LABS: BASO % 0.3 % (0.0-1.0); EOS # 0.4 10^3/uL (0.0-0.5); EOS % 2.8 % (0.0-3.0); HEMATOCRIT 26.6 % (36.0-47.0); HEMOGLOBIN 8.6 g/dl (12.0-15.5); LYMPH % 23.2 % (24.0-44.0); MEAN CORPUSCULAR HEMOGLOBIN 31.4 pg (27.0-33.0); MEAN CORPUSCULAR HGB CONC 32.3 g/dl (32.0-36.5); MEAN CORPUSCULAR VOLUME 97.1 fl (80.0-96.0); MONO % 7.6 % (2.0-8.0); NEUTROPHILS # 8.5 10^3/uL (1.5-8.5); NEUTROPHILS % 65.2 % (36.0-66.0); PLATELET COUNT, AUTOMATED 212 10^3/uL (150-450); RED BLOOD COUNT 2.74 10^6/uL (4.00-5.40)
[2021-10-05 06:39] LABS: INR 3.17; PROTHROMBIN TIME 32.8 SECONDS (12.7-14.5)
[2021-10-05] MEDS: SODIUM CHLORIDE 0.9% INJ 10 ML SYR IV SCH ×2 (06:40→18:31)
[2021-10-05 07:01] LABS: CALCIUM LEVEL 8.2 MG/DL (8.8-10.2); CREATININE FOR GFR 2.88 MG/DL (0.55-1.30); GLOMERULAR FILTRATION RATE 16.7 (>32); MAGNESIUM LEVEL 1.9 MG/DL (1.8-2.4); POTASSIUM SERUM 3.7 MEQ/L (3.5-5.1)
[2021-10-05] MEDS: LEVEMIR (INSULIN DETEMIR) 1 UNITS/0.01ML SC SCH (07:50)
[2021-10-05] MEDS: FIDAXOMICIN 200 MG TAB (DIFICID) PO SCH (07:51)
[2021-10-05] MEDS: ASPIRIN 81 MG CHEW TABLET PO SCH (07:51)
[2021-10-05] MEDS: INSULIN LISPRO (NovoLOG) PER UNIT SC SCH ×4 (07:51→21:00)
[2021-10-05] MEDS: **hydrALAZINE** 50 MG TAB PO SCH ×2 (07:51→21:00)
[2021-10-05] MEDS: ISOSORBIDE DIN (ISORDIL) 10MG TAB PO SCH ×2 (07:51→18:31)
[2021-10-05] MEDS: CALCITRIOL 0.25 MCG CAP (S0169) PO SCH (07:51)
[2021-10-05] MEDS: METOPROLOL TARTRATE 100MG TAB PO SCH ×2 (07:52→21:00)
[2021-10-05] MEDS: SODIUM BICARBONATE 325 MG TAB PO SCH ×2 (13:04→21:58)
[2021-10-05] MEDS: DARBEPOETIN 100 MCG/0.5 ML *NON-DIALYSIS* SYRINGE (J0881) SC SCH (13:04)
[2021-10-05] MEDS ORDERED: FERRIC CARBOXYMALTOSE INJ 750 MG, VIAL MATE ADAPTER 1 EACH in NS 250 ML IV ONE (15:00)
[2021-10-05 18:07] VITALS: BP 127/52
[2021-10-05 19:53] VITALS: BP 122/53
[2021-10-05 21:00] VITALS: BP 94/60
[2021-10-05] MEDS: PARoxetine 20MG TABLET PO SCH (21:58)
[2021-10-05] MEDS: allopurinoL 100 MG TAB PO SCH (21:58)
[2021-10-06 05:30] VITALS: BP 99/57
[2021-10-06] MEDS: SODIUM CHLORIDE 0.9% INJ 10 ML SYR IV SCH ×2 (05:30→18:13)
[2021-10-06 06:37] LABS: BASO % 0.3 % (0.0-1.0); EOS # 0.2 10^3/uL (0.0-0.5); EOS % 1.6 % (0.0-3.0); HEMATOCRIT 26.6 % (36.0-47.0); HEMOGLOBIN 8.6 g/dl (12.0-15.5); LYMPH # 3.1 10^3/uL (1.5-5.0); LYMPH % 21.2 % (24.0-44.0); MEAN CORPUSCULAR HEMOGLOBIN 31.9 pg (27.0-33.0); MEAN CORPUSCULAR HGB CONC 32.3 g/dl (32.0-36.5); MEAN CORPUSCULAR VOLUME 98.5 fl (80.0-96.0); MONO # 1.1 10^3/uL (0.0-0.8); MONO % 7.6 % (2.0-8.0); NEUTROPHILS # 10.1 10^3/uL (1.5-8.5); NEUTROPHILS % 68.7 % (36.0-66.0); PLATELET COUNT, AUTOMATED 215 10^3/uL (150-450); WHITE BLOOD COUNT 14.7 10^3/uL (4.0-10.0)
[2021-10-06 07:02] LABS: INR 2.46
[2021-10-06 07:10] LABS: CALCIUM LEVEL 8.7 MG/DL (8.8-10.2); CREATININE FOR GFR 2.95 MG/DL (0.55-1.30); GLOMERULAR FILTRATION RATE 16.2 (>32); POTASSIUM SERUM 3.7 MEQ/L (3.5-5.1)
[2021-10-06] MEDS: LEVEMIR (INSULIN DETEMIR) 1 UNITS/0.01ML SC SCH (08:33)
[2021-10-06] MEDS: SODIUM BICARBONATE 325 MG TAB PO SCH ×2 (08:34→20:12)
[2021-10-06] MEDS: FIDAXOMICIN 200 MG TAB (DIFICID) PO SCH (08:34)
[2021-10-06] MEDS: ASPIRIN 81 MG CHEW TABLET PO SCH (08:34)
[2021-10-06] MEDS: INSULIN LISPRO (NovoLOG) PER UNIT SC SCH ×4 (08:34→20:36)
[2021-10-06] MEDS: ROSUVASTATIN 10 MG TAB (CRESTOR) PO SCH (08:35)
[2021-10-06 08:40] VITALS: BP 124/60
[2021-10-06] MEDS: **hydrALAZINE** 50 MG TAB PO SCH ×2 (09:00→20:26)
[2021-10-06] MEDS: ISOSORBIDE DIN (ISORDIL) 10MG TAB PO SCH ×2 (09:02→18:12)
[2021-10-06] MEDS: METOPROLOL TARTRATE 100MG TAB PO SCH ×2 (09:03→20:26)
[2021-10-06] MEDS ORDERED: TORSEMIDE 20 MG TAB PO ONE (11:10)
[2021-10-06] MEDS: WARFARIN SOD 5MG TAB PO SCH (17:04)
[2021-10-06] MEDS: TORSEMIDE 20 MG TAB PO SCH (17:04)
[2021-10-06] MEDS: PARoxetine 20MG TABLET PO SCH (20:11)
[2021-10-06] MEDS: allopurinoL 100 MG TAB PO SCH (20:11)
[2021-10-07] MEDS: SODIUM CHLORIDE 0.9% INJ 10 ML SYR IV SCH ×2 (05:37→17:26)
[2021-10-07 05:50] VITALS: BP 139/52
[2021-10-07 06:00] VITALS: BP 139/52
[2021-10-07 06:45] LABS: BASO % 0.3 % (0.0-1.0); EOS # 0.3 10^3/uL (0.0-0.5); EOS % 2.5 % (0.0-3.0); HEMATOCRIT 24.1 % (36.0-47.0); HEMOGLOBIN 7.6 g/dl (12.0-15.5); LYMPH # 3.1 10^3/uL (1.5-5.0); LYMPH % 23.2 % (24.0-44.0); MEAN CORPUSCULAR HEMOGLOBIN 30.8 pg (27.0-33.0); MEAN CORPUSCULAR HGB CONC 31.5 g/dl (32.0-36.5); MEAN CORPUSCULAR VOLUME 97.6 fl (80.0-96.0); MONO % 7.7 % (2.0-8.0); NEUTROPHILS # 8.6 10^3/uL (1.5-8.5); NEUTROPHILS % 65.6 % (36.0-66.0); PLATELET COUNT, AUTOMATED 219 10^3/uL (150-450); RED BLOOD COUNT 2.47 10^6/uL (4.00-5.40); WHITE BLOOD COUNT 13.1 10^3/uL (4.0-10.0)
[2021-10-07 06:57] LABS: INR 2.56; PROTHROMBIN TIME 27.9 SECONDS (12.7-14.5)
[2021-10-07 06:58] LABS: CALCIUM LEVEL 8.7 MG/DL (8.8-10.2); CREATININE FOR GFR 2.87 MG/DL (0.55-1.30); GLOMERULAR FILTRATION RATE 16.7 (>32); MAGNESIUM LEVEL 1.8 MG/DL (1.8-2.4); POTASSIUM SERUM 3.5 MEQ/L (3.5-5.1)
[2021-10-07] MEDS: CALCITRIOL 0.25 MCG CAP (S0169) PO SCH (09:09)
[2021-10-07] MEDS: ASPIRIN 81 MG CHEW TABLET PO SCH (09:09)
[2021-10-07] MEDS: LEVEMIR (INSULIN DETEMIR) 1 UNITS/0.01ML SC SCH (09:09)
[2021-10-07] MEDS: **hydrALAZINE** 50 MG TAB PO SCH ×2 (09:09→22:08)
[2021-10-07] MEDS: METOPROLOL TARTRATE 100MG TAB PO SCH ×2 (09:10→22:07)
[2021-10-07] MEDS: TORSEMIDE 20 MG TAB PO SCH ×2 (09:10→17:29)
[2021-10-07] MEDS: ISOSORBIDE DIN (ISORDIL) 10MG TAB PO SCH ×2 (09:10→17:27)
[2021-10-07] MEDS: FIDAXOMICIN 200 MG TAB (DIFICID) PO SCH (09:10)
[2021-10-07] MEDS: INSULIN LISPRO (NovoLOG) PER UNIT SC SCH ×4 (09:11→22:21)
[2021-10-07] MEDS: SODIUM BICARBONATE 325 MG TAB PO SCH ×2 (09:12→22:07)
[2021-10-07 09:55] LABS: PERCENT SATURATION 106.7 % (13.2-45.0)
[2021-10-07 10:51] LABS: FOLATE 5.5 NG/ML
[2021-10-07] MEDS: WARFARIN SOD 5MG TAB PO SCH (17:27)
[2021-10-07] MEDS: allopurinoL 100 MG TAB PO SCH (22:07)
[2021-10-07] MEDS: PARoxetine 20MG TABLET PO SCH (22:08)
[2021-10-08] VITALS (8 sets, daily range): BP systolic 117–137; BP diastolic 44–66
[2021-10-08] MEDS: SODIUM CHLORIDE 0.9% INJ 10 ML SYR IV SCH ×2 (05:39→17:44)
[2021-10-08 06:39] LABS: BASO % 0.3 % (0.0-1.0); EOS # 0.4 10^3/uL (0.0-0.5); EOS % 2.8 % (0.0-3.0); HEMATOCRIT 24.2 % (36.0-47.0); HEMOGLOBIN 7.6 g/dl (12.0-15.5); LYMPH # 2.9 10^3/uL (1.5-5.0); LYMPH % 21.7 % (24.0-44.0); MEAN CORPUSCULAR HEMOGLOBIN 30.8 pg (27.0-33.0); MEAN CORPUSCULAR HGB CONC 31.4 g/dl (32.0-36.5); MONO # 1.2 10^3/uL (0.0-0.8); MONO % 8.7 % (2.0-8.0); NEUTROPHILS # 8.9 10^3/uL (1.5-8.5); NEUTROPHILS % 65.6 % (36.0-66.0); PLATELET COUNT, AUTOMATED 236 10^3/uL (150-450); RED BLOOD COUNT 2.47 10^6/uL (4.00-5.40); WHITE BLOOD COUNT 13.5 10^3/uL (4.0-10.0)
[2021-10-08 06:53] LABS: INR 3.07
[2021-10-08 07:04] LABS: CALCIUM LEVEL 9.1 MG/DL (8.8-10.2); CREATININE FOR GFR 2.84 MG/DL (0.55-1.30); GLOMERULAR FILTRATION RATE 16.9 (>32); MAGNESIUM LEVEL 1.7 MG/DL (1.8-2.4); POTASSIUM SERUM 3.6 MEQ/L (3.5-5.1)
[2021-10-08] MEDS: LEVEMIR (INSULIN DETEMIR) 1 UNITS/0.01ML SC SCH (08:09)
[2021-10-08] MEDS: INSULIN LISPRO (NovoLOG) PER UNIT SC SCH ×4 (08:09→22:05)
[2021-10-08] MEDS: **hydrALAZINE** 50 MG TAB PO SCH ×2 (08:11→22:18)
[2021-10-08] MEDS: SODIUM BICARBONATE 325 MG TAB PO SCH ×2 (08:12→22:15)
[2021-10-08] MEDS: FIDAXOMICIN 200 MG TAB (DIFICID) PO SCH (08:12)
[2021-10-08] MEDS: ROSUVASTATIN 10 MG TAB (CRESTOR) PO SCH (08:12)
[2021-10-08] MEDS: ASPIRIN 81 MG CHEW TABLET PO SCH (08:12)
[2021-10-08] MEDS: TORSEMIDE 20 MG TAB PO SCH ×2 (08:12→17:44)
[2021-10-08] MEDS: METOPROLOL TARTRATE 100MG TAB PO SCH ×2 (08:15→22:18)
[2021-10-08] MEDS: ISOSORBIDE DIN (ISORDIL) 10MG TAB PO SCH ×2 (08:16→17:43)
[2021-10-08] MEDS ORDERED: POTASSIUM CHLORIDE 10MEQ SR TABLET PO ONE (11:45)
[2021-10-08] MEDS ORDERED: WARFARIN SOD 4MG TAB PO SCH (17:00)
[2021-10-08] MEDS: allopurinoL 100 MG TAB PO SCH (22:15)
[2021-10-08] MEDS: PARoxetine 20MG TABLET PO SCH (22:16)
[2021-10-09] MEDS: SODIUM CHLORIDE 0.9% INJ 10 ML SYR IV SCH ×2 (05:13→17:35)
[2021-10-09 06:15] VITALS: BP 129/55
[2021-10-09 06:16] LABS: BASO % 0.3 % (0.0-1.0); EOS # 0.4 10^3/uL (0.0-0.5); HEMATOCRIT 27.9 % (36.0-47.0); HEMOGLOBIN 9.1 g/dl (12.0-15.5); LYMPH % 23.4 % (24.0-44.0); MEAN CORPUSCULAR HEMOGLOBIN 31.4 pg (27.0-33.0); MEAN CORPUSCULAR HGB CONC 32.6 g/dl (32.0-36.5); MEAN CORPUSCULAR VOLUME 96.2 fl (80.0-96.0); MONO # 1.3 10^3/uL (0.0-0.8); MONO % 9.9 % (2.0-8.0); NEUTROPHILS # 7.9 10^3/uL (1.5-8.5); NEUTROPHILS % 62.4 % (36.0-66.0); PLATELET COUNT, AUTOMATED 249 10^3/uL (150-450); WHITE BLOOD COUNT 12.6 10^3/uL (4.0-10.0)
[2021-10-09 06:30] LABS: INR 3.36; PROTHROMBIN TIME 34.3 SECONDS (12.7-14.5)
[2021-10-09 06:36] LABS: CALCIUM LEVEL 8.3 MG/DL (8.8-10.2); CREATININE FOR GFR 2.71 MG/DL (0.55-1.30); GLOMERULAR FILTRATION RATE 17.9 (>32); MAGNESIUM LEVEL 1.5 MG/DL (1.8-2.4); POTASSIUM SERUM 3.7 MEQ/L (3.5-5.1)
[2021-10-09] MEDS: SODIUM BICARBONATE 325 MG TAB PO SCH ×2 (08:12→21:06)
[2021-10-09] MEDS: TORSEMIDE 20 MG TAB PO SCH ×2 (08:13→17:32)
[2021-10-09] MEDS: **hydrALAZINE** 50 MG TAB PO SCH ×2 (08:14→21:06)
[2021-10-09] MEDS: METOPROLOL TARTRATE 100MG TAB PO SCH ×2 (08:14→21:07)
[2021-10-09] MEDS: FIDAXOMICIN 200 MG TAB (DIFICID) PO SCH (08:14)
[2021-10-09] MEDS: ASPIRIN 81 MG CHEW TABLET PO SCH (08:14)
[2021-10-09] MEDS: INSULIN LISPRO (NovoLOG) PER UNIT SC SCH ×4 (08:15→20:52)
[2021-10-09] MEDS: LEVEMIR (INSULIN DETEMIR) 1 UNITS/0.01ML SC SCH (08:15)
[2021-10-09] MEDS: ISOSORBIDE DIN (ISORDIL) 10MG TAB PO SCH ×2 (08:16→17:32)
[2021-10-09] MEDS: MAGNESIUM OXIDE 400MG TAB (MAG-OX) PO SCH ×2 (09:22→21:06)
[2021-10-09] MEDS: FOLIC ACID 1 MG TAB PO SCH (12:15)
[2021-10-09 14:00] VITALS: BP 113/70
[2021-10-09] MEDS: WARFARIN SOD 3MG TAB PO SCH (17:32)
[2021-10-09] MEDS: allopurinoL 100 MG TAB PO SCH (21:06)
[2021-10-09] MEDS: PARoxetine 20MG TABLET PO SCH (21:06)
[2021-10-10] MEDS: SODIUM CHLORIDE 0.9% INJ 10 ML SYR IV SCH ×2 (05:15→18:05)
[2021-10-10 06:23] VITALS: BP 124/76
[2021-10-10] MEDS: INSULIN LISPRO (NovoLOG) PER UNIT SC SCH ×4 (09:42→21:00)
[2021-10-10] MEDS: LEVEMIR (INSULIN DETEMIR) 1 UNITS/0.01ML SC SCH (09:43)
[2021-10-10] MEDS: FIDAXOMICIN 200 MG TAB (DIFICID) PO SCH (09:44)
[2021-10-10] MEDS: ASPIRIN 81 MG CHEW TABLET PO SCH (09:44)
[2021-10-10] MEDS: MAGNESIUM OXIDE 400MG TAB (MAG-OX) PO SCH ×2 (09:44→22:59)
[2021-10-10] MEDS: SODIUM BICARBONATE 325 MG TAB PO SCH ×2 (09:44→22:59)
[2021-10-10] MEDS: ROSUVASTATIN 10 MG TAB (CRESTOR) PO SCH (09:44)
[2021-10-10] MEDS: **hydrALAZINE** 50 MG TAB PO SCH ×2 (09:45→23:01)
[2021-10-10] MEDS: CALCITRIOL 0.25 MCG CAP (S0169) PO SCH (09:45)
[2021-10-10] MEDS: TORSEMIDE 20 MG TAB PO SCH ×2 (09:45→18:03)
[2021-10-10] MEDS: METOPROLOL TARTRATE 100MG TAB PO SCH ×2 (09:46→23:00)
[2021-10-10] MEDS: FOLIC ACID 1 MG TAB PO SCH (09:46)
[2021-10-10] MEDS: ISOSORBIDE DIN (ISORDIL) 10MG TAB PO SCH ×2 (09:46→18:05)
[2021-10-10] MEDS: WARFARIN SOD 3MG TAB PO SCH (18:03)
[2021-10-10 22:00] VITALS: BP 113/44
[2021-10-10] MEDS: PARoxetine 20MG TABLET PO SCH (22:59)
[2021-10-10] MEDS: allopurinoL 100 MG TAB PO SCH (22:59)
[2021-10-11] MEDS: SODIUM CHLORIDE 0.9% INJ 10 ML SYR IV SCH ×2 (05:45→18:13)
[2021-10-11 06:00] VITALS: BP 125/50
[2021-10-11 06:17] LABS: BASO # 0.1 10^3/uL (0.0-0.2); BASO % 0.4 % (0.0-1.0); EOS # 0.4 10^3/uL (0.0-0.5); EOS % 2.3 % (0.0-3.0); HEMATOCRIT 28.2 % (36.0-47.0); HEMOGLOBIN 9.1 g/dl (12.0-15.5); LYMPH # 3.2 10^3/uL (1.5-5.0); LYMPH % 20.5 % (24.0-44.0); MEAN CORPUSCULAR HGB CONC 32.3 g/dl (32.0-36.5); MEAN CORPUSCULAR VOLUME 95.9 fl (80.0-96.0); MONO # 1.4 10^3/uL (0.0-0.8); MONO % 9.3 % (2.0-8.0); NEUTROPHILS # 10.2 10^3/uL (1.5-8.5); NEUTROPHILS % 66.7 % (36.0-66.0); PLATELET COUNT, AUTOMATED 285 10^3/uL (150-450); RED BLOOD COUNT 2.94 10^6/uL (4.00-5.40); WHITE BLOOD COUNT 15.3 10^3/uL (4.0-10.0)
[2021-10-11 06:34] LABS: CALCIUM LEVEL 9.2 MG/DL (8.8-10.2); CREATININE FOR GFR 2.95 MG/DL (0.55-1.30); GLOMERULAR FILTRATION RATE 16.2 (>32); MAGNESIUM LEVEL 1.7 MG/DL (1.8-2.4); POTASSIUM SERUM 3.9 MEQ/L (3.5-5.1)
[2021-10-11] MEDS: LEVEMIR (INSULIN DETEMIR) 1 UNITS/0.01ML SC SCH (09:27)
[2021-10-11] MEDS: MAGNESIUM OXIDE 400MG TAB (MAG-OX) PO SCH ×2 (09:28→21:36)
[2021-10-11] MEDS: FOLIC ACID 1 MG TAB PO SCH (09:28)
[2021-10-11] MEDS: INSULIN LISPRO (NovoLOG) PER UNIT SC SCH ×4 (09:28→21:00)
[2021-10-11] MEDS: SODIUM BICARBONATE 325 MG TAB PO SCH ×2 (09:28→21:37)
[2021-10-11] MEDS: FIDAXOMICIN 200 MG TAB (DIFICID) PO SCH (09:28)
[2021-10-11] MEDS: ROSUVASTATIN 10 MG TAB (CRESTOR) PO SCH (09:28)
[2021-10-11] MEDS: ASPIRIN 81 MG CHEW TABLET PO SCH (09:28)
[2021-10-11] MEDS: ISOSORBIDE DIN (ISORDIL) 10MG TAB PO SCH ×2 (09:29→18:13)
[2021-10-11] MEDS: METOPROLOL TARTRATE 100MG TAB PO SCH ×2 (09:29→21:36)
[2021-10-11] MEDS: TORSEMIDE 20 MG TAB PO SCH ×2 (09:29→18:12)
[2021-10-11] MEDS: **hydrALAZINE** 50 MG TAB PO SCH ×2 (09:30→21:36)
[2021-10-11] MEDS: WARFARIN SOD 3MG TAB PO SCH (18:12)
[2021-10-11 21:30] VITALS: BP 94/45
[2021-10-11] MEDS: PARoxetine 20MG TABLET PO SCH (21:36)
[2021-10-11] MEDS: allopurinoL 100 MG TAB PO SCH (21:37)
[2021-10-11 23:45] VITALS: BP 102/52
[2021-10-12] MEDS: SODIUM CHLORIDE 0.9% INJ 10 ML SYR IV PRN ×4 (00:26→06:40)
[2021-10-12] MEDS: cefTRIAXone SOD 1 GM in D5W MINI-BAG PLUS 50 ML IV SCH (02:40)
[2021-10-12 06:00] VITALS: BP 127/59
[2021-10-12 06:24] LABS: BASO # 0.1 10^3/uL (0.0-0.2); BASO % 0.4 % (0.0-1.0); EOS # 0.3 10^3/uL (0.0-0.5); EOS % 2.5 % (0.0-3.0); HEMATOCRIT 27.6 % (36.0-47.0); HEMOGLOBIN 8.8 g/dl (12.0-15.5); LYMPH # 3.8 10^3/uL (1.5-5.0); LYMPH % 30.6 % (24.0-44.0); MEAN CORPUSCULAR HEMOGLOBIN 31.2 pg (27.0-33.0); MEAN CORPUSCULAR HGB CONC 31.9 g/dl (32.0-36.5); MEAN CORPUSCULAR VOLUME 97.9 fl (80.0-96.0); MONO # 1.3 10^3/uL (0.0-0.8); MONO % 10.5 % (2.0-8.0); NEUTROPHILS # 6.9 10^3/uL (1.5-8.5); PLATELET COUNT, AUTOMATED 278 10^3/uL (150-450); RED BLOOD COUNT 2.82 10^6/uL (4.00-5.40); WHITE BLOOD COUNT 12.5 10^3/uL (4.0-10.0)
[2021-10-12] MEDS: SODIUM CHLORIDE 0.9% INJ 10 ML SYR IV SCH ×2 (06:40→17:46)
[2021-10-12 06:44] LABS: INR 3.66; PROTHROMBIN TIME 36.6 SECONDS (12.7-14.5)
[2021-10-12 06:45] LABS: INR 3.7; PROTHROMBIN TIME 36.9 SECONDS (12.7-14.5)
[2021-10-12 06:46] LABS: PARTIAL THROMBOPLASTIN TIME 51.2 SECONDS (25.9-37.0)
[2021-10-12 06:51] LABS: CALCIUM LEVEL 8.6 MG/DL (8.8-10.2); CREATININE FOR GFR 2.88 MG/DL (0.55-1.30); GLOMERULAR FILTRATION RATE 16.7 (>32); POTASSIUM SERUM 3.7 MEQ/L (3.5-5.1)
[2021-10-12 06:56] LABS: ALBUMIN 2.8 GM/DL (3.2-5.2)
[2021-10-12] MEDS: INSULIN LISPRO (NovoLOG) PER UNIT SC SCH ×4 (08:38→21:00)
[2021-10-12] MEDS: FIDAXOMICIN 200 MG TAB (DIFICID) PO SCH (08:39)
[2021-10-12] MEDS: LEVEMIR (INSULIN DETEMIR) 1 UNITS/0.01ML SC SCH (08:39)
[2021-10-12] MEDS: ASPIRIN 81 MG CHEW TABLET PO SCH (08:39)
[2021-10-12] MEDS: CALCITRIOL 0.25 MCG CAP (S0169) PO SCH (08:39)
[2021-10-12] MEDS: TORSEMIDE 20 MG TAB PO SCH ×2 (08:40→17:44)
[2021-10-12] MEDS: LACTOBACILLUS ACIDOPHILUS CAP (BACID) PO SCH (08:40)
[2021-10-12] MEDS: SODIUM BICARBONATE 325 MG TAB PO SCH ×2 (08:40→21:06)
[2021-10-12] MEDS: FOLIC ACID 1 MG TAB PO SCH (08:40)
[2021-10-12] MEDS: MAGNESIUM OXIDE 400MG TAB (MAG-OX) PO SCH ×2 (08:41→21:05)
[2021-10-12] MEDS: METOPROLOL TARTRATE 100MG TAB PO SCH ×2 (08:43→21:05)
[2021-10-12] MEDS: DARBEPOETIN 100 MCG/0.5 ML *NON-DIALYSIS* SYRINGE (J0881) SC SCH (09:59)
[2021-10-12] MEDS: ISOSORBIDE DIN (ISORDIL) 10MG TAB PO SCH ×2 (09:59→17:45)
[2021-10-12 14:00] VITALS: BP 138/58
[2021-10-12] MEDS ORDERED: TAMSULOSIN 0.4 MG CAP PO ONE (20:10)
[2021-10-12 21:00] VITALS: BP 149/59
[2021-10-12] MEDS: PARoxetine 20MG TABLET PO SCH (21:05)
[2021-10-12] MEDS: allopurinoL 100 MG TAB PO SCH (21:06)
[2021-10-13] MEDS: cefTRIAXone SOD 1 GM in D5W MINI-BAG PLUS 50 ML IV SCH (01:17)
[2021-10-13] MEDS: SODIUM CHLORIDE 0.9% INJ 10 ML SYR IV PRN ×3 (01:18→06:17)
[2021-10-13 06:00] VITALS: BP 147/57
[2021-10-13] MEDS: SODIUM CHLORIDE 0.9% INJ 10 ML SYR IV SCH ×2 (06:16→17:06)
[2021-10-13 06:38] LABS: HEMATOCRIT 27.7 % (36.0-47.0); MEAN CORPUSCULAR HEMOGLOBIN 31.9 pg (27.0-33.0); MEAN CORPUSCULAR HGB CONC 32.5 g/dl (32.0-36.5); MEAN CORPUSCULAR VOLUME 98.2 fl (80.0-96.0); PLATELET COUNT, AUTOMATED 259 10^3/uL (150-450); RED BLOOD COUNT 2.82 10^6/uL (4.00-5.40); WHITE BLOOD COUNT 13.3 10^3/uL (4.0-10.0)
[2021-10-13 06:56] LABS: INR 3.49; PROTHROMBIN TIME 35.3 SECONDS (12.7-14.5)
[2021-10-13 07:08] LABS: CALCIUM LEVEL 9.2 MG/DL (8.8-10.2); CREATININE FOR GFR 2.66 MG/DL (0.55-1.30); GLOMERULAR FILTRATION RATE 18.3 (>32); POTASSIUM SERUM 3.8 MEQ/L (3.5-5.1)
[2021-10-13] MEDS: ISOSORBIDE DIN (ISORDIL) 10MG TAB PO SCH ×2 (08:00→17:06)
[2021-10-13] MEDS: INSULIN LISPRO (NovoLOG) PER UNIT SC SCH ×4 (08:04→23:24)
[2021-10-13] MEDS: FIDAXOMICIN 200 MG TAB (DIFICID) PO SCH (08:29)
[2021-10-13] MEDS: SODIUM BICARBONATE 325 MG TAB PO SCH ×2 (08:29→23:25)
[2021-10-13] MEDS: METOPROLOL TARTRATE 100MG TAB PO SCH ×2 (08:29→23:25)
[2021-10-13] MEDS: LEVEMIR (INSULIN DETEMIR) 1 UNITS/0.01ML SC SCH (08:29)
[2021-10-13] MEDS: LACTOBACILLUS ACIDOPHILUS CAP (BACID) PO SCH (08:30)
[2021-10-13] MEDS: FOLIC ACID 1 MG TAB PO SCH (08:30)
[2021-10-13] MEDS: ROSUVASTATIN 10 MG TAB (CRESTOR) PO SCH (08:30)
[2021-10-13] MEDS: ASPIRIN 81 MG CHEW TABLET PO SCH (08:30)
[2021-10-13] MEDS: TORSEMIDE 20 MG TAB PO SCH ×2 (08:30→17:05)
[2021-10-13] MEDS: MAGNESIUM OXIDE 400MG TAB (MAG-OX) PO SCH ×2 (08:30→23:25)
[2021-10-13 14:00] VITALS: BP 160/44
[2021-10-13] MEDS: WARFARIN SOD 2MG TAB PO SCH (16:31)
[2021-10-13 20:17] VITALS: BP_SYST 158; BP_SYST 168; BP_DIAS 60; BP_DIAS 63
[2021-10-13 23:22] VITALS: BP 144/66
[2021-10-13] MEDS: PARoxetine 20MG TABLET PO SCH (23:25)
[2021-10-13] MEDS: allopurinoL 100 MG TAB PO SCH (23:26)
[2021-10-13] MEDS ORDERED: BENZONATATE 100MG CAPSULE PO PRN (23:55)
[2021-10-13] MEDS ORDERED: ONDANSETRON 4MG 2ML VIAL IV PRN (23:55)
[2021-10-14] MEDS ORDERED: MAALOX 30 ML SUSP *UDC PO ONE
[2021-10-14] MEDS ORDERED: DOCUSATE SODIUM 100MG CAPSULE PO PRN
[2021-10-14] MEDS: SODIUM CHLORIDE 0.9% INJ 10 ML SYR IV PRN ×3 (02:24→06:15)
[2021-10-14] MEDS: cefTRIAXone SOD 1 GM in D5W MINI-BAG PLUS 50 ML IV SCH (02:24)
[2021-10-14 06:00] VITALS: BP 155/65
[2021-10-14] MEDS: SODIUM CHLORIDE 0.9% INJ 10 ML SYR IV SCH ×2 (06:14→17:13)
[2021-10-14 08:16] VITALS: BP 131/76
[2021-10-14] MEDS: LEVEMIR (INSULIN DETEMIR) 1 UNITS/0.01ML SC SCH (08:29)
[2021-10-14] MEDS: INSULIN LISPRO (NovoLOG) PER UNIT SC SCH ×4 (08:30→21:00)
[2021-10-14] MEDS: FIDAXOMICIN 200 MG TAB (DIFICID) PO SCH (08:30)
[2021-10-14] MEDS: ASPIRIN 81 MG CHEW TABLET PO SCH (08:31)
[2021-10-14] MEDS: SODIUM BICARBONATE 325 MG TAB PO SCH ×2 (08:31→22:04)
[2021-10-14] MEDS: ISOSORBIDE DIN (ISORDIL) 10MG TAB PO SCH ×2 (08:31→17:13)
[2021-10-14] MEDS: LACTOBACILLUS ACIDOPHILUS CAP (BACID) PO SCH (08:31)
[2021-10-14] MEDS: METOPROLOL TARTRATE 100MG TAB PO SCH ×2 (08:31→22:24)
[2021-10-14] MEDS: MAGNESIUM OXIDE 400MG TAB (MAG-OX) PO SCH ×2 (08:32→22:06)
[2021-10-14] MEDS: CALCITRIOL 0.25 MCG CAP (S0169) PO SCH (08:32)
[2021-10-14] MEDS: TORSEMIDE 20 MG TAB PO SCH ×2 (08:32→17:13)
[2021-10-14] MEDS: FOLIC ACID 1 MG TAB PO SCH (08:32)
[2021-10-14 12:26] LABS: HEMATOCRIT 31.3 % (36.0-47.0); HEMOGLOBIN 10.3 g/dl (12.0-15.5); MEAN CORPUSCULAR HEMOGLOBIN 31.9 pg (27.0-33.0); MEAN CORPUSCULAR HGB CONC 32.9 g/dl (32.0-36.5); MEAN CORPUSCULAR VOLUME 96.9 fl (80.0-96.0); PLATELET COUNT, AUTOMATED 276 10^3/uL (150-450); RED BLOOD COUNT 3.23 10^6/uL (4.00-5.40); WHITE BLOOD COUNT 14.8 10^3/uL (4.0-10.0)
[2021-10-14 12:37] LABS: INR 2.31; PROTHROMBIN TIME 25.8 SECONDS (12.7-14.5)
[2021-10-14 12:38] LABS: PARTIAL THROMBOPLASTIN TIME 49.2 SECONDS (25.9-37.0)
[2021-10-14 12:48] LABS: CREATININE FOR GFR 2.53 MG/DL (0.55-1.30); GLOMERULAR FILTRATION RATE 19.4 (>32); POTASSIUM SERUM 3.5 MEQ/L (3.5-5.1)
[2021-10-14 14:00] VITALS: BP 142/61
[2021-10-14 17:07] VITALS: BP 148/73
[2021-10-14] MEDS: WARFARIN SOD 2MG TAB PO SCH (17:13)
[2021-10-14 20:49] VITALS: BP 137/82
[2021-10-14] MEDS: PARoxetine 20MG TABLET PO SCH (22:05)
[2021-10-14] MEDS: allopurinoL 100 MG TAB PO SCH (22:06)
[2021-10-15] MEDS: cefTRIAXone SOD 1 GM in D5W MINI-BAG PLUS 50 ML IV SCH (01:40)
[2021-10-15 05:41] VITALS: BP 148/76
[2021-10-15] MEDS: SODIUM CHLORIDE 0.9% INJ 10 ML SYR IV SCH ×2 (05:56→18:53)
[2021-10-15] MEDS: LEVEMIR (INSULIN DETEMIR) 1 UNITS/0.01ML SC SCH (11:35)
[2021-10-15] MEDS: METOPROLOL TARTRATE 100MG TAB PO SCH ×2 (11:36→21:00)
[2021-10-15] MEDS: INSULIN LISPRO (NovoLOG) PER UNIT SC SCH ×4 (11:36→21:00)
[2021-10-15] MEDS: FIDAXOMICIN 200 MG TAB (DIFICID) PO SCH (11:36)
[2021-10-15] MEDS: SODIUM BICARBONATE 325 MG TAB PO SCH ×2 (11:36→21:13)
[2021-10-15] MEDS: ASPIRIN 81 MG CHEW TABLET PO SCH (11:37)
[2021-10-15] MEDS: LACTOBACILLUS ACIDOPHILUS CAP (BACID) PO SCH (11:37)
[2021-10-15] MEDS: FOLIC ACID 1 MG TAB PO SCH (11:37)
[2021-10-15] MEDS: TORSEMIDE 20 MG TAB PO SCH ×2 (11:37→17:00)
[2021-10-15] MEDS: MAGNESIUM OXIDE 400MG TAB (MAG-OX) PO SCH ×2 (11:38→21:14)
[2021-10-15] MEDS: ISOSORBIDE DIN (ISORDIL) 10MG TAB PO SCH ×2 (11:42→18:00)
[2021-10-15] MEDS: ROSUVASTATIN 10 MG TAB (CRESTOR) PO SCH (11:42)
[2021-10-15 14:00] VITALS: BP 90/61
[2021-10-15] MEDS: WARFARIN SOD 2MG TAB PO SCH (18:53)
[2021-10-15] MEDS: PARoxetine 20MG TABLET PO SCH (21:13)
[2021-10-15] MEDS: allopurinoL 100 MG TAB PO SCH (21:13)
[2021-10-15 22:00] VITALS: BP 109/56
[2021-10-16] MEDS: cefTRIAXone SOD 1 GM in D5W MINI-BAG PLUS 50 ML IV SCH (01:15)
[2021-10-16 06:00] VITALS: BP 135/60
[2021-10-16] MEDS: SODIUM CHLORIDE 0.9% INJ 10 ML SYR IV SCH ×2 (06:25→17:30)
[2021-10-16] MEDS: INSULIN LISPRO (NovoLOG) PER UNIT SC SCH ×3 (07:30→17:30)
[2021-10-16] MEDS: LEVEMIR (INSULIN DETEMIR) 1 UNITS/0.01ML SC SCH (10:02)
[2021-10-16] MEDS: SODIUM BICARBONATE 325 MG TAB PO SCH ×2 (10:02→19:55)
[2021-10-16] MEDS: ASPIRIN 81 MG CHEW TABLET PO SCH (10:03)
[2021-10-16] MEDS: FOLIC ACID 1 MG TAB PO SCH (10:03)
[2021-10-16] MEDS: FIDAXOMICIN 200 MG TAB (DIFICID) PO SCH (10:03)
[2021-10-16] MEDS: LACTOBACILLUS ACIDOPHILUS CAP (BACID) PO SCH (10:03)
[2021-10-16] MEDS: MAGNESIUM OXIDE 400MG TAB (MAG-OX) PO SCH ×2 (10:03→19:55)
[2021-10-16] MEDS: TORSEMIDE 20 MG TAB PO SCH ×2 (10:04→17:00)
[2021-10-16] MEDS: METOPROLOL TARTRATE 100MG TAB PO SCH (10:04)
[2021-10-16] MEDS: ISOSORBIDE DIN (ISORDIL) 10MG TAB PO SCH ×2 (10:14→17:10)
[2021-10-16] MEDS ORDERED: NS 500 ML IV ONE (10:25)
[2021-10-16 11:20] VITALS: BP 108/67
[2021-10-16 11:51] LABS: BASO # 0.1 10^3/uL (0.0-0.2); BASO % 0.4 % (0.0-1.0); EOS # 0.2 10^3/uL (0.0-0.5); EOS % 1.2 % (0.0-3.0); HEMATOCRIT 33.5 % (36.0-47.0); HEMOGLOBIN 10.9 g/dl (12.0-15.5); LYMPH # 1.5 10^3/uL (1.5-5.0); LYMPH % 10.6 % (24.0-44.0); MEAN CORPUSCULAR HEMOGLOBIN 32.2 pg (27.0-33.0); MEAN CORPUSCULAR HGB CONC 32.5 g/dl (32.0-36.5); MEAN CORPUSCULAR VOLUME 99.1 fl (80.0-96.0); MONO # 1.1 10^3/uL (0.0-0.8); MONO % 7.9 % (2.0-8.0); NEUTROPHILS # 10.9 10^3/uL (1.5-8.5); NEUTROPHILS % 79.2 % (36.0-66.0); PLATELET COUNT, AUTOMATED 242 10^3/uL (150-450); RED BLOOD COUNT 3.38 10^6/uL (4.00-5.40); WHITE BLOOD COUNT 13.8 10^3/uL (4.0-10.0)
[2021-10-16 12:09] LABS: CALCIUM LEVEL 8.6 MG/DL (8.8-10.2); CREATININE FOR GFR 2.31 MG/DL (0.55-1.30); GLOMERULAR FILTRATION RATE 21.5 (>32); POTASSIUM SERUM 4.5 MEQ/L (3.5-5.1)
[2021-10-16 16:21] VITALS: BP 116/60
[2021-10-16] MEDS: WARFARIN SOD 2MG TAB PO SCH (17:31)
[2021-10-16 19:49] VITALS: BP 121/57
[2021-10-16] MEDS: PARoxetine 20MG TABLET PO SCH (19:55)
[2021-10-16] MEDS: allopurinoL 100 MG TAB PO SCH (19:55)
[2021-10-16] MEDS ORDERED: METOPROLOL TART 50 MG TAB PO SCH (21:00)
[2021-10-16 22:00] VITALS: BP 122/82
[2021-10-17] MEDS: cefTRIAXone SOD 1 GM in D5W MINI-BAG PLUS 50 ML IV SCH (03:04)
[2021-10-17] MEDS: SODIUM CHLORIDE 0.9% INJ 10 ML SYR IV SCH ×2 (05:29→17:50)
[2021-10-17 06:13] LABS: HEMATOCRIT 29.9 % (36.0-47.0); HEMOGLOBIN 9.8 g/dl (12.0-15.5); MEAN CORPUSCULAR HEMOGLOBIN 32.3 pg (27.0-33.0); MEAN CORPUSCULAR HGB CONC 32.8 g/dl (32.0-36.5); MEAN CORPUSCULAR VOLUME 98.7 fl (80.0-96.0); PLATELET COUNT, AUTOMATED 250 10^3/uL (150-450); RED BLOOD COUNT 3.03 10^6/uL (4.00-5.40); WHITE BLOOD COUNT 15.5 10^3/uL (4.0-10.0)
[2021-10-17 06:23] LABS: INR 2.31; PROTHROMBIN TIME 25.8 SECONDS (12.7-14.5)
[2021-10-17 06:32] VITALS: BP 112/74
[2021-10-17 06:37] LABS: CALCIUM LEVEL 8.8 MG/DL (8.8-10.2); CREATININE FOR GFR 2.21 MG/DL (0.55-1.30); GLOMERULAR FILTRATION RATE 22.6 (>32); POTASSIUM SERUM 3.4 MEQ/L (3.5-5.1)
[2021-10-17] MEDS ORDERED: BISACODYL 10 MG SUPP PR ONE (07:35)
[2021-10-17 08:33] LABS: C REACTIVE PROTEIN QUANTITATIV 7.16 MG/DL (0.00-0.30)
[2021-10-17] MEDS: LEVEMIR (INSULIN DETEMIR) 1 UNITS/0.01ML SC SCH (09:20)
[2021-10-17] MEDS: FIDAXOMICIN 200 MG TAB (DIFICID) PO SCH (09:21)
[2021-10-17] MEDS: METOPROLOL TART 25 MG TABLET PO SCH ×2 (09:21→21:54)
[2021-10-17] MEDS: ROSUVASTATIN 10 MG TAB (CRESTOR) PO SCH (09:21)
[2021-10-17] MEDS: INSULIN LISPRO (NovoLOG) PER UNIT SC SCH ×3 (09:21→17:50)
[2021-10-17] MEDS: ASPIRIN 81 MG CHEW TABLET PO SCH (09:21)
[2021-10-17] MEDS: LACTOBACILLUS ACIDOPHILUS CAP (BACID) PO SCH (09:22)
[2021-10-17] MEDS: FOLIC ACID 1 MG TAB PO SCH (09:22)
[2021-10-17] MEDS: MAGNESIUM OXIDE 400MG TAB (MAG-OX) PO SCH ×2 (09:22→21:53)
[2021-10-17] MEDS: SODIUM BICARBONATE 325 MG TAB PO SCH ×2 (09:22→21:53)
[2021-10-17] MEDS: ISOSORBIDE DIN (ISORDIL) 10MG TAB PO SCH ×2 (09:22→17:51)
[2021-10-17] MEDS: CALCITRIOL 0.25 MCG CAP (S0169) PO SCH (09:22)
[2021-10-17] MEDS: TORSEMIDE 20 MG TAB PO SCH ×3 (09:23→17:52)
[2021-10-17 14:00] VITALS: BP 165/70
[2021-10-17] MEDS: WARFARIN SOD 2MG TAB PO SCH (17:51)
[2021-10-17] MEDS: PARoxetine 20MG TABLET PO SCH (21:53)
[2021-10-17] MEDS: allopurinoL 100 MG TAB PO SCH (21:53)
[2021-10-18] MEDS: cefTRIAXone SOD 1 GM in D5W MINI-BAG PLUS 50 ML IV SCH (02:12)
[2021-10-18] MEDS: SODIUM CHLORIDE 0.9% INJ 10 ML SYR IV PRN (03:33)
[2021-10-18 05:20] VITALS: BP 149/55
[2021-10-18] MEDS: SODIUM CHLORIDE 0.9% INJ 10 ML SYR IV SCH ×2 (05:26→18:19)
[2021-10-18] MEDS: LEVEMIR (INSULIN DETEMIR) 1 UNITS/0.01ML SC SCH (08:39)
[2021-10-18] MEDS: INSULIN LISPRO (NovoLOG) PER UNIT SC SCH ×3 (08:40→17:30)
[2021-10-18] MEDS: ROSUVASTATIN 10 MG TAB (CRESTOR) PO SCH (08:40)
[2021-10-18] MEDS: MAGNESIUM OXIDE 400MG TAB (MAG-OX) PO SCH ×2 (08:40→20:46)
[2021-10-18] MEDS: FIDAXOMICIN 200 MG TAB (DIFICID) PO SCH (08:40)
[2021-10-18] MEDS: ISOSORBIDE DIN (ISORDIL) 10MG TAB PO SCH ×2 (08:41→18:00)
[2021-10-18] MEDS: SODIUM BICARBONATE 325 MG TAB PO SCH ×2 (08:41→20:46)
[2021-10-18] MEDS: FOLIC ACID 1 MG TAB PO SCH (08:41)
[2021-10-18] MEDS: LACTOBACILLUS ACIDOPHILUS CAP (BACID) PO SCH (08:41)
[2021-10-18] MEDS: ASPIRIN 81 MG CHEW TABLET PO SCH (08:41)
[2021-10-18] MEDS: TORSEMIDE 20 MG TAB PO SCH ×2 (08:41→17:00)
[2021-10-18] MEDS: METOPROLOL TART 25 MG TABLET PO SCH ×2 (08:42→20:46)
[2021-10-18 09:16] LABS: BASO # 0.1 10^3/uL (0.0-0.2); BASO % 0.4 % (0.0-1.0); EOS # 0.1 10^3/uL (0.0-0.5); EOS % 0.7 % (0.0-3.0); HEMATOCRIT 32.6 % (36.0-47.0); HEMOGLOBIN 10.6 g/dl (12.0-15.5); LYMPH # 3.1 10^3/uL (1.5-5.0); LYMPH % 18.3 % (24.0-44.0); MEAN CORPUSCULAR HEMOGLOBIN 31.9 pg (27.0-33.0); MEAN CORPUSCULAR HGB CONC 32.5 g/dl (32.0-36.5); MEAN CORPUSCULAR VOLUME 98.2 fl (80.0-96.0); NEUTROPHILS # 11.7 10^3/uL (1.5-8.5); NEUTROPHILS % 70.2 % (36.0-66.0); PLATELET COUNT, AUTOMATED 280 10^3/uL (150-450); RED BLOOD COUNT 3.32 10^6/uL (4.00-5.40); WHITE BLOOD COUNT 16.6 10^3/uL (4.0-10.0)
[2021-10-18 09:41] LABS: CALCIUM LEVEL 9.4 MG/DL (8.8-10.2); CREATININE FOR GFR 2.15 MG/DL (0.55-1.30); GLOMERULAR FILTRATION RATE 23.4 (>32); POTASSIUM SERUM 3.8 MEQ/L (3.5-5.1)
[2021-10-18 09:57] LABS: MONO # 1.7 10^3/uL (0.0-0.8)
[2021-10-18 14:00] VITALS: BP 146/64
[2021-10-18] MEDS: WARFARIN SOD 2MG TAB PO SCH (18:20)
[2021-10-18] MEDS ORDERED: carisoprodoL 350 MG TAB PO ONE (20:30)
[2021-10-18] MEDS: PARoxetine 20MG TABLET PO SCH (20:46)
[2021-10-18] MEDS: allopurinoL 100 MG TAB PO SCH (20:46)
[2021-10-18] MEDS: ACETAMINOPHEN TAB 650MG DOSE (2X325MG) PO PRN (20:46)
[2021-10-18] MEDS: LIDOCAINE 5% (LIDODERM) PATCH TD SCH (21:00)
[2021-10-18 21:46] VITALS: BP 175/71
[2021-10-19] MEDS: SODIUM CHLORIDE 0.9% INJ 10 ML SYR IV SCH ×2 (05:59→17:18)
[2021-10-19 06:00] VITALS: BP 140/75
[2021-10-19 06:03] LABS: BASO % 0.3 % (0.0-1.0); EOS # 0.3 10^3/uL (0.0-0.5); EOS % 1.9 % (0.0-3.0); HEMATOCRIT 30.1 % (36.0-47.0); HEMOGLOBIN 9.6 g/dl (12.0-15.5); LYMPH # 2.8 10^3/uL (1.5-5.0); LYMPH % 21.7 % (24.0-44.0); MEAN CORPUSCULAR HEMOGLOBIN 31.4 pg (27.0-33.0); MEAN CORPUSCULAR HGB CONC 31.9 g/dl (32.0-36.5); MEAN CORPUSCULAR VOLUME 98.4 fl (80.0-96.0); MONO # 1.2 10^3/uL (0.0-0.8); MONO % 9.4 % (2.0-8.0); NEUTROPHILS # 8.5 10^3/uL (1.5-8.5); NEUTROPHILS % 66.2 % (36.0-66.0); PLATELET COUNT, AUTOMATED 248 10^3/uL (150-450); RED BLOOD COUNT 3.06 10^6/uL (4.00-5.40); WHITE BLOOD COUNT 12.9 10^3/uL (4.0-10.0)
[2021-10-19 06:23] LABS: CALCIUM LEVEL 8.8 MG/DL (8.8-10.2); CREATININE FOR GFR 2.21 MG/DL (0.55-1.30); GLOMERULAR FILTRATION RATE 22.6 (>32); POTASSIUM SERUM 4.1 MEQ/L (3.5-5.1)
[2021-10-19] MEDS: INSULIN LISPRO (NovoLOG) PER UNIT SC SCH ×3 (07:30→17:16)
[2021-10-19] MEDS: **NOTE PATIENT COMMENT** MISC XX SCH (09:00)
[2021-10-19] MEDS: FOLIC ACID 1 MG TAB PO SCH (09:12)
[2021-10-19] MEDS: LEVEMIR (INSULIN DETEMIR) 1 UNITS/0.01ML SC SCH (09:12)
[2021-10-19] MEDS: SODIUM BICARBONATE 325 MG TAB PO SCH ×2 (09:12→20:12)
[2021-10-19] MEDS: FIDAXOMICIN 200 MG TAB (DIFICID) PO SCH (09:12)
[2021-10-19] MEDS: ASPIRIN 81 MG CHEW TABLET PO SCH (09:12)
[2021-10-19] MEDS: LACTOBACILLUS ACIDOPHILUS CAP (BACID) PO SCH (09:12)
[2021-10-19] MEDS: METOPROLOL TART 25 MG TABLET PO SCH ×2 (09:13→20:13)
[2021-10-19] MEDS: CALCITRIOL 0.25 MCG CAP (S0169) PO SCH (09:13)
[2021-10-19] MEDS: ISOSORBIDE DIN (ISORDIL) 10MG TAB PO SCH ×2 (09:13→17:21)
[2021-10-19] MEDS: TORSEMIDE 20 MG TAB PO SCH ×2 (09:14→17:21)
[2021-10-19] MEDS: MAGNESIUM OXIDE 400MG TAB (MAG-OX) PO SCH ×2 (09:14→20:12)
[2021-10-19] MEDS: DARBEPOETIN 100 MCG/0.5 ML *NON-DIALYSIS* SYRINGE (J0881) SC SCH (10:19)
[2021-10-19 14:00] VITALS: BP 155/69
[2021-10-19] MEDS: WARFARIN SOD 2MG TAB PO SCH (17:17)
[2021-10-19 20:06] VITALS: BP 135/89
[2021-10-19] MEDS: LIDOCAINE 5% (LIDODERM) PATCH TD SCH (20:12)
[2021-10-19] MEDS: allopurinoL 100 MG TAB PO SCH (20:13)
[2021-10-19] MEDS: PARoxetine 20MG TABLET PO SCH (20:13)
[2021-10-20] MEDS: SODIUM CHLORIDE 0.9% INJ 10 ML SYR IV SCH ×2 (03:42→17:41)
[2021-10-20 06:37] VITALS: BP 134/69
[2021-10-20] MEDS: INSULIN LISPRO (NovoLOG) PER UNIT SC SCH ×3 (07:30→17:24)
[2021-10-20] MEDS: FOLIC ACID 1 MG TAB PO SCH (08:26)
[2021-10-20] MEDS: ROSUVASTATIN 10 MG TAB (CRESTOR) PO SCH (08:26)
[2021-10-20] MEDS: MAGNESIUM OXIDE 400MG TAB (MAG-OX) PO SCH ×2 (08:26→20:52)
[2021-10-20] MEDS: METOPROLOL TART 25 MG TABLET PO SCH ×2 (08:26→20:53)
[2021-10-20] MEDS: ACETAMINOPHEN TAB 650MG DOSE (2X325MG) PO PRN ×2 (08:26→17:51)
[2021-10-20] MEDS: TORSEMIDE 20 MG TAB PO SCH ×2 (08:27→17:24)
[2021-10-20] MEDS: ASPIRIN 81 MG CHEW TABLET PO SCH (08:27)
[2021-10-20] MEDS: LACTOBACILLUS ACIDOPHILUS CAP (BACID) PO SCH (08:27)
[2021-10-20] MEDS: SODIUM BICARBONATE 325 MG TAB PO SCH ×2 (08:27→20:51)
[2021-10-20] MEDS: FIDAXOMICIN 200 MG TAB (DIFICID) PO SCH (08:27)
[2021-10-20] MEDS: ISOSORBIDE DIN (ISORDIL) 10MG TAB PO SCH ×2 (08:27→17:24)
[2021-10-20] MEDS: LEVEMIR (INSULIN DETEMIR) 1 UNITS/0.01ML SC SCH (08:28)
[2021-10-20] MEDS: **NOTE PATIENT COMMENT** MISC XX SCH (08:37)
[2021-10-20 14:00] VITALS: BP 152/72
[2021-10-20] MEDS: WARFARIN SOD 2MG TAB PO SCH (17:23)
[2021-10-20] MEDS: PARoxetine 20MG TABLET PO SCH (20:51)
[2021-10-20] MEDS: LIDOCAINE 5% (LIDODERM) PATCH TD SCH (20:51)
[2021-10-20] MEDS: allopurinoL 100 MG TAB PO SCH (20:52)
[2021-10-20] MEDS: VANCOMYCIN ORAL SOL 250MG/5ML ORAL SYRINGE PO SCH (20:53)
[2021-10-20] MEDS ORDERED: ACETAMINOPHEN 500 MG TAB PO SCH (21:00)
[2021-10-20 22:00] VITALS: BP 169/70
[2021-10-21] MEDS: SODIUM CHLORIDE 0.9% INJ 10 ML SYR IV SCH (05:39)
[2021-10-21 06:00] VITALS: BP 168/70
[2021-10-21] MEDS: INSULIN LISPRO (NovoLOG) PER UNIT SC SCH (07:30)
[2021-10-21] MEDS ORDERED: AMLO1TAB25 PO (07:42)
[2021-10-21] MEDS ORDERED: SODI650T PO (07:43)
[2021-10-21] MEDS ORDERED: ASPI81CH8 PO (07:43)
[2021-10-21] MEDS ORDERED: TORS20TA2 PO (07:43)
[2021-10-21] MEDS ORDERED: DARB10SYRN SC (07:43)
[2021-10-21] MEDS ORDERED: ACET-683 PO (07:43)
[2021-10-21] MEDS ORDERED: FOLI1TAB11 PO (07:43)
[2021-10-21] MEDS ORDERED: VANC125C3 PO (07:43)
[2021-10-21] MEDS ORDERED: MAGN400T2 PO (07:43)
[2021-10-21] MEDS ORDERED: JANT2TAB PO (07:43)
[2021-10-21] MEDS: LEVEMIR (INSULIN DETEMIR) 1 UNITS/0.01ML SC SCH (08:38)
[2021-10-21] MEDS: VANCOMYCIN ORAL SOL 250MG/5ML ORAL SYRINGE PO SCH (08:38)
[2021-10-21 08:39] VITALS: BP 178/80
[2021-10-21] MEDS: MAGNESIUM OXIDE 400MG TAB (MAG-OX) PO SCH (08:39)
[2021-10-21] MEDS: SODIUM BICARBONATE 325 MG TAB PO SCH (08:39)
[2021-10-21] MEDS: CALCITRIOL 0.25 MCG CAP (S0169) PO SCH (08:39)
[2021-10-21] MEDS: ASPIRIN 81 MG CHEW TABLET PO SCH (08:39)
[2021-10-21] MEDS: LACTOBACILLUS ACIDOPHILUS CAP (BACID) PO SCH (08:39)
[2021-10-21] MEDS: FOLIC ACID 1 MG TAB PO SCH (08:40)
[2021-10-21] MEDS: TORSEMIDE 20 MG TAB PO SCH (08:41)
[2021-10-21] MEDS: **NOTE PATIENT COMMENT** MISC XX SCH (08:41)
[2021-10-21] MEDS: ISOSORBIDE DIN (ISORDIL) 10MG TAB PO SCH (08:41)
[2021-10-21] MEDS ORDERED: METOPROLOL TART 50 MG TAB PO SCH (09:00)
[2021-10-21] MEDS ORDERED: amLODIPine 5 MG TAB PO SCH (09:00)
== END 2021-10-21 10:21 | disposition home or self-care (01) | DRG 57 ==
LOC: M ED 20:26 → M ED INP 10-02 03:17 → ENRESERV 10-02 05:09 → M PCU 10-02 06:06 → M MSPAV 10-03 17:58 → OBSVTOIN 10-04 08:58
PROVIDERS: ADMIT Internal Medicine; ATTEND Internal Medicine Nephrology
PROC: B246ZZZ Ultrasonography of Right and Left Heart (ICD-10-PCS; principal; 2021-10-02)
PROC: 05HC33Z Insertion of Infusion Device into Left Basilic Vein, Percutaneous Approach (ICD-10-PCS; 2021-10-03)
DX: G91.8 Other hydrocephalus (principal); N18.4 Chronic kidney disease, stage 4 (severe); N17.9 Acute kidney failure, unspecified; I50.32 Chronic diastolic (congestive) heart failure; I13.0 Hypertensive heart and chronic kidney disease with heart failure and stage 1 through stage 4 chronic kidney disease, or unspecified chronic kidney disease; N25.81 Secondary hyperparathyroidism of renal origin; N39.0 Urinary tract infection, site not specified; J90 Pleural effusion, not elsewhere classified; A04.71 Enterocolitis due to Clostridium difficile, recurrent; Z66 Do not resuscitate; I27.20 Pulmonary hypertension, unspecified; B96.20 Unspecified Escherichia coli [E. coli] as the cause of diseases classified elsewhere; E11.22 Type 2 diabetes mellitus with diabetic chronic kidney disease; E78.5 Hyperlipidemia, unspecified; I48.91 Unspecified atrial fibrillation; M10.9 Gout, unspecified; D72.829 Elevated white blood cell count, unspecified; R29.6 Repeated falls; R26.89 Other abnormalities of gait and mobility; E11.319 Type 2 diabetes mellitus with unspecified diabetic retinopathy without macular edema; F03.90 Unspecified dementia, unspecified severity, without behavioral disturbance, psychotic disturbance, mood disturbance, and anxiety; L57.0 Actinic keratosis; M48.061 Spinal stenosis, lumbar region without neurogenic claudication; M17.0 Bilateral primary osteoarthritis of knee; D63.1 Anemia in chronic kidney disease; D50.9 Iron deficiency anemia, unspecified; E11.649 Type 2 diabetes mellitus with hypoglycemia without coma; B34.8 Other viral infections of unspecified site; F32.A Depression, unspecified; E11.65 Type 2 diabetes mellitus with hyperglycemia; E87.6 Hypokalemia; R33.9 Retention of urine, unspecified; Z79.899 Other long term (current) drug therapy; Z79.2 Long term (current) use of antibiotics; Z79.01 Long term (current) use of anticoagulants; Z20.822 Contact with and (suspected) exposure to COVID-19